=== PATIENT | male | born 1965 ===

== ENCOUNTER 2018-05-08 13:08 | Inpatient (IN) | payer MEDICARE, OTHER ==
--- NOTE | 2018-05-08 13:42 | C.PDOC ---
History Of Present Illness 53 y/o male with a PMHx of DM, HTN, HLD, and asthma, presents to the ED with complaints of epigastric pain radiating to bilateral back, worse on the right side, since last night. Pain is described as squeezing and intermittent, and r esolves spontaneously. He notes it worsens after eating. These episodes of pain are associated with some SOB and coughing. Patient reports having similar symptoms 2 months ago, went to [facility]. Patient also has had intermittent nausea and 3 episodes of non-bloody vomiting in the last 2 days. Otherwise he denies any fevers, chills, night sweats, dizziness, hemoptysis, bloody or dark stools. He also complains of generalized weakness and diaphoresis, had 1 episode of diarrhea this morning. No rashes. No recent abx. SOB does not feels like asthma per pt. Time Seen by Provider: 05/08/18 13:42 Chief Complaint (Nursing): Shortness Of Breath History Per: Patient History/Exam Limitations: no limitations Onset/Duration Of Symptoms: Days (x2), Intermittent Episodes Current Symptoms Are (Timing): Still Present Quality: Squeezing Past Medical History Reviewed: Historical Data, Nursing Documentation, Vital Signs - Medical History PMH: Asthma, Diabetes, HTN, Hyperlipidemia - [facility] Procedures INTRODUCTION OF SERUM/TOX/VACCINE INTO MUSCLE, PERC APPROACH (03/12/18) Family History: States: Unknown Family Hx - Social History Hx Alcohol Use: Yes Hx Substance Use: No - Immunization History Hx Tetanus Toxoid Vaccination: Yes Hx Influenza Vaccination: Yes Hx Pneumococcal Vaccination: Yes Review Of Systems Constitutional: Positive for: Weakness (generalized). Negative for: Fever, Chills, Sweats Cardiovascular: Positive for: Chest Pain ("tightness") Respiratory: Positive for: Cough, Shortness of Breath Gastrointestinal: Positive for: Nausea, Vomiting, Abdominal Pain (epigastric), Diarrhea. Negative for: Hematochezia, Hematemesis Neurological: Negative for: Headache, Dizziness Physical Exam - Physical Exam Appears: Non-toxic, No Acute Distress Skin: Warm, Dry Head: Normacephalic Eye(s): bilateral: Normal Inspection, PERRL, EOMI Oral Mucosa: Moist Neck: Trachea Midline, Supple, Other (No meningeal signs- negative kernig's and brudzinskis) Chest: Symmetrical Cardiovascular: Rhythm Regular, Other (no rub) Respiratory: No Rales, No Rhonchi, No Wheezing Gastrointestinal/Abdominal: Soft, Tenderness (diffusely TTP), No Guarding, No Rebound Back: CVA Tenderness (Bilateral), No Vertebral Tenderness Extremity: Right: Other (Right BKA), Bilateral: Normal Color And Temperature Pulses: Left Dorsalis Pedis: Normal Neurological/Psych: Oriented x3 ED Course And Treatment - Laboratory Results Result Diagrams: 05/08/18 14:10 05/08/18 14:10 O2 Sat by Pulse Oximetry: 96 (on RA) Pulse Ox Interpretation: Normal Medical Decision Making Medical Decision Making: Impression: 53 y/o M p/w abdominal pain radiating to the back, associated with shortness of breath and chest tightness, + N/V/D. No recent antibiotics. Elevated glucose. No appreciable kussumal breathing or distress on exam. ?Hyperosmolar vs DKA. Will CT given abdominal pain Initial Plan: --EKG --Chest x-ray --CMP --Lipase --Beta hydoxybutyrate --Magnesium --Troponin I --Pro-BNP --CBC --UA --IV fluids x 1 bolus 1520 No GAP on labs elevated glucose K unremarkable fluids running. insulin given. lipase unremarkable trop unremarkable pending imaging EK, NSR, no STEMI CT resulted: Grossly abnormal appearing pancreas and extensive pancreatitis with possible necrosis (at this time non gas-forming) needs to be considered. Peripancreatic inflammatory changes present. Pancreatic head and uncinate process spared. Additional concomitant pancreatic pathology including neoplastic pancreatic isodense mass(es) and ductal dilatation in this grossly abnormal segment are possible. No pancreatic calcifications. Continued close follow-up and clinical correlation with labs recommended. Contiguous hypodensity in superior mesenteric vein-thrombus here needs to be considered. No peripancreatic suspicious lymphadenopathy. Innumerable left and right liver masses infectious inflammatory masses and/or metastatic masses needed be considered. Pancreatic abnormality as noted above. Right pleural effusion. 16:57 Paged surgical garment inspector 17:30 resident care technician called back, pt has davin care and requires consult from on-call surgeon, Dr. Musa. 17:[address] Musa for surgical consult. 18:00 Awaiting call back from Dr. Musa. Second page. 18:27 Still pending call back. Third page. 18:[address] Musa, who requests patient be admitted under medical service. as well as RUQ and amylase 18:36 Non hyperosmolar on labs, Non DKA given no gap, normal bicarb: fluids continued. NPO Spoke with Dr. Emerson Valladares- to be admitted to Dr. Monae William service. Pt agreeable Pt in NAD bedside, resting comfortably Disposition - Disposition Disposition Time: 18:40 Condition: GOOD Forms: [employer] [employer] (Egyptian) - Clinical Impression Clinical Impression: Pancreatitis - Scribe Statement The provider has reviewed the documentation as recorded by the Shannon Hampton Provider Attestation: All medical record entries made by the Kaitlinibe were at my direction and personally dictated by me. I have reviewed the chart and agree that the record accurately reflects my personal performance of the history, physical exam, m edical decision making, and the department course for this patient. I have also personally directed, reviewed, and agree with the discharge instructions and disposition.
[2018-05-08 14:19] LABS: BASO % 0.6 % (0.0-2.0); EOS # 0.1 K/uL (0.0-0.7); EOS % 1.5 % (0.0-4.0); HEMOGLOBIN 12.5 g/dL (12.0-18.0); LYMPH # 1.2 K/uL (1.0-4.3); LYMPH % 18.1 % (20.0-40.0); MEAN CELL VOLUME 88.1 fL (80.0-94.0); MEAN CORPUSCULAR HEMOGLOBIN 29.3 pg (27.0-31.0); MEAN CORPUSCULAR HGB CONC 33.3 g/dL (33.0-37.0); MEAN PLATELET VOLUME 7.8 fL (7.2-11.7); MONO # 0.6 K/uL (0.0-0.8); MONO % 8.5 % (0.0-10.0); NEUT # 4.7 K/uL (1.8-7.0); NEUT % 71.3 % (50.0-75.0); RBC 4.25 Mil/uL (4.40-5.90); RED CELL DISTRIBUTION WIDTH 13.7 % (11.5-14.5); WHITE BLOOD COUNT 6.5 K/uL (4.8-10.8)
[2018-05-08 14:20] LABS: SQUAMOUS EPITHIAL < 1 /hpf (0-5); URINE BILIRUBIN NEGATIVE (NEGATIVE); URINE BLOOD 1+ (NEGATIVE); URINE CLARITY Clear (Clear); URINE COLOR Yellow (YELLOW); URINE GLUCOSE (UA) 3+ mg/dL (Normal); URINE LEUKOCYTE ESTERASE NEG Leu/uL (Negative); URINE PROTEIN 2+ mg/dL (NEGATIVE); URINE UROBILINOGEN NORMAL mg/dL (0.2-1.0)
[2018-05-08] MEDS ORDERED: Sodium Chloride 0.9% 1,000 ML IV SCH (14:30)
[2018-05-08] MEDS ORDERED: Sodium Chloride 0.9% 1,000 ML ONE (14:31)
[2018-05-08 14:34] LABS: CALCIUM 8.6 mg/dl (8.6-10.4)
[2018-05-08 14:44] LABS: B-TYPE NATRIURETIC PEPTIDE 155 pg/mL (0-900)
[2018-05-08 14:49] LABS: ALBUMIN 3.7 g/dL (3.5-5.0); ALT/SGPT 77 U/L (21-72); AST/SGOT 67 U/L (17-59); BLOOD UREA NITROGEN 16 mg/dL (9-20); GFR NON-AFRICAN AMERICAN > 60; LIPASE 195 U/L (23-300)
[2018-05-08] MEDS ORDERED: (Novolin R) Insulin Human Regular 100 units/ml vial IVP ONE (14:59)
[2018-05-08] MEDS ORDERED: (Novolin R) Insulin Human Regular 100 units/ml vial ONE (15:18)
[2018-05-08] MEDS: Sodium Chloride 0.9% 1,000 ML IV SCH ×2 (15:20→21:09)
[2018-05-08] MEDS ORDERED: Iohexol 300 100 ML IJ ONE (15:30)
[2018-05-08] MEDS ORDERED: Iodixanol 320 MG/ML 100 ML BOTTLE IV ONE (16:11)
--- NOTE | 2018-05-08 16:20 | RAD ---
Date of service: 05/08/2018 HISTORY: sob COMPARISON: No prior. TECHNIQUE: Chest PA and lateral FINDINGS: LUNGS: No active pulmonary disease. Linear scarring right lower lobe. PLEURA: No significant pleural effusion identified. No pneumothorax apparent. CARDIOVASCULAR: No aortic atherosclerotic calcification present. Normal cardiac size. No pulmonary vascular congestion. OSSEOUS STRUCTURES: No significant abnormalities. VISUALIZED UPPER ABDOMEN: Normal. OTHER FINDINGS: None. IMPRESSION: No active disease. Concordant results with the preliminary interpretation rendered by the emergency department physician procedure.
[2018-05-08] MEDS ORDERED: Morphine 4 MG/ML VIAL ONE (16:33)
--- NOTE | 2018-05-08 16:53 | CT ---
Date of service: 05/08/2018 PROCEDURE: CT Abdomen and Pelvis with contrast HISTORY: abd pain COMPARISON: None. TECHNIQUE: Contrast dose: 100 mL Visipaque 320 Radiation dose: Total exam DLP = 838.71 mGy-cm. This CT exam was performed using one or more of the following dose reduction techniques: Automated exposure control, adjustment of the mA and/or kV according to patient size, and/or use of iterative reconstruction technique. FINDINGS: LOWER THORAX: Right middle lobe subsegmental atelectasis. Bordering pleural thickening visceral and parietal. Right pleural effusion. Multifocal bibasilar low-density coalescing opacities-atelectatic changes and/or infiltrates with uneven areas of ventilation are considerations. Follow-up recommended. Lingular thread-like atelectasis and/or scarring. LIVER: Innumerable left and right liver hypodensities varying in size from a few mm to the largest measuring 2.6 to 3.7 cm in the right hepatic lobe just lateral to the patent right main portal vein. This largest lesion has an ill-defined thick rim of mild increased hyperdensity/possibly surrounding enhancement. Metastatic lesions as well as all abscesses considerations. No dilated ducts appreciated. GALLBLADDER AND BILE DUCTS: Unremarkable. PANCREAS: Nearly affecting the entire pancreas is diffuse abnormal pancreatic swelling extensive abnormal hypodensity with peripancreatic fat inflammatory changes. The pancreatic margins here or the regular. Relative sparing of the pancreatic head uncinate process noted. An extensive pancreatitis with possible necrosis is 1 consideration. No gas-forming necrosis here appreciated. A concomitant mass within this extensive diffuse abnormal only swollen and abnormally hypodense appearing pancreas also is consideration. A component of concomitant extensive nearly isodense dilated duct in portions of the pancreatic body and tail cannot be excluded. No calcifications here seen. Findings are in close proximity with gastric upper body. No suspect peripancreatic lymph nodes noted. Splenic artery appears patent with calcification as does the portal vein. Relative hypodensity in the superior mesenteric vein may represent contiguous thrombus here. SPLEEN: Unremarkable. ADRENALS: Unremarkable. No mass. KIDNEYS AND URETERS: Posterior right renal cortical exophytic cyst 2.4 cm. No suspicious appearing renal masses. No hydronephrosis. VASCULATURE: Splenic artery appears patent with calcification as does the portal vein. Relative hypodensity in the superior mesenteric vein may represent contiguous thrombus here. No aortic aneurysm. No aortic atherosclerotic calcification or mural plaque present. More distal common iliac and groin atherosclerotic vascular calcifications are present. BOWEL: Moderate stool retention. No obstruction. No gross mural thickening. APPENDIX: No pericecal inflammatory changes. A definitive appendix is not clearly identified it may be possibly present on series 2, image 52. PERITONEUM: Trace fluid just inferior to the right inferior liver border and a contiguous bowel loops ovaries axis series 2, image 47 possible. No free air. LYMPH NODES: Unremarkable. No enlarged lymph nodes. BLADDER: Moderately distended otherwise unremarkable REPRODUCTIVE: Prostate and seminal vesicles unremarkable BONES: No acute fracture. OTHER FINDINGS: None. IMPRESSION: Grossly abnormal appearing pancreas and extensive pancreatitis with possible necrosis (at this time non gas-forming) needs to be considered. Peripancreatic inflammatory changes present. Pancreatic head and uncinate process spared. Additional concomitant pancreatic pathology including neoplastic pancreatic isodense mass(es) and ductal dilatation in this grossly abnormal segment are possible. No pancreatic calcifications. Continued close follow-up and clinical correlation with labs recommended Contiguous hypodensity in superior mesenteric vein-thrombus here needs to be considered. No peripancreatic suspicious lymphadenopathy. Innumerable left and right liver masses infectious inflammatory masses and/or metastatic masses needed be considered. Pancreatic abnormality as noted above. Right pleural effusion. Comments: Study marked for PA review .
[2018-05-08] MEDS ORDERED: (Lantus) Insulin Glargine, Recombinant SC SCH (23:45)
[2018-05-08] MEDS ORDERED: Multivitamin (MVI) 10 ML, Thiamine 100 MG, Folic Acid 1 MG in Sodium Chloride 0.9% 1,00... IV ONE (23:52)
[2018-05-08] MEDS ORDERED: Glucagon Recombinant 1 mg Inj IM PRN (23:53)
[2018-05-08] MEDS ORDERED: Dextrose 50% SYRINGE Inj (50 ml) IV PRN (23:53)
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
[2018-05-09 07:00] LABS: BASO % 0.4 % (0.0-2.0); EOS # 0.2 K/uL (0.0-0.7); EOS % 2.4 % (0.0-4.0); HEMOGLOBIN 11.5 g/dL (12.0-18.0); LYMPH # 1.2 K/uL (1.0-4.3); LYMPH % 18.6 % (20.0-40.0); MEAN CORPUSCULAR HEMOGLOBIN 29.4 pg (27.0-31.0); MEAN CORPUSCULAR HGB CONC 34.1 g/dL (33.0-37.0); MEAN PLATELET VOLUME 7.6 fL (7.2-11.7); MONO # 0.6 K/uL (0.0-0.8); MONO % 9.7 % (0.0-10.0); NEUT # 4.4 K/uL (1.8-7.0); NEUT % 68.9 % (50.0-75.0); RBC 3.91 Mil/uL (4.40-5.90); RED CELL DISTRIBUTION WIDTH 13.7 % (11.5-14.5); WHITE BLOOD COUNT 6.4 K/uL (4.8-10.8)
[2018-05-09] MEDS ORDERED: Sodium Chloride 0.9% 1,000 ML IV SCH (07:00)
[2018-05-09] MEDS ORDERED: (Novolog) Insulin Aspart, Recombinant 100 u/ml 10 ml vial SC SCH (07:30)
[2018-05-09 07:31] LABS: ALB/GLOB RATIO 0.9 (1.0-2.1); ALBUMIN 3.1 g/dL (3.5-5.0); ALT/SGPT 62 U/L (21-72); AST/SGOT 51 U/L (17-59); BLOOD UREA NITROGEN 11 mg/dL (9-20); CALCIUM 8.2 mg/dl (8.6-10.4); GFR NON-AFRICAN AMERICAN > 60
[2018-05-09 07:39] LABS: MEAN CELL VOLUME 86.1 fL (80.0-94.0)
[2018-05-09 07:46] LABS: HEPATITIS B SURFACE AG Negative (NEGATIVE)
[2018-05-09 07:52] LABS: HEPATITIS A IGM NEGATIVE (NEGATIVE); HEPATITIS B CORE AB NEGATIVE (NEGATIVE)
[2018-05-09 08:04] LABS: HEPATITIS C ANTIBODY NEGATIVE (NEGATIVE)
--- NOTE | 2018-05-09 08:47 | US ---
Date of service: 05/08/2018 HISTORY: abd pain COMPARISON: None. TECHNIQUE: Sonographic evaluation of the right upper quadrant of the abdomen. FINDINGS: LIVER: Measures 19.6 cm in length. Diffusely increased echogenicity of the liver parenchyma. Consistent with fatty infiltration. Multiple hepatic masses are identified, the largest of which is in the right lobe, measuring 2.2 x 2.6 x 2.6 cm. Multiple additional smaller masses are identified. Concerning for metastatic disease. Additional evaluation advised. Normal hepatopetal portal venous flow. Smooth contour. No biliary dilatation. GALLBLADDER: Unremarkable. No gallstones. COMMON BILE DUCT: Measures 6 mm. No stones. No dilatation. PANCREAS: Unremarkable as visualized. No mass. No ductal dilatation. RIGHT KIDNEY: Measures 12.1 cm in length. Normal echogenicity. No calculus or hydronephrosis. Upper pole simple cortical cyst, 1.7 x 2.1 x 2.1 cm. AORTA: No aneurysmal dilatation. IVC: Unremarkable. OTHER FINDINGS: None . IMPRESSION: Multiple hepatic masses concerning for metastasis. Additional evaluation advised. Fatty infiltration of the liver. Incidental right upper pole renal cortical cyst. The preliminary findings for this examination were reported by [facility] at 9:50 p.m. on 05/08/2018. There is concurrence of this report with the preliminary findings.
--- NOTE | 2018-05-09 09:40 | CP.PCM.PN ---
<Obie Muller - Last Filed: 05/09/18 16:55> Subjective - Date & Time of Evaluation Date of Evaluation: 05/09/18 Time of Evaluation: 07:39 - Subjective Subjective: PGY-1 Medicine progress note for Dr. Hayley Valladares Pt was seen and examined at bedside. Pt is resting comfortably. He reports that he is hungry, but still has epigastric abdominal pain. Pt denies fever, chills, chest pain, sob, n/v/d, hematochezia, melena, visual disturbances, lightheadedness, headache, dizziness, weakness. Objective - Vital Signs/Intake and Output Vital Signs (last 24 hours): Temp Pulse Resp BP Pulse Ox 98.6 F 88 18 154/85 H 97 05/09/18 07:00 05/09/18 07:00 05/09/18 07:00 05/09/18 07:00 05/09/18 07:00 Intake and Output: 05/09/18 05/09/18 06:59 18:59 Intake Total 1400 Output Total 700 Balance 700 - Medications Medications: Current Medications Dextrose (Dextrose 50% Inj) 0 ml IV STAT PRN; Protocol PRN Reason: Hypoglycemia Protocol Dextrose (Glutose 15) 0 gm PO ONCE PRN; Protocol PRN Reason: Hypoglycemia Protocol Glucagon (Glucagen Diagnostic Kit) 0 mg IM STAT PRN; Protocol PRN Reason: Hypoglycemia Protocol Dextrose (Dextrose 5% In Water 1000 Ml) 1,000 mls @ 0 mls/hr IV .Q0M PRN; Protocol PRN Reason: Hypoglycemia Protocol Sodium Chloride (Sodium Chloride 0.9%) 1,000 mls @ 150 mls/hr IV .Q6H40M CARL Last Admin: 05/09/18 07:23 Dose: 150 mls/hr Insulin Aspart (Novolog) 0 unit SC ACHS CARL; Protocol Last Admin: 05/09/18 08:09 Dose: 3 units Insulin Glargine (Lantus) 20 unit SC HS [facility] Last Admin: 05/09/18 00:18 Dose: 20 units Losartan Potassium (Cozaar) 50 mg PO DAILY CARL Morphine Sulfate (Morphine) 1 mg IVP Q4 PRN PRN Reason: Pain, moderate (4-7) Last Admin: 05/09/18 07:28 Dose: 1 mg - Labs Labs: 05/09/18 06:51 05/09/18 06:51 - Constitutional Appears: Non-toxic, No Acute Distress - Head Exam Head Exam: ATRAUMATIC, NORMAL INSPECTION - Eye Exam Eye Exam: EOMI - ENT Exam ENT Exam: Mucous Membranes Moist - Respiratory Exam Respiratory Exam: Clear to Ausculation Bilateral. absent: Rales, Rhonchi, Wheezes, Respiratory Distress, Stridor - Cardiovascular Exam Cardiovascular Exam: REGULAR RHYTHM, +S1, +S2. absent: Tachycardia, JVD, Murmur - GI/Abdominal Exam GI & Abdominal Exam: Distended, Guarding, Soft, Tenderness (moderate TTP in the upper quadrants of the abdomen, more so in the epigrastric region. (-) masterson's sign; some alleviation of pain after leaning forward), Normal Bowel Sounds. absent: Firm, Rigid - Extremities Exam Extremities Exam: Full ROM, Normal Inspection. absent: Calf Tenderness, Pedal Edema - Back Exam Back Exam: NORMAL INSPECTION - Neurological Exam Neurological Exam: Alert, Awake, Oriented x3 - Psychiatric Exam Psychiatric exam: Normal Affect, Normal Mood - Skin Skin Exam: Normal Color, Warm Assessment and Plan - Assessment and Plan (Free Text) Assessment: 53yoM PMH HTN, HLD, DM, pancreatitis who presented with [place] and epigastric abdomnial pain, radiating to the back. Abd/Pelv Ct showed necrotizing pancreatitis, nongas-forming, with suspician for SMV thrombus, as well as innumerable liver masses. Vascular surgery was consulted for necrotizing pancreatitis and possible SMV thrombus. GI was consulted for necrotizing pancreatitis. Heme/Onc was consulted due to liver masses, possible mets. Plan: Pancreatitis with Necrosis - CT A/P with IV contrast (05/08): grossly abnormal appearing pancreas with extensive pancreatitis and necrosis. At time of imaging, non-gas forming. Contiguous hypodensity in SMV; thrombus must be considered. Innumerable liver masses. Right pleural effusion - US Abd (05/08): Multiple hepatic masses. Fatty infiltrate. Incidental right upper pole renal cortical cyst. - AST/ALT 67/77 on admission, Alk Phos 438 - Trop neg, ProBNP 155 - amylase 67, lipase 195 - UA 2+ protein, 3+ glucose, 1+ blood - Hepatitis panel is negative, PK is 50 - Continue NS IVF at 200 mL/hr - Morphine 1mg IVP q4 prn - Vascular Surgery consulted: Dr. Musa - No need for surgical intervention at time of admission - Heme/Onc consult and IR consult for CT guided biopsy of liver and pancreas - Abd/Pelv CT results were reviewed with Dr. Musa, who reports no need for Abd/Pelv CTA or intervention for possible SMV thrombus at this time. - Hematology/Oncolgy, Dr. Rangel, consulted due to liver masses - will f/u with recs - Interventional radiology, Dr. Wetzle, consulted for CT-guided biopsy of liver m asses and possibly pancreatic biopsy - Gastroenterology, Dr. Montelongo, consulted - Possible sterile necrosis within pancreas. Cannot exclude pancreatic mass. - Liver lesions are hypodense and worrisome for metastatic disease - F/U CT angio for ?SMV thrombus - Continue Lovenox - IR has been consulted for possible liver biopsy - F/u tumor markers - Patient would benefit from dedicated pancreatic imaging following resolution of acute inflammatory process - No clear for antibiotic therapy for pancreatic necrosis. Necrosis is likely sterile. No obvious signs of infection at this time. - would benefit from dedicated pancreatic imaging following resolution of acute inflammatory process - Continue aggressive IVF - Elevated tumor markers: CA 19-9 is over 10,000, CEA is 251, CEA 125 is 203 - F/u Alpha fetoprotein - continue NPO - Primaxin discontinued Possible SMV thrombus, r/o ischemia - Abd/Pelv with IV contrast CT shows contiguous hypodensity of SMV, thrombus must be considered - f/u Abd/pelv CTA to r/o ischemia - Therapeutic Lovenox 80 mg SC Q12H Left and right liver masses, possible infection vs mets - Gastroenterology consulted, Dr. Montelongo - see above - Hematology/Oncolgy, Dr. Rangel, consulted - will f/u with recs Right pleural effusion noted on Abd/Pelv CT - CXR (05/08): no active disease - will continue to monitor - pt is hemodynamically stable HTN - Continue home Losartan 50 mg PO daily Insulin Dependant Diabetes Mellitus - BG 611 on admission. came down as hydrated - beta Hydroxy 0.41 - HgA1c is 13.5 - Levemir 20u sc HS - Accuchecks q6h - ISS medium - hypoglycemia protocol Pseudo Hyponatremia, resolved - will continue to monitor PPx - DVT: SCDs, ot is on therapeutic lovenox for possible SMV thrombus - GI: not indicated - Diet: NPO Case discussed with Dr. Hayley Muller PGY-1 <Emerson Valladares - Last Filed: 05/10/18 00:49> Objective - Vital Signs/Intake and Output Vital Signs (last 24 hours): Temp Pulse Resp BP Pulse Ox 98.4 F 88 20 144/87 97 05/09/18 15:31 05/09/18 15:31 05/09/18 15:31 05/09/18 15:31 05/09/18 15:31 Intake and Output: 05/09/18 05/10/18 18:59 06:59 Intake Total 1050 Output Total 300 Balance -300 1050 - Medications Medications: Current Medications Dextrose (Dextrose 50% Inj) 0 ml IV STAT PRN; Protocol PRN Reason: Hypoglycemia Protocol Dextrose (Glutose 15) 0 gm PO ONCE PRN; Protocol PRN Reason: Hypoglycemia Protocol Enoxaparin Sodium (Lovenox) 80 mg SC Q12H CARL Last Admin: 05/09/18 21:40 Dose: 80 mg Glucagon (Glucagen Diagnostic Kit) 0 mg IM STAT PRN; Protocol PRN Reason: Hypoglycemia Protocol Dextrose (Dextrose 5% In Water 1000 Ml) 1,000 mls @ 0 mls/hr IV .Q0M PRN; Protocol PRN Reason: Hypoglycemia Protocol Sodium Chloride (Sodium Chloride 0.9%) 1,000 mls @ 200 mls/hr IV .Q5H ACRL Last Admin: 05/09/18 16:09 Dose: 200 mls/hr Insulin Aspart (Novolog) 0 unit SC Q6H CARL; Protocol Last Admin: 05/10/18 00:01 Dose: Not Given Losartan Potassium (Cozaar) 50 mg PO DAILY CARL Last Admin: 05/09/18 10:27 Dose: 50 mg Morphine Sulfate (Morphine) 1 mg IVP Q4 PRN PRN Reason: Pain, moderate (4-7) Last Admin: 05/09/18 22:08 Dose: 1 mg Rosuvastatin Calcium (Crestor) 5 mg PO HS CARL Last Admin: 05/09/18 21:06 Dose: 5 mg - Labs Labs: 05/09/18 06:51 05/09/18 06:51 Attending/Attestation - Attestation I have personally seen and examined this patient.: Yes I have fully participated in the care of the patient.: Yes I have reviewed all pertinent clinical information, including history, physical exam and plan: Yes Notes (Text): 05/10/18 00:45 Patient was seen and examined at 10:45 AM 05/09/18. Care of this patient was gone over in detail with resident Dr. Muller. CTA Abdomen Pelvis did not show any evidence of occlusion or stenosis, NO AAA, NO aortic dissection. However did show large area of hypoattenuation involving the pancreatic body suspicious for mass lesion. At time of exam, patient was informed of the suspicious nature of the lesions in the liver and the need for biopsy. IR has been consulted for FNA biopsy of both the liver lesions and the pancreas. However, only the liver lesions will likely be biopsied. Emerson Valladares D.O.
[2018-05-09] MEDS: Sodium Chloride 0.9% 1,000 ML IV SCH ×2 (10:31→16:09)
[2018-05-09] MEDS ORDERED: Enoxaparin 60 mg Syringe SC SCH (10:45)
--- NOTE | 2018-05-09 11:57 | CP.PCM.CON ---
<MarilynmaximusharjitLouie - Last Filed: 05/09/18 13:35> History of Present Illness - History of Present Illness History of Present Illness: GI Fellow PGY4, consult note. Abner Alvarado is a pleasant 53M with history of uncontrolled T2DM, alcoholic pancreatitis presenting with abdominal pain. Pain started after smoking cigarettes and drinking TWO 6-packs of Heineken. The pain has progressively worsening until it was very severe yesterday which brought him to the hospital. He was found to have pancreatitis with necrosis on CT imaging. He was in [place] 1 month ago with alcoholic pancreatitis. CT also found possible SMV thrombus, multiple liver lesions consistent with possible metastatic disease. He admits some weight loss in the last few months along with bed-drenching night sweats, however he cannot quantify weight loss. Today, patient is sitting up, appears comfortable, requesting food. Afebrile, HDS. He has been started on empiric abx and therapeutic Lovenox. PMHx - As above PSHx - LE amputation due to diabetic feet. NO endoscopic procedures. FMHx - Denies history of pancreatic, colon, gastric, liver cancers. Denies history of pancreas or liver problems. SocHx - Continues to abuse alcohol and current smoker. Lives at home alone, not . 12pt ROS completed and negative except for above. Past Patient History - Infectious Disease Hx of Infectious Diseases: None - Past Medical History & Family History Past Medical History?: Yes - Past Social History Smoking Status: Current Some Days Smoker Alcohol: Social Drugs: Denies - CARDIAC Hx Cardiac Disorders: Yes Hx Hypertension: Yes - PULMONARY Hx Respiratory Disorders: Yes Hx Asthma: Yes - ENDOCRINE/METABOLIC Hx Endocrine Disorders: Yes Hx Diabetes Mellitus Type 1: Yes - MUSCULOSKELETAL/RHEUMATOLOGICAL Hx Musculoskeletal Disorders: No Hx Falls: No - PSYCHIATRIC Hx Psychophysiologic Disorder: No Hx Substance Use: No - SURGICAL HISTORY Hx Surgeries: Yes Hx Amputation: Yes (Right BKA, Left TMA) Other/Comment: RBKA, left toes amputation - ANESTHESIA Hx Anesthesia: Yes Hx Anesthesia Reactions: No Meds Allergies/Adverse Reactions: Allergies Allergy/AdvReac Type Severity Reaction Status Date / Time FISH Allergy RASH Verified 03/12/18 16:06 hazelnut Allergy RASH Verified 03/12/18 16:06 - Medications Medications: Current Medications Dextrose (Dextrose 50% Inj) 0 ml IV STAT PRN; Protocol PRN Reason: Hypoglycemia Protocol Dextrose (Glutose 15) 0 gm PO ONCE PRN; Protocol PRN Reason: Hypoglycemia Protocol Enoxaparin Sodium (Lovenox) 60 mg SC Q12 CARL Last Admin: 05/09/18 11:25 Dose: 60 mg Glucagon (Glucagen Diagnostic Kit) 0 mg IM STAT PRN; Protocol PRN Reason: Hypoglycemia Protocol Dextrose (Dextrose 5% In Water 1000 Ml) 1,000 mls @ 0 mls/hr IV .Q0M PRN; Protocol PRN Reason: Hypoglycemia Protocol Imipenem/Cilastatin Sodium 500 (mg/ Sodium Chloride) 100 mls @ 100 mls/hr IVPB Q6H CARL; Protocol Sodium Chloride (Sodium Chloride 0.9%) 1,000 mls @ 200 mls/hr IV .Q5H CARL Last Admin: 05/09/18 10:31 Dose: 200 mls/hr Insulin Aspart (Novolog) 0 unit SC Q6H CARL; Protocol Losartan Potassium (Cozaar) 50 mg PO DAILY [facility] Last Admin: 05/09/18 10:27 Dose: 50 mg Morphine Sulfate (Morphine) 1 mg IVP Q4 PRN PRN Reason: Pain, moderate (4-7) Last Admin: 05/09/18 07:28 Dose: 1 mg Rosuvastatin Calcium (Crestor) 5 mg PO HS [facility] Physical Exam - Constitutional Appears: Non-toxic, No Acute Distress - Head Exam Head Exam: NORMAL INSPECTION, NORMOCEPHALIC - Eye Exam Eye Exam: EOMI, Normal appearance - ENT Exam ENT Exam: Mucous Membranes Moist, Normal Exam - Respiratory Exam Respiratory Exam: Clear to Auscultation Bilateral, NORMAL BREATHING PATTERN Additional comments: Crackles right lung base. - Cardiovascular Exam Cardiovascular Exam: REGULAR RHYTHM, +S1, +S2 - GI/Abdominal Exam GI & Abdominal Exam: Normal Bowel Sounds, Soft, Tenderness. absent: Organomegaly - Neurological Exam Neurological exam: Alert, CN II-XII Intact, Oriented x3 - Skin Skin Exam: Dry, Normal Color Results - Vital Signs Recent Vital Signs: Last Vital Signs Temp 98.6 F 05/09/18 07:00 Pulse 88 05/09/18 07:00 Resp 18 05/09/18 07:00 BP 154/85 H 05/09/18 07:00 Pulse Ox 97 05/09/18 07:00 - Labs Result Diagrams: 05/09/18 06:51 05/09/18 06:51 Labs: Laboratory Results - last 24 hr 05/08/18 05/08/18 05/08/18 13:29 13:33 14:10 WBC 6.5 RBC 4.25 L Hgb 12.5 Hct 37.4 MCV 88.1 MCH 29.3 MCHC 33.3 RDW 13.7 Plt Count 225 MPV 7.8 Neut % (Auto) 71.3 Lymph % (Auto) 18.1 L Bibb % (Auto) 8.5 Eos % (Auto) 1.5 Baso % (Auto) 0.6 Neut # (Auto) 4.7 Lymph # (Auto) 1.2 Bibb # (Auto) 0.6 Eos # (Auto) 0.1 Baso # (Auto) 0.0 Sodium Potassium Chloride Carbon Dioxide Anion Gap BUN Creatinine Est GFR ( Amer) Est GFR (Non-Af Amer) POC Glucose (mg/dL) > 500 H* > 500 H* Random Glucose Hemoglobin A1c Serum Osmolality Calcium Phosphorus Magnesium Total Bilirubin AST ALT Alkaline Phosphatase Total Creatine Kinase Troponin I NT-Pro-B Natriuret Pep Total Protein Albumin Globulin Albumin/Globulin Ratio Amylase Lipase Urine Color Urine Clarity Urine pH Ur Specific [place] Urine Protein Urine Glucose (UA) Urine Ketones Urine Blood Urine Nitrate Urine Bilirubin Urine Urobilinogen Ur Leukocyte Esterase Urine WBC (Auto) Urine RBC (Auto) Ur Squamous Epith Cells B-Hydroxybutyrate Hepatitis A IgM Ab Hep Bs Antigen Hep Bs Antibody Hep B Core IgM Ab Hepatitis C Antibody 05/08/18 05/08/18 05/08/18 14:10 14:10 16:32 WBC RBC Hgb Hct MCV MCH MCHC RDW Plt Count MPV Neut % (Auto) Lymph % (Auto) Bibb % (Auto) Eos % (Auto) Baso % (Auto) Neut # (Auto) Lymph # (Auto) Bibb # (Auto) Eos # (Auto) Baso # (Auto) Sodium 128 L Potassium 4.7 Chloride 93 L Carbon Dioxide 25 Anion Gap 15 BUN 16 Creatinine 0.8 Est GFR ( Amer) > 60 Est GFR (Non-Af Amer) > 60 POC Glucose (mg/dL) 355 H Random Glucose 611 H* Hemoglobin A1c Serum Osmolality Calcium 8.6 Phosphorus Magnesium 1.9 Total Bilirubin 0.9 AST 67 H D ALT 77 H Alkaline Phosphatase 438 H D Total Creatine Kinase Troponin I < 0.0120 NT-Pro-B Natriuret Pep 155 Total Protein 7.3 Albumin 3.7 Globulin 3.6 Albumin/Globulin Ratio 1.0 Amylase Lipase 195 Urine Color Yellow Urine Clarity Clear Urine pH 7.0 Ur Specific [place] 1.030 Urine Protein 2+ H Urine Glucose (UA) 3+ H Urine Ketones Negative Urine Blood 1+ H Urine Nitrate Negative Urine Bilirubin Negative Urine Urobilinogen Normal Ur Leukocyte Esterase Neg Urine WBC (Auto) 1 Urine RBC (Auto) 4 H Ur Squamous Epith Cells < 1 B-Hydroxybutyrate 0.41 H Hepatitis A IgM Ab Hep Bs Antigen Hep Bs Antibody Hep B Core IgM Ab Hepatitis C Antibody 05/08/18 05/08/18 05/08/18 16:44 18:22 18:49 WBC RBC Hgb Hct MCV MCH MCHC RDW Plt Count MPV Neut % (Auto) Lymph % (Auto) Bibb % (Auto) Eos % (Auto) Baso % (Auto) Neut # (Auto) Lymph # (Auto) Bibb # (Auto) Eos # (Auto) Baso # (Auto) Sodium Potassium Chloride Carbon Dioxide Anion Gap BUN Creatinine Est GFR ( Amer) Est GFR (Non-Af Amer) POC Glucose (mg/dL) 310 H Random Glucose Hemoglobin A1c Serum Osmolality 314 H Calcium Phosphorus Magnesium Total Bilirubin AST ALT Alkaline Phosphatase Total Creatine Kinase Troponin I NT-Pro-B Natriuret Pep Total Protein Albumin Globulin Albumin/Globulin Ratio Amylase 67 Lipase Urine Color Urine Clarity Urine pH Ur Specific [place] Urine Protein Urine Glucose (UA) Urine Ketones Urine Blood Urine Nitrate Urine Bilirubin Urine Urobilinogen Ur Leukocyte Esterase Urine WBC (Auto) Urine RBC (Auto) Ur Squamous Epith Cells B-Hydroxybutyrate Hepatitis A IgM Ab Hep Bs Antigen Hep Bs Antibody Hep B Core IgM Ab Hepatitis C Antibody 05/09/18 05/09/18 05/09/18 03:35 06:23 06:51 WBC 6.4 RBC 3.91 L Hgb 11.5 L Hct 33.6 L MCV 86.1 D MCH 29.4 MCHC 34.1 RDW 13.7 Plt Count 200 MPV 7.6 Neut % (Auto) 68.9 Lymph % (Auto) 18.6 L Bibb % (Auto) 9.7 Eos % (Auto) 2.4 Baso % (Auto) 0.4 Neut # (Auto) 4.4 Lymph # (Auto) 1.2 Bibb # (Auto) 0.6 Eos # (Auto) 0.2 Baso # (Auto) 0.0 Sodium Potassium Chloride Carbon Dioxide Anion Gap BUN Creatinine Est GFR ( Amer) Est GFR (Non-Af Amer) POC Glucose (mg/dL) 243 H 209 H Random Glucose Hemoglobin A1c Serum Osmolality Calcium Phosphorus Magnesium Total Bilirubin AST ALT Alkaline Phosphatase Total Creatine Kinase Troponin I NT-Pro-B Natriuret Pep Total Protein Albumin Globulin Albumin/Globulin Ratio Amylase Lipase Urine Color Urine Clarity Urine pH Ur Specific [place] Urine Protein Urine Glucose (UA) Urine Ketones Urine Blood Urine Nitrate Urine Bilirubin Urine Urobilinogen Ur Leukocyte Esterase Urine WBC (Auto) Urine RBC (Auto) Ur Squamous Epith Cells B-Hydroxybutyrate Hepatitis A IgM Ab Hep Bs Antigen Hep Bs Antibody Hep B Core IgM Ab Hepatitis C Antibody 05/09/18 05/09/18 05/09/18 06:51 06:51 06:51 WBC RBC Hgb Hct MCV MCH MCHC RDW Plt Count MPV Neut % (Auto) Lymph % (Auto) Bibb % (Auto) Eos % (Auto) Baso % (Auto) Neut # (Auto) Lymph # (Auto) Bibb # (Auto) Eos # (Auto) Baso # (Auto) Sodium 133 Potassium 3.8 Chloride 99 Carbon Dioxide 25 Anion Gap 12 BUN 11 Creatinine 0.7 L Est GFR ( Amer) > 60 Est GFR (Non-Af Amer) > 60 POC Glucose (mg/dL) Random Glucose 236 H Hemoglobin A1c 13.5 H Serum Osmolality Calcium 8.2 L Phosphorus 3.1 Magnesium 1.7 Total Bilirubin 0.9 AST 51 ALT 62 Alkaline Phosphatase 298 H D Total Creatine Kinase 50 L Troponin I NT-Pro-B Natriuret Pep Total Protein 6.4 Albumin 3.1 L Globulin 3.3 Albumin/Globulin Ratio 0.9 L Amylase Lipase Urine Color Urine Clarity Urine pH Ur Specific [place] Urine Protein Urine Glucose (UA) Urine Ketones Urine Blood Urine Nitrate Urine Bilirubin Urine Urobilinogen Ur Leukocyte Esterase Urine WBC (Auto) Urine RBC (Auto) Ur Squamous Epith Cells B-Hydroxybutyrate Hepatitis A IgM Ab Negative Hep Bs Antigen Negative Hep Bs Antibody Hep B Core IgM Ab Negative Hepatitis C Antibody Negative 05/09/18 06:51 WBC RBC Hgb Hct MCV MCH MCHC RDW Plt Count MPV Neut % (Auto) Lymph % (Auto) Bibb % (Auto) Eos % (Auto) Baso % (Auto) Neut # (Auto) Lymph # (Auto) Bibb # (Auto) Eos # (Auto) Baso # (Auto) Sodium Potassium Chloride Carbon Dioxide Anion Gap BUN Creatinine Est GFR ( Amer) Est GFR (Non-Af Amer) POC Glucose (mg/dL) Random Glucose Hemoglobin A1c Serum Osmolality Calcium Phosphorus Magnesium Total Bilirubin AST ALT Alkaline Phosphatase Total Creatine Kinase Troponin I NT-Pro-B Natriuret Pep Total Protein Albumin Globulin Albumin/Globulin Ratio Amylase Lipase Urine Color Urine Clarity Urine pH Ur Specific [place] Urine Protein Urine Glucose (UA) Urine Ketones Urine Blood Urine Nitrate Urine Bilirubin Urine Urobilinogen Ur Leukocyte Esterase Urine WBC (Auto) Urine RBC (Auto) Ur Squamous Epith Cells B-Hydroxybutyrate Hepatitis A IgM Ab Hep Bs Antigen Hep Bs Antibody Negative Hep B Core IgM Ab Hepatitis C Antibody Assessment & Plan - Assessment and Plan (Free Text) Assessment: #Acute recurrent pancreatitis, complicated #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 Cannot exclude pancreatic mass. - Liver lesions are hypodense and worrisome for metastatic disease - F/U CT angio for ?SMV thrombus - Continue Lovenox - IR has been consulted for possible liver biopsy - F/u tumor markers - No indication for antibiotic therapy for pancreatic necrosis. Necrosis is likely sterile. No obvious signs of infection at this time. - Advised patient to avoid alcohol and cigarettes which are both risk factors for pancreatitis. - Continue NPO. Reassess tomorrow. - Continue aggressive IVF. BUN/Hct trending down. - Date & Time Date: 05/09/18 Time: 11:58 <Itz Montelongo Y - Last Filed: 05/09/18 13:48> Meds - Medications Medications: Current Medications Dextrose (Dextrose 50% Inj) 0 ml IV STAT PRN; Protocol PRN Reason: Hypoglycemia Protocol Dextrose (Glutose 15) 0 gm PO ONCE PRN; Protocol PRN Reason: Hypoglycemia Protocol Enoxaparin Sodium (Lovenox) 60 mg SC Q12 CARL Last Admin: 05/09/18 11:25 Dose: 60 mg Glucagon (Glucagen Diagnostic Kit) 0 mg IM STAT PRN; Protocol PRN Reason: Hypoglycemia Protocol Dextrose (Dextrose 5% In Water 1000 Ml) 1,000 mls @ 0 mls/hr IV .Q0M PRN; Protocol PRN Reason: Hypoglycemia Protocol Imipenem/Cilastatin Sodium 500 (mg/ Sodium Chloride) 100 mls @ 100 mls/hr IVPB Q6H CARL; Protocol Last Admin: 05/09/18 12:00 Dose: 100 mls/hr Sodium Chloride (Sodium Chloride 0.9%) 1,000 mls @ 200 mls/hr IV .Q5H CARL Last Admin: 05/09/18 10:31 Dose: 200 mls/hr Insulin Aspart (Novolog) 0 unit SC Q6H CARL; Protocol Last Admin: 05/09/18 12:00 Dose: 2 units Losartan Potassium (Cozaar) 50 mg PO DAILY [facility] Last Admin: 05/09/18 10:27 Dose: 50 mg Morphine Sulfate (Morphine) 1 mg IVP Q4 PRN PRN Reason: Pain, moderate (4-7) Last Admin: 05/09/18 13:20 Dose: 1 mg Rosuvastatin Calcium (Crestor) 5 mg PO [facility] Results - Vital Signs Recent Vital Signs: Last Vital Signs Temp 98.6 F 05/09/18 07:00 Pulse 88 05/09/18 07:00 Resp 18 05/09/18 07:00 BP 154/85 H 05/09/18 07:00 Pulse Ox 97 05/09/18 07:00 - Labs Result Diagrams: 05/09/18 06:51 05/09/18 06:51 Labs: Laboratory Results - last 24 hr 05/08/18 05/08/18 05/08/18 14:10 14:10 14:10 WBC 6.5 RBC 4.25 L Hgb 12.5 Hct 37.4 MCV 88.1 MCH 29.3 MCHC 33.3 RDW 13.7 Plt Count 225 MPV 7.8 Neut % (Auto) 71.3 Lymph % (Auto) 18.1 L Bibb % (Auto) 8.5 Eos % (Auto) 1.5 Baso % (Auto) 0.6 Neut # (Auto) 4.7 Lymph # (Auto) 1.2 Bibb # (Auto) 0.6 Eos # (Auto) 0.1 Baso # (Auto) 0.0 Sodium 128 L Potassium 4.7 Chloride 93 L Carbon Dioxide 25 Anion Gap 15 BUN 16 Creatinine 0.8 Est GFR ( Amer) > 60 Est GFR (Non-Af Amer) > 60 POC Glucose (mg/dL) Random Glucose 611 H* Hemoglobin A1c Serum Osmolality Calcium 8.6 Phosphorus Magnesium 1.9 Total Bilirubin 0.9 AST 67 H D ALT 77 H Alkaline Phosphatase 438 H D Total Creatine Kinase Troponin I < 0.0120 NT-Pro-B Natriuret Pep 155 Total Protein 7.3 Albumin 3.7 Globulin 3.6 Albumin/Globulin Ratio 1.0 Amylase Lipase 195 Urine Color Yellow Urine Clarity Clear Urine pH 7.0 Ur Specific [place] 1.030 Urine Protein 2+ H Urine Glucose (UA) 3+ H Urine Ketones Negative Urine Blood 1+ H Urine Nitrate Negative Urine Bilirubin Negative Urine Urobilinogen Normal Ur Leukocyte Esterase Neg Urine WBC (Auto) 1 Urine RBC (Auto) 4 H Ur Squamous Epith Cells < 1 B-Hydroxybutyrate 0.41 H Hepatitis A IgM Ab Hep Bs Antigen Hep Bs Antibody Hep B Core IgM Ab Hepatitis C Antibody 05/08/18 05/08/18 05/08/18 16:32 16:44 18:22 WBC RBC Hgb Hct MCV MCH MCHC RDW Plt Count MPV Neut % (Auto) Lymph % (Auto) Bibb % (Auto) Eos % (Auto) Baso % (Auto) Neut # (Auto) Lymph # (Auto) Bibb # (Auto) Eos # (Auto) Baso # (Auto) Sodium Potassium Chloride Carbon Dioxide Anion Gap BUN Creatinine Est GFR ( Amer) Est GFR (Non-Af Amer) POC Glucose (mg/dL) 355 H 310 H Random Glucose Hemoglobin A1c Serum Osmolality 314 H Calcium Phosphorus Magnesium Total Bilirubin AST ALT Alkaline Phosphatase Total Creatine Kinase Troponin I NT-Pro-B Natriuret Pep Total Protein Albumin Globulin Albumin/Globulin Ratio Amylase Lipase Urine Color Urine Clarity Urine pH Ur Specific [place] Urine Protein Urine Glucose (UA) Urine Ketones Urine Blood Urine Nitrate Urine Bilirubin Urine Urobilinogen Ur Leukocyte Esterase Urine WBC (Auto) Urine RBC (Auto) Ur Squamous Epith Cells B-Hydroxybutyrate Hepatitis A IgM Ab Hep Bs Antigen Hep Bs Antibody Hep B Core IgM Ab Hepatitis C Antibody 05/08/18 05/09/18 05/09/18 18:49 03:35 06:23 WBC RBC Hgb Hct MCV MCH MCHC RDW Plt Count MPV Neut % (Auto) Lymph % (Auto) Bibb % (Auto) Eos % (Auto) Baso % (Auto) Neut # (Auto) Lymph # (Auto) Bibb # (Auto) Eos # (Auto) Baso # (Auto) Sodium Potassium Chloride Carbon Dioxide Anion Gap BUN Creatinine Est GFR ( Amer) Est GFR (Non-Af Amer) POC Glucose (mg/dL) 243 H 209 H Random Glucose Hemoglobin A1c Serum Osmolality Calcium Phosphorus Magnesium Total Bilirubin AST ALT Alkaline Phosphatase Total Creatine Kinase Troponin I NT-Pro-B Natriuret Pep Total Protein Albumin Globulin Albumin/Globulin Ratio Amylase 67 Lipase Urine Color Urine Clarity Urine pH Ur Specific [place] Urine Protein Urine Glucose (UA) Urine Ketones Urine Blood Urine Nitrate Urine Bilirubin Urine Urobilinogen Ur Leukocyte Esterase Urine WBC (Auto) Urine RBC (Auto) Ur Squamous Epith Cells B-Hydroxybutyrate Hepatitis A IgM Ab Hep Bs Antigen Hep Bs Antibody Hep B Core IgM Ab Hepatitis C Antibody 05/09/18 05/09/18 05/09/18 06:51 06:51 06:51 WBC 6.4 RBC 3.91 L Hgb 11.5 L Hct 33.6 L MCV 86.1 D MCH 29.4 MCHC 34.1 RDW 13.7 Plt Count 200 MPV 7.6 Neut % (Auto) 68.9 Lymph % (Auto) 18.6 L Bibb % (Auto) 9.7 Eos % (Auto) 2.4 Baso % (Auto) 0.4 Neut # (Auto) 4.4 Lymph # (Auto) 1.2 Bibb # (Auto) 0.6 Eos # (Auto) 0.2 Baso # (Auto) 0.0 Sodium 133 Potassium 3.8 Chloride 99 Carbon Dioxide 25 Anion Gap 12 BUN 11 Creatinine 0.7 L Est GFR ( Amer) > 60 Est GFR (Non-Af Amer) > 60 POC Glucose (mg/dL) Random Glucose 236 H Hemoglobin A1c 13.5 H Serum Osmolality Calcium 8.2 L Phosphorus 3.1 Magnesium 1.7 Total Bilirubin 0.9 AST 51 ALT 62 Alkaline Phosphatase 298 H D Total Creatine Kinase 50 L Troponin I NT-Pro-B Natriuret Pep Total Protein 6.4 Albumin 3.1 L Globulin 3.3 Albumin/Globulin Ratio 0.9 L Amylase Lipase Urine Color Urine Clarity Urine pH Ur Specific [place] Urine Protein Urine Glucose (UA) Urine Ketones Urine Blood Urine Nitrate Urine Bilirubin Urine Urobilinogen Ur Leukocyte Esterase Urine WBC (Auto) Urine RBC (Auto) Ur Squamous Epith Cells B-Hydroxybutyrate Hepatitis A IgM Ab Hep Bs Antigen Hep Bs Antibody Hep B Core IgM Ab Hepatitis C Antibody 05/09/18 05/09/18 06:51 06:51 WBC RBC Hgb Hct MCV MCH MCHC RDW Plt Count MPV Neut % (Auto) Lymph % (Auto) Bibb % (Auto) Eos % (Auto) Baso % (Auto) Neut # (Auto) Lymph # (Auto) Bibb # (Auto) Eos # (Auto) Baso # (Auto) Sodium Potassium Chloride Carbon Dioxide Anion Gap BUN Creatinine Est GFR ( Amer) Est GFR (Non-Af Amer) POC Glucose (mg/dL) Random Glucose Hemoglobin A1c Serum Osmolality Calcium Phosphorus Magnesium Total Bilirubin AST ALT Alkaline Phosphatase Total Creatine Kinase Troponin I NT-Pro-B Natriuret Pep Total Protein Albumin Globulin Albumin/Globulin Ratio Amylase Lipase Urine Color Urine Clarity Urine pH Ur Specific [place] Urine Protein Urine Glucose (UA) Urine Ketones Urine Blood Urine Nitrate Urine Bilirubin Urine Urobilinogen Ur Leukocyte Esterase Urine WBC (Auto) Urine RBC (Auto) Ur Squamous Epith Cells B-Hydroxybutyrate Hepatitis A IgM Ab Negative Hep Bs Antigen Negative Hep Bs Antibody Negative Hep B Core IgM Ab Negative Hepatitis C Antibody Negative Attending/Attestation - Attestation I have personally seen and examined this patient.: Yes I have fully participated in the care of the patient.: Yes I have reviewed all pertinent clinical information: Yes Notes (Text): 05/09/18 13:42 I have seen and examined patient with GI fellow. Agree with above documentation with the following additions. In brief, this is a 53 year old male with history of DM (poorly controlled), ETOH abuse, pancreatitis, who presents to hospital with complaint of abdominal pain which started 4 days ago following consumption of 6 pack of beer. He had a similar prior admission to [facility] where he was managed conservatively for ETOH pancreatitis. He describes a sharp 10/10 intensity pain that radiates to back and worse on movement. He denies nausea, vomiting, fever/chills, or change in bowel habits. He also does report weight loss over the past month but cannot quantify amount. No prior endoscopic evalua tion. Additional physical examination: Psych: oriented, mood/affect appropriate DM - uncontrolled ETOH abuse Abdominal pain, acute pancreatitis CT imaging reviewed by me showing diffuse pancreatic enlargement with foci of necrosis, ?underlying mass lesion, multiple hepatic hypodensities - NPO - Continue with aggressive IVF hydration therapy - Anti-emetic therapy PRN - Obtain tumor markers, CA 19-9, CEA - IR has been consulted for potential liver biopsy to guide further management, follow up recommendations - Patient would benefit from dedicated pancreatic imaging following resolution of acute inflammatory process - No clear indication for antibiotic therapy in 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
[2018-05-09] MEDS: (Novolog) Insulin Aspart, Recombinant 100 u/ml 10 ml vial SC SCH ×2 (12:00→16:14)
--- NOTE | 2018-05-09 12:45 | CP.PCM.CON ---
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 The patient admits to drinking beer which brought on his abdominal pain. He has similar pain in the past which was attributed to pancreatitis. He notes to diminished appetite and weightloss. Past medical history: tobacco abuse, alcohol abuse, DM Past surgical history: LE amputation related to diabetes Family history: Denies hematolic and oncologic problems Social history: Smokes 3-4 cigarrettes daily, 1-2 6 packs on the weekend, denies illicit drug use. Allergies: NKDA Review of systems: All remaining review of systems including HEENT, cardiovascular, respiratory, gastrointestinal, genitourinary, musculoskeletal, dermatologic, neurologic, and psychiatric are negative unless mentioned in the HPI. Past Patient History - Infectious Disease Hx of Infectious Diseases: None - Past Medical History & Family History Past Medical History?: Yes - Past Social History Smoking Status: Current Some Days Smoker Alcohol: Social Drugs: Denies - CARDIAC Hx Cardiac Disorders: Yes Hx Hypertension: Yes - PULMONARY Hx Respiratory Disorders: Yes Hx Asthma: Yes - ENDOCRINE/METABOLIC Hx Endocrine Disorders: Yes Hx Diabetes Mellitus Type 1: Yes - MUSCULOSKELETAL/RHEUMATOLOGICAL Hx Musculoskeletal Disorders: No Hx Falls: No - PSYCHIATRIC Hx Psychophysiologic Disorder: No Hx Substance Use: No - SURGICAL HISTORY Hx Surgeries: Yes Hx Amputation: Yes (Right BKA, Left TMA) Other/Comment: RBKA, left toes amputation - ANESTHESIA Hx Anesthesia: Yes Hx Anesthesia Reactions: No Meds Allergies/Adverse Reactions: Allergies Allergy/AdvReac Type Severity Reaction Status Date / Time FISH Allergy RASH Verified 03/12/18 16:06 hazelnut Allergy RASH Verified 03/12/18 16:06 - Medications Medications: Current Medications Dextrose (Dextrose 50% Inj) 0 ml IV STAT PRN; Protocol PRN Reason: Hypoglycemia Protocol Dextrose (Glutose 15) 0 gm PO ONCE PRN; Protocol PRN Reason: Hypoglycemia Protocol Enoxaparin Sodium (Lovenox) 60 mg SC Q12 [facility] Last Admin: 05/09/18 11:25 Dose: 60 mg Glucagon (Glucagen Diagnostic Kit) 0 mg IM STAT PRN; Protocol PRN Reason: Hypoglycemia Protocol Dextrose (Dextrose 5% In Water 1000 Ml) 1,000 mls @ 0 mls/hr IV .Q0M PRN; Protocol PRN Reason: Hypoglycemia Protocol Imipenem/Cilastatin Sodium 500 (mg/ Sodium Chloride) 100 mls @ 100 mls/hr IVPB Q6H [facility]; Protocol Last Admin: 05/09/18 12:00 Dose: 100 mls/hr Sodium Chloride (Sodium Chloride 0.9%) 1,000 mls @ 200 mls/hr IV .Q5H [facility] Last Admin: 05/09/18 10:31 Dose: 200 mls/hr Insulin Aspart (Novolog) 0 unit SC Q6H [facility]; Protocol Last Admin: 05/09/18 12:00 Dose: 2 units Losartan Potassium (Cozaar) 50 mg PO DAILY [facility] Last Admin: 05/09/18 10:27 Dose: 50 mg Morphine Sulfate (Morphine) 1 mg IVP Q4 PRN PRN Reason: Pain, moderate (4-7) Last Admin: 05/09/18 07:28 Dose: 1 mg Rosuvastatin Calcium (Crestor) 5 mg PO HS [facility] Physical Exam - Head Exam Head Exam: ATRAUMATIC - Eye Exam Eye Exam: Normal appearance - ENT Exam ENT Exam: Mucous Membranes Dry - Respiratory Exam Respiratory Exam: NORMAL BREATHING PATTERN - Cardiovascular Exam Cardiovascular Exam: +S1, +S2 - GI/Abdominal Exam GI & Abdominal Exam: Normal Bowel Sounds - Neurological Exam Neurological exam: Oriented x3 - Psychiatric Exam Psychiatric exam: Normal Affect, Normal Mood - Skin Skin Exam: Warm Results - Vital Signs Recent Vital Signs: Last Vital Signs Temp 98.6 F 05/09/18 07:00 Pulse 88 05/09/18 07:00 Resp 18 05/09/18 07:00 BP 154/85 H 05/09/18 07:00 Pulse Ox 97 05/09/18 07:00 - Labs Result Diagrams: 05/10/18 07:51 05/10/18 07:51 Labs: Laboratory Results - last 24 hr 05/08/18 05/08/18 05/08/18 13:29 13:33 14:10 WBC 6.5 RBC 4.25 L Hgb 12.5 Hct 37.4 MCV 88.1 MCH 29.3 MCHC 33.3 RDW 13.7 Plt Count 225 MPV 7.8 Neut % (Auto) 71.3 Lymph % (Auto) 18.1 L [place] % (Auto) 8.5 Eos % (Auto) 1.5 Baso % (Auto) 0.6 Neut # (Auto) 4.7 Lymph # (Auto) 1.2 [place] # (Auto) 0.6 Eos # (Auto) 0.1 Baso # (Auto) 0.0 Sodium Potassium Chloride Carbon Dioxide Anion Gap BUN Creatinine Est GFR ( Amer) Est GFR (Non-Af Amer) POC Glucose (mg/dL) > 500 H* > 500 H* Random Glucose Hemoglobin A1c Serum Osmolality Calcium Phosphorus Magnesium Total Bilirubin AST ALT Alkaline Phosphatase Total Creatine Kinase Troponin I NT-Pro-B Natriuret Pep Total Protein Albumin Globulin Albumin/Globulin Ratio Amylase Lipase Urine Color Urine Clarity Urine pH Ur Specific [place] Urine Protein Urine Glucose (UA) Urine Ketones Urine Blood Urine Nitrate Urine Bilirubin Urine Urobilinogen Ur Leukocyte Esterase Urine WBC (Auto) Urine RBC (Auto) Ur Squamous Epith Cells B-Hydroxybutyrate Hepatitis A IgM Ab Hep Bs Antigen Hep Bs Antibody Hep B Core IgM Ab Hepatitis C Antibody 05/08/18 05/08/18 05/08/18 14:10 14:10 16:32 WBC RBC Hgb Hct MCV MCH MCHC RDW Plt Count MPV Neut % (Auto) Lymph % (Auto) [place] % (Auto) Eos % (Auto) Baso % (Auto) Neut # (Auto) Lymph # (Auto) [place] # (Auto) Eos # (Auto) Baso # (Auto) Sodium 128 L Potassium 4.7 Chloride 93 L Carbon Dioxide 25 Anion Gap 15 BUN 16 Creatinine 0.8 Est GFR ( Amer) > 60 Est GFR (Non-Af Amer) > 60 POC Glucose (mg/dL) 355 H Random Glucose 611 H* Hemoglobin A1c Serum Osmolality Calcium 8.6 Phosphorus Magnesium 1.9 Total Bilirubin 0.9 AST 67 H D ALT 77 H Alkaline Phosphatase 438 H D Total Creatine Kinase Troponin I < 0.0120 NT-Pro-B Natriuret Pep 155 Total Protein 7.3 Albumin 3.7 Globulin 3.6 Albumin/Globulin Ratio 1.0 Amylase Lipase 195 Urine Color Yellow Urine Clarity Clear Urine pH 7.0 Ur Specific [place] 1.030 Urine Protein 2+ H Urine Glucose (UA) 3+ H Urine Ketones Negative Urine Blood 1+ H Urine Nitrate Negative Urine Bilirubin Negative Urine Urobilinogen Normal Ur Leukocyte Esterase Neg Urine WBC (Auto) 1 Urine RBC (Auto) 4 H Ur Squamous Epith Cells < 1 B-Hydroxybutyrate 0.41 H Hepatitis A IgM Ab Hep Bs Antigen Hep Bs Antibody Hep B Core IgM Ab Hepatitis C Antibody 05/08/18 05/08/18 05/08/18 16:44 18:22 18:49 WBC RBC Hgb Hct MCV MCH MCHC RDW Plt Count MPV Neut % (Auto) Lymph % (Auto) [place] % (Auto) Eos % (Auto) Baso % (Auto) Neut # (Auto) Lymph # (Auto) [place] # (Auto) Eos # (Auto) Baso # (Auto) Sodium Potassium Chloride Carbon Dioxide Anion Gap BUN Creatinine Est GFR ( Amer) Est GFR (Non-Af Amer) POC Glucose (mg/dL) 310 H Random Glucose Hemoglobin A1c Serum Osmolality 314 H Calcium Phosphorus Magnesium Total Bilirubin AST ALT Alkaline Phosphatase Total Creatine Kinase Troponin I NT-Pro-B Natriuret Pep Total Protein Albumin Globulin Albumin/Globulin Ratio Amylase 67 Lipase Urine Color Urine Clarity Urine pH Ur Specific [place] Urine Protein Urine Glucose (UA) Urine Ketones Urine Blood Urine Nitrate Urine Bilirubin Urine Urobilinogen Ur Leukocyte Esterase Urine WBC (Auto) Urine RBC (Auto) Ur Squamous Epith Cells B-Hydroxybutyrate Hepatitis A IgM Ab Hep Bs Antigen Hep Bs Antibody Hep B Core IgM Ab Hepatitis C Antibody 05/09/18 05/09/18 05/09/18 03:35 06:23 06:51 WBC 6.4 RBC 3.91 L Hgb 11.5 L Hct 33.6 L MCV 86.1 D MCH 29.4 MCHC 34.1 RDW 13.7 Plt Count 200 MPV 7.6 Neut % (Auto) 68.9 Lymph % (Auto) 18.6 L [place] % (Auto) 9.7 Eos % (Auto) 2.4 Baso % (Auto) 0.4 Neut # (Auto) 4.4 Lymph # (Auto) 1.2 [place] # (Auto) 0.6 Eos # (Auto) 0.2 Baso # (Auto) 0.0 Sodium Potassium Chloride Carbon Dioxide Anion Gap BUN Creatinine Est GFR ( Amer) Est GFR (Non-Af Amer) POC Glucose (mg/dL) 243 H 209 H Random Glucose Hemoglobin A1c Serum Osmolality Calcium Phosphorus Magnesium Total Bilirubin AST ALT Alkaline Phosphatase Total Creatine Kinase Troponin I NT-Pro-B Natriuret Pep Total Protein Albumin Globulin Albumin/Globulin Ratio Amylase Lipase Urine Color Urine Clarity Urine pH Ur Specific [place] Urine Protein Urine Glucose (UA) Urine Ketones Urine Blood Urine Nitrate Urine Bilirubin Urine Urobilinogen Ur Leukocyte Esterase Urine WBC (Auto) Urine RBC (Auto) Ur Squamous Epith Cells B-Hydroxybutyrate Hepatitis A IgM Ab Hep Bs Antigen Hep Bs Antibody Hep B Core IgM Ab Hepatitis C Antibody 05/09/18 05/09/18 05/09/18 06:51 06:51 06:51 WBC RBC Hgb Hct MCV MCH MCHC RDW Plt Count MPV Neut % (Auto) Lymph % (Auto) [place] % (Auto) Eos % (Auto) Baso % (Auto) Neut # (Auto) Lymph # (Auto) [place] # (Auto) Eos # (Auto) Baso # (Auto) Sodium 133 Potassium 3.8 Chloride 99 Carbon Dioxide 25 Anion Gap 12 BUN 11 Creatinine 0.7 L Est GFR ( Amer) > 60 Est GFR (Non-Af Amer) > 60 POC Glucose (mg/dL) Random Glucose 236 H Hemoglobin A1c 13.5 H Serum Osmolality Calcium 8.2 L Phosphorus 3.1 Magnesium 1.7 Total Bilirubin 0.9 AST 51 ALT 62 Alkaline Phosphatase 298 H D Total Creatine Kinase 50 L Troponin I NT-Pro-B Natriuret Pep Total Protein 6.4 Albumin 3.1 L Globulin 3.3 Albumin/Globulin Ratio 0.9 L Amylase Lipase Urine Color Urine Clarity Urine pH Ur Specific [place] Urine Protein Urine Glucose (UA) Urine Ketones Urine Blood Urine Nitrate Urine Bilirubin Urine Urobilinogen Ur Leukocyte Esterase Urine WBC (Auto) Urine RBC (Auto) Ur Squamous Epith Cells B-Hydroxybutyrate Hepatitis A IgM Ab Negative Hep Bs Antigen Negative Hep Bs Antibody Hep B Core IgM Ab Negative Hepatitis C Antibody Negative 05/09/18 06:51 WBC RBC Hgb Hct MCV MCH MCHC RDW Plt Count MPV Neut % (Auto) Lymph % (Auto) [place] % (Auto) Eos % (Auto) Baso % (Auto) Neut # (Auto) Lymph # (Auto) [place] # (Auto) Eos # (Auto) Baso # (Auto) Sodium Potassium Chloride Carbon Dioxide Anion Gap BUN Creatinine Est GFR ( Amer) Est GFR (Non-Af Amer) POC Glucose (mg/dL) Random Glucose Hemoglobin A1c Serum Osmolality Calcium Phosphorus Magnesium Total Bilirubin AST ALT Alkaline Phosphatase Total Creatine Kinase Troponin I NT-Pro-B Natriuret Pep Total Protein Albumin Globulin Albumin/Globulin Ratio Amylase Lipase Urine Color Urine Clarity Urine pH Ur Specific [place] Urine Protein Urine Glucose (UA) Urine Ketones Urine Blood Urine Nitrate Urine Bilirubin Urine Urobilinogen Ur Leukocyte Esterase Urine WBC (Auto) Urine RBC (Auto) Ur Squamous Epith Cells B-Hydroxybutyrate Hepatitis A IgM Ab Hep Bs Antigen Hep Bs Antibody Negative Hep B Core IgM Ab Hepatitis C Antibody Assessment & Plan (1) Lesion of liver Assessment and Plan: concerning for metastatic disease recommend percutaneous biopsy further treatment recommendations based on above Status: Acute (2) Pulmonary embolism Assessment and Plan: ? provoked from malignancy LE venoud duplex on heparin drip Status: Acute (3) Anemia Assessment and Plan: retic count, b12, folate, ferritin to further characterize likely anemia of chronic disease Thank you for this interesting consult. Status: Acute
[2018-05-09] MEDS ORDERED: Enoxaparin 30 mg Syringe SC ONE (15:45)
[2018-05-09] MEDS ORDERED: Barium Sulfate Susp 0.1% w/v, 0.1% w/w 450 mL Bottle PO ONE (16:20)
[2018-05-09] MEDS ORDERED: Iodixanol 320 MG/ML 100 ML BOTTLE IV ONE (17:23)
[2018-05-09] MEDS ORDERED: Enoxaparin 80 mg Syringe SC SCH (18:00)
[2018-05-09] MEDS: Enoxaparin 80 mg Syringe SC SCH (21:40)
--- NOTE | 2018-05-09 23:49 | CARD ---
APPROVED REPORT Date of service: 05/08/2018 EKG Measurement Heart [id number] <Conclusion> Normal sinus rhythm Right bundle branch block Left anterior fascicular block Bifascicular block Voltage criteria for left ventricular hypertrophy Cannot rule out Septal infarct, age undetermined Abnormal ECG
[2018-05-10] MEDS: (Novolog) Insulin Aspart, Recombinant 100 u/ml 10 ml vial SC SCH ×5 (00:01→22:20)
--- NOTE | 2018-05-10 00:50 | CP.PCM.PCO ---
Physician Communication Note - Physician Communication Note Physician Communication Note: Please see above
[2018-05-10] MEDS: Sodium Chloride 0.9% 1,000 ML IV SCH ×7 (00:56→20:14)
--- NOTE | 2018-05-10 07:10 | CP.PCM.PN ---
Subjective - Date & Time of Evaluation Date of Evaluation: 05/10/18 Time of Evaluation: 07:09 - Subjective Subjective: PGY-1 Medicine progress note for Dr. Buckner Pt was seen and examined at bedside. Pt is resting comfortably. He complains of epigastric abdominal pain but states that it is a little better. He is requesting to eat. Pt denies fever, chills, chest pain, sob, n/v/d, hematochezia, melena, visual disturbances, lightheadedness, headache, dizziness, weakness. Objective - Vital Signs/Intake and Output Vital Signs (last 24 hours): Temp Pulse Resp BP Pulse Ox 98.5 F 98 H 20 159/88 H 99 05/09/18 23:40 05/10/18 06:39 05/10/18 06:39 05/10/18 06:39 05/09/18 23:40 Intake and Output: 05/10/18 05/10/18 06:59 18:59 Intake Total 1050 Output Total 1300 Balance -250 - Medications Medications: Current Medications Dextrose (Dextrose 50% Inj) 0 ml IV STAT PRN; Protocol PRN Reason: Hypoglycemia Protocol Dextrose (Glutose 15) 0 gm PO ONCE PRN; Protocol PRN Reason: Hypoglycemia Protocol Enoxaparin Sodium (Lovenox) 80 mg SC Q12H [facility] Last Admin: 05/09/18 21:40 Dose: 80 mg Glucagon (Glucagen Diagnostic Kit) 0 mg IM STAT PRN; Protocol PRN Reason: Hypoglycemia Protocol Dextrose (Dextrose 5% In Water 1000 Ml) 1,000 mls @ 0 mls/hr IV .Q0M PRN; Protocol PRN Reason: Hypoglycemia Protocol Sodium Chloride (Sodium Chloride 0.9%) 1,000 mls @ 200 mls/hr IV .Q5H [facility] Last Admin: 05/10/18 06:48 Dose: Not Given Insulin Aspart (Novolog) 0 unit SC Q6H [facility]; Protocol Last Admin: 05/10/18 05:21 Dose: Not Given Losartan Potassium (Cozaar) 50 mg PO DAILY [facility] Last Admin: 05/09/18 10:27 Dose: 50 mg Morphine Sulfate (Morphine) 1 mg IVP Q4 PRN PRN Reason: Pain, moderate (4-7) Last Admin: 05/10/18 06:39 Dose: 1 mg Rosuvastatin Calcium (Crestor) 5 mg PO HS [facility] Last Admin: 05/09/18 21:06 Dose: 5 mg - Labs Labs: 05/09/18 06:51 05/09/18 06:51 - Additional Findings Additional findings: - Constitutional Appears: Non-toxic, No Acute Distress - Head Exam Head Exam: ATRAUMATIC, NORMAL INSPECTION - Eye Exam Eye Exam: EOMI - ENT Exam ENT Exam: Mucous Membranes Moist - Respiratory Exam Respiratory Exam: Clear to Ausculation Bilateral. absent: Rales, Rhonchi, Wheezes, Respiratory Distress, Stridor - Cardiovascular Exam Cardiovascular Exam: REGULAR RHYTHM, +S1, +S2, Tachycardia, (+) 3/6 systolic ejection murmur. absent: JVD, Rub - GI/Abdominal Exam GI & Abdominal Exam: Minimal distension, Guarding, Soft, Tenderness (moderate TTP in the upper quadrants of the abdomen, more so in the RUQ. (-) masterson's sign; some alleviation of pain after leaning forward), Normal Bowel Sounds. absent: Firm, Rigid - Extremities Exam Extremities Exam: Full ROM, Normal Inspection. absent: Calf Tenderness, Pedal Edema - Back Exam Back Exam: NORMAL INSPECTION - Neurological Exam Neurological Exam: Alert, Awake, Oriented x3 - Psychiatric Exam Psychiatric exam: Normal Affect, Normal Mood - Skin Skin Exam: Normal Color, Warm Assessment and Plan - Assessment and Plan (Free Text) Assessment: 53yoM PMH HTN, HLD, DM, pancreatitis who presented with [place] and epigastric abdomnial pain, radiating to the back. Abd/Pelv Ct showed necrotizing pancreatitis, [place]-forming, with suspician for SMV thrombus, as well as innumerable liver masses. Vascular surgery was consulted for necrotizing pa ncreatitis and possible SMV thrombus. GI was consulted for necrotizing pancreatitis. Heme/Onc was consulted due to liver masses, possible mets. 05/10: Abd/pelv CTA showed large right lower lobe pulmonary branch pulmonary embolus. Prelim lower extremity venous doppler shows left long saphenous vein DVT. Lovenox switched to Heparin gtt, and pt not a candidate for IVC filter, as per [place]. Plan: Pancreatitis with Necrosis ( non-gas forming) - CT A/P with IV contrast (05/08): grossly abnormal appearing pancreas with extensive pancreatitis and necrosis. At time of imaging, non-gas forming. Contiguous hypodensity in SMV; thrombus must be considered. Innumerable liver m asses. Right pleural effusion - US Abd (05/08): Multiple hepatic masses. Fatty infiltrate. Incidental right upper pole renal cortical cyst. - AST/ALT 67/77 on admission, Alk Phos 438 - Hepatitis panel is negative, CPK is 50 - Fluid decreased to NS IVF at 100 mL/hr - Morphine 1mg IVP q4 prn - Vascular Surgery consulted: Dr. Musa - No need for surgical intervention at time of admission - Heme/Onc consult and IR consult for CT guided biopsy of liver and pancreas - Abd/Pelv CT results were reviewed with Dr. Musa, who reports no need for Abd/Pelv CTA or intervention for possible SMV thrombus at this time. - Hematology/Oncolgy, Dr. Rangel, consulted due to liver masses - recs liver and pancreas IR biopsy - Interventional radiology, Dr. Wetzel, consulted for CT-guided biopsy of liver m asses and possibly pancreatic biopsy - Gastroenterology, Dr. Montelongo, consulted - Possible sterile necrosis within pancreas. Cannot exclude pancreatic mass. - IR has been consulted for possible liver biopsy - Patient would benefit from dedicated pancreatic imaging following resolution of acute inflammatory process - No clear for antibiotic therapy for pancreatic necrosis. Necrosis is likely sterile. No obvious signs of infection at this time. - would benefit from dedicated pancreatic imaging following resolution of acute inflammatory process - Overall clinical picture suggestive of metastatic malignancy from possible pancreatic or GI source, poor patient prognosis. - Elevated tumor markers: CA 19-9 is over 10,000, CEA is 251, CEA 125 is 203 - AFP is 1.1 - CLD Pulmonary embolus, likely secondary to hypercoagulability due to probably malignancy - Abd/pelv CTA showed large right lower lobe pulmonary branch pulmonary embolus. - Echocardiogram ordered to r/o right heart strain 05/10: LVEF is 60%. Mild concentric LVH. Grade 1 diastolic dysfunction. AV appears to be bicuspid. Borderline to mild . MR is trace to mild. RVSP is less than 30 mmHg. - pt is hemodynamically stable - Lovenox discontinued, started on Heparin gtt as per Dr. Rangel - Pt is not a candidate for IVC filter as per Dr. Rangel DVT - 05/10: Prelim lower extremity venous doppler shows left long saphenous vein DVT - pt is on heparin gtt Left and right liver masses, likely mets vs possible infection - Gastroenterology consulted, Dr. Montelongo - see above - Hematology/Oncolgy, Dr. Rangel, consulted Right pleural effusion noted on Abd/Pelv CT - CXR (05/08): no active disease - will continue to monitor - pt is hemodynamically stable HTN - Continue home Losartan 50 mg PO daily Insulin Dependant Diabetes Mellitus - HgA1c is 13.5 - Levemir 20u sc HS - Accuchecks q6h - ISS medium - hypoglycemia protocol PPx - DVT: SCDs CI due to prelim doppler studies showing left dvt, Pt is on therapeutic heparin gtt - GI: not indicated - Diet: CLD Case discussed with Dr. Dudley Muller PGY-1
[2018-05-10 08:00] LABS: BASO % 0.5 % (0.0-2.0); EOS # 0.1 K/uL (0.0-0.7); EOS % 1.5 % (0.0-4.0); HEMOGLOBIN 12.1 g/dL (12.0-18.0); LYMPH % 17.8 % (20.0-40.0); MEAN CORPUSCULAR HEMOGLOBIN 29.7 pg (27.0-31.0); MEAN CORPUSCULAR HGB CONC 34.2 g/dL (33.0-37.0); MEAN PLATELET VOLUME 7.4 fL (7.2-11.7); MONO # 0.5 K/uL (0.0-0.8); NEUT # 4.1 K/uL (1.8-7.0); NEUT % 71.2 % (50.0-75.0); RBC 4.06 Mil/uL (4.40-5.90); RED CELL DISTRIBUTION WIDTH 13.9 % (11.5-14.5); WHITE BLOOD COUNT 5.7 K/uL (4.8-10.8)
[2018-05-10 08:12] LABS: INR 1.1; PROTHROMBIN TIME 12.5 SECONDS (9.7-12.2)
[2018-05-10 08:33] LABS: LDL CHOLESTEROL 135 mg/dL (0-129)
[2018-05-10 08:37] LABS: ALBUMIN 3.3 g/dL (3.5-5.0); ALT/SGPT 50 U/L (21-72); AST/SGOT 48 U/L (17-59); BLOOD UREA NITROGEN 9 mg/dL (9-20); CALCIUM 8.1 mg/dl (8.6-10.4); GFR NON-AFRICAN AMERICAN > 60; HDL CHOLESTEROL 32 mg/dL (30-70)
--- NOTE | 2018-05-10 08:52 | CP.PCM.PN ---
<Louie Poole - Last Filed: 05/10/18 15:00> Subjective - Date & Time of Evaluation Date of Evaluation: 05/10/18 Time of Evaluation: 08:47 - Subjective Subjective: Patient states his abdominal pain is improving but still present. He is hungry, requesting food. Denies vomiting, nausea. He had BM lastnight. Afebrile, HDS. Objective - Vital Signs/Intake and Output Vital Signs (last 24 hours): Temp Pulse Resp BP Pulse Ox 99.0 F 101 H 18 169/88 H 97 05/10/18 07:00 05/10/18 07:22 05/10/18 07:00 05/10/18 07:00 05/10/18 07:00 Intake and Output: 05/10/18 05/10/18 06:59 18:59 Intake Total 1050 Output Total 1300 Balance -250 - Medications Medications: Current Medications Dextrose (Dextrose 50% Inj) 0 ml IV STAT PRN; Protocol PRN Reason: Hypoglycemia Protocol Dextrose (Glutose 15) 0 gm PO ONCE PRN; Protocol PRN Reason: Hypoglycemia Protocol Enoxaparin Sodium (Lovenox) 80 mg SC Q12H CARL Last Admin: 05/09/18 21:40 Dose: 80 mg Glucagon (Glucagen Diagnostic Kit) 0 mg IM STAT PRN; Protocol PRN Reason: Hypoglycemia Protocol Dextrose (Dextrose 5% In Water 1000 Ml) 1,000 mls @ 0 mls/hr IV .Q0M PRN; Protocol PRN Reason: Hypoglycemia Protocol Sodium Chloride (Sodium Chloride 0.9%) 1,000 mls @ 200 mls/hr IV .Q5H CARL Last Admin: 05/10/18 06:48 Dose: Not Given Insulin Aspart (Novolog) 0 unit SC Q6H CARL; Protocol Last Admin: 05/10/18 05:21 Dose: Not Given Losartan Potassium (Cozaar) 50 mg PO DAILY CARL Last Admin: 05/09/18 10:27 Dose: 50 mg Morphine Sulfate (Morphine) 1 mg IVP Q4 PRN PRN Reason: Pain, moderate (4-7) Last Admin: 05/10/18 06:39 Dose: 1 mg Rosuvastatin Calcium (Crestor) 5 mg PO HS CARL Last Admin: 05/09/18 21:06 Dose: 5 mg - Labs Labs: 05/10/18 07:51 05/10/18 07:51 PT 12.5 SECONDS (9.7-12.2) H 05/10/18 07:51 INR 1.1 05/10/18 07:51 APTT 34 SECONDS (21-34) 05/10/18 07:51 - Constitutional Appears: Non-toxic, No Acute Distress, Chronically Ill - Head Exam Head Exam: ATRAUMATIC, NORMAL INSPECTION - Eye Exam Eye Exam: EOMI, Normal appearance - ENT Exam ENT Exam: Mucous Membranes Moist, Normal Exam - Respiratory Exam Respiratory Exam: Clear to Ausculation Bilateral, NORMAL BREATHING PATTERN - Cardiovascular Exam Cardiovascular Exam: REGULAR RHYTHM, +S1, +S2 - GI/Abdominal Exam GI & Abdominal Exam: Soft, Tenderness, Hypoactive Bowel Sounds - Extremities Exam Extremities Exam: Full ROM, Normal Inspection - Neurological Exam Neurological Exam: Alert, Awake, Oriented x3 - Psychiatric Exam Psychiatric exam: Normal Affect, Normal Mood - Skin Skin Exam: Dry, Normal Color Assessment and Plan - Assessment and Plan (Free Text) Assessment: #Acute recurrent pancreatitis, complicated #Pulmonary embolism #Multiple liver lesions #T2DM, uncontrolled #HTN #Alcohol abuse #Tobacco dependence Plan: - Possible sterile necrosis within pancreas. Cannot exclude pancreatic mass. - Liver lesions are hypodense and worrisome for metastatic disease. Tumor markers are extremely elevated CA19-9 > 10,000. CEA 251. - CTA reviewed. Reportedly no thrombus in SMV. +PE. - Continue heparin drip and coordinate with liver biopsy - IR has been consulted for liver biopsy - Advised patient to avoid alcohol and cigarettes which are both risk factors for pancreatitis. - Clear liquid diet, reassess tomorrow. - Continue IVF, maintenance rate. BUN/Hct trending down. Avoid fluid overload. <Itz Montelongo - Last Filed: 05/10/18 18:30> Objective - Vital Signs/Intake and Output Vital Signs (last 24 hours): Temp Pulse Resp BP Pulse Ox 98.3 F 91 H 20 172/89 H 98 05/10/18 15:52 05/10/18 15:52 05/10/18 15:52 05/10/18 15:52 05/10/18 15:52 Intake and Output: 05/10/18 05/10/18 06:59 18:59 Intake Total 1050 1300 Output Total 1300 750 Balance -250 550 - Medications Medications: Current Medications Dextrose (Dextrose 50% Inj) 0 ml IV STAT PRN; Protocol PRN Reason: Hypoglycemia Protocol Dextrose (Glutose 15) 0 gm PO ONCE PRN; Protocol PRN Reason: Hypoglycemia Protocol Glucagon (Glucagen Diagnostic Kit) 0 mg IM STAT PRN; Protocol PRN Reason: Hypoglycemia Protocol Dextrose (Dextrose 5% In Water 1000 Ml) 1,000 mls @ 0 mls/hr IV .Q0M PRN; Protocol PRN Reason: Hypoglycemia Protocol Sodium Chloride (Sodium Chloride 0.9%) 1,000 mls @ 125 mls/hr IV .Q8H CARL Last Admin: 05/10/18 16:13 Dose: 125 mls/hr Heparin Sodium/Sodium Chloride (Heparin 43709 Units/250ml 1/2 Normal Saline) 25,000 units in 250 mls @ 14.451 mls/hr IV .[id number] CARL; Protocol Last Admin: 05/10/18 16:07 Dose: 18 units/kg/hr, 14.451 mls/hr Insulin Aspart (Novolog) 0 unit SC Q6H CARL; Protocol Last Admin: 05/10/18 17:51 Dose: 4 units Losartan Potassium (Cozaar) 50 mg PO DAILY CARL Last Admin: 05/10/18 10:19 Dose: 50 mg Morphine Sulfate (Morphine) 1 mg IVP Q4 PRN PRN Reason: Pain, moderate (4-7) Last Admin: 05/10/18 12:30 Dose: 1 mg Rosuvastatin Calcium (Crestor) 5 mg PO HS CARL Last Admin: 05/09/18 21:06 Dose: 5 mg - Labs Labs: 05/10/18 07:51 05/10/18 07:51 PT 12.5 SECONDS (9.7-12.2) H 05/10/18 07:51 INR 1.1 05/10/18 07:51 APTT 40 SECONDS (21-34) H D 05/10/18 17:18 Attending/Attestation - Attestation I have personally seen and examined this patient.: Yes I have fully participated in the care of the patient.: Yes I have reviewed all pertinent clinical information, including history, physical exam and plan: Yes Notes (Text): 05/10/18 18:26 I have seen and examined patient with GI fellow. No acute events overnight, he is seen resting in bed comfortably. He admits to ongoing abdominal pain but improved compared to previous day. He denies nausea, vomiting, fever/chills. Tolerating PO liquids without difficulty. Abdominal pain ETOH pancreatitis with necrotizing features, questionable underlying lesion Hepatic hypodensities suggestive of metastatic disease DM / HTN PE - Liquid diet as tolerated - Continue with IVF hydration, supportive care - Management of PE as per medical team - Patient will eventually require tissue diagnosis, IR consulted for potential liver biopsy - Overall clinical picture suggestive of metastatic malignancy from possible pancreatic or GI source, poor patient prognosis. Will continue to monitor patient clinical course
[2018-05-10] MEDS: Enoxaparin 80 mg Syringe SC SCH (12:29)
--- NOTE | 2018-05-10 12:41 | CT ---
Date of service: 05/09/2018 by CTA abdomen and pelvis Indication: possible SMV thrombus r/o ischemia Comparison: CT abdomen pelvis with contrast performed 05/08/18 Technique: Contrast dose: 100 cc Visipaque 320 IV. The lumen oral contrast administered. Total exam DLP: 894.5 mGy cm Axial computed tomographic angiogram images of the abdomen and pelvis were performed after bolus administration of nonionic intravenous contrast. This CT exam was performed using 1 or more of the falling dose reduction techniques: Automated exposure control, adjustment of the MAA and/or kV according to patient size, and/or use of iterative reconstruction technique. Findings: Moderate right and small left pleural effusions and associated consolidations. Right middle lobe pneumonia or atelectasis, partially imaged. Filling defect consistent with pulmonary embolus evident within the right lower lobe pulmonary artery branch. Partially imaged cardiomegaly. There is normal course and contour of the abdominal aorta and common iliac arteries. The celiac artery origin is widely patent. The superior mesenteric artery origin is widely patent. The inferior mesenteric artery origin is patent. Bilateral renal arteries both appear widely patent. Atherosclerotic calcifications are noted. Markedly heterogeneous appearance of the liver with numerous hypodense masses; appearance most likely related to metastases. Vicarious excretion of contrast within the gallbladder. Markedly abnormal appearance of the pancreas with large hypoattenuated region involving the pancreatic body and tail; correlate clinically. Mild peripancreatic inflammatory stranding. Left adrenal gland appears hypertrophic with several nodules. The right adrenal gland appears grossly unremarkable. The spleen appears unremarkable. The kidneys enhance symmetrically without evidence of hydronephrosis or obstructing renal calculi. Posterior right renal cortical exophytic cyst 2.4 cm. Mesenteric adenopathy measuring up to 2 cm in short axis (series 3, image 50). Visualized bowel loops appear within normal limits of caliber without evidence of obstruction. The appendix appears normal. No inflammatory changes are seen in the right lower quadrant to suggest acute appendicitis. No definite free air. The urinary bladder appears unremarkable. Trace perihepatic ascites. No significant pelvic free fluid is identified. No acute osseous abnormality is identified. Impression: Filling defect consistent with pulmonary embolus evident within the right lower lobe pulmonary artery branch. Markedly heterogeneous appearance of the liver with numerous hypodense masses; appearance most likely related to metastases. Markedly abnormal appearance of the pancreas with large hypoattenuated region involving the pancreatic body and tail; correlate clinically. Correlate for possibility of malignant neoplasm or necrosis. Mild peripancreatic inflammatory stranding. Recommend correlation with amylase and lipase. Moderate right and small left pleural effusions and associated consolidations. Right middle lobe pneumonia or atelectasis, partially imaged. Preliminary impression was provided by PAULIE Garcia. Findings discussed with the patient's HANG Maza on 05/10/18 at 12:02 p.m.
[2018-05-10] MEDS ORDERED: Heparin25000 units/250ml 1/2NS 25,000 UNITS/250 ML BAG IV SCH (13:15)
[2018-05-10] MEDS: Heparin25000 units/250ml 1/2NS 25,000 UNITS/250 ML BAG IV SCH (16:07)
--- NOTE | 2018-05-10 17:24 | CARD ---
APPROVED REPORT Date of service: 05/10/2018 EXAM: Two-dimensional and M-mode echocardiogram with Doppler and color Doppler. Other Information Quality : GoodRhythm : RISK FACTORS Hypertension Hyperlipidemia Diabetes 2D DIMENSIONS IVSd1.6 (0.7-1.1cm)LVDd3.6 (3.9-5.9cm) LVOT Diameter2.6 (1.8-2.4cm)PWd1.2 (0.7-1.1cm) LA Yxflty71 (18-58mL)LVDs2.8 (2.5-4.0cm) FS (%) 21.7 %LVEF (%)60.0 (>50%) LVEF (Gonzales's)64.72 %IVC0.00 cm M-Mode DIMENSIONS RVDd1.94 (2.1-3.2cm)Left Atrium (MM)3.19 (2.5-4.0cm) IVSd1.42 (0.7-1.1cm)Aortic Root3.07 (2.2-3.7cm) LVDd4.58 (4.0-5.6cm)Aortic Cusp Exc.2.05 (1.5-2.0cm) PWd1.49 (0.7-1.1cm)FS (%) 41 % LVDs2.71 (2.0-3.8cm)LVEF (%)72 (>50%) Aortic Valve AoV Peak Ypavhwtd654.6cm/sAoV VTI55.2cmAO Peak GR.27mmHg LVOT Peak Ezimyaza95.8cm/sLVOT VTI20.88cmAO Mean GR.14mmHg ABEL (VMAX)1.78fz6ZWJ (VTI)2.06cm2 Mitral Valve MV E Rjmcfunt36.9cm/sMV A Bjclcpua11.6cm/sE/A ratio0.8 TDI Lateral E' Peak V7.19cm/sMedial E' Peak V6.35cm/sE/Lateral E'8.5 E/Medial E'9.6 Tricuspid Valve TR Peak Ynhqjafg361rt/sTR Peak Gr.40azFaISZY70ckKr LEFT VENTRICLE The left ventricle is normal size. There is mild concentric left ventricular hypertrophy. The left ventricular systolic function is normal. The left ventricular ejection fraction is within the normal range. There is normal LV segmental wall motion. Transmitral Doppler flow pattern is Grade I-abnormal relaxation pattern. Normal left atrial pressure. RIGHT VENTRICLE The right ventricle is normal size. The right ventricular systolic function is normal. ATRIA The left atrium size is normal. The right atrium size is normal. AORTIC VALVE The aortic valve appears to be bicuspid. The aortic valve is mildly calcified with mildly decreased systolic excursion. Borderline to mild aortic stenosis. No aortic regurgitation is present. MITRAL VALVE The mitral valve is normal in structure. Mitral regurgitation is trace to mild. TRICUSPID VALVE The tricuspid valve is normal in structure. There is mild tricuspid regurgitation. Right ventricular systolic pressure is estimated at less than 30 mmHg. PULMONIC VALVE The pulmonary valve is normal in structure. GREAT VESSELS The aortic root is normal in size. The IVC is normal in size and collapses >50% with inspiration. PERICARDIAL EFFUSION There is no pericardial effusion. <Conclusion> There is mild concentric left ventricular hypertrophy. The left ventricular function is normal. There is normal LV segmental wall motion. Grade I diastolic dysfunction. Normal left atrial pressure. The aortic valve appears to be bicuspid. Borderline to mild aortic stenosis. Mitral regurgitation is trace to mild. There is no pericardial effusion.
[2018-05-11 04:27] LABS: BASO % 0.6 % (0.0-2.0); EOS # 0.1 K/uL (0.0-0.7); EOS % 2.4 % (0.0-4.0); LYMPH # 1.4 K/uL (1.0-4.3); LYMPH % 24.6 % (20.0-40.0); MEAN CELL VOLUME 86.3 fL (80.0-94.0); MEAN CORPUSCULAR HEMOGLOBIN 28.7 pg (27.0-31.0); MEAN CORPUSCULAR HGB CONC 33.3 g/dL (33.0-37.0); MEAN PLATELET VOLUME 7.7 fL (7.2-11.7); MONO # 0.7 K/uL (0.0-0.8); MONO % 12.4 % (0.0-10.0); NEUT # 3.5 K/uL (1.8-7.0); NRBC % 0.1 % (0.0-2.0); RBC 4.17 Mil/uL (4.40-5.90); RED CELL DISTRIBUTION WIDTH 13.3 % (11.5-14.5); WHITE BLOOD COUNT 5.8 K/uL (4.8-10.8)
[2018-05-11] MEDS: Sodium Chloride 0.9% 1,000 ML IV SCH (04:36)
[2018-05-11 04:52] LABS: ALBUMIN 3.2 g/dL (3.5-5.0); ALT/SGPT 44 U/L (21-72); AST/SGOT 38 U/L (17-59); BLOOD UREA NITROGEN 8 mg/dL (9-20); CALCIUM 8.2 mg/dl (8.6-10.4); GFR NON-AFRICAN AMERICAN > 60
[2018-05-11] MEDS: (Novolog) Insulin Aspart, Recombinant 100 u/ml 10 ml vial SC SCH ×4 (10:08→22:01)
--- NOTE | 2018-05-11 10:26 | CP.PCM.PN ---
<Louie Poole - Last Filed: 05/11/18 12:15> Subjective - Date & Time of Evaluation Date of Evaluation: 05/11/18 Time of Evaluation: 10:26 - Subjective Subjective: Patient still having some pain this AM. He was able to tolerate CLD. Objective - Vital Signs/Intake and Output Vital Signs (last 24 hours): Temp Pulse Resp BP Pulse Ox 98.4 F 87 20 164/90 H 98 05/11/18 07:00 05/11/18 09:19 05/11/18 07:00 05/11/18 09:19 05/11/18 07:00 Intake and Output: 05/11/18 05/11/18 06:59 18:59 Intake Total 888.8 Output Total 1650 Balance -761.2 - Medications Medications: Current Medications Dextrose (Dextrose 50% Inj) 0 ml IV STAT PRN; Protocol PRN Reason: Hypoglycemia Protocol Dextrose (Glutose 15) 0 gm PO ONCE PRN; Protocol PRN Reason: Hypoglycemia Protocol Glucagon (Glucagen Diagnostic Kit) 0 mg IM STAT PRN; Protocol PRN Reason: Hypoglycemia Protocol Dextrose (Dextrose 5% In Water 1000 Ml) 1,000 mls @ 0 mls/hr IV .Q0M PRN; Protocol PRN Reason: Hypoglycemia Protocol Heparin Sodium/Sodium Chloride (Heparin 21581 Units/250ml 1/2 Normal Saline) 25,000 units in 250 mls @ 14.451 mls/hr IV .[id number] CARL; Protocol Last Admin: 05/10/18 16:07 Dose: 18 units/kg/hr, 14.451 mls/hr Sodium Chloride (Sodium Chloride 0.9%) 1,000 mls @ 100 mls/hr IV .Q10H CARL Last Admin: 05/11/18 04:36 Dose: 100 mls/hr Insulin Aspart (Novolog) 0 unit SC Q6H CARL; Protocol Last Admin: 05/11/18 10:08 Dose: Not Given Losartan Potassium (Cozaar) 50 mg PO DAILY [facility] Last Admin: 05/11/18 09:20 Dose: 50 mg Morphine Sulfate (Morphine) 1 mg IVP Q4 PRN PRN Reason: Pain, moderate (4-7) Last Admin: 05/11/18 04:30 Dose: 1 mg Rosuvastatin Calcium (Crestor) 5 mg PO HS [facility] Last Admin: 05/10/18 22:23 Dose: 5 mg - Labs Labs: 05/11/18 04:22 05/11/18 04:22 PT 12.5 SECONDS (9.7-12.2) H 05/10/18 07:51 INR 1.1 05/10/18 07:51 APTT 70 SECONDS (21-34) H D 05/11/18 04:22 - Constitutional Appears: Non-toxic, No Acute Distress - Head Exam Head Exam: NORMAL INSPECTION, NORMOCEPHALIC - Eye Exam Eye Exam: EOMI, Normal appearance - ENT Exam ENT Exam: Mucous Membranes Moist, Normal Exam - Respiratory Exam Respiratory Exam: Clear to Ausculation Bilateral, NORMAL BREATHING PATTERN - Cardiovascular Exam Cardiovascular Exam: REGULAR RHYTHM, +S1, +S2 - GI/Abdominal Exam GI & Abdominal Exam: Soft, Tenderness, Normal Bowel Sounds - Extremities Exam Extremities Exam: absent: Normal Inspection - Neurological Exam Neurological Exam: Alert, Awake, Oriented x3 - Psychiatric Exam Psychiatric exam: Normal Affect, Normal Mood Assessment and Plan - Assessment and Plan (Free Text) Assessment: #Acute recurrent pancreatitis, complicated #Pulmonary embolism #Multiple liver lesions #T2DM, uncontrolled #HTN #Alcohol abuse #Tobacco dependence Plan: - Possible sterile necrosis within pancreas. Cannot exclude pancreatic mass. - Liver lesions are hypodense and worrisome for metastatic disease. Tumor markers are extremely elevated CA19-9 > 10,000. CEA 251. - CTA reviewed. Reportedly no thrombus in SMV. However, +PE. - s/p Liver Bx. F/U Results. - Advised patient to avoid alcohol and cigarettes which are both risk factors for pancreatitis. - Start Low fat diet, monitor for worsening, abdominal pain, vomiting. Return to NPO if cannot tolerate. - D/C IVF per primary if tolerating diet. - Recommend outpatient EGD/Colonoscopy and dedicated pancreatic imaging pending liver biopsy results. - Follow oncologist recommendations <Itz Montelongo Y - Last Filed: 05/11/18 12:24> Objective - Vital Signs/Intake and Output Vital Signs (last 24 hours): Temp Pulse Resp BP Pulse Ox 98.4 F 64 20 161/95 H 98 05/11/18 07:00 05/11/18 11:10 05/11/18 07:00 05/11/18 11:10 05/11/18 07:00 Intake and Output: 05/11/18 05/11/18 06:59 18:59 Intake Total 888.8 Output Total 1650 Balance -761.2 - Medications Medications: Current Medications Acetaminophen (Tylenol 325mg Tab) 650 mg PO Q4H PRN PRN Reason: Pain, Mild (1-3) Dextrose (Dextrose 50% Inj) 0 ml IV STAT PRN; Protocol PRN Reason: Hypoglycemia Protocol Dextrose (Glutose 15) 0 gm PO ONCE PRN; Protocol PRN Reason: Hypoglycemia Protocol Glucagon (Glucagen Diagnostic Kit) 0 mg IM STAT PRN; Protocol PRN Reason: Hypoglycemia Protocol Dextrose (Dextrose 5% In Water 1000 Ml) 1,000 mls @ 0 mls/hr IV .Q0M PRN; Protocol PRN Reason: Hypoglycemia Protocol Heparin Sodium/Sodium Chloride (Heparin 23065 Units/250ml 1/2 Normal Saline) 25,000 units in 250 mls @ 14.451 mls/hr IV .[id number] CARL; Protocol Last Admin: 05/10/18 16:07 Dose: 18 units/kg/hr, 14.451 mls/hr Sodium Chloride (Sodium Chloride 0.9%) 1,000 mls @ 100 mls/hr IV .Q10H CARL Last Admin: 05/11/18 04:36 Dose: 100 mls/hr Insulin Aspart (Novolog) 0 unit SC Q6H CARL; Protocol Last Admin: 05/11/18 10:08 Dose: Not Given Losartan Potassium (Cozaar) 50 mg PO DAILY CARL Last Admin: 05/11/18 09:20 Dose: 50 mg Morphine Sulfate (Morphine) 1 mg IVP Q4 PRN PRN Reason: Pain, moderate (4-7) Last Admin: 05/11/18 04:30 Dose: 1 mg Rosuvastatin Calcium (Crestor) 5 mg PO HS CARL Last Admin: 05/10/18 22:23 Dose: 5 mg - Labs Labs: 05/11/18 04:22 05/11/18 04:22 PT 12.5 SECONDS (9.7-12.2) H 05/10/18 07:51 INR 1.1 05/10/18 07:51 APTT 70 SECONDS (21-34) H D 05/11/18 04:22 Attending/Attestation - Attestation I have personally seen and examined this patient.: Yes I have fully participated in the care of the patient.: Yes I have reviewed all pertinent clinical information, including history, physical exam and plan: Yes Notes (Text): 05/11/18 12:21 I have seen and examined patient with GI fellow. No acute events overnight, he is seen resting in bed comfortably. He denies abdominal pain, nausea, vomiting, fever/chills. s/p IR guided liver biopsy today. Abdominal pain secondary to ETOH pancreatitis with necrotic features Possible underlying pancreatic mass Liver lesions s/p IR biopsy PE DM / HTN - Will advance to low fat diet and observe - Await results of IR biopsy - Follow up oncology recommendations - Management of PE with anticoagulation as per medical team - Ideally patient would also benefit from EGD/colonoscopy for completion of malignant workup, however will defer procedures given acute PE. Overall patient prognosis is poor given suspected metastatic disease. No further planned GI intervention at this time, will sign off case. Please reconsult as necessary, thank you.
[2018-05-11] MEDS ORDERED: Midazolam 2 MG/2 ML VIAL ONE (10:32)
--- NOTE | 2018-05-11 10:47 | PCM.SURG1 ---
Surgeon's Initial Post Op Note - Surgeon's Notes Surgeon: Alvaro Wetzel MD Icicle Machine Operator: NONE Type of Anesthesia: IV Sedation Pre-Operative Diagnosis: Metastatic pancreatic cancer Operative Findings: US of liver showed hepatic masses Post-Operative Diagnosis: Metastatic pancreatic cancer Operation Performed: US guided liver mass biopsy. Three 18-g core specimen obtained. Biopsy tract embolized with gelfoam. Specimen/Specimens Removed: 18 g core x 3 Estimated Blood Loss: EBL {In ML}: 2 Blood Products Given: N/A Drains Used: No Drains Post-Op Condition: Fair Date of Surgery/Procedure: 05/11/18 Time of Surgery/Procedure: 10:45
--- NOTE | 2018-05-11 12:44 | VASCLAB ---
Date of service: 05/10/2018 PROCEDURE: Lower Extremity Venous Duplex Exam. HISTORY: r/o DVT, confirmed right lower lobe branch PE PRIORS: None. TECHNIQUE: Bilateral common femoral, femoral, popliteal and posterior tibial, peroneal and great saphenous veins were evaluated. Flow was assessed with color Doppler, compressibility, assessment of phasic flow and augmentation response. Report prepared by Glenn Bennett, BS, RVT FINDINGS: RIGHT: 1. Common Femoral Vein: 1.1. Compressibility - Fully compressible: Thrombus - None : Flow - Phasic: Augmentation -Normal: Reflux - None. 2. Femoral Vein: 2.1. Compressibility - Fully compressible: Thrombus - None : Flow - Phasic: Augmentation -Normal: Reflux - None. 3. Popliteal Vein: 3.1. Compressibility - Fully compressible: Thrombus - None : Flow - Phasic: Augmentation -Normal: Reflux - None. 4. Posterior Tibial Vein: 4.1. Compressibility - Fully compressible: Thrombus - None: Flow - Phasic: Augmentation -Normal: Reflux - None. 5. Peroneal Vein: 5.1. Compressibility - Fully compressible: Thrombus - None: Flow - Phasic: Augmentation -Normal: Reflux - None. 6. Great Saphenous Vein: 6.1. Compressibility - Fully compressible: Thrombus - None: Flow - Phasic: Augmentation - Normal: Reflux - None. LEFT: 1. Common Femoral Vein: 1.1. Compressibility - Fully compressible: Thrombus - None: Flow - Phasic: Augmentation -Normal: Reflux - None. 2. Femoral Vein: 2.1. Compressibility - Fully compressible: Thrombus - None: Flow - Phasic: Augmentation -Normal: Reflux - None. 3. Popliteal Vein: 3.1. Compressibility - Fully compressible: Thrombus - None : Flow - Phasic: Augmentation -Normal: Reflux - None. 4. Posterior Tibial Vein: 4.1. Compressibility - Fully compressible: Thrombus - None: Flow - Phasic: Augmentation -Normal: Reflux - None. 5. Peroneal Vein: 5.1. Compressibility - Fully compressible: Thrombus - None: Flow - Phasic: Augmentation -Normal: Reflux - None. 6. Great Saphenous Vein: 6.1. Compressibility - Partial: Thrombus - Acute: Flow - Absent : Augmentation - None: Reflux - None. OTHER FINDINGS: Right: None significant. Left: None significant. IMPRESSION: Right: No evidence of deep or superficial vein thrombosis of the right lower extremity. Normal valve function noted of the right side. Left: Acute thrombosis of the left proximal calf to ankle greater saphenous vein with severe reduction of the venous return. No evidence of deep vein thrombosis of the left lower extremity. Normal valve function noted of the left side.
--- NOTE | 2018-05-11 13:30 | US ---
PROCEDURE: Date of procedure: 05/11/2018 Procedure: Ultrasound-guided percutaneous core biopsy of liver mass, CPT 47659 Ultrasound guidance for biopsy, CPT 45637 Medications: The patient was sedated by the anesthesiologist with IV sedation and monitoring. HISTORY: Liver Mass, pancreatic mass TECHNIQUE: Following informed consent and procedure time-out, the patient was placed supine on bed and limited ultrasound showed liver mass within the right hepatic lobe. After the patient abdomen was prepped and draped in the usual sterile fashion and the skin anesthetized with lidocaine, an 18 gauge core needle was advanced percutaneously under direct ultrasound guidance into the mass. Upon confirmation of needle position, three core specimens were obtained and sent for routine pathology. The biopsy track was then embolized with Gelfoam. A post biopsy ultrasound performed showed no hematoma. A dressing was applied. IMPRESSION: Ultrasound-guided core biopsy of liver mass.
--- NOTE | 2018-05-11 18:55 | CP.PCM.PN ---
Subjective - Date & Time of Evaluation Date of Evaluation: 05/11/18 Time of Evaluation: 12:00 - Subjective Subjective: PGY-1 Medicine progress note for Dr. Allen Pt was seen and examined at bedside. Pt is s/p US guided liver biopsy by Dr. Wetzel. Procedure was well tolerated. Pt is resting comfortably. He is resting comfortably. He continues to have RUQ and epigastric abdominal pain, but states that it is manageable with morphine. He reports some lightheadedness when he go up out of bed to fast this morning. Pt denies fever, chills, chest pain, sob, n/v/d, hematochezia, melena, visual disturbances, lightheadedness, headache, dizziness, weakness. Pt endorses a history of heart murmur. Objective - Vital Signs/Intake and Output Vital Signs (last 24 hours): Temp Pulse Resp BP Pulse Ox 98 F 95 H 20 170/90 H 98 05/11/18 15:30 05/11/18 16:00 05/11/18 15:30 05/11/18 15:30 05/11/18 15:30 Intake and Output: 05/11/18 05/11/18 06:59 18:59 Intake Total 888.8 300 Output Total 1650 Balance -761.2 300 - Medications Medications: Current Medications Acetaminophen (Tylenol 325mg Tab) 650 mg PO Q4H PRN PRN Reason: Pain, Mild (1-3) Dextrose (Dextrose 50% Inj) 0 ml IV STAT PRN; Protocol PRN Reason: Hypoglycemia Protocol Dextrose (Glutose 15) 0 gm PO ONCE PRN; Protocol PRN Reason: Hypoglycemia Protocol Glucagon (Glucagen Diagnostic Kit) 0 mg IM STAT PRN; Protocol PRN Reason: Hypoglycemia Protocol Dextrose (Dextrose 5% In Water 1000 Ml) 1,000 mls @ 0 mls/hr IV .Q0M PRN; Protocol PRN Reason: Hypoglycemia Protocol Heparin Sodium/Sodium Chloride (Heparin 84840 Units/250ml 1/2 Normal Saline) 25,000 units in 250 mls @ 14.451 mls/hr IV .[id number] [facility]; Protocol Last Admin: 05/10/18 16:07 Dose: 18 units/kg/hr, 14.451 mls/hr Sodium Chloride (Sodium Chloride 0.9%) 1,000 mls @ 100 mls/hr IV .Q10H [facility] Last Admin: 05/11/18 04:36 Dose: 100 mls/hr Insulin Aspart (Novolog) 0 unit SC Q6H [facility]; Protocol Last Admin: 05/11/18 17:48 Dose: 4 units Losartan Potassium (Cozaar) 50 mg PO DAILY [facility] Last Admin: 05/11/18 09:20 Dose: 50 mg Morphine Sulfate (Morphine) 1 mg IVP Q4 PRN PRN Reason: Pain, moderate (4-7) Last Admin: 05/11/18 16:41 Dose: 1 mg Rosuvastatin Calcium (Crestor) 5 mg PO HS [facility] Last Admin: 05/10/18 22:23 Dose: 5 mg - Labs Labs: 05/11/18 04:22 05/11/18 04:22 PT 12.5 SECONDS (9.7-12.2) H 05/10/18 07:51 INR 1.1 05/10/18 07:51 APTT 70 SECONDS (21-34) H D 05/11/18 04:22 - Additional Findings Additional findings: - Constitutional Appears: Non-toxic, No Acute Distress - Head Exam Head Exam: ATRAUMATIC, NORMAL INSPECTION - Eye Exam Eye Exam: EOMI - ENT Exam ENT Exam: Mucous Membranes Moist - Respiratory Exam Respiratory Exam: Clear to Ausculation Bilateral. absent: Rales, Rhonchi, Wheezes, Respiratory Distress, Stridor - Cardiovascular Exam Cardiovascular Exam: REGULAR RHYTHM, +S1, +S2, Tachycardia, (+) 3/6 systolic ejection murmur. absent: JVD, Rub - GI/Abdominal Exam GI & Abdominal Exam: Minimal distension, Guarding, Soft, Tenderness (moderate TTP in the upper quadrants of the abdomen, more so in the RUQ. (-) masterson's sign), Normal Bowel Sounds. absent: Firm, Rigid - Extremities Exam Extremities Exam: Full ROM, Normal Inspection. absent: Calf Tenderness, Pedal Edema - Back Exam Back Exam: NORMAL INSPECTION - Neurological Exam Neurological Exam: Alert, Awake, Oriented x3 - Psychiatric Exam Psychiatric exam: Normal Affect, Normal Mood - Skin Skin Exam: Normal Color, Warm (+) dressing over RUQ; no bleeding, ecchymosis, hematoma or signs of infections Assessment and Plan - Assessment and Plan (Free Text) Assessment: 53yoM PMH HTN, HLD, DM, pancreatitis who presented with [place] and epigastric abdomnial pain, radiating to the back. Abd/Pelv Ct showed necrotizing pancreatitis, nongas-forming, with suspician for SMV thrombus, as well as innumerable liver masses. Vascular surgery was consulted for necrotizing pancreatitis and possible SMV thrombus. GI was consulted for necrotizing pancreatitis. Heme/Onc was consulted due to liver masses, possible mets. 05/10: Abd/pelv CTA showed large right lower lobe pulmonary branch pulmonary embolus. Prelim lower extremity venous doppler shows left long saphenous vein DVT. Lovenox switched to Heparin gtt, and pt not a candidate for IVC filter, as per Claire. 05/11, pt underwent us guided liver biopsy of masses, well tolerated. Plan: Pancreatitis with Necrosis ( non-gas forming), with hypodense masses; likely pancreatic cancer - CT A/P with IV contrast (05/08): grossly abnormal appearing pancreas with extensive pancreatitis and necrosis. At time of imaging, non-gas forming. Contiguous hypodensity in SMV; thrombus must be considered. Innumerable liver masses. Right pleural effusion - US Abd (05/08): Multiple hepatic masses. Fatty infiltrate. Incidental right upper pole renal cortical cyst. - AST/ALT 67/77 on admission, Alk Phos 438 - Hepatitis panel is negative, CPK is 50 - Morphine 1mg IVP q4 prn - Vascular Surgery consulted: Dr. Musa - No need for surgical intervention at time of admission - Heme/Onc consult and IR consult for CT guided biopsy of liver and pancreas - Abd/Pelv CT results were reviewed with Dr. Musa, who reports no need for Abd/Pelv CTA or intervention for possible SMV thrombus at this time. - Hematology/Oncolgy, Dr. Rangel, consulted due to liver masses - recs liver and pancreas IR biopsy - Interventional radiology, Dr. Wetzel, consulted for CT-guided biopsy of liver masses and possibly pancreatic biopsy - Gastroenterology, Dr. Montelongo, consulted - Possible sterile necrosis within pancreas. Cannot exclude pancreatic mass. - IR has been consulted for possible liver biopsy - Patient would benefit from dedicated pancreatic imaging following resolution of acute inflammatory process - No clear for antibiotic therapy for pancreatic necrosis. Necrosis is likely sterile. No obvious signs of infection at this time. - would benefit from dedicated pancreatic imaging following resolution of acute inflammatory process - Overall clinical picture suggestive of metastatic malignancy from possible pancreatic or GI source, poor patient prognosis. - Elevated tumor markers: CA 19-9 is over 10,000, CEA is 251, CEA 125 is 203 - AFP is 1.1 - low fat mod carb consistent diet - fluids discontinued due to HTN Pulmonary embolus, likely secondary to hypercoagulability due to probably malignancy - Abd/pelv CTA showed large right lower lobe pulmonary branch pulmonary embolus. - Echocardiogram ordered to r/o right heart strain 05/10: LVEF is 60%. Mild concentric LVH. Grade 1 diastolic dysfunction. AV appears to be bicuspid. Borderline to mild . MR is trace to mild. RVSP is less than 30 mmHg. - pt is hemodynamically stable - Lovenox discontinued, started on Heparin gtt as per Dr. Rangel Heparin gtt will be restarted at noon 05/12 due to pt being s/p liver biopsy - Pt is not a candidate for IVC filter as per Dr. Rangel DVT - 05/10: Prelim lower extremity venous doppler shows left long saphenous vein DVT - heparin gtt as above Left and right liver masses, likely mets vs possible infection - Gastroenterology consulted, Dr. Montelongo - see above - Hematology/Oncolgy, Dr. Rangel, consulted - s/p US guided biopsy by Dr. Wetzel 05/11 Continue to monitor of signs of bleeding Right pleural effusion noted on Abd/Pelv CT - CXR (05/08): no active disease - will continue to monitor - pt is hemodynamically stable HTN - Continue home Losartan 50 mg PO daily - fluids discontinued, will recheck BP if still elevated will increase Losartan to 100 mg PO daily Insulin Dependant Diabetes Mellitus - HgA1c is 13.5 - Levemir 20u sc HS - Accuchecks q6h - ISS medium - hypoglycemia protocol PPx - DVT: SCDs CI due to prelim doppler studies showing left dvt, heparin gtt will be restarted at noon 05/12 - GI: not indicated - Diet: low fat mod carb consistent diet Case discussed with Dr. Cheng Muller PGY-1
[2018-05-11] MEDS ORDERED: Tramadol 25 mg PO PRN (21:30)
[2018-05-12 06:45] LABS: BASO % 0.3 % (0.0-2.0); EOS # 0.1 K/uL (0.0-0.7); EOS % 1.4 % (0.0-4.0); HEMOGLOBIN 11.7 g/dL (12.0-18.0); LYMPH # 1.1 K/uL (1.0-4.3); LYMPH % 18.2 % (20.0-40.0); MEAN CELL VOLUME 86.1 fL (80.0-94.0); MEAN CORPUSCULAR HEMOGLOBIN 29.2 pg (27.0-31.0); MEAN CORPUSCULAR HGB CONC 33.9 g/dL (33.0-37.0); MEAN PLATELET VOLUME 7.5 fL (7.2-11.7); MONO # 0.7 K/uL (0.0-0.8); MONO % 12.3 % (0.0-10.0); NEUT % 67.8 % (50.0-75.0); NRBC % 0.1 % (0.0-2.0); RED CELL DISTRIBUTION WIDTH 13.2 % (11.5-14.5); WHITE BLOOD COUNT 5.9 K/uL (4.8-10.8)
[2018-05-12 07:33] LABS: ALB/GLOB RATIO 0.9 (1.0-2.1); ALT/SGPT 53 U/L (21-72); AST/SGOT 59 U/L (17-59); BLOOD UREA NITROGEN 12 mg/dL (9-20); CALCIUM 8.2 mg/dl (8.6-10.4); GFR NON-AFRICAN AMERICAN > 60
--- NOTE | 2018-05-12 07:43 | CP.PCM.PN ---
<Giana Kerr - Last Filed: 05/12/18 14:35> Subjective - Date & Time of Evaluation Date of Evaluation: 05/12/18 Time of Evaluation: 07:42 - Subjective Subjective: PGY-1 Giana Kerr D.O. Medicine progress note for Dr. Rhoades's service: Patient was seen and examined this morning. He is s/p liver biopsy yesterday. He states he is worried about the results but is trying to be optimistic. Only complaint is chronic pain. Objective - Vital Signs/Intake and Output Vital Signs (last 24 hours): Temp Pulse Resp BP Pulse Ox 99.6 F 85 18 135/72 95 05/12/18 04:00 05/12/18 04:00 05/12/18 04:00 05/12/18 04:00 05/12/18 04:00 Intake and Output: 05/12/18 05/12/18 06:59 18:59 Intake Total 640 120 Output Total 400 250 Balance 240 -130 - Medications Medications: Current Medications Acetaminophen (Tylenol 325mg Tab) 650 mg PO Q4H PRN PRN Reason: Pain, Mild (1-3) Dextrose (Dextrose 50% Inj) 0 ml IV STAT PRN; Protocol PRN Reason: Hypoglycemia Protocol Dextrose (Glutose 15) 0 gm PO ONCE PRN; Protocol PRN Reason: Hypoglycemia Protocol Glucagon (Glucagen Diagnostic Kit) 0 mg IM STAT PRN; Protocol PRN Reason: Hypoglycemia Protocol Dextrose (Dextrose 5% In Water 1000 Ml) 1,000 mls @ 0 mls/hr IV .Q0M PRN; Protocol PRN Reason: Hypoglycemia Protocol Heparin Sodium/Sodium Chloride (Heparin 01065 Units/250ml 1/2 Normal Saline) 25,000 units in 250 mls @ 14.451 mls/hr IV .[id number] [facility]; Protocol Last Admin: 05/10/18 16:07 Dose: 18 units/kg/hr, 14.451 mls/hr Insulin Aspart (Novolog) 0 unit SC Q6H [facility]; Protocol Last Admin: 05/11/18 22:01 Dose: 2 units Losartan Potassium (Cozaar) 50 mg PO DAILY [facility] Last Admin: 05/11/18 09:20 Dose: 50 mg Metoprolol Tartrate (Lopressor) 25 mg PO ONCE PRN PRN Reason: Systolic Blood Pressure Last Admin: 05/11/18 21:48 Dose: 25 mg Morphine Sulfate (Morphine) 1 mg IVP Q4 PRN PRN Reason: Pain, moderate (4-7) Last Admin: 05/11/18 21:46 Dose: 1 mg Rosuvastatin Calcium (Crestor) 5 mg PO HS [facility] Last Admin: 05/11/18 21:39 Dose: 5 mg Tramadol HCl (Ultram) 25 mg PO Q12H PRN PRN Reason: Pain, moderate (4-7) - Labs Labs: 05/12/18 06:35 05/12/18 06:35 PT 12.5 SECONDS (9.7-12.2) H 05/10/18 07:51 INR 1.1 05/10/18 07:51 APTT 28 SECONDS (21-34) D 05/12/18 06:35 - Constitutional Appears: No Acute Distress - Head Exam Head Exam: ATRAUMATIC, NORMAL INSPECTION - Eye Exam Eye Exam: EOMI, Normal appearance, PERRL - ENT Exam ENT Exam: Mucous Membranes Moist - Neck Exam Neck Exam: Normal Inspection - Respiratory Exam Respiratory Exam: Clear to Ausculation Bilateral, NORMAL BREATHING PATTERN. absent: Respiratory Distress - Cardiovascular Exam Cardiovascular Exam: REGULAR RHYTHM, +S1, +S2 - GI/Abdominal Exam GI & Abdominal Exam: Distended, Soft, Tenderness (mild). absent: Mass Additional comments: biopsy site with clean, dry bandage- no signs of surround infection or bleeding - Rectal Exam Rectal Exam: Deferred - Extremities Exam Additional comments: R BKA - Neurological Exam Neurological Exam: Alert, Awake, CN II-XII Intact, Oriented x3 - Psychiatric Exam Psychiatric exam: Normal Affect, Normal Mood - Skin Skin Exam: Dry, Normal Color, Warm Assessment and Plan - Assessment and Plan (Free Text) Assessment: 53 yo male with PMH of HTN, HLD, DM s/p R BKA and L toe amputation, pancreatitis who presented with [place] and epigastric abdomnial pain, radiating to the back. Abd/Pelv Ct showed necrotizing pancreatitis, nongas-forming, with suspician for SMV thrombus, as well as innumerable liver masses. Vascular surgery was consulted for necrotizing pancreatitis and possible SMV thrombus. GI was consulted for necrotizing pancreatitis. Heme/Onc was consulted due to liver masses, possible mets. 05/10: Abd/pelv CTA showed large right lower lobe pulmonary branch pulmonary embolus. Prelim lower extremity venous doppler shows left long saphenous vein DVT. Lovenox switched to Heparin gtt, and pt not a candidate for IVC filter, as per Claire. 05/11, pt underwent us guided liver biopsy of masses, well tolerated. Plan: Pancreatitis with Necrosis (non-gas forming), with hypodense masses; likely pa ncreatic cancer - CT A/P with IV contrast (05/08): grossly abnormal appearing pancreas with extensive pancreatitis and necrosis. At time of imaging, non-gas forming. Contiguous hypodensity in SMV; thrombus must be considered. Innumerable liver masses. Right pleural effusion - US Abd (05/08): Multiple hepatic masses. Fatty infiltrate. Incidental right upper pole renal cortical cyst. - AST/ALT 67/77 on admission, Alk Phos 438- improving, LFT wnl, ALP 292 - Hepatitis panel is negative, CPK is 50 - Morphine 1mg IVP q4 prn - Vascular Surgery consulted: Dr. Musa - No need for surgical intervention at this time - Heme/Onc consult and IR consult for CT guided biopsy of liver and pancreas- 05/12 - Abd/Pelv CT results were reviewed with Dr. Musa, who reports no need for Abd/Pelv CTA or intervention for possible SMV thrombus at this time. - Hematology/Oncology, Dr. Rangel, consulted due to liver masses - recs liver and pancreas IR biopsy - Interventional radiology, Dr. Wetzel, consulted for CT-guided biopsy of liver masses and possibly pancreatic biopsy - Gastroenterology, Dr. Montelongo, consulted - Possible sterile necrosis within pancreas. Cannot exclude pancreatic mass. - IR has been consulted for possible liver biopsy - Patient would benefit from dedicated pancreatic imaging following resolution of acute inflammatory process - No clear for antibiotic therapy for pancreatic necrosis. Necrosis is likely sterile. No obvious signs of infection at this time. - Would benefit from dedicated pancreatic imaging following resolution of acute inflammatory process - Overall clinical picture suggestive of metastatic malignancy from possible pancreatic or GI source, poor patient prognosis. - Elevated tumor markers: CA 19-9 > 10,000, CEA is 251, CEA 125 is 203 - AFP is 1.1 - Low fat mod carb consistent diet - Fluids discontinued due to HTN Pulmonary embolus, likely secondary to hypercoagulability due to probably malignancy - Abd/pelv CTA showed large right lower lobe pulmonary branch pulmonary embolus. - CTA chest: Filling defect consistent with pulmonary embolus evident within the right lower lobe pulmonary artery branch. - Echocardiogram ordered to r/o right heart strain 05/10: LVEF is 60%. Mild concentric LVH. Grade 1 diastolic dysfunction. AV appears to be bicuspid. Borderline to mild . MR is trace to mild. RVSP is less than 30 mmHg. - Hemodynamically stable - Lovenox discontinued, started on Heparin gtt as per Dr. Rangel - Not a candidate for IVC filter as per Dr. Rangel - Wait starting oral anticoagulation pending any procedures once liver Bx results available L Deep vein thrombosis, likely secondary to hypercoagulability due to probably malignancy - 05/10: Prelim lower extremity venous doppler shows left long saphenous vein DVT - Heparin gtt Liver masses, likely mets vs possible infection - Gastroenterology consulted, Dr. Montelongo - Hematology/Oncolgy, Dr. Rangel, consulted - s/p US guided biopsy by Dr. Wetzel 05/11 Continue to monitor of signs of bleeding - Hepatitis panel is negative Right pleural effusion - CXR (05/08): no active disease - CTA chest: Moderate right and small left pleural effusions and associated consolidations. Right middle lobe pneumonia or atelectasis, partially imaged. - Continue to monitor - Hemodynamically stable Hypertension - Increase Losartan to 100 mg PO daily - Fluids discontinued Hyperlipidemia - TG 162, choles 182, LDL 135, HDL 32 - Crestor 5 mg PO QHS Insulin Dependant Diabetes Mellitus - HgA1c 13.5 - Accuchecks ACHS - ISS medium - Hypoglycemia protocol - Start Lantus 10u sc HS Ppx - DVT: SCDs CI due to DVT, heparin gtt - GI: not indicated - Diet: low fat mod carb consistent diet Code status: full code Case discussed with attending, Dr. Rhoades. <Katya Rhoades - Last Filed: 05/13/18 20:37> Objective - Vital Signs/Intake and Output Vital Signs (last 24 hours): Temp Pulse Resp BP Pulse Ox 98.2 F 92 H 20 153/90 H 92 L 05/12/18 15:20 05/12/18 16:00 05/12/18 15:20 05/12/18 15:20 05/12/18 15:20 Intake and Output: 05/12/18 05/12/18 06:59 18:59 Intake Total 640 520 Output Total 400 250 Balance 240 270 - Medications Medications: Current Medications Acetaminophen (Tylenol 325mg Tab) 650 mg PO Q4H PRN PRN Reason: Pain, Mild (1-3) Dextrose (Dextrose 50% Inj) 0 ml IV STAT PRN; Protocol PRN Reason: Hypoglycemia Protocol Dextrose (Glutose 15) 0 gm PO ONCE PRN; Protocol PRN Reason: Hypoglycemia Protocol Glucagon (Glucagen Diagnostic Kit) 0 mg IM STAT PRN; Protocol PRN Reason: Hypoglycemia Protocol Dextrose (Dextrose 5% In Water 1000 Ml) 1,000 mls @ 0 mls/hr IV .Q0M [facility]N; Protocol PRN Reason: Hypoglycemia Protocol Heparin Sodium/Sodium Chloride (Heparin 45814 Units/250ml 1/2 Normal Saline) 25,000 units in 250 mls @ 14.451 mls/hr IV .[id number] [facility]; Protocol Last Admin: 05/10/18 16:07 Dose: 18 units/kg/hr, 14.451 mls/hr Insulin Aspart (Novolog) 0 unit SC Q6H [facility]; Protocol Last Admin: 05/12/18 17:38 Dose: 6 units Insulin Glargine (Lantus) 10 unit SC HS [facility] Losartan Potassium (Cozaar) 100 mg PO DAILY [facility] Last Admin: 05/12/18 08:38 Dose: 100 mg Metoprolol Tartrate (Lopressor) 25 mg PO ONCE PRN PRN Reason: Systolic Blood Pressure Last Admin: 05/11/18 21:48 Dose: 25 mg Morphine Sulfate (Morphine) 1 mg IVP Q4 PRN PRN Reason: Pain, moderate (4-7) Last Admin: 05/12/18 17:12 Dose: 1 mg Rosuvastatin Calcium (Crestor) 5 mg PO HS [facility] Last Admin: 05/11/18 21:39 Dose: 5 mg Tramadol HCl (Ultram) 25 mg PO Q12H PRN PRN Reason: Pain, moderate (4-7) - Labs Labs: 05/12/18 06:35 05/12/18 06:35 PT 12.5 SECONDS (9.7-12.2) H 05/10/18 07:51 INR 1.1 05/10/18 07:51 APTT 28 SECONDS (21-34) D 05/12/18 06:35 Attending/Attestation - Attestation I have personally seen and examined this patient.: Yes I have fully participated in the care of the patient.: Yes I have reviewed all pertinent clinical information, including history, physical exam and plan: Yes Notes (Text): No complain,Blood sugar is high Lantus and insulin aspart added monitor sugar Patient was seen and examined me No complain,no pain Assessment and the plan discussed with the resident
[2018-05-12] MEDS: (Novolog) Insulin Aspart, Recombinant 100 u/ml 10 ml vial SC SCH ×4 (07:50→22:11)
[2018-05-12] MEDS: Heparin25000 units/250ml 1/2NS 25,000 UNITS/250 ML BAG IV SCH (19:58)
--- NOTE | 2018-05-12 20:43 | CP.PCM.PN ---
Subjective - Date & Time of Evaluation Date of Evaluation: 05/11/18 Time of Evaluation: 17:00 - Subjective Subjective: No complaints s/p percutaneous liver lesion biopsy Objective - Vital Signs/Intake and Output Vital Signs (last 24 hours): Temp Pulse Resp BP Pulse Ox 98.2 F 92 H 20 153/90 H 92 L 05/12/18 15:20 05/12/18 16:00 05/12/18 15:20 05/12/18 15:20 05/12/18 15:20 Intake and Output: 05/12/18 05/13/18 18:59 06:59 Intake Total 520 Output Total 250 Balance 270 - Medications Medications: Current Medications Acetaminophen (Tylenol 325mg Tab) 650 mg PO Q4H PRN PRN Reason: Pain, Mild (1-3) Dextrose (Dextrose 50% Inj) 0 ml IV STAT PRN; Protocol PRN Reason: Hypoglycemia Protocol Dextrose (Glutose 15) 0 gm PO ONCE PRN; Protocol PRN Reason: Hypoglycemia Protocol Glucagon (Glucagen Diagnostic Kit) 0 mg IM STAT PRN; Protocol PRN Reason: Hypoglycemia Protocol Dextrose (Dextrose 5% In Water 1000 Ml) 1,000 mls @ 0 mls/hr IV .Q0M PRN; Protocol PRN Reason: Hypoglycemia Protocol Heparin Sodium/Sodium Chloride (Heparin 35900 Units/250ml 1/2 Normal Saline) 25,000 units in 250 mls @ 14.451 mls/hr IV .[id number] [facility]; Protocol Last Admin: 05/12/18 19:58 Dose: 18 units/kg/hr, 14.451 mls/hr Insulin Aspart (Novolog) 0 unit SC Q6H [facility]; Protocol Last Admin: 05/12/18 17:38 Dose: 6 units Insulin Aspart (Novolog) 10 unit SC AC [facility] Insulin Glargine (Lantus) 10 unit SC HS [facility] Losartan Potassium (Cozaar) 100 mg PO DAILY [facility] Last Admin: 05/12/18 08:38 Dose: 100 mg Metoprolol Tartrate (Lopressor) 25 mg PO ONCE PRN PRN Reason: Systolic Blood Pressure Last Admin: 05/11/18 21:48 Dose: 25 mg Morphine Sulfate (Morphine) 1 mg IVP Q4 PRN PRN Reason: Pain, moderate (4-7) Last Admin: 05/12/18 17:12 Dose: 1 mg Rosuvastatin Calcium (Crestor) 5 mg PO HS [facility] Last Admin: 05/11/18 21:39 Dose: 5 mg Tramadol HCl (Ultram) 25 mg PO Q12H PRN PRN Reason: Pain, moderate (4-7) - Labs Labs: 05/12/18 06:35 05/12/18 06:35 PT 12.5 SECONDS (9.7-12.2) H 05/10/18 07:51 INR 1.1 05/10/18 07:51 APTT 31 SECONDS (21-34) 05/12/18 18:02 - Head Exam Head Exam: ATRAUMATIC - Eye Exam Eye Exam: Normal appearance - ENT Exam ENT Exam: Mucous Membranes Dry - Respiratory Exam Respiratory Exam: NORMAL BREATHING PATTERN - Cardiovascular Exam Cardiovascular Exam: +S1, +S2 - GI/Abdominal Exam GI & Abdominal Exam: Normal Bowel Sounds Assessment and Plan (1) Lesion of liver Assessment & Plan: s/p percutaenous biopsy ? metastatic pancreatic cancer further treatment recommendations based on pathology Status: Acute (2) Pulmonary embolism Assessment & Plan: on anticoagulation Status: Acute (3) Anemia Assessment & Plan: chronic disease Status: Acute
[2018-05-12] MEDS ORDERED: (Lantus) Insulin Glargine, Recombinant SC SCH (22:00)
[2018-05-13 02:23] LABS: INR 1.1; PROTHROMBIN TIME 12.2 SECONDS (9.7-12.2)
[2018-05-13] MEDS: (Novolog) Insulin Aspart, Recombinant 100 u/ml 10 ml vial SC SCH ×6 (06:54→17:39)
--- NOTE | 2018-05-13 07:47 | CP.PCM.PN ---
<Giana Kerr - Last Filed: 05/13/18 11:22> Subjective - Date & Time of Evaluation Date of Evaluation: 05/13/18 Time of Evaluation: 07:46 - Subjective Subjective: PGY-1 Giana Kerr D.O. Medicine progress note for Dr. Buckner's service: Patient was seen and examined this morning. He is s/p liver Bx 2 days ago. He is complaining of chronic back and abdominal pain. He states morphine helps temporarily. He is anxious about the biopsy results but understands there is a high likelihood of cancer. Objective - Vital Signs/Intake and Output Vital Signs (last 24 hours): Temp Pulse Resp BP Pulse Ox 99 F 97 H 20 172/90 H 96 05/13/18 01:00 05/13/18 01:33 05/12/18 23:45 05/12/18 23:45 05/12/18 23:45 Intake and Output: 05/13/18 05/13/18 06:59 18:59 Intake Total 116 Balance 116 - Medications Medications: Current Medications Acetaminophen (Tylenol 325mg Tab) 650 mg PO Q4H PRN PRN Reason: Pain, Mild (1-3) Last Admin: 05/13/18 00:00 Dose: 650 mg Dextrose (Dextrose 50% Inj) 0 ml IV STAT PRN; Protocol PRN Reason: Hypoglycemia Protocol Dextrose (Glutose 15) 0 gm PO ONCE PRN; Protocol PRN Reason: Hypoglycemia Protocol Glucagon (Glucagen Diagnostic Kit) 0 mg IM STAT PRN; Protocol PRN Reason: Hypoglycemia Protocol Dextrose (Dextrose 5% In Water 1000 Ml) 1,000 mls @ 0 mls/hr IV .Q0M PRN; Protocol PRN Reason: Hypoglycemia Protocol Heparin Sodium/Sodium Chloride (Heparin 22900 Units/250ml 1/2 Normal Saline) 25,000 units in 250 mls @ 14.451 mls/hr IV .[id number] CARL; Protocol Last Admin: 05/12/18 19:58 Dose: 18 units/kg/hr, 14.451 mls/hr Insulin Aspart (Novolog) 0 unit SC Q6H CARL; Protocol Last Admin: 05/13/18 06:54 Dose: 4 units Insulin Aspart (Novolog) 10 unit SC AC CARL Insulin Glargine (Lantus) 10 unit SC HS CARL Last Admin: 05/12/18 22:11 Dose: 10 units Losartan Potassium (Cozaar) 100 mg PO DAILY [facility] Last Admin: 05/12/18 08:38 Dose: 100 mg Metoprolol Tartrate (Lopressor) 25 mg PO ONCE PRN PRN Reason: Systolic Blood Pressure Last Admin: 05/11/18 21:48 Dose: 25 mg Morphine Sulfate (Morphine) 1 mg IVP Q4 PRN PRN Reason: Pain, moderate (4-7) Last Admin: 05/13/18 06:58 Dose: 1 mg Rosuvastatin Calcium (Crestor) 5 mg PO HS [facility] Last Admin: 05/12/18 21:29 Dose: 5 mg Tramadol HCl (Ultram) 25 mg PO Q12H PRN PRN Reason: Pain, moderate (4-7) - Labs Labs: 05/12/18 06:35 05/12/18 06:35 PT 12.2 SECONDS (9.7-12.2) 05/13/18 02:04 INR 1.1 05/13/18 02:04 APTT 62 SECONDS (21-34) H D 05/13/18 02:04 - Constitutional Appears: No Acute Distress - Head Exam Head Exam: ATRAUMATIC, NORMAL INSPECTION, NORMOCEPHALIC - Eye Exam Eye Exam: EOMI, Normal appearance, PERRL - ENT Exam ENT Exam: Mucous Membranes Moist - Neck Exam Neck Exam: Normal Inspection - Respiratory Exam Respiratory Exam: Clear to Ausculation Bilateral, NORMAL BREATHING PATTERN. absent: Accessory Muscle Use, Respiratory Distress - Cardiovascular Exam Cardiovascular Exam: REGULAR RHYTHM, +S1, +S2 - GI/Abdominal Exam GI & Abdominal Exam: Distended, Tenderness. 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 CT showed necrotizing pancreatitis, nongas-forming, with suspicion for SMV thrombus, as well as innumerable liver masses. Vascular surgery was consulted for necrotizing pancreatitis and possible SMV thrombus. GI was consulted for necrotizing pancreatitis. Heme/Onc was consulted due to liver masses, possible mets. 05/10: CTA showed large right lower lobe pulmonary branch pulmonary embolus. Lower extremity venous doppler shows left long saphenous vein DVT. Lovenox switched to Heparin gtt. Pt not a candidate for IVC filter, as per Claire. 05/11, pt underwent us guided liver biopsy of masses, well tolerated. Plan: Pancreatitis with Necrosis (non-gas forming), with hypodense masses; likely pancreatic cancer - CT A/P with IV contrast (05/08): grossly abnormal appearing pancreas with extensive pancreatitis and necrosis. At time of imaging, non-gas forming. Contiguous hypodensity in SMV; thrombus must be considered. Innumerable liver masses. Right pleural effusion - US Abd (05/08): Multiple hepatic masses. Fatty infiltrate. Incidental right upper pole renal cortical cyst. - AST/ALT 67/77 on admission, ALP 438- worsening, AST/ALT 109/74, ALP 323 - Hepatitis panel negative, CPK 50 - Lidoderm patch to lower back - Morphine 1mg IVP Q4H PRN - Tramadol 25 mg PO Q12H CARL - Avoid Tylenol, muscle relaxants due to transaminitis - Avoid NSAIDs due to increased bleeding risk with heparin drip - Vascular Surgery consulted: Dr. Musa- No need for surgical intervention at this time - Hematology/Oncology consulted: Dr. Rangel- recs liver and pancreas IR biopsy - Interventional radiology consulted: Dr. Wetzel- CT-guided biopsy of liver 05/11 - Gastroenterology consulted: Dr. Montelongo - Possible sterile necrosis within pancreas. Cannot exclude pancreatic mass. - Patient would benefit from dedicated pancreatic imaging following resolution of acute inflammatory process - No clear indication for antibiotic therapy for pancreatic necrosis. Necrosis is likely sterile. No obvious signs of infection at this time. - Overall clinical picture suggestive of metastatic malignancy from possible pancreatic or GI source, poor patient prognosis. - Elevated tumor markers: CA 19-9 Ag >10,000, CEA Ag 251, CA 125 Ag 203 - AFP 1.1 - Low fat mod carb consistent diet - Fluids discontinued due to HTN Pulmonary embolism and Deep vein thrombosis, likely secondary to hypercoagulability due to probably malignancy - Abd/pelv CTA: large right lower lobe pulmonary branch pulmonary embolus. - CTA chest: Filling defect consistent with pulmonary embolus evident within the right lower lobe pulmonary artery branch. - Lower extremity venous doppler: left long saphenous vein DVT - Echocardiogram to r/o right heart strain: LVEF is 60%. Mild concentric LVH. Grade 1 diastolic dysfunction. AV appears to be bicuspid. Borderline to mild . MR is trace to mild. RVSP is less than 30 mmHg. - Heparin gtt- monitor PTT - Not a candidate for IVC filter as per Dr. Rangel - Wait on starting oral anticoagulation pending any procedures once liver Bx results available Liver masses, likely mets > possible infection - Gastroenterology consulted, Dr. Montelongo - Hematology/Oncolgy consulted, Dr. Rangel - s/p US guided biopsy by Dr. Wetzel 05/11- continue to monitor for signs of bleeding - Hepatitis panel negative - Transaminitis worsening- AST/ALT 109/74, ALP 323 - Avoid hepatotoxic agents- discontinue Tylenol, hold statin Insulin Dependant Diabetes Mellitus - HgA1c 13.5 - Accuchecks ACHS - ISS medium - Hypoglycemia protocol - Aspart 10 u SC TIDAC - Levemir 10u SC QHS Hypertension - Increase Losartan to 100 mg PO daily - Fluids discontinued Hyperlipidemia - TG 162, choles 182, LDL 135, HDL 32 - Crestor 5 mg PO QHS- hold due to transaminitis Pleural effusions R>L - CXR (05/08): no active disease - CTA chest: Moderate right and small left pleural effusions and associated consolidations. Right middle lobe pneumonia or atelectasis, partially imaged. - Continue to monitor Ppx - DVT: SCDs CI due to DVT and BKA, heparin gtt - GI: not indicated - Diet: low fat mod carb consistent diet Code status: full code Case discussed with attending, Dr. Buckner. <Stephanie Buckner V - Last Filed: 05/13/18 20:53> Objective - Vital Signs/Intake and Output Vital Signs (last 24 hours): Temp Pulse Resp BP Pulse Ox 99.4 F 90 20 145/84 96 05/13/18 17:33 05/13/18 17:33 05/13/18 17:33 05/13/18 17:33 05/13/18 17:33 Intake and Output: 05/13/18 05/14/18 18:59 06:59 Intake Total 766 Balance 766 - Medications Medications: Current Medications Benzocaine/Menthol (Cepacol Sore Throat) 1 isatu MT QID PRN PRN Reason: Sore Throat Last Admin: 05/13/18 12:10 Dose: 1 isatu Dextrose (Dextrose 50% Inj) 0 ml IV STAT PRN; Protocol PRN Reason: Hypoglycemia Protocol Dextrose (Glutose 15) 0 gm PO ONCE PRN; Protocol PRN Reason: Hypoglycemia Protocol Glucagon (Glucagen Diagnostic Kit) 0 mg IM STAT PRN; Protocol PRN Reason: Hypoglycemia Protocol Dextrose (Dextrose 5% In Water 1000 Ml) 1,000 mls @ 0 mls/hr IV .Q0M PRN; Protocol PRN Reason: Hypoglycemia Protocol Heparin Sodium/Sodium Chloride (Heparin 73500 Units/250ml 1/2 Normal Saline) 25,000 units in 250 mls @ 14.451 mls/hr IV .[id number] CARL; Protocol Last Admin: 05/13/18 13:49 Dose: 18 units/kg/hr, 14.451 mls/hr Insulin Aspart (Novolog) 0 unit SC Q6H CARL; Protocol Last Admin: 05/13/18 17:39 Dose: 3 units Insulin Aspart (Novolog) 10 unit SC AC CARL Last Admin: 05/13/18 17:39 Dose: 10 units Insulin Detemir (Levemir) 10 unit SC HS CARL Lidocaine (Lidoderm) 1 ea TD DAILY [facility] Last Admin: 05/13/18 11:29 Dose: Not Given Losartan Potassium (Cozaar) 100 mg PO DAILY [facility] Last Admin: 05/13/18 09:34 Dose: 100 mg Morphine Sulfate (Morphine) 1 mg IVP Q4 PRN PRN Reason: Pain, moderate (4-7) Last Admin: 05/13/18 11:27 Dose: 1 mg Rosuvastatin Calcium (Crestor) 5 mg PO HS [facility] Last Admin: 05/12/18 21:29 Dose: 5 mg Tramadol HCl (Ultram) 25 mg PO Q12H PRN PRN Reason: Pain, moderate (4-7) - Labs Labs: 05/13/18 08:10 05/13/18 08:10 PT 12.2 SECONDS (9.7-12.2) 05/13/18 02:04 INR 1.1 05/13/18 02:04 APTT 74 SECONDS (21-34) H D 05/13/18 08:17 Attending/Attestation - Attestation I have personally seen and examined this patient.: Yes I have fully participated in the care of the patient.: Yes I have reviewed all pertinent clinical information, including history, physical exam and plan: Yes Notes (Text): Patient seen, examined, and case discussed with registered medical assistant. Patient this morning. Patient noting abdominal pain that stretches across the abdomen. Patient has recently completed IR biopsy of liver mass. We are awaiting biopsy result to indicate if this cancer etc. Patient remains on heparin drip to cover for PE/DVT. Assessment/Plan 1) Pancreatitis with Necrosis (non-gas forming), with hypodense masses; likely malignancy Assessment/Plan * high suspicion for malignancy * Vascular Surgery consulted: Dr. Musa- No need for surgical intervention at this time * Hematology/Oncology consulted: Dr. Harley kearns liver and pancreas IR biopsy * Interventional radiology consulted: Dr. Wetzel- CT-guided biopsy of liver 05/11 * Gastroenterology consulted: Dr. Montelongo * Possible sterile necrosis within pancreas. Cannot exclude pancreatic mass. * Patient would benefit from dedicated pancreatic imaging following resolution of acute inflammatory process * No clear indication for antibiotic therapy for pancreatic necrosis. Necrosis is likely sterile. No obvious signs of infection at this time. * Overall clinical picture suggestive of metastatic malignancy from possible pancreatic or GI source, poor patient prognosis. * CT A/P with IV contrast (05/08): grossly abnormal appearing pancreas with extensive pancreatitis and necrosis. At time of imaging, non-gas forming (further detals per note. Contiguous hypodensity in SMV; thrombus must be considered. Innumerable liver masses. Right pleural effusion * US Abd (05/08): Multiple hepatic masses. Fatty infiltrate. Incidental right upper pole renal cortical cyst. * Hepatitis panel negative, CPK 50 * Pain management: * Lidoderm patch to lower back * Morphine 1mg IVP Q4H PRN * Tramadol 25 mg PO Q12H CARL * Avoid Tylenol, muscle relaxants due to transaminitis * Avoid NSAIDs due to increased bleeding risk with heparin drip * Elevated tumor markers: CA 19-9 Ag >10,000, CEA Ag 251, CA 125 Ag 203 * AFP 1.1 * Low fat mod carb consistent diet * Fluids discontinued due to HTN 2) Pulmonary embolism and Deep vein thrombosis, likely secondary to hypercoagulability due to probably malignancy Assessment/Plan * likely secondary to malignancy and long standing smoking history * CT A/P with IV contrast (05/08): grossly abnormal appearing pancreas with extensive pancreatitis and necrosis. At time of imaging, non-gas forming (further details per note. Contiguous hypodensity in SMV; thrombus must be considered. Innumerable liver masses. Right pleural effusion. Filling defiect consistent with pulmonary embolus evident within the right lower lobe pulmonary artery branch. Moderate right and small large pleural effusions and associated consolidations. Right middle lobe pneumonia, atelectasis, partially imaged. * Venous doppler (05/11/18): right: no evidence of deep or superifical vein thrombosis of the right lower extremity. normal valve function noted of the right side. Left: acute thrombosis of the left proximal calf to ankle greater saphneous vein and severe reduction of the venous return. No evidence of deep vein thrombosis of the left lower extrmity. normal valve function noted on the left side. * Patient is on heparin drip * Echocardiogram (05/10/18): mild concentric left ventricular hypertrophy. left ventricular function is normal. normal LV segmental wall motion. (further findings per report) 3) Liver masses, likely mets > possible infection Assessment/Plan * Gastroenterology consulted, Dr. Montelongo * Hematology/Oncolgy consulted, Dr. Rangel * s/p US guided biopsy by Dr. Wetzel 05/11- continue to monitor for signs of bleeding * findings of abnormalities involving the liver in both CT and Abdominal US * Hepatitis panel negative * Transaminitis worsening- AST/ALT 109/74, ALP 323 * Avoid hepatotoxic agents- discontinue Tylenol, hold statin 4) Insulin Dependant Diabetes Mellitus Assessment/Plan * HgA1c 13.5 * Accuchecks ACHS * Novolog subACHS insulin sliding scal * ISS medium * Hypoglycemia protocol * Novolog 10 u SC TIDAC * Start Levemir 10u SC QHS 5) Hypertension Assessment/Plan * Losartan 100 mg PO daily 6) Hyperlipidemia Assessment/Plan * TG 162, choles 182, LDL 135, HDL 32 * Crestor 5 mg PO QHS- hold due to transaminitis 7) Pleural effusions R>L Assessment/Plan * CXR (05/08): no active disease * CTA chest: Moderate right and small left pleural effusions and associated consolidations. Right middle lobe pneumonia or atelectasis, partially imaged. * Continue to monitor * Start Zosyn 3.375 IV Q6H (active since 05/13/18) 8) Ppx * DVT: SCDs CI due to DVT and BKA, heparin gtt * GI: not indicated * Diet: low fat mod carb consistent diet * Will consult palliative care for goals of care Disposition: * Patient is pending liver biopsy which was completed on monday; pathology to help to determine prognosis for suspecting malignancy * Palliative care consult * Possible transition from heparin drip to Coumadin
[2018-05-13 08:24] LABS: BASO % 0.3 % (0.0-2.0); EOS # 0.1 K/uL (0.0-0.7); EOS % 1.4 % (0.0-4.0); HEMOGLOBIN 11.8 g/dL (12.0-18.0); LYMPH # 1.1 K/uL (1.0-4.3); LYMPH % 16.2 % (20.0-40.0); MEAN CELL VOLUME 85.3 fL (80.0-94.0); MEAN CORPUSCULAR HEMOGLOBIN 29.3 pg (27.0-31.0); MEAN CORPUSCULAR HGB CONC 34.3 g/dL (33.0-37.0); MEAN PLATELET VOLUME 7.5 fL (7.2-11.7); MONO # 0.9 K/uL (0.0-0.8); MONO % 13.2 % (0.0-10.0); NEUT # 4.5 K/uL (1.8-7.0); NEUT % 68.9 % (50.0-75.0); RBC 4.03 Mil/uL (4.40-5.90); RED CELL DISTRIBUTION WIDTH 13.4 % (11.5-14.5); WHITE BLOOD COUNT 6.6 K/uL (4.8-10.8)
[2018-05-13 09:02] LABS: ALB/GLOB RATIO 0.9 (1.0-2.1); ALBUMIN 3.1 g/dL (3.5-5.0); ALT/SGPT 74 U/L (21-72); AST/SGOT 109 U/L (17-59); BLOOD UREA NITROGEN 14 mg/dL (9-20); CALCIUM 8.5 mg/dl (8.6-10.4); GFR NON-AFRICAN AMERICAN > 60
[2018-05-13] MEDS: Lidocaine 5% Patch TD SCH (11:29)
[2018-05-13] MEDS: Benzocaine/Menthol (Cepacol) Lozenge MT PRN ×2 (12:10→21:51)
[2018-05-13] MEDS: Heparin25000 units/250ml 1/2NS 25,000 UNITS/250 ML BAG IV SCH (13:49)
[2018-05-13] MEDS: Insulin Detemir 100 units/ml Vial (Levemir) SC SCH (21:51)
[2018-05-13] MEDS: Piperacill/Tazo 3.375gm in Dex 3.375 GM/50 ML BAG IVPB SCH (22:17)
[2018-05-14] MEDS: Piperacill/Tazo 3.375gm in Dex 3.375 GM/50 ML BAG IVPB SCH ×4 (02:00→21:49)
[2018-05-14] MEDS: Benzocaine/Menthol (Cepacol) Lozenge MT PRN (02:05)
[2018-05-14] MEDS: Heparin25000 units/250ml 1/2NS 25,000 UNITS/250 ML BAG IV SCH ×2 (05:53→23:15)
[2018-05-14 06:36] LABS: BASO % 0.5 % (0.0-2.0); EOS # 0.1 K/uL (0.0-0.7); EOS % 0.8 % (0.0-4.0); HEMOGLOBIN 11.2 g/dL (12.0-18.0); LYMPH # 0.3 K/uL (1.0-4.3); LYMPH % 3.9 % (20.0-40.0); MEAN CORPUSCULAR HEMOGLOBIN 28.7 pg (27.0-31.0); MEAN CORPUSCULAR HGB CONC 33.4 g/dL (33.0-37.0); MEAN PLATELET VOLUME 7.6 fL (7.2-11.7); MONO # 0.6 K/uL (0.0-0.8); MONO % 9.3 % (0.0-10.0); NEUT # 5.9 K/uL (1.8-7.0); NEUT % 85.5 % (50.0-75.0); PLATELET COUNT 273 K/uL (130-400); RBC 3.92 Mil/uL (4.40-5.90); RED CELL DISTRIBUTION WIDTH 13.3 % (11.5-14.5); WHITE BLOOD COUNT 6.9 K/uL (4.8-10.8)
[2018-05-14 06:54] LABS: ALB/GLOB RATIO 0.9 (1.0-2.1); ALBUMIN 3.1 g/dL (3.5-5.0); ALT/SGPT 76 U/L (21-72); AST/SGOT 78 U/L (17-59); BLOOD UREA NITROGEN 17 mg/dL (9-20); GFR NON-AFRICAN AMERICAN > 60
--- NOTE | 2018-05-14 08:14 | CP.PCM.PN ---
<Obie Muller - Last Filed: 05/14/18 14:41> Subjective - Date & Time of Evaluation Date of Evaluation: 05/14/18 Time of Evaluation: 08:14 - Subjective Subjective: PGY-1 Medicine progress note for Dr. Buckner Patient was seen and examined this morning. He is s/p liver Bx 3 days ago. Fever, tmax 102.4 orally, overnight and treated with ice packs which decreased the fever. He describes pleuritic right right sided upper back pain when he takes a deep breath, but denies shortness of breath. He h intermittent sharp right sided chest pain that goes away after two seconds. He also endorses dizziness at times, when he stands up too fast. He states that he hasn't had a bowel movement in 4 days and reports lower abdominal pain which extends around the bilateral lower back as well, but is passing gas. Denies n/v, hemoptysis, h ematochezia, melena. Objective - Vital Signs/Intake and Output Vital Signs (last 24 hours): Temp Pulse Resp BP Pulse Ox 99.7 F H 99 H 20 106/65 94 L 05/14/18 07:20 05/14/18 07:20 05/14/18 07:20 05/14/18 07:20 05/14/18 07:20 Intake and Output: 05/14/18 05/14/18 06:59 18:59 Intake Total 426 Output Total 450 Balance -24 - Medications Medications: Current Medications Benzocaine/Menthol (Cepacol Sore Throat) 1 isatu MT QID PRN PRN Reason: Sore Throat Last Admin: 05/14/18 02:05 Dose: 1 isatu Dextrose (Dextrose 50% Inj) 0 ml IV STAT PRN; Protocol PRN Reason: Hypoglycemia Protocol Dextrose (Glutose 15) 0 gm PO ONCE PRN; Protocol PRN Reason: Hypoglycemia Protocol Glucagon (Glucagen Diagnostic Kit) 0 mg IM STAT PRN; Protocol PRN Reason: Hypoglycemia Protocol Dextrose (Dextrose 5% In Water 1000 Ml) 1,000 mls @ 0 mls/hr IV .Q0M PRN; Protocol PRN Reason: Hypoglycemia Protocol Heparin Sodium/Sodium Chloride (Heparin 64259 Units/250ml 1/2 Normal Saline) 25,000 units in 250 mls @ 14.451 mls/hr IV .[id number] [facility]; Protocol Last Admin: 05/14/18 05:53 Dose: 18 units/kg/hr, 14.451 mls/hr Piperacillin Sod/Tazobactam Sod (Zosyn 3.375 Gm Iv Premix) 3.375 gm in 50 mls @ 100 mls/hr IVPB Q6H [facility]; Protocol Last Admin: 05/14/18 02:00 Dose: 100 mls/hr Insulin Aspart (Novolog) 10 unit SC AC [facility] Last Admin: 05/13/18 17:39 Dose: 10 units Insulin Aspart (Novolog) 0 unit SC ACHS [facility]; Protocol Insulin Detemir (Levemir) 10 unit SC HS [facility] Last Admin: 05/13/18 21:51 Dose: 10 unit Lidocaine (Lidoderm) 1 ea TD DAILY [facility] Last Admin: 05/13/18 11:29 Dose: Not Given Losartan Potassium (Cozaar) 100 mg PO DAILY [facility] Last Admin: 05/13/18 09:34 Dose: 100 mg Morphine Sulfate (Morphine) 1 mg IVP Q4 PRN PRN Reason: Pain, moderate (4-7) Last Admin: 05/14/18 04:41 Dose: 1 mg Rosuvastatin Calcium (Crestor) 5 mg PO HS [facility] Last Admin: 05/12/18 21:29 Dose: 5 mg Tramadol HCl (Ultram) 25 mg PO Q12H PRN PRN Reason: Pain, moderate (4-7) - Labs Labs: 05/14/18 06:27 05/14/18 06:27 PT 12.2 SECONDS (9.7-12.2) 05/13/18 02:04 INR 1.1 05/13/18 02:04 APTT 74 SECONDS (21-34) H D 05/13/18 08:17 - Additional Findings Additional findings: - Constitutional Appears: No Acute Distress - Head Exam Head Exam: ATRAUMATIC, NORMAL INSPECTION, NORMOCEPHALIC - Eye Exam Eye Exam: EOMI, Normal appearance, PERRL - ENT Exam ENT Exam: Mucous Membranes Moist - Neck Exam Neck Exam: Normal Inspection - Respiratory Exam Respiratory Exam: Clear to Ausculation Bilateral, NORMAL BREATHING PATTERN. absent: Accessory Muscle Use, Respiratory Distress - Cardiovascular Exam Cardiovascular Exam: REGULAR RHYTHM, +S1, +S2 - GI/Abdominal Exam GI & Abdominal Exam: Distended, Tenderness in the RUQ and epigastruim, (-) lower abdominal tenderness. absent: Rigid, Mass, Rebound Additional comments: liver bx site with dressing over it; clean, dry, no signs of bleeding or infection - Extremities Exam Extremities Exam: absent: Pedal Edema Additional comments: .R BKA - Back Exam Back Exam: muscle spasm, paraspinal tenderness. 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 CT showed necrotizing pancreatitis, nongas-forming, with suspicion for SMV thrombus, as well as innumerable liver masses. Vascular surgery was consulted for necrotizing pancreatitis and possible SMV thrombus. GI was consulted for necrotizing pancreatitis. Heme/Onc was consulted due to liver masses, possible mets. 05/10: CTA showed large right lower lobe pulmonary branch pulmonary embolus. Lower extremity venous doppler shows left long saphenous vein DVT. L ovenox switched to Heparin gtt. Pt not a candidate for IVC filter, as per [facility]. 05/11, pt underwent us guided liver biopsy of masses, well tolerated. Plan: Pancreatitis with Necrosis (non-gas forming), with hypodense masses; likely pancreatic cancer - CT A/P with IV contrast (05/08): grossly abnormal appearing pancreas with extensive pancreatitis and necrosis. At time of imaging, non-gas forming. Contiguous hypodensity in SMV; thrombus must be considered. Innumerable liver masses. Right pleural effusion - US Abd (05/08): Multiple hepatic masses. Fatty infiltrate. Incidental right upper pole renal cortical cyst. - AST/ALT 67/77 on admission, ALP 438- worsening, AST/ALT 109/74, ALP 323 - Hepatitis panel negative, CPK 50 - Lidoderm patch to lower back - Morphine 1mg IVP Q4H PRN - Tramadol 25 mg PO Q12H [facility] - Avoid Tylenol, muscle relaxants due to transaminitis - Avoid NSAIDs due to increased bleeding risk with heparin drip - Vascular Surgery consulted: Dr. Musa- No need for surgical intervention at this time - Hematology/Oncology consulted: Dr. Rangel- recs liver and pancreas IR biopsy - Interventional radiology consulted: Dr. Wetzel- CT-guided biopsy of liver 05/11 - Gastroenterology consulted: Dr. Montelongo - Possible sterile necrosis within pancreas. Cannot exclude pancreatic mass. - Patient would benefit from dedicated pancreatic imaging following resolution of acute inflammatory process - No clear indication for antibiotic therapy for pancreatic necrosis. Necrosis is likely sterile. No obvious signs of infection at this time. - Overall clinical picture suggestive of metastatic malignancy from possible pancreatic or GI source, poor patient prognosis. - Elevated tumor markers: CA 19-9 Ag >10,000, CEA Ag 251, CA 125 Ag 203 - AFP 1.1 - Low fat mod carb consistent diet - Fluids discontinued due to HTN - f/u liver biopsy Pulmonary embolism and Deep vein thrombosis, likely secondary to hypercoagulab ility due to probably malignancy - Abd/pelv CTA: large right lower lobe pulmonary branch pulmonary embolus. - CTA chest: Filling defect consistent with pulmonary embolus evident within the right lower lobe pulmonary artery branch. - Lower extremity venous doppler: left long saphenous vein DVT - Echocardiogram to r/o right heart strain: LVEF is 60%. Mild concentric LVH. Grade 1 diastolic dysfunction. AV appears to be bicuspid. Borderline to mild . MR is trace to mild. RVSP is less than 30 mmHg. - Heparin gtt- monitor PTT - Not a candidate for IVC filter as per Dr. Rangel - Wait on starting oral anticoagulation pending any procedures once liver Bx results available Liver masses, likely mets > possible infection - Gastroenterology consulted, Dr. Montelongo - Hematology/Oncology consulted, Dr. Rangel - s/p US guided biopsy by Dr. Wetzel 05/11- continue to monitor for signs of bleeding - Hepatitis panel negative - Transaminitis improving - Will monitor LFTs on Tylenol - Hold statin, and avoid unnecessary hepatotoxic medications - Head CT ordered to r/o mets due to complaint of dizziness; shows no acute intracranial abnormality Fever, tmax 102.4, possibly due to thrombus in pulm artery or effusions which could be secondary to occult pneumonia - Fever was controlled with ice packs to the axillas - pt has no leukocytosis but does have a left shift on today's labs as well as tachycardia - Tylenol 650 mg PO Q8 PRN - f/u urine culture, blood culture x2 - pt started on zyson 3.375 IVPB Q6H (05/13) Insulin Dependant Diabetes Mellitus - HgA1c 13.5 - Accuchecks ACHS - ISS medium - Hypoglycemia protocol - Aspart 10 u SC TIDAC - Levemir 10u SC QHS Hypertension - continue Losartan to 100 mg PO daily Hyperlipidemia - TG 162, choles 182, LDL 135, HDL 32 - Crestor 5 mg PO QHS- hold due to transaminitis Pleural effusions R>L - CXR (05/08): no active disease - CTA chest: Moderate right and small left pleural effusions and associated consolidations. Right middle lobe pneumonia or atelectasis, partially imaged. - Continue to monitor Ppx - DVT: SCDs CI due to DVT and BKA, heparin gtt - GI: not indicated - Diet: low fat mod carb consistent diet Code status: full code Dispo: Pt is being treated for PE/DVT with heparin gtt. Currently, transition to oral AC is on hold due to potential of future procedures as liver biopsy is pending. Palliative care, Martine, is on board. Pt has expressed that if this is indeed cancer that he would want to avoid the hospital and to live closer to his daughter. Case discussed with attending, Dr. Buckner. Obie Muller PGY1 <Stephanie Buckner V - Last Filed: 05/16/18 09:08> Objective - Vital Signs/Intake and Output Vital Signs (last 24 hours): Temp Pulse Resp BP Pulse Ox 98.1 F 86 20 146/89 96 05/16/18 07:15 05/16/18 07:55 05/16/18 07:15 05/16/18 07:15 05/16/18 07:15 Intake and Output: 05/16/18 05/16/18 06:59 18:59 Intake Total 50 Output Total 940 Balance -890 - Medications Medications: Current Medications Acetaminophen (Tylenol 325mg Tab) 650 mg PO Q8 PRN PRN Reason: Fever >100.4 F Benzocaine/Menthol (Cepacol Sore Throat) 1 isatu MT QID PRN PRN Reason: Sore Throat Last Admin: 05/14/18 02:05 Dose: 1 isatu Dextrose (Dextrose 50% Inj) 0 ml IV STAT PRN; Protocol PRN Reason: Hypoglycemia Protocol Dextrose (Glutose 15) 0 gm PO ONCE PRN; Protocol PRN Reason: Hypoglycemia Protocol Docusate Sodium (Colace) 100 mg PO DAILY [facility] Last Admin: 05/15/18 09:46 Dose: 100 mg Glucagon (Glucagen Diagnostic Kit) 0 mg IM STAT PRN; Protocol PRN Reason: Hypoglycemia Protocol Dextrose (Dextrose 5% In Water 1000 Ml) 1,000 mls @ 0 mls/hr IV .Q0M PRN; Protocol PRN Reason: Hypoglycemia Protocol Piperacillin Sod/Tazobactam Sod (Zosyn 3.375 Gm Iv Premix) 3.375 gm in 50 mls @ 100 mls/hr IVPB Q6H [facility]; Protocol Last Admin: 05/16/18 08:04 Dose: 100 mls/hr Heparin Sodium/Sodium Chloride (Heparin 14662 Units/250ml 1/2 Normal Saline) 25,000 units in 250 mls @ 14.403 mls/hr IV .[id number] PRN; Protocol PRN Reason: PROTOCOL Last Admin: 05/15/18 23:03 Dose: 18 units/kg/hr, 14.403 mls/hr Insulin Aspart (Novolog) 10 unit SC AC [facility] Last Admin: 05/16/18 08:03 Dose: 10 units Insulin Aspart (Novolog) 0 unit SC ACHS [facility]; Protocol Last Admin: 05/16/18 08:04 Dose: 4 unit Insulin Detemir (Levemir) 10 unit SC HS [facility] Last Admin: 05/15/18 22:09 Dose: 10 unit Lidocaine (Lidoderm) 1 ea TD DAILY [facility] Last Admin: 05/15/18 09:48 Dose: Not Given Losartan Potassium (Cozaar) 100 mg PO DAILY [facility] Last Admin: 05/15/18 09:46 Dose: 100 mg Morphine Sulfate (Morphine) 1 mg IVP Q4 PRN PRN Reason: Pain, moderate (4-7) Last Admin: 05/16/18 06:18 Dose: 1 mg Rosuvastatin Calcium (Crestor) 5 mg PO HS [facility] Last Admin: 05/12/18 21:29 Dose: 5 mg Tramadol HCl (Ultram) 25 mg PO Q12H PRN PRN Reason: Pain, moderate (4-7) - Labs Labs: 05/16/18 06:25 05/16/18 06:25 PT 12.2 SECONDS (9.7-12.2) 05/13/18 02:04 INR 1.1 05/13/18 02:04 APTT 58 SECONDS (21-34) H D 05/16/18 06:25 Attending/Attestation - Attestation I have personally seen and examined this patient.: Yes I have fully participated in the care of the patient.: Yes I have reviewed all pertinent clinical information, including history, physical exam and plan: Yes Notes (Text): This is late computer entry for 05/14/18. Patient seen, examined, and case discussed with medical billing service. Patient this morning. Patient noting abdominal pain that stretches across the abdomen. Patient has recently completed IR biopsy of liver mass. We are awaiting biopsy result to indicate if this cancer etc. Patient remains on heparin drip to cover for PE/DVT. Patient completed CT head for headache; no apparent masses noted. Pending pathology to determine course of action for the patient; discussed with heme-oncology. Assessment/Plan 1) Pancreatitis with Necrosis (non-gas forming), with hypodense masses; likely malignancy Assessment/Plan * high suspicion for malignancy * Vascular Surgery consulted: Dr. Musa- No need for surgical intervention at this time * Hematology/Oncology consulted: Dr. Harley kearns liver and pancreas IR biopsy * Interventional radiology consulted: Dr. Wetzel- CT-guided biopsy of liver 05/11 * Gastroenterology consulted: Dr. Montelongo * Possible sterile necrosis within pancreas. Cannot exclude pancreatic mass. * Patient would benefit from dedicated pancreatic imaging following resolution of acute inflammatory process * No clear indication for antibiotic therapy for pancreatic necrosis. Necrosis is likely sterile. No obvious signs of infection at this time. * Overall clinical picture suggestive of metastatic malignancy from possible pancreatic or GI source, poor patient prognosis. * CT A/P with IV contrast (05/08): grossly abnormal appearing pancreas with extensive pancreatitis and necrosis. At time of imaging, non-gas forming (further detals per note. Contiguous hypodensity in SMV; thrombus must be considered. Innumerable liver masses. Right pleural effusion * US Abd (05/08): Multiple hepatic masses. Fatty infiltrate. Incidental right upper pole renal cortical cyst. * Hepatitis panel negative, CPK 50 * Pain management: * Lidoderm patch to lower back * Morphine 1mg IVP Q4H PRN * Tramadol 25 mg PO Q12H [facility] * Avoid Tylenol, muscle relaxants due to transaminitis * Avoid NSAIDs due to increased bleeding risk with heparin drip * Elevated tumor markers: CA 19-9 Ag >10,000, CEA Ag 251, CA 125 Ag 203 * AFP 1.1 * Low fat mod carb consistent diet * Fluids discontinued due to HTN 2) Pulmonary embolism and Deep vein thrombosis, likely secondary to hypercoa gulability due to probably malignancy Assessment/Plan * likely secondary to malignancy and long standing smoking history * CT A/P with IV contrast (05/08): grossly abnormal appearing pancreas with extensive pancreatitis and necrosis. At time of imaging, non-gas forming (further details per note. Contiguous hypodensity in SMV; thrombus must be considered. Innumerable liver masses. Right pleural effusion. Filling defiect consistent with pulmonary embolus evident within the right lower lobe pulmonary artery branch. Moderate right and small large pleural effusions and associated consolidations. Right middle lobe pneumonia, atelectasis, partially imaged. * Venous doppler (05/11/18): right: no evidence of deep or superifical vein thrombosis of the right lower extremity. normal valve function noted of the right side. Left: acute thrombosis of the left proximal calf to ankle greater saphneous vein and severe reduction of the venous return. No evidence of deep vein thrombosis of the left lower extrmity. normal valve function noted on the left side. * Patient is on heparin drip * Echocardiogram (05/10/18): mild concentric left ventricular hypertrophy. left ventricular function is normal. normal LV segmental wall motion. (further findings per report) 3) Liver masses, likely mets > possible infection Assessment/Plan * Gastroenterology consulted, Dr. Montelongo * Hematology/Oncolgy consulted, Dr. Rangel * s/p US guided biopsy by Dr. Wetzel 05/11- continue to monitor for signs of bleeding * findings of abnormalities involving the liver in both CT and Abdominal US * Hepatitis panel negative * Transaminitis worsening- AST/ALT 109/74, ALP 323 * Avoid hepatotoxic agents- discontinue Tylenol, hold statin 4) Insulin Dependant Diabetes Mellitus Assessment/Plan * HgA1c 13.5 * Accuchecks ACHS * Novolog subACHS insulin sliding scal * ISS medium * Hypoglycemia protocol * Novolog 10 u SC TIDAC * Start Levemir 10u SC QHS 5) Hypertension Assessment/Plan * Losartan 100 mg PO daily 6) Hyperlipidemia Assessment/Plan * TG 162, choles 182, LDL 135, HDL 32 * Crestor 5 mg PO QHS- hold due to transaminitis 7) Pleural effusions R>L Assessment/Plan * CXR (05/08): no active disease * CTA chest: Moderate right and small left pleural effusions and associated consolidations. Right middle lobe pneumonia or atelectasis, partially imaged. * Continue to monitor * c/w Zosyn 3.375 IV Q6H (active since 05/13/18) 8) Ppx * DVT: SCDs CI due to DVT and BKA, heparin gtt * GI: not indicated * Diet: low fat mod carb consistent diet * Will consult palliative care for goals of care Disposition: * Patient is pending liver biopsy which was completed on monday; pathology to help to determine prognosis for suspecting malignancy * Palliative care consult * Possible transition from heparin drip to Coumadin
[2018-05-14 08:56] LABS: BANDS 1 % (0-2); EOSINOPHIL 1 % (0-4); LYMPHOCYTE 3 % (20-40); MONOCYTE 3 % (0-10); NEUTROPHIL 92 % (50-75); PLATELET ESTIMATE NORMAL (NORMAL); TOTAL CELLS COUNTED 100
[2018-05-14] MEDS: Lidocaine 5% Patch TD SCH (09:26)
[2018-05-14] MEDS: (Novolog) Insulin Aspart, Recombinant 100 u/ml 10 ml vial SC SCH ×7 (09:27→21:49)
--- NOTE | 2018-05-14 11:13 | CT ---
Date of service: 05/14/2018 PROCEDURE: CT HEAD WITHOUT CONTRAST. HISTORY: c/o of dizziness, r/o mets COMPARISON: None available. TECHNIQUE: Axial computed tomography images were obtained through the head/brain without intravenous contrast. Radiation dose: Total exam DLP = 1133.99 mGy-cm. This CT exam was performed using one or more of the following dose reduction techniques: Automated exposure control, adjustment of the mA and/or kV according to patient size, and/or use of iterative reconstruction technique. FINDINGS: HEMORRHAGE: No intracranial hemorrhage. BRAIN: Henderson-white matter differentiation is preserved. There is no mass, mass effect or abnormal extra-axial fluid collection. There is no territorial infarction. The midline sagittal structures are normal.There are coarse atherosclerotic calcifications in the cavernous carotid arteries. VENTRICLES: There is mild age-related global parenchymal volume loss and proportionate enlargement of the ventricles and cortical sulci. CALVARIUM: There is no calvarial fracture or extracranial soft tissue swelling. PARANASAL SINUSES: Predominantly clear. MASTOID AIR CELLS: Predominantly clear. OTHER FINDINGS: None. IMPRESSION: No acute intracranial abnormality. Please note an MRI of the brain without and with intravenous contrast is the imaging modality of choice for evaluation of small in cortical metastasis and may be performed if clinically indicated.
--- NOTE | 2018-05-14 13:49 | CP.PCM.CON ---
History of Present Illness - History of Present Illness History of Present Illness: Palliative consult requested by Doctor Rubio for goals of care discussion Patient is a 53 yo male admitted from home with epigastric pain radiating to the back and more intense to right lower back. Pain was worse after eating and is fallowed by cough and SOB. Patient had similar symptoms about 2 months ago and was treated at [facility]. CT abdomen and pelvis on his admission was significant for extensivelly abnormal pancreass with necrosis and liver masses. patient is S/P liver bx, results pending. Patient continue to have abdominal pain and is given Morphine IV. AST and ALTs are elevated. Patient is started on Zosyn IV. PMH: DM, HTN, HLD, asthma Soc. Hx: , has grown daughter, the girlfriend of 7 years this year Fam. Hx: Mother is Jehov[employer] Witness Review of Systems - Constitutional Constitutional: Weakness - EENT Eyes: absent: As Per HPI, Blind Spots, Blurred Vision, Change in Vision, Decreased Night Vision, Diplopia, Discharge, Dry Eye, Exophthalmos, Floaters, Irritation, Itchy Eyes, Loss of Peripheral Vision, Pain, Photophobia, Requires Corrective Lenses, Sees Flashes, Spots in Vision, Tunnel Vision, Other Visual Disturbances, Loss of Vision, Other Ears: absent: As Per HPI, Decreased Hearing, Ear Discharge, Ear Pain, Tinnitus, Abnormal Hearing, Disequilibrium, Dizziness, Other Nose/Mouth/Throat: absent: As Per HPI, Epistaxis, Nasal Congestion, Nasal Discharge, Nasal Obstruction, Nasal Trauma, Nose Pain, Post Nasal Drip, Sinus Pain, Sinus Pressure, Bleeding Gums, Change in Voice, Dental Pain, Dry Mouth, Dysphagia, Halitosis, Hoarsness, Lip Swelling, Mouth Lesions, Mouth Pain, Odynophagia, Sore Throat, Throat Swelling, Tongue Swelling, Facial Pain, Neck Pain, Neck Mass, Other - Cardiovascular Cardiovascular: absent: As Per HPI, Acrocyanosis, Chest Pain, Chest Pain at Rest, Chest Pain with Activity, Claudication, Diaphoresis, Dyspnea, Dyspnea on Exertion, Edema, Irregular Heart Rhythm, Pain Radiating to Arm/Neck/Jaw, Leg Edema, Leg Ulcers, Lightheadedness, Orthopnea, Palpitations, Paroxysmal Nocturnal Dyspnea, Pedal Edema, Radiating Pain, Rapid Heart Rate, Slow Heart Ra te, Syncope, Other - Respiratory Respiratory: absent: As Per HPI, Cough, Dyspnea, Hemoptysis, Dyspnea on Exertion, Wheezing, Snoring, Stridor, Pain on Inspiration, Chest Congestion, Excessive Mucous Production, Change in Mucous Color, Pain with Coughing, Other - Gastrointestinal Gastrointestinal: Abdominal Pain, Belching - Genitourinary Genitourinary: absent: As Per HPI, Change in Urinary Stream, Difficulty Urinating, Dysuria, Flank Pain, Hematuria, Pyuria, Nocturia, Urinary Inc ontinence, Urinary Frequency, Urinary Hesitance, Urinary Urgency, Voiding Freq/Small Amts, Freq UTI, Hx Renal/Bladder Calculi, Hx /Renal Surgery, Bladder Distension, Other - Musculoskeletal Musculoskeletal: absent: As Per HPI, Abnormal Gait, Arthralgias, Atrophy, Back Pain, Deformity, Joint Swelling, Limited Range of Motion, Loss of Height, Muscle Cramps, Muscle Weakness, Myalgias, Neck Pain, Numbness, Radiating Pain into Limb, Stiffness, Tingling, Other - Integumentary Integumentary: absent: As Per HPI, Acne, Alopecia, Bleeding Lesions, Change in Hair, Change in Nails, Change in Pigmentation, Changing Lesions, Dry Skin, Erythema, Furuncle, Hirsutism, Lesions, New Lesions, Non-Healing Lesions, Photosensitivity, Pruritus, Rash, Skin Pain, Skin Ulcer, Sores, Striae, Swelling, Unusual Bruising, Wounds, Jaundice, Other - Neurological Neurological: absent: As Per HPI, Abnormal Gait, Abnormal Hearing, Abnormal Movements, Abnormal Speech, Behavioral Changes, Burning Sensations, Confusion, Convulsions, Disequilibrium, Dizziness, Numbness, Focal Weakness, Frequent Falls, Headaches, Lack of Coordination, Loss of Vision, Memory Loss, Paresthesias, Radicular Pain, Restless Legs, Sensory Deficit, Syncope, Tingling, Tremor, Vertigo, Weakness, Other Visual Disturbances, Other - Psychiatric Psychiatric: Anxiety - Endocrine Endocrine: absent: As Per HPI, Change in Body Appearance, Change in Libido, Cold Intolorance, Deepening of Voice, Excessive Sweating, Fatigue, Flushing, Heat Intolorance, Increase in Ring/Shoe/Hat Size, Palpitations, Polydipsia, Polyphagia, Polyuria, Other - Hematologic/Lymphatic Hematologic: absent: As Per HPI, Easy Bleeding, Easy Bruising, Lymphadenopathy, Other Past Patient History - Infectious Disease Hx of Infectious Diseases: None - Past Medical History & Family History Past Medical History?: Yes - Past Social History Smoking Status: Current Some Days Smoker Alcohol: Social Drugs: Denies - CARDIAC Hx Cardiac Disorders: Yes Hx Hypertension: Yes - PULMONARY Hx Respiratory Disorders: Yes Hx Asthma: Yes - ENDOCRINE/METABOLIC Hx Endocrine Disorders: Yes Hx Diabetes Mellitus Type 1: Yes - MUSCULOSKELETAL/RHEUMATOLOGICAL Hx Musculoskeletal Disorders: No Hx Falls: No - PSYCHIATRIC Hx Psychophysiologic Disorder: No Hx Substance Use: No - SURGICAL HISTORY Hx Surgeries: Yes Hx Amputation: Yes (Right BKA, Left TMA) Other/Comment: RBKA, left toes amputation - ANESTHESIA Hx Anesthesia: Yes Hx Anesthesia Reactions: No Meds Allergies/Adverse Reactions: Allergies Allergy/AdvReac Type Severity Reaction Status Date / Time FISH Allergy RASH Verified 03/12/18 16:06 hazelnut Allergy RASH Verified 03/12/18 16:06 - Medications Medications: Current Medications Acetaminophen (Tylenol 325mg Tab) 650 mg PO Q8 PRN PRN Reason: Fever >100.4 F Benzocaine/Menthol (Cepacol Sore Throat) 1 isatu MT QID PRN PRN Reason: Sore Throat Last Admin: 05/14/18 02:05 Dose: 1 isatu Dextrose (Dextrose 50% Inj) 0 ml IV STAT PRN; Protocol PRN Reason: Hypoglycemia Protocol Dextrose (Glutose 15) 0 gm PO ONCE PRN; Protocol PRN Reason: Hypoglycemia Protocol Docusate Sodium (Colace) 100 mg PO DAILY [facility] Last Admin: 05/14/18 09:26 Dose: 100 mg Glucagon (Glucagen Diagnostic Kit) 0 mg IM STAT PRN; Protocol PRN Reason: Hypoglycemia Protocol Dextrose (Dextrose 5% In Water 1000 Ml) 1,000 mls @ 0 mls/hr IV .Q0M PRN; Protocol PRN Reason: Hypoglycemia Protocol Heparin Sodium/Sodium Chloride (Heparin 68504 Units/250ml 1/2 Normal Saline) 25,000 units in 250 mls @ 14.451 mls/hr IV .[id number] [facility]; Protocol Last Admin: 05/14/18 05:53 Dose: 18 units/kg/hr, 14.451 mls/hr Piperacillin Sod/Tazobactam Sod (Zosyn 3.375 Gm Iv Premix) 3.375 gm in 50 mls @ 100 mls/hr IVPB Q6H [facility]; Protocol Last Admin: 05/14/18 09:26 Dose: 100 mls/hr Insulin Aspart (Novolog) 10 unit SC AC [facility] Last Admin: 05/14/18 12:47 Dose: 10 units Insulin Aspart (Novolog) 0 unit SC ACHS [facility]; Protocol Last Admin: 05/14/18 12:46 Dose: 6 unit Insulin Detemir (Levemir) 10 unit SC HS [facility] Last Admin: 05/13/18 21:51 Dose: 10 unit Lidocaine (Lidoderm) 1 ea TD DAILY [facility] Last Admin: 05/14/18 09:26 Dose: 1 ea Losartan Potassium (Cozaar) 100 mg PO DAILY [facility] Last Admin: 05/14/18 09:26 Dose: 100 mg Morphine Sulfate (Morphine) 1 mg IVP Q4 PRN PRN Reason: Pain, moderate (4-7) Last Admin: 05/14/18 08:19 Dose: 1 mg Rosuvastatin Calcium (Crestor) 5 mg PO HS [facility] Last Admin: 05/12/18 21:29 Dose: 5 mg Tramadol HCl (Ultram) 25 mg PO Q12H PRN PRN Reason: Pain, moderate (4-7) Physical Exam - Constitutional Appears: In Acute Distress, Chronically Ill - Head Exam Head Exam: ATRAUMATIC, NORMAL INSPECTION, NORMOCEPHALIC - Eye Exam Eye Exam: EOMI, Normal appearance, PERRL Pupil Exam: NORMAL ACCOMODATION, PERRL - ENT Exam ENT Exam: Mucous Membranes Moist, Normal Exam - Neck Exam Neck exam: Positive for: Normal Inspection - Respiratory Exam Respiratory Exam: Clear to Auscultation Bilateral, NORMAL BREATHING PATTERN - Cardiovascular Exam Cardiovascular Exam: Tachycardia, REGULAR RHYTHM - GI/Abdominal Exam GI & Abdominal Exam: Diminished Bowel Sounds, Guarding, Soft - Rectal Exam Rectal Exam: Deferred - Exam Exam: NORMAL INSPECTION - Extremities Exam Extremities exam: Positive for: normal inspection - Back Exam Back exam: NORMAL INSPECTION - Neurological Exam Neurological exam: Alert, Normal Gait, Oriented x3 - Psychiatric Exam Psychiatric exam: Anxious - Skin Skin Exam: Dry, Intact, Normal Color, Warm Results - Vital Signs Recent Vital Signs: Last Vital Signs Temp 99.7 F H 05/14/18 07:20 Pulse 101 H 05/14/18 08:00 Resp 20 05/14/18 07:20 BP 106/65 05/14/18 07:20 Pulse Ox 94 L 05/14/18 07:20 - Labs Result Diagrams: 05/14/18 06:27 05/14/18 06:27 Labs: Laboratory Results - last 24 hr 05/13/18 05/13/18 05/14/18 16:22 21:24 06:27 WBC 6.9 RBC 3.92 L Hgb 11.2 L Hct 33.7 L MCV 86.0 MCH 28.7 MCHC 33.4 RDW 13.3 Plt Count 273 MPV 7.6 Neut % (Auto) 85.5 H Lymph % (Auto) 3.9 L [place] % (Auto) 9.3 Eos % (Auto) 0.8 Baso % (Auto) 0.5 Neut # (Auto) 5.9 Lymph # (Auto) 0.3 L [place] # (Auto) 0.6 Eos # (Auto) 0.1 Baso # (Auto) 0.0 Neutrophils % (Manual) 92 H Band Neutrophils % 1 Lymphocytes % (Manual) 3 L Monocytes % (Manual) 3 Eosinophils % (Manual) 1 Platelet Estimate Normal RBC Morphology Normal APTT Sodium Potassium Chloride Carbon Dioxide Anion Gap BUN Creatinine Est GFR ( Amer) Est GFR (Non-Af Amer) POC Glucose (mg/dL) 205 H 266 H Random Glucose Calcium Phosphorus Magnesium Total Bilirubin AST ALT Alkaline Phosphatase Total Protein Albumin Globulin Albumin/Globulin Ratio 05/14/18 05/14/18 05/14/18 06:27 06:27 06:29 WBC RBC Hgb Hct MCV MCH MCHC RDW Plt Count MPV Neut % (Auto) Lymph % (Auto) [place] % (Auto) Eos % (Auto) Baso % (Auto) Neut # (Auto) Lymph # (Auto) [place] # (Auto) Eos # (Auto) Baso # (Auto) Neutrophils % (Manual) Band Neutrophils % Lymphocytes % (Manual) Monocytes % (Manual) Eosinophils % (Manual) Platelet Estimate RBC Morphology APTT 63 H D Sodium 133 Potassium 3.9 Chloride 99 Carbon Dioxide 24 Anion Gap 14 BUN 17 Creatinine 1.0 Est GFR ( Amer) > 60 Est GFR (Non-Af Amer) > 60 POC Glucose (mg/dL) 270 H Random Glucose 309 H Calcium 8.0 L Phosphorus 3.3 Magnesium 1.8 Total Bilirubin 0.9 AST 78 H D ALT 76 H Alkaline Phosphatase 389 H Total Protein 6.3 Albumin 3.1 L Globulin 3.2 Albumin/Globulin Ratio 0.9 L 05/14/18 10:50 WBC RBC Hgb Hct MCV MCH MCHC RDW Plt Count MPV Neut % (Auto) Lymph % (Auto) [place] % (Auto) Eos % (Auto) Baso % (Auto) Neut # (Auto) Lymph # (Auto) [place] # (Auto) Eos # (Auto) Baso # (Auto) Neutrophils % (Manual) Band Neutrophils % Lymphocytes % (Manual) Monocytes % (Manual) Eosinophils % (Manual) Platelet Estimate RBC Morphology APTT Sodium Potassium Chloride Carbon Dioxide Anion Gap BUN Creatinine Est GFR ( Amer) Est GFR (Non-Af Amer) POC Glucose (mg/dL) 314 H Random Glucose Calcium Phosphorus Magnesium Total Bilirubin AST ALT Alkaline Phosphatase Total Protein Albumin Globulin Albumin/Globulin Ratio Assessment & Plan - Assessment and Plan (Free Text) Assessment: Palliative consult Full Code, there is no Advance directive on chart, PPS 80 % I reviewed all medical records and diagnostic studies and examined and interviewed patient in the bed. Patient is alert, oriented X 3 with affect that is sad and anxious. Speech is clear. Patient is not in acute distress. Skin is diaphoretic. Patient admits to weakness and post prandial abdominal pain. Pain is medicated with Morphine 1 mg Iv Q 4 hr PRN. Patient feels it wears off in about 2 hr. Patient is aware that it could be due to liver cancer. He is anxious to learn about Bx results. WBC 6.9, Hb 11.2, BS 270 BP 106/65, HR 101, O2 Sat 94 % RA I discussed with patient his clinical condition. Patient hopes the Bx results " will not be so bad'. I offered more information about liver and pancreas cancer and role of Bx results. Patient stated willingness to undergo any suggested Tx in order to support his life. Patient believes that there is still hope or him. I supported his positive attitude but at the same time suggested some reservation. Code status was not discussed. Patient's mind is toward cure and I felt if I discussed the Code, that would worsen his already high anxiety level. Instead, I offered to see him again tomorrow, and share any new results I come across. It made him feel better he said. Impression * This is a very unfortunate young man with most likely liver cancer ( Bx res ults pending) * Post prandial abdominal pain, moderate to severe in nature * Chronic pain is not well controlled by current pain managemnt * Feelings of despair * Patient wishes to undergo all available interventions to support his own life Suggestions * Would increase Morphine to 2 ng IV Q 3 hr PRN and monitor his comfort level * Patient needs reassurance of support and care * Keep patient updated with diagnostic studies result to decrease his feelings of anxiety * FULL CODE * Would refer to Oncology Palliative care will continue to fallow with this patient and offer support Advance care planing 35 min
[2018-05-14] MEDS: Insulin Detemir 100 units/ml Vial (Levemir) SC SCH (21:48)
[2018-05-15] MEDS: Piperacill/Tazo 3.375gm in Dex 3.375 GM/50 ML BAG IVPB SCH ×4 (03:31→20:10)
[2018-05-15 07:26] LABS: BASO % 0.7 % (0.0-2.0); EOS # 0.3 K/uL (0.0-0.7); EOS % 5.6 % (0.0-4.0); LYMPH # 0.7 K/uL (1.0-4.3); LYMPH % 12.4 % (20.0-40.0); MEAN CELL VOLUME 86.5 fL (80.0-94.0); MEAN CORPUSCULAR HEMOGLOBIN 29.2 pg (27.0-31.0); MEAN CORPUSCULAR HGB CONC 33.7 g/dL (33.0-37.0); MEAN PLATELET VOLUME 7.8 fL (7.2-11.7); MONO # 0.8 K/uL (0.0-0.8); MONO % 13.2 % (0.0-10.0); NEUT # 3.9 K/uL (1.8-7.0); NEUT % 68.1 % (50.0-75.0); RBC 4.1 Mil/uL (4.40-5.90); RED CELL DISTRIBUTION WIDTH 13.7 % (11.5-14.5); WHITE BLOOD COUNT 5.7 K/uL (4.8-10.8)
[2018-05-15] MEDS: (Novolog) Insulin Aspart, Recombinant 100 u/ml 10 ml vial SC SCH ×7 (07:28→22:08)
[2018-05-15 08:26] LABS: ALB/GLOB RATIO 0.9 (1.0-2.1); ALBUMIN 3.3 g/dL (3.5-5.0); ALT/SGPT 82 U/L (21-72); AST/SGOT 85 U/L (17-59); BLOOD UREA NITROGEN 19 mg/dL (9-20); CALCIUM 8.2 mg/dl (8.6-10.4); GFR NON-AFRICAN AMERICAN > 60
[2018-05-15] MEDS: Lidocaine 5% Patch TD SCH (09:48)
--- NOTE | 2018-05-15 10:36 | CP.PCM.PN ---
<Obie Muller - Last Filed: 05/15/18 15:43> Subjective - Date & Time of Evaluation Date of Evaluation: 05/15/18 Time of Evaluation: 10:00 - Subjective Subjective: PGY-1 Medicine progress note for Dr. Buckner Patient was seen and examined this morning. He is s/p liver Bx 4 days ago. Fever, tmax 101.5 orally, yesterday and treated with ice packs which decreased the fever. He endorses diaphoresis overnight, which has resolved this morning, with ice packs. His upper abdominal pain has improved a little, and his lower abdominal pain has resolved after a BM today. He denies chest pain, sob, n/v/d, hemoptysis, hematochezia, melena, dysuria, dizziness, hedache, visual changes. Objective - Vital Signs/Intake and Output Vital Signs (last 24 hours): Temp Pulse Resp BP Pulse Ox 98.8 F 90 20 135/77 97 05/15/18 07:00 05/15/18 07:00 05/15/18 07:00 05/15/18 07:00 05/15/18 07:00 Intake and Output: 05/15/18 05/15/18 06:59 18:59 Intake Total 1191.2 Output Total 900 Balance 291.2 - Medications Medications: Current Medications Acetaminophen (Tylenol 325mg Tab) 650 mg PO Q8 PRN PRN Reason: Fever >100.4 F Benzocaine/Menthol (Cepacol Sore Throat) 1 isatu MT QID PRN PRN Reason: Sore Throat Last Admin: 05/14/18 02:05 Dose: 1 isatu Dextrose (Dextrose 50% Inj) 0 ml IV STAT PRN; Protocol PRN Reason: Hypoglycemia Protocol Dextrose (Glutose 15) 0 gm PO ONCE PRN; Protocol PRN Reason: Hypoglycemia Protocol Docusate Sodium (Colace) 100 mg PO DAILY [facility] Last Admin: 05/15/18 09:46 Dose: 100 mg Glucagon (Glucagen Diagnostic Kit) 0 mg IM STAT PRN; Protocol PRN Reason: Hypoglycemia Protocol Dextrose (Dextrose 5% In Water 1000 Ml) 1,000 mls @ 0 mls/hr IV .Q0M PRN; Protocol PRN Reason: Hypoglycemia Protocol Heparin Sodium/Sodium Chloride (Heparin 72439 Units/250ml 1/2 Normal Saline) 25,000 units in 250 mls @ 14.451 mls/hr IV .[id number] [facility]; Protocol Last Admin: 05/14/18 23:15 Dose: 18 units/kg/hr, 14.451 mls/hr Piperacillin Sod/Tazobactam Sod (Zosyn 3.375 Gm Iv Premix) 3.375 gm in 50 mls @ 100 mls/hr IVPB Q6H [facility]; Protocol Last Admin: 05/15/18 08:32 Dose: 100 mls/hr Insulin Aspart (Novolog) 10 unit SC AC [facility] Last Admin: 05/15/18 08:30 Dose: 10 units Insulin Aspart (Novolog) 0 unit SC ACHS [facility]; Protocol Last Admin: 05/15/18 07:28 Dose: Not Given Insulin Detemir (Levemir) 10 unit SC HS [facility] Last Admin: 05/14/18 21:48 Dose: 10 unit Lidocaine (Lidoderm) 1 ea TD DAILY [facility] Last Admin: 05/15/18 09:48 Dose: Not Given Losartan Potassium (Cozaar) 100 mg PO DAILY [facility] Last Admin: 05/15/18 09:46 Dose: 100 mg Morphine Sulfate (Morphine) 1 mg IVP Q4 PRN PRN Reason: Pain, moderate (4-7) Last Admin: 05/15/18 03:29 Dose: 1 mg Rosuvastatin Calcium (Crestor) 5 mg PO HS [facility] Last Admin: 05/12/18 21:29 Dose: 5 mg Tramadol HCl (Ultram) 25 mg PO Q12H PRN PRN Reason: Pain, moderate (4-7) - Labs Labs: 05/15/18 07:22 05/15/18 07:22 PT 12.2 SECONDS (9.7-12.2) 05/13/18 02:04 INR 1.1 05/13/18 02:04 APTT 74 SECONDS (21-34) H D 05/15/18 07:22 - Additional Findings Additional findings: - Constitutional Appears: No Acute Distress - Head Exam Head Exam: ATRAUMATIC, NORMAL INSPECTION, NORMOCEPHALIC - Eye Exam Eye Exam: EOMI, Normal appearance, PERRL - ENT Exam ENT Exam: Mucous Membranes Moist - Neck Exam Neck Exam: Normal Inspection - Respiratory Exam Respiratory Exam: Clear to Ausculation Bilateral, NORMAL BREATHING PATTERN. absent: Accessory Muscle Use, Respiratory Distress - Cardiovascular Exam Cardiovascular Exam: REGULAR RHYTHM, +S1, +S2 - GI/Abdominal Exam GI & Abdominal Exam: Distension of the epigastrium, Tenderness in the RUQ and epigastruim, (-) lower abdominal tenderness. absent: Rigid, Mass, Rebound Additional comments: liver bx site with dressing over it; clean, dry, no signs of bleeding or infection - Extremities Exam Extremities Exam: absent: Pedal Edema Additional comments: .R BKA - Back Exam Back Exam: muscle spasm, paraspinal tenderness. 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 CT showed necrotizing pancreatitis, nongas-forming, with suspicion for SMV thrombus, as well as innumerable liver masses. Vascular surgery was consulted for necrotizing pancreatitis and possible SMV thrombus. GI was consulted for necrotizing pancreatitis. Heme/Onc was consulted due to liver masses, possible mets. 05/10: CTA showed large right lower lobe pulmonary branch pulmonary embolus. Lower extremity venous doppler shows left long saphenous vein DVT. Lovenox switched to Heparin gtt. Pt not a candidate for IVC filter, as per [place]. 05/11, pt underwent us guided liver biopsy of masses, well tolerated. Plan: Pancreatitis with Necrosis (non-gas forming), with hypodense masses; likely pancreatic cancer - CT A/P with IV contrast (05/08): grossly abnormal appearing pancreas with extensive pancreatitis and necrosis. At time of imaging, non-gas forming. Contiguous hypodensity in SMV; thrombus must be considered. Innumerable liver masses. Right pleural effusion - US Abd (05/08): Multiple hepatic masses. Fatty infiltrate. Incidental right upper pole renal cortical cyst. - AST/ALT 67/77 on admission, ALP 438- worsening, AST/ALT 109/74, ALP 323 - Hepatitis panel negative, CPK 50 - Lidoderm patch to lower back - Morphine 1mg IVP Q4H PRN - Tramadol 25 mg PO Q12H CARL - Avoid Tylenol, muscle relaxants due to transaminitis - Avoid NSAIDs due to increased bleeding risk with heparin drip - Vascular Surgery consulted: Dr. Musa- No need for surgical intervention at this time - Hematology/Oncology consulted: Dr. Rangel- recs liver and pancreas IR biopsy - Interventional radiology consulted: Dr. Wetzel- CT-guided biopsy of liver 05/11 - Gastroenterology consulted: Dr. Montelongo - Possible sterile necrosis within pancreas. Cannot exclude pancreatic mass. - Patient would benefit from dedicated pancreatic imaging following resolution of acute inflammatory process - No clear indication for antibiotic therapy for pancreatic necrosis. Necrosi s is likely sterile. No obvious signs of infection at this time. - Overall clinical picture suggestive of metastatic malignancy from possible pancreatic or GI source, poor patient prognosis. - Elevated tumor markers: CA 19-9 Ag >10,000, CEA Ag 251, CA 125 Ag 203 - AFP 1.1 - Low fat mod carb consistent diet - Fluids discontinued due to HTN - f/u liver biopsy Pulmonary embolism and Deep vein thrombosis, likely secondary to hypercoagulability due to probably malignancy - Abd/pelv CTA: large right lower lobe pulmonary branch pulmonary embolus. - CTA chest: Filling defect consistent with pulmonary embolus evident within the right lower lobe pulmonary artery branch. - Lower extremity venous doppler: left long saphenous vein DVT - Echocardiogram to r/o right heart strain: LVEF is 60%. Mild concentric LVH. Grade 1 diastolic dysfunction. AV appears to be bicuspid. Borderline to mild . MR is trace to mild. RVSP is less than 30 mmHg. - Heparin gtt- monitor PTT - Not a candidate for IVC filter as per Dr. Rangel - Wait on starting oral anticoagulation pending any procedures once liver Bx results available Liver masses, likely mets > possible infection - Gastroenterology consulted, Dr. Montelongo - Hematology/Oncology consulted, Dr. Rangel - s/p US guided biopsy by Dr. Wetzel 05/11- continue to monitor for signs of bleeding - Hepatitis panel negative - Transaminitis improving - Will monitor LFTs on Tylenol; max of 2g daily - Hold statin, and avoid unnecessary hepatotoxic medications - Head CT ordered to r/o mets due to complaint of dizziness; shows no acute intracranial abnormality Fever, tmax 102.4, possibly due to thrombus in pulm artery or effusions which could be secondary to occult pneumonia - Fever was controlled with ice packs to the axillas - pt without leukocytosis - Tylenol 650 mg PO Q8 PRN, max of 2g daily - pt started on zyson 3.375 IVPB Q6H (05/13) - Blood culture x 2 is prelim negative x 24 hours - f/u urine culture Insulin Dependant Diabetes Mellitus - HgA1c 13.5 - Accuchecks ACHS - ISS medium - Hypoglycemia protocol - Aspart 10 u SC TIDAC - Levemir 10u SC QHS Hypertension - continue Losartan to 100 mg PO daily Hyperlipidemia - TG 162, choles 182, LDL 135, HDL 32 - Crestor 5 mg PO QHS- hold due to transaminitis Pleural effusions R>L - CXR (05/08): no active disease - CTA chest: Moderate right and small left pleural effusions and associated consolidations. Right middle lobe pneumonia or atelectasis, partially imaged. - Continue to monitor Ppx - DVT: SCDs CI due to DVT and BKA, heparin gtt - GI: not indicated - Diet: low fat mod carb consistent diet Code status: full code Dispo: Pt is being treated for PE/DVT with heparin gtt. Currently, transition to oral AC is on hold due to potential of future procedures as liver biopsy is pending. Palliative care, Martine, is consulted. Pt has expressed that if this cancer is treatable he would like to have chemotherapy done. Liver biopsy results are pending. Case discussed with attending, Dr. Buckner. Obie Muller PGY1 <Stephanie Buckner V - Last Filed: 05/16/18 09:12> Objective - Vital Signs/Intake and Output Vital Signs (last 24 hours): Temp Pulse Resp BP Pulse Ox 98.1 F 86 20 146/89 96 05/16/18 07:15 05/16/18 07:55 05/16/18 07:15 05/16/18 07:15 05/16/18 07:15 Intake and Output: 05/16/18 05/16/18 06:59 18:59 Intake Total 50 Output Total 940 Balance -890 - Medications Medications: Current Medications Acetaminophen (Tylenol 325mg Tab) 650 mg PO Q8 PRN PRN Reason: Fever >100.4 F Benzocaine/Menthol (Cepacol Sore Throat) 1 isatu MT QID PRN PRN Reason: Sore Throat Last Admin: 05/14/18 02:05 Dose: 1 isatu Dextrose (Dextrose 50% Inj) 0 ml IV STAT PRN; Protocol PRN Reason: Hypoglycemia Protocol Dextrose (Glutose 15) 0 gm PO ONCE PRN; Protocol PRN Reason: Hypoglycemia Protocol Docusate Sodium (Colace) 100 mg PO DAILY [facility] Last Admin: 05/15/18 09:46 Dose: 100 mg Glucagon (Glucagen Diagnostic Kit) 0 mg IM STAT PRN; Protocol PRN Reason: Hypoglycemia Protocol Dextrose (Dextrose 5% In Water 1000 Ml) 1,000 mls @ 0 mls/hr IV .Q0M PRN; Protocol PRN Reason: Hypoglycemia Protocol Piperacillin Sod/Tazobactam Sod (Zosyn 3.375 Gm Iv Premix) 3.375 gm in 50 mls @ 100 mls/hr IVPB Q6H [facility]; Protocol Last Admin: 05/16/18 08:04 Dose: 100 mls/hr Heparin Sodium/Sodium Chloride (Heparin 93881 Units/250ml 1/2 Normal Saline) 25,000 units in 250 mls @ 14.403 mls/hr IV .[id number] PRN; Protocol PRN Reason: PROTOCOL Last Admin: 05/15/18 23:03 Dose: 18 units/kg/hr, 14.403 mls/hr Insulin Aspart (Novolog) 10 unit SC AC [facility] Last Admin: 05/16/18 08:03 Dose: 10 units Insulin Aspart (Novolog) 0 unit SC ACHS [facility]; Protocol Last Admin: 05/16/18 08:04 Dose: 4 unit Insulin Detemir (Levemir) 10 unit SC HS [facility] Last Admin: 05/15/18 22:09 Dose: 10 unit Lidocaine (Lidoderm) 1 ea TD DAILY [facility] Last Admin: 05/15/18 09:48 Dose: Not Given Losartan Potassium (Cozaar) 100 mg PO DAILY [facility] Last Admin: 05/15/18 09:46 Dose: 100 mg Morphine Sulfate (Morphine) 1 mg IVP Q4 PRN PRN Reason: Pain, moderate (4-7) Last Admin: 05/16/18 06:18 Dose: 1 mg Rosuvastatin Calcium (Crestor) 5 mg PO HS [facility] Last Admin: 05/12/18 21:29 Dose: 5 mg Tramadol HCl (Ultram) 25 mg PO Q12H PRN PRN Reason: Pain, moderate (4-7) - Labs Labs: 05/16/18 06:25 05/16/18 06:25 PT 12.2 SECONDS (9.7-12.2) 05/13/18 02:04 INR 1.1 05/13/18 02:04 APTT 58 SECONDS (21-34) H D 05/16/18 06:25 Attending/Attestation - Attestation I have personally seen and examined this patient.: Yes I have fully participated in the care of the patient.: Yes I have reviewed all pertinent clinical information, including history, physical exam and plan: Yes Notes (Text): This is late computer entry for 05/15/18. Patient seen, examined, and case discussed with director medical economics. Patient this morning. Patient noting abdominal pain that stretches across the abdomen has improved since having a bowel movement. Patient has recently completed IR biopsy of liver mass. Prelim read noted for metastatic adenocarcinoma, unclear yet which primary origin it is. I have spoken with heme- onc, patient could be eligible for chemotherapy if patient wants. Patient is awaiting what the pathology is to make his next step. He reports he is open to chemotherapy. If this is the avenue, patient will need port for chemo. Patient continues to be on heparin gtt for PE/DVT. We are awaiting biopsy result to indicate if this cancer etc. Assessment/Plan 1) Pancreatitis with Necrosis (non-gas forming), with hypodense masses; likely malignancy Assessment/Plan * high suspicion for malignancy * Vascular Surgery consulted: Dr. Musa- No need for surgical intervention at this time * Hematology/Oncology consulted: Dr. Harley kearns liver and pancreas IR biopsy * Interventional radiology consulted: Dr. Wetzel- CT-guided biopsy of liver 05/11 * Gastroenterology consulted: Dr. Montelongo * Possible sterile necrosis within pancreas. Cannot exclude pancreatic mass. * Patient would benefit from dedicated pancreatic imaging following resolution of acute inflammatory process * No clear indication for antibiotic therapy for pancreatic necrosis. Necrosis is likely sterile. No obvious signs of infection at this time. * Overall clinical picture suggestive of metastatic malignancy from possible pancreatic or GI source, poor patient prognosis. * CT A/P with IV contrast (05/08): grossly abnormal appearing pancreas with extensive pancreatitis and necrosis. At time of imaging, non-gas forming (further detals per note. Contiguous hypodensity in SMV; thrombus must be considered. Innumerable liver masses. Right pleural effusion * US Abd (05/08): Multiple hepatic masses. Fatty infiltrate. Incidental right upper pole renal cortical cyst. * Hepatitis panel negative, CPK 50 * Pain management: * Lidoderm patch to lower back * Morphine 1mg IVP Q4H PRN * Tramadol 25 mg PO Q12H [facility] * Avoid Tylenol, muscle relaxants due to transaminitis * Avoid NSAIDs due to increased bleeding risk with heparin drip * Elevated tumor markers: CA 19-9 Ag >10,000, CEA Ag 251, CA 125 Ag 203 * AFP 1.1 * Low fat mod carb consistent diet * Fluids discontinued due to HTN 2) Pulmonary embolism and Deep vein thrombosis, likely secondary to hypercoagulability due to probably malignancy Assessment/Plan * likely secondary to malignancy and long standing smoking history * CT A/P with IV contrast (05/08): grossly abnormal appearing pancreas with extensive pancreatitis and necrosis. At time of imaging, non-gas forming (further details per note. Contiguous hypodensity in SMV; thrombus must be considered. Innumerable liver masses. Right pleural effusion. Filling defiect consistent with pulmonary embolus evident within the right lower lobe pulmonary artery branch. Moderate right and small large pleural effusions and associated consolidations. Right middle lobe pneumonia, atelectasis, partially imaged. * Venous doppler (05/11/18): right: no evidence of deep or superifical vein thrombosis of the right lower extremity. normal valve function noted of the right side. Left: acute thrombosis of the left proximal calf to ankle greater saphneous vein and severe reduction of the venous return. No evidence of deep vein thrombosis of the left lower extrmity. normal valve function noted on the left side. * Patient is on heparin drip * Echocardiogram (05/10/18): mild concentric left ventricular hypertrophy. left ventricular function is normal. normal LV segmental wall motion. (further findings per report) 3) Liver masses, likely mets > possible infection Assessment/Plan * Gastroenterology consulted, Dr. Montelongo * Hematology/Oncolgy consulted, Dr. Rangel * s/p US guided biopsy by Dr. Wetzel 05/11- continue to monitor for signs of bleeding * findings of abnormalities involving the liver in both CT and Abdominal US * Hepatitis panel negative * Transaminitis worsening- AST/ALT 109/74, ALP 323 * Avoid hepatotoxic agents- discontinue Tylenol, hold statin 4) Insulin Dependant Diabetes Mellitus Assessment/Plan * HgA1c 13.5 * Accuchecks ACHS * Novolog subACHS insulin sliding scal * ISS medium * Hypoglycemia protocol * Novolog 10 u SC TIDAC * c/w Levemir 10u SC QHS 5) Hypertension Assessment/Plan * Losartan 100 mg PO daily 6) Hyperlipidemia Assessment/Plan * TG 162, choles 182, LDL 135, HDL 32 * Crestor 5 mg PO QHS- hold due to transaminitis 7) Pleural effusions R>L Assessment/Plan * CXR (05/08): no active disease * CTA chest: Moderate right and small left pleural effusions and associated consolidations. Right middle lobe pneumonia or atelectasis, partially imaged. * Continue to monitor * c/w osyn 3.375 IV Q6H (active since 05/13/18) 8) Ppx * DVT: SCDs CI due to DVT and BKA, heparin gtt * GI: not indicated * Diet: low fat mod carb consistent diet * Palliative care on board Disposition: * Patient is pending liver biopsy which was completed last monday; pathology to help to determine prognosis for suspecting malignancy and course of treatment for the patient * Patient is on heparin drip for PE/DVT
[2018-05-15] MEDS: Insulin Detemir 100 units/ml Vial (Levemir) SC SCH (22:09)
[2018-05-15] MEDS: Heparin25000 units/250ml 1/2NS 25,000 UNITS/250 ML BAG IV PRN (23:03)
[2018-05-16] MEDS: Piperacill/Tazo 3.375gm in Dex 3.375 GM/50 ML BAG IVPB SCH ×4 (03:37→20:39)
[2018-05-16 06:34] LABS: BASO % 0.6 % (0.0-2.0); EOS # 0.3 K/uL (0.0-0.7); EOS % 5.2 % (0.0-4.0); HEMOGLOBIN 11.2 g/dL (12.0-18.0); LYMPH % 18.8 % (20.0-40.0); MEAN CELL VOLUME 86.3 fL (80.0-94.0); MEAN CORPUSCULAR HEMOGLOBIN 29.1 pg (27.0-31.0); MEAN CORPUSCULAR HGB CONC 33.8 g/dL (33.0-37.0); MEAN PLATELET VOLUME 7.2 fL (7.2-11.7); MONO # 0.6 K/uL (0.0-0.8); MONO % 12.5 % (0.0-10.0); NEUT # 3.2 K/uL (1.8-7.0); NEUT % 62.9 % (50.0-75.0); NRBC % 0.1 % (0.0-2.0); RBC 3.85 Mil/uL (4.40-5.90); RED CELL DISTRIBUTION WIDTH 13.6 % (11.5-14.5); WHITE BLOOD COUNT 5.1 K/uL (4.8-10.8)
[2018-05-16 06:49] LABS: ALB/GLOB RATIO 0.9 (1.0-2.1); ALBUMIN 3.2 g/dL (3.5-5.0); ALT/SGPT 73 U/L (21-72); AST/SGOT 60 U/L (17-59); BLOOD UREA NITROGEN 17 mg/dL (9-20); GFR NON-AFRICAN AMERICAN > 60
[2018-05-16] MEDS: (Novolog) Insulin Aspart, Recombinant 100 u/ml 10 ml vial SC SCH ×7 (08:03→22:00)
[2018-05-16] MEDS: Lidocaine 5% Patch TD SCH (09:42)
--- NOTE | 2018-05-16 11:01 | CP.PCM.PN ---
Subjective - Date & Time of Evaluation Date of Evaluation: 05/16/18 Time of Evaluation: 09:10 - Subjective Subjective: PGY-1 Medicine progress note for Dr. Buckner Patient was seen and examined this morning. He is s/p liver Bx 5 days ago. No longer having fevers, no acute events overnight. He continue sto have abdominal pain, and is requesting an increase in his morphine. He denies chest pain, sob, n/v/d, hemoptysis, hematochezia, melena, dysuria, dizziness, headache, visual changes, lightheadedness Objective - Vital Signs/Intake and Output Vital Signs (last 24 hours): Temp Pulse Resp BP Pulse Ox 98.1 F 86 20 146/89 96 05/16/18 07:15 05/16/18 07:55 05/16/18 07:15 05/16/18 07:15 05/16/18 07:15 Intake and Output: 05/16/18 05/16/18 06:59 18:59 Intake Total 50 Output Total 940 Balance -890 - Medications Medications: Current Medications Acetaminophen (Tylenol 325mg Tab) 650 mg PO Q8 PRN PRN Reason: Fever >100.4 F Benzocaine/Menthol (Cepacol Sore Throat) 1 isatu MT QID PRN PRN Reason: Sore Throat Last Admin: 05/14/18 02:05 Dose: 1 isatu Dextrose (Dextrose 50% Inj) 0 ml IV STAT PRN; Protocol PRN Reason: Hypoglycemia Protocol Dextrose (Glutose 15) 0 gm PO ONCE PRN; Protocol PRN Reason: Hypoglycemia Protocol Docusate Sodium (Colace) 100 mg PO DAILY CARL Last Admin: 05/16/18 09:41 Dose: 100 mg Glucagon (Glucagen Diagnostic Kit) 0 mg IM STAT PRN; Protocol PRN Reason: Hypoglycemia Protocol Dextrose (Dextrose 5% In Water 1000 Ml) 1,000 mls @ 0 mls/hr IV .Q0M PRN; Protocol PRN Reason: Hypoglycemia Protocol Piperacillin Sod/Tazobactam Sod (Zosyn 3.375 Gm Iv Premix) 3.375 gm in 50 mls @ 100 mls/hr IVPB Q6H CARL; Protocol Last Admin: 05/16/18 08:04 Dose: 100 mls/hr Heparin Sodium/Sodium Chloride (Heparin 78813 Units/250ml 1/2 Normal Saline) 25,000 units in 250 mls @ 14.403 mls/hr IV .[id number] PRN; Protocol PRN Reason: PROTOCOL Last Admin: 05/15/18 23:03 Dose: 18 units/kg/hr, 14.403 mls/hr Insulin Aspart (Novolog) 10 unit SC AC [facility] Last Admin: 05/16/18 08:03 Dose: 10 units Insulin Aspart (Novolog) 0 unit SC ACHS [facility]; Protocol Last Admin: 05/16/18 08:04 Dose: 4 unit Insulin Detemir (Levemir) 10 unit SC HS [facility] Last Admin: 05/15/18 22:09 Dose: 10 unit Lidocaine (Lidoderm) 1 ea TD DAILY [facility] Last Admin: 05/16/18 09:42 Dose: Not Given Losartan Potassium (Cozaar) 100 mg PO DAILY [facility] Last Admin: 05/16/18 09:41 Dose: 100 mg Morphine Sulfate (Morphine) 2 mg IVP Q4 PRN PRN Reason: Pain, moderate (4-7) Rosuvastatin Calcium (Crestor) 5 mg PO HS [facility] Last Admin: 05/12/18 21:29 Dose: 5 mg Tramadol HCl (Ultram) 25 mg PO Q12H PRN PRN Reason: Pain, moderate (4-7) - Labs Labs: 05/16/18 06:25 05/16/18 06:25 PT 12.2 SECONDS (9.7-12.2) 05/13/18 02:04 INR 1.1 05/13/18 02:04 APTT 58 SECONDS (21-34) H D 05/16/18 06:25 - Additional Findings Additional findings: - Constitutional Appears: No Acute Distress - Head Exam Head Exam: ATRAUMATIC, NORMAL INSPECTION, NORMOCEPHALIC - Eye Exam Eye Exam: EOMI, Normal appearance, PERRL - ENT Exam ENT Exam: Mucous Membranes Moist - Neck Exam Neck Exam: Normal Inspection - Respiratory Exam Respiratory Exam: Clear to Ausculation Bilateral, NORMAL BREATHING PATTERN. absent: Accessory Muscle Use, Respiratory Distress - Cardiovascular Exam Cardiovascular Exam: REGULAR RHYTHM, +S1, +S2 - GI/Abdominal Exam GI & Abdominal Exam: Distension of the epigastrium, Moderate tenderness in the RUQ and epigastruim, (-) lower abdominal tenderness. absent: Rigid, Mass, Rebound Additional comments: liver bx site with dressing over it; clean, dry, no signs of bleeding or infecti on - Extremities Exam Extremities Exam: absent: Pedal Edema Additional comments: Right BKA - Back Exam Back Exam: muscle spasm, paraspinal tenderness. 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 CT showed necrotizing pancreatitis, nongas-forming, with suspicion for SMV thrombus, as well as innumerable liver masses. Vascular surgery was consulted for necrotizing pancreatitis and possible SMV thrombus. GI was consulted for necrotizing pancreatitis. Heme/Onc was consulted due to liver masses, possible mets. 05/10: CTA showed large right lower lobe pulmonary branch pulmonary embolus. Lower extremity venous doppler shows left long saphenous vein DVT. Lovenox switched to Heparin gtt. Pt not a candidate for IVC filter, as per Claire. 05/11, pt underwent us guided liver biopsy of masses, well tolerated. Plan: Pancreatitis with Necrosis (non-gas forming), with hypodense masses; likely pancreatic cancer - CT A/P with IV contrast (05/08): grossly abnormal appearing pancreas with extensive pancreatitis and necrosis. At time of imaging, non-gas forming. Contiguous hypodensity in SMV; thrombus must be considered. Innumerable liver masses. Right pleural effusion - US Abd (05/08): Multiple hepatic masses. Fatty infiltrate. Incidental right upper pole renal cortical cyst. - AST/ALT 67/77 on admission, ALP 438- improving, AST/ALT 60/73, ALP 328 - Hepatitis panel negative, CPK 50 - Lidoderm patch to lower back - Morphine increased to 1 mg IVP Q4H PRN - Tramadol 25 mg PO Q12H CARL - Avoid Tylenol, muscle relaxants due to transaminitis - Avoid NSAIDs due to increased bleeding risk with heparin drip - Vascular Surgery consulted: Dr. Musa- No need for surgical intervention at this time - Hematology/Oncology consulted: Dr. Rangel- recs liver and pancreas IR biopsy - Interventional radiology consulted: Dr. Wetzel- CT-guided biopsy of liver 05/11 - Gastroenterology consulted: Dr. Montelongo - Possible sterile necrosis within pancreas. Cannot exclude pancreatic mass. - Patient would benefit from dedicated pancreatic imaging following resolution of acute inflammatory process - No clear indication for antibiotic therapy for pancreatic necrosis. Necrosis is likely sterile. No obvious signs of infection at this time. - Overall clinical picture suggestive of metastatic malignancy from possible pancreatic or GI source, poor patient prognosis. - Elevated tumor markers: CA 19-9 Ag >10,000, CEA Ag 251, CA 125 Ag 203 - AFP 1.1 - Low fat mod carb consistent diet - Fluids discontinued due to HTN - f/u liver biopsy Pulmonary embolism and Deep vein thrombosis, likely secondary to hypercoagulability due to probably malignancy - Abd/pelv CTA: large right lower lobe pulmonary branch pulmonary embolus. - CTA chest: Filling defect consistent with pulmonary embolus evident within the right lower lobe pulmonary artery branch. - Lower extremity venous doppler: left long saphenous vein DVT - Echocardiogram to r/o right heart strain: LVEF is 60%. Mild concentric LVH. Grade 1 diastolic dysfunction. AV appears to be bicuspid. Borderline to mild . MR is trace to mild. RVSP is less than 30 mmHg. - Heparin gtt- monitor PTT - Not a candidate for IVC filter as per Dr. Rangel - Wait on starting oral anticoagulation pending any procedures once liver Bx results available Liver masses, likely mets > possible infection - Gastroenterology consulted, Dr. Montelongo - Hematology/Oncology consulted, Dr. Rangel - s/p US guided biopsy by Dr. Wetzel 05/11- continue to monitor for signs of bleeding - Hepatitis panel negative - Transaminitis improving - Will monitor LFTs on Tylenol; max of 2g daily - Hold statin, and avoid unnecessary hepatotoxic medications - Head CT ordered to r/o mets due to complaint of dizziness; shows no acute intracranial abnormality Fever, tmax 102.4, possibly due to thrombus in pulm artery or effusions which could be secondary to occult pneumonia - Fever was controlled with ice packs to the axillas - pt without leukocytosis - Tylenol 650 mg PO Q8 PRN, max of 2g daily - pt started on Zosyn 3.375 IVPB Q6H (05/13) - Blood culture x 2 is prelim negative x 48 hours - f/u urine culture Insulin Dependant Diabetes Mellitus - HgA1c 13.5 - Accuchecks ACHS - ISS low - Hypoglycemia protocol - Novolog 2u SC TIDAC - Lantus 18u SC QHS Hypertension - continue Losartan to 100 mg PO daily Hyperlipidemia - TG 162, choles 182, LDL 135, HDL 32 - Crestor 5 mg PO QHS- hold due to transaminitis Pleural effusions R>L - CXR (05/08): no active disease - CTA chest: Moderate right and small left pleural effusions and associated consolidations. Right middle lobe pneumonia or atelectasis, partially imaged. - Continue to monitor Ppx - DVT: SCDs CI due to DVT and BKA, heparin gtt - GI: not indicated - Diet: low fat mod carb consistent diet Code status: full code Dispo: Pt is being treated for PE/DVT with heparin gtt. Currently, transition to oral AC is on hold due to potential of future procedures as liver biopsy is pending. Palliative care, Martine, is consulted. Pt has expressed that if this cancer is treatable he would like to have chemotherapy done. Liver biopsy results are pending. Case discussed with attending, Dr. Buckner. Obie Muller PGY1
[2018-05-16] MEDS: Heparin25000 units/250ml 1/2NS 25,000 UNITS/250 ML BAG IV PRN (14:14)
[2018-05-16] MEDS: (Lantus) Insulin Glargine, Recombinant SC SCH (21:42)
[2018-05-17] MEDS: Piperacill/Tazo 3.375gm in Dex 3.375 GM/50 ML BAG IVPB SCH ×2 (03:42→09:39)
[2018-05-17 07:18] LABS: BASO % 0.8 % (0.0-2.0); EOS # 0.2 K/uL (0.0-0.7); EOS % 4.4 % (0.0-4.0); HEMOGLOBIN 11.5 g/dL (12.0-18.0); LYMPH # 1.1 K/uL (1.0-4.3); LYMPH % 21.1 % (20.0-40.0); MEAN CELL VOLUME 87.1 fL (80.0-94.0); MEAN CORPUSCULAR HGB CONC 33.3 g/dL (33.0-37.0); MEAN PLATELET VOLUME 7.9 fL (7.2-11.7); MONO # 0.6 K/uL (0.0-0.8); MONO % 11.9 % (0.0-10.0); NEUT # 3.1 K/uL (1.8-7.0); NEUT % 61.8 % (50.0-75.0); RBC 3.98 Mil/uL (4.40-5.90); RED CELL DISTRIBUTION WIDTH 13.4 % (11.5-14.5); WHITE BLOOD COUNT 5.1 K/uL (4.8-10.8)
[2018-05-17 07:31] LABS: ALB/GLOB RATIO 0.9 (1.0-2.1); ALBUMIN 3.1 g/dL (3.5-5.0); ALT/SGPT 68 U/L (21-72); AST/SGOT 61 U/L (17-59); BLOOD UREA NITROGEN 14 mg/dL (9-20); CALCIUM 8.4 mg/dl (8.6-10.4); GFR NON-AFRICAN AMERICAN > 60
[2018-05-17] MEDS: Heparin25000 units/250ml 1/2NS 25,000 UNITS/250 ML BAG IV PRN (07:47)
--- NOTE | 2018-05-17 09:35 | CP.PCM.PN ---
<Obie Muller - Last Filed: 05/17/18 13:40> Subjective - Date & Time of Evaluation Date of Evaluation: 05/17/18 Time of Evaluation: 09:34 - Subjective Subjective: PGY-1 Medicine progress note for Dr. Buckner Patient was seen and examined this morning. He is s/p liver Bx 6 days ago. No acute events overnight. Pt reports upper abdominal distension after eating, with worsening of abdominal pain. upper abdominal pain is relieved by leaning forward, but that brings on lower abdominal and back pain. He is requesting an enema to help him move his bowels. He denies chest pain, sob, n/v/d, hemoptysis, hematochezia, melena, dysuria, dizziness, headache, visual changes, lightheadedness. Objective - Vital Signs/Intake and Output Vital Signs (last 24 hours): Temp Pulse Resp BP Pulse Ox 98.4 F 88 20 159/95 H 96 05/17/18 07:25 05/17/18 07:25 05/17/18 07:25 05/17/18 07:25 05/17/18 07:25 Intake and Output: 05/17/18 05/17/18 06:59 18:59 Intake Total 165.2 250 Output Total 850 Balance -684.8 250 - Medications Medications: Current Medications Acetaminophen (Tylenol 325mg Tab) 650 mg PO Q8 PRN PRN Reason: Fever >100.4 F Benzocaine/Menthol (Cepacol Sore Throat) 1 isatu MT QID PRN PRN Reason: Sore Throat Last Admin: 05/14/18 02:05 Dose: 1 isatu Dextrose (Dextrose 50% Inj) 0 ml IV STAT PRN; Protocol PRN Reason: Hypoglycemia Protocol Dextrose (Glutose 15) 0 gm PO ONCE PRN; Protocol PRN Reason: Hypoglycemia Protocol Docusate Sodium (Colace) 100 mg PO DAILY [facility] Last Admin: 05/16/18 09:41 Dose: 100 mg Glucagon (Glucagen Diagnostic Kit) 0 mg IM STAT PRN; Protocol PRN Reason: Hypoglycemia Protocol Dextrose (Dextrose 5% In Water 1000 Ml) 1,000 mls @ 0 mls/hr IV .Q0M PRN; Protocol PRN Reason: Hypoglycemia Protocol Piperacillin Sod/Tazobactam Sod (Zosyn 3.375 Gm Iv Premix) 3.375 gm in 50 mls @ 100 mls/hr IVPB Q6H [facility]; Protocol Last Admin: 05/17/18 03:42 Dose: 100 mls/hr Heparin Sodium/Sodium Chloride (Heparin 50405 Units/250ml 1/2 Normal Saline) 25,000 units in 250 mls @ 14.403 mls/hr IV .[id number] PRN; Protocol PRN Reason: PROTOCOL Last Admin: 05/17/18 07:47 Dose: 18 units/kg/hr, 14.403 mls/hr Insulin Aspart (Novolog) 2 unit SC TIDAC [facility] Last Admin: 05/16/18 18:01 Dose: 2 units Insulin Aspart (Novolog) 0 unit SC ACHS [facility]; Protocol Last Admin: 05/16/18 22:00 Dose: Not Given Insulin Glargine (Lantus) 18 unit SC HS [facility] Last Admin: 05/16/18 21:42 Dose: 18 units Lidocaine (Lidoderm) 1 ea TD DAILY [facility] Last Admin: 05/16/18 09:42 Dose: Not Given Losartan Potassium (Cozaar) 100 mg PO DAILY [facility] Last Admin: 05/16/18 09:41 Dose: 100 mg Morphine Sulfate (Morphine) 2 mg IVP Q4 PRN PRN Reason: Pain, moderate (4-7) Last Admin: 05/17/18 07:42 Dose: 2 mg Rosuvastatin Calcium (Crestor) 5 mg PO HS [facility] Last Admin: 05/12/18 21:29 Dose: 5 mg Tramadol HCl (Ultram) 25 mg PO Q12H PRN PRN Reason: Pain, moderate (4-7) - Labs Labs: 05/17/18 07:06 05/17/18 07:06 PT 12.2 SECONDS (9.7-12.2) 05/13/18 02:04 INR 1.1 05/13/18 02:04 APTT 54 SECONDS (21-34) H 05/17/18 07:06 - Additional Findings Additional findings: - Constitutional Appears: No Acute Distress - Head Exam Head Exam: ATRAUMATIC, NORMAL INSPECTION, NORMOCEPHALIC - Eye Exam Eye Exam: EOMI, Normal appearance, PERRL - ENT Exam ENT Exam: Mucous Membranes Moist - Neck Exam Neck Exam: Normal Inspection - Respiratory Exam Respiratory Exam: Clear to Ausculation Bilateral, NORMAL BREATHING PATTERN. absent: Accessory Muscle Use, Respiratory Distress - Cardiovascular Exam Cardiovascular Exam: REGULAR RHYTHM, +S1, +S2 - GI/Abdominal Exam GI & Abdominal Exam: Distension of the epigastrium, Moderate tenderness in the RUQ and epigastruim, Mild tenderness of the right lower quadrant; absent: Rigid, Mass, Rebound, rovsig's signs, mcburneys point tenderness Additional comments: liver bx site with dressing over it; clean, dry, no signs of bleeding or infection, nontender - Extremities Exam Extremities Exam: absent: Pedal Edema Additional comments: Right BKA - Back Exam Back Exam: muscle spasm, paraspinal tenderness. 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 CT showed necrotizing pancreatitis, nongas-forming, with suspicion for SMV thrombus, as well as innumerable liver masses. Vascular surgery was consulted for necrotizing pancreatitis and possible SMV thrombus. GI was consulted for necrotizing pancreatitis. Heme/Onc was consulted due to liver masses, possible mets. 05/10: CTA showed large right lower lobe pulmonary branch pulmonary embol us. Lower extremity venous doppler shows left long saphenous vein DVT. Lovenox switched to Heparin gtt. Pt not a candidate for IVC filter, as per [place]. 05/11, pt underwent us guided liver biopsy of masses, well tolerated. Plan: Pancreatitis with Necrosis (non-gas forming), with hypodense masses; likely pancreatic cancer - CT A/P with IV contrast (05/08): grossly abnormal appearing pancreas with extensive pancreatitis and necrosis. At time of imaging, non-gas forming. Contiguous hypodensity in SMV; thrombus must be considered. Innumerable liver masses. Right pleural effusion - US Abd (05/08): Multiple hepatic masses. Fatty infiltrate. Incidental right upper pole renal cortical cyst. - AST/ALT 67/77 on admission, ALP 438- improving, AST/ALT 60/73, ALP 328 - Hepatitis panel negative, CPK 50 - Lidoderm patch to lower back - Morphine increased to 1 mg IVP Q4H PRN - Tramadol 25 mg PO Q12H CARL - Avoid Tylenol, muscle relaxants due to transaminitis - Avoid NSAIDs due to increased bleeding risk with heparin drip - Vascular Surgery consulted: Dr. Musa- No need for surgical intervention at this time - Hematology/Oncology consulted: Dr. Rangel- recs liver and pancreas IR biopsy - Interventional radiology consulted: Dr. Wetzel- CT-guided biopsy of liver 05/11 - Gastroenterology consulted: Dr. Montelongo - Possible sterile necrosis within pancreas. Cannot exclude pancreatic mass. - Patient would benefit from dedicated pancreatic imaging following resolution of acute inflammatory process - No clear indication for antibiotic therapy for pancreatic necrosis. Necrosis is likely sterile. No obvious signs of infection at this time. - Overall clinical picture suggestive of metastatic malignancy from possible pancreatic or GI source, poor patient prognosis. - Elevated tumor markers: CA 19-9 Ag >10,000, CEA Ag 251, CA 125 Ag 203 - AFP 1.1 - Low fat mod carb consistent diet - Fluids discontinued due to HTN - f/u liver biopsy Pulmonary embolism and Deep vein thrombosis, likely secondary to hypercoagulability due to probably malignancy - Abd/pelv CTA: large right lower lobe pulmonary branch pulmonary embolus. - CTA chest: Filling defect consistent with pulmonary embolus evident within the right lower lobe pulmonary artery branch. - Lower extremity venous doppler: left long saphenous vein DVT - Echocardiogram to r/o right heart strain: LVEF is 60%. Mild concentric LVH. Grade 1 diastolic dysfunction. AV appears to be bicuspid. Borderline to mild . MR is trace to mild. RVSP is less than 30 mmHg. - Heparin gtt- monitor PTT - Not a candidate for IVC filter as per Dr. Rangel - Wait on starting oral anticoagulation pending any procedures once liver Bx results available Liver masses, likely mets > possible infection - Gastroenterology consulted, Dr. Monetlongo - Hematology/Oncology consulted, Dr. Rangel - s/p US guided biopsy by Dr. Wetzel 05/11- continue to monitor for signs of bleeding - Hepatitis panel negative - Transaminitis improving - Will monitor LFTs on Tylenol; max of 2g daily - Hold statin, and avoid unnecessary hepatotoxic medications - Head CT ordered to r/o mets due to complaint of dizziness; shows no acute intracranial abnormality Fevers (resolved), possibly due to thrombus in pulm artery or effusions which could be secondary to occult pneumonia - Fever was controlled with ice packs to the axillas - pt without leukocytosis - Tylenol 650 mg PO Q8 PRN, max of 2g daily - pt started on Zosyn 3.375 IVPB Q6H (05/13) Discontinued 05/17 - Blood culture x 2 is prelim negative x 48 hours - urine culture is negative for growth Insulin Dependant Diabetes Mellitus - HgA1c 13.5 - Accuchecks ACHS - ISS low - Hypoglycemia protocol - Novolog increased to 12u SC TIDAC - Lantus increased to 18u SC QHS Hypertension - continue Losartan to 100 mg PO daily Hyperlipidemia - TG 162, choles 182, LDL 135, HDL 32 - Crestor 5 mg PO QHS- hold due to transaminitis Pleural effusions R>L - CXR (05/08): no active disease - CTA chest: Moderate right and small left pleural effusions and associated consolidations. Right middle lobe pneumonia or atelectasis, partially imaged. - Continue to monitor Constipation - Likely due to opioid pain medications - Pt is passing gas - Colace 100 mg PO daily - Dulcolax enema [place] Ppx - DVT: SCDs CI due to DVT and BKA, heparin gtt - GI: not indicated - Diet: low fat mod carb consistent diet Code status: full code Dispo: Pt is being treated for PE/DVT with heparin gtt. Currently, transition to oral AC is on hold due to potential of future procedures as liver biopsy is pending. Palliative care, Martine, is consulted. Pt has expressed that if this cancer is treatable he would like to have chemotherapy done. Liver biopsy results are pending. Case discussed with attending, Dr. Buckner. Obie Muller PGY1 <Stephanie Buckner V - Last Filed: 05/17/18 18:17> Objective - Vital Signs/Intake and Output Vital Signs (last 24 hours): Temp Pulse Resp BP Pulse Ox 98.8 F 86 20 156/78 H 96 05/17/18 15:00 05/17/18 16:16 05/17/18 15:00 05/17/18 16:44 05/17/18 15:00 Intake and Output: 05/17/18 05/17/18 06:59 18:59 Intake Total 165.2 250 Output Total 850 Balance -684.8 250 - Medications Medications: Current Medications Acetaminophen (Tylenol 325mg Tab) 650 mg PO Q8 PRN PRN Reason: Fever >100.4 F Benzocaine/Menthol (Cepacol Sore Throat) 1 isatu MT QID PRN PRN Reason: Sore Throat Last Admin: 05/14/18 02:05 Dose: 1 isatu Dextrose (Dextrose 50% Inj) 0 ml IV STAT PRN; Protocol PRN Reason: Hypoglycemia Protocol Dextrose (Glutose 15) 0 gm PO ONCE PRN; Protocol PRN Reason: Hypoglycemia Protocol Docusate Sodium (Colace) 100 mg PO DAILY [facility] Last Admin: 05/17/18 09:38 Dose: 100 mg Glucagon (Glucagen Diagnostic Kit) 0 mg IM STAT PRN; Protocol PRN Reason: Hypoglycemia Protocol Dextrose (Dextrose 5% In Water 1000 Ml) 1,000 mls @ 0 mls/hr IV .Q0M PRN; Protocol PRN Reason: Hypoglycemia Protocol Heparin Sodium/Sodium Chloride (Heparin 07690 Units/250ml 1/2 Normal Saline) 25,000 units in 250 mls @ 14.403 mls/hr IV .[id number] PRN; Protocol PRN Reason: PROTOCOL Last Admin: 05/17/18 07:47 Dose: 18 units/kg/hr, 14.403 mls/hr Insulin Aspart (Novolog) 0 unit SC ACHS [facility]; Protocol Last Admin: 05/17/18 17:34 Dose: Not Given Insulin Aspart (Novolog) 3 unit SC TIDAC [facility] Insulin Glargine (Lantus) 18 unit SC HS [facility] Last Admin: 05/16/18 21:42 Dose: 18 units Lidocaine (Lidoderm) 1 ea TD DAILY [facility] Last Admin: 05/17/18 09:38 Dose: 1 ea Losartan Potassium (Cozaar) 100 mg PO DAILY [facility] Last Admin: 05/17/18 09:38 Dose: 100 mg Morphine Sulfate (Morphine) 2 mg IVP Q4 PRN PRN Reason: Pain, moderate (4-7) Last Admin: 05/17/18 17:58 Dose: 2 mg Rosuvastatin Calcium (Crestor) 5 mg PO HS [facility] Last Admin: 05/12/18 21:29 Dose: 5 mg Tramadol HCl (Ultram) 25 mg PO Q12H PRN PRN Reason: Pain, moderate (4-7) - Labs Labs: 05/17/18 07:06 05/17/18 07:06 PT 12.2 SECONDS (9.7-12.2) 05/13/18 02:04 INR 1.1 05/13/18 02:04 APTT 54 SECONDS (21-34) H 05/17/18 07:06 Attending/Attestation - Attestation I have personally seen and examined this patient.: Yes I have fully participated in the care of the patient.: Yes I have reviewed all pertinent clinical information, including history, physical exam and plan: Yes Notes (Text): Pancreatitis with Necrosis (non-gas forming), with hypodense masses; likely pancreatic cancer - CT A/P with IV contrast (05/08): grossly abnormal appearing pancreas with extensive pancreatitis and necrosis. At time of imaging, non-gas forming. Contiguous hypodensity in SMV; thrombus must be considered. Innumerable liver masses. Right pleural effusion - US Abd (05/08): Multiple hepatic masses. Fatty infiltrate. Incidental right upper pole renal cortical cyst. - AST/ALT 67/77 on admission, ALP 438- improving, AST/ALT 60/73, ALP 328 - Hepatitis panel negative, CPK 50 - Lidoderm patch to lower back - Morphine increased to 1 mg IVP Q4H PRN - Tramadol 25 mg PO Q12H [facility] - Avoid Tylenol, muscle relaxants due to transaminitis - Avoid NSAIDs due to increased bleeding risk with heparin drip - Vascular Surgery consulted: Dr. Musa- No need for surgical intervention at this time - Hematology/Oncology consulted: Dr. Rangel- urmila liver and pancreas IR biopsy - Interventional radiology consulted: Dr. Wetzel- CT-guided biopsy of liver 05/11 - Gastroenterology consulted: Dr. Montelongo - Possible sterile necrosis within pancreas. Cannot exclude pancreatic mass. - Patient would benefit from dedicated pancreatic imaging following resolution of acute inflammatory process - No clear indication for antibiotic therapy for pancreatic necrosis. Necrosis is likely sterile. No obvious signs of infection at this time. - Overall clinical picture suggestive of metastatic malignancy from possible pancreatic or GI source, poor patient prognosis. - Elevated tumor markers: CA 19-9 Ag >10,000, CEA Ag 251, CA 125 Ag 203 - AFP 1.1 - Low fat mod carb consistent diet - Fluids discontinued due to HTN - f/u liver biopsy Pulmonary embolism and Deep vein thrombosis, likely secondary to hypercoagulability due to probably malignancy - Abd/pelv CTA: large right lower lobe pulmonary branch pulmonary embolus. - CTA chest: Filling defect consistent with pulmonary embolus evident within the right lower lobe pulmonary artery branch. - Lower extremity venous doppler: left long saphenous vein DVT - Echocardiogram to r/o right heart strain: LVEF is 60%. Mild concentric LVH. Grade 1 diastolic dysfunction. AV appears to be bicuspid. Borderline to mild . MR is trace to mild. RVSP is less than 30 mmHg. - Heparin gtt- monitor PTT - Not a candidate for IVC filter as per Dr. Rangel - Wait on starting oral anticoagulation pending any procedures once liver Bx results available Liver masses, likely mets > possible infection - Gastroenterology consulted, Dr. Montelongo - Hematology/Oncology consulted, Dr. Rangel - s/p US guided biopsy by Dr. Wetzel 05/11- continue to monitor for signs of bleeding - Hepatitis panel negative - Transaminitis improving - Will monitor LFTs on Tylenol; max of 2g daily - Hold statin, and avoid unnecessary hepatotoxic medications - Head CT ordered to r/o mets due to complaint of dizziness; shows no acute intracranial abnormality Fevers (resolved), possibly due to thrombus in pulm artery or effusions which could be secondary to occult pneumonia - Fever was controlled with ice packs to the axillas - pt without leukocytosis - Tylenol 650 mg PO Q8 PRN, max of 2g daily - pt started on Zosyn 3.375 IVPB Q6H (05/13) Discontinued 05/17 - Blood culture x 2 is prelim negative x 48 hours - urine culture is negative for growth Insulin Dependant Diabetes Mellitus - HgA1c 13.5 - Accuchecks ACHS - ISS low - Hypoglycemia protocol - Novolog increased to 12u SC TIDAC - Lantus increased to 18u SC QHS Hypertension - continue Losartan to 100 mg PO daily Hyperlipidemia - TG 162, choles 182, LDL 135, HDL 32 - Crestor 5 mg PO QHS- hold due to transaminitis Pleural effusions R>L - CXR (05/08): no active disease - CTA chest: Moderate right and small left pleural effusions and associated consolidations. Right middle lobe pneumonia or atelectasis, partially imaged. - Continue to monitor Constipation - Likely due to opioid pain medications - Pt is passing gas - Colace 100 mg PO daily - Dulcolax enema [place] Ppx - DVT: SCDs CI due to DVT and BKA, heparin gtt - GI: not indicated - Diet: low fat mod carb consistent diet Code status: full code Dispo: Pt is being treated for PE/DVT with heparin gtt. Currently, transition to oral AC is on hold due to potential of future procedures as liver biopsy is pending. Palliative care, Martine, is consulted. Pt has expressed that if this cancer is treatable he would like to have chemotherapy done. Liver biopsy results are pending. Case discussed with attending, Dr. Buckner. Obie Muller PGY1
[2018-05-17] MEDS: (Novolog) Insulin Aspart, Recombinant 100 u/ml 10 ml vial SC SCH ×7 (09:37→21:34)
[2018-05-17] MEDS: Lidocaine 5% Patch TD SCH (09:38)
[2018-05-17] MEDS: (Lantus) Insulin Glargine, Recombinant SC SCH (22:23)
[2018-05-18] MEDS: Heparin25000 units/250ml 1/2NS 25,000 UNITS/250 ML BAG IV PRN ×2 (01:30→20:21)
[2018-05-18 07:37] LABS: ALB/GLOB RATIO 0.9 (1.0-2.1); ALBUMIN 3.1 g/dL (3.5-5.0); ALT/SGPT 77 U/L (21-72); AST/SGOT 87 U/L (17-59); BLOOD UREA NITROGEN 12 mg/dL (9-20); CALCIUM 8.4 mg/dl (8.6-10.4); GFR NON-AFRICAN AMERICAN > 60
[2018-05-18 07:59] LABS: BASO # 0.1 K/uL (0.0-0.2); BASO % 1.1 % (0.0-2.0); EOS # 0.2 K/uL (0.0-0.7); EOS % 4.1 % (0.0-4.0); HEMOGLOBIN 11.2 g/dL (12.0-18.0); LYMPH # 1.5 K/uL (1.0-4.3); LYMPH % 25.7 % (20.0-40.0); MEAN CELL VOLUME 86.9 fL (80.0-94.0); MEAN CORPUSCULAR HEMOGLOBIN 29.4 pg (27.0-31.0); MEAN CORPUSCULAR HGB CONC 33.8 g/dL (33.0-37.0); MEAN PLATELET VOLUME 7.9 fL (7.2-11.7); MONO # 0.6 K/uL (0.0-0.8); MONO % 10.2 % (0.0-10.0); NEUT # 3.4 K/uL (1.8-7.0); NEUT % 58.9 % (50.0-75.0); RBC 3.8 Mil/uL (4.40-5.90); RED CELL DISTRIBUTION WIDTH 13.3 % (11.5-14.5); WHITE BLOOD COUNT 5.7 K/uL (4.8-10.8)
[2018-05-18] MEDS: (Novolog) Insulin Aspart, Recombinant 100 u/ml 10 ml vial SC SCH ×7 (08:20→22:12)
[2018-05-18] MEDS: Lidocaine 5% Patch TD SCH ×2 (10:45→10:46)
--- NOTE | 2018-05-18 11:11 | CP.PCM.PN ---
Subjective - Date & Time of Evaluation Date of Evaluation: 05/18/18 Time of Evaluation: 18:08 - Subjective Subjective: PGY-[address] Buckner Patient seen and examined at bedside. Patient continues to have abdominal pain. Patient states he did have a bowel movement today for first time since Monday. Patient was made aware of the results of his biopsy. He was understandably distraught and asked for some time to speak with his family. Will f/u with patient's wishes. Objective - Vital Signs/Intake and Output Vital Signs (last 24 hours): Temp Pulse Resp BP Pulse Ox 98.5 F 85 20 148/84 96 05/18/18 07:20 05/18/18 07:20 05/18/18 07:20 05/18/18 07:20 05/18/18 07:20 Intake and Output: 05/18/18 05/18/18 06:59 18:59 Intake Total 250 Output Total 400 Balance -150 - Medications Medications: Current Medications Acetaminophen (Tylenol 325mg Tab) 650 mg PO Q8 PRN PRN Reason: Fever >100.4 F Benzocaine/Menthol (Cepacol Sore Throat) 1 isatu MT QID PRN PRN Reason: Sore Throat Last Admin: 05/14/18 02:05 Dose: 1 isatu Dextrose (Dextrose 50% Inj) 0 ml IV STAT PRN; Protocol PRN Reason: Hypoglycemia Protocol Dextrose (Glutose 15) 0 gm PO ONCE PRN; Protocol PRN Reason: Hypoglycemia Protocol Docusate Sodium (Colace) 100 mg PO DAILY [facility] Last Admin: 05/18/18 10:43 Dose: 100 mg Glucagon (Glucagen Diagnostic Kit) 0 mg IM STAT PRN; Protocol PRN Reason: Hypoglycemia Protocol Dextrose (Dextrose 5% In Water 1000 Ml) 1,000 mls @ 0 mls/hr IV .Q0M PRN; Protocol PRN Reason: Hypoglycemia Protocol Heparin Sodium/Sodium Chloride (Heparin 12689 Units/250ml 1/2 Normal Saline) 25,000 units in 250 mls @ 14.403 mls/hr IV .[id number] PRN; Protocol PRN Reason: PROTOCOL Last Admin: 05/18/18 01:30 Dose: 18 units/kg/hr, 14.403 mls/hr Insulin Aspart (Novolog) 0 unit SC ACHS [facility]; Protocol Last Admin: 05/18/18 08:21 Dose: 2 unit Insulin Aspart (Novolog) 3 unit SC TIDAC [facility] Last Admin: 05/18/18 08:20 Dose: 3 units Insulin Glargine (Lantus) 18 unit SC HS [facility] Last Admin: 05/17/18 22:23 Dose: 18 units Lidocaine (Lidoderm) 1 ea TD DAILY [facility] Last Admin: 05/18/18 10:46 Dose: Not Given Losartan Potassium (Cozaar) 100 mg PO DAILY [facility] Last Admin: 05/18/18 10:43 Dose: 100 mg Morphine Sulfate (Morphine) 2 mg IVP Q4 PRN PRN Reason: Pain, moderate (4-7) Last Admin: 05/18/18 06:18 Dose: 2 mg Rosuvastatin Calcium (Crestor) 5 mg PO HS [facility] Last Admin: 05/12/18 21:29 Dose: 5 mg Tramadol HCl (Ultram) 25 mg PO Q12H PRN PRN Reason: Pain, moderate (4-7) - Labs Labs: 05/18/18 06:57 05/18/18 06:57 PT 12.2 SECONDS (9.7-12.2) 05/13/18 02:04 INR 1.1 05/13/18 02:04 APTT 53 SECONDS (21-34) H 05/18/18 06:57 - Constitutional Appears: Non-toxic - Head Exam Head Exam: ATRAUMATIC, NORMAL INSPECTION - Eye Exam Eye Exam: EOMI, Normal appearance - ENT Exam ENT Exam: Mucous Membranes Moist - Respiratory Exam Respiratory Exam: Clear to Ausculation Bilateral, NORMAL BREATHING PATTERN. absent: Rales, Rhonchi, Wheezes - Cardiovascular Exam Cardiovascular Exam: +S1, +S2 - GI/Abdominal Exam GI & Abdominal Exam: Soft, Tenderness (Epigastric tenderness), Hypoactive Bowel Sounds - Extremities Exam Extremities Exam: absent: Pedal Edema, Tenderness - Neurological Exam Neurological Exam: Alert, Awake, Oriented x3 - Psychiatric Exam Psychiatric exam: Normal Affect Additional comments: Patient visibly upset during exam - Skin Skin Exam: Dry, Intact, Normal Color, Warm Assessment and Plan - Assessment and Plan (Free Text) Assessment: Pancreatic cancer with liver mets/pancreatitis with necrosis (non-gas forming) - Official Pathology Report (05/11) - Biopsy liver lesion: Final diagnosis - Liver tissue involved by adenocarcinoma. Favor pancreatico-biliary origin. - CT A/P with IV contrast (05/08): grossly abnormal appearing pancreas with ext ensive pancreatitis and necrosis. At time of imaging, non-gas forming. Contiguous hypodensity in SMV; thrombus must be considered. Innumerable liver masses. Right pleural effusion - US Abd (05/08): Multiple hepatic masses. Fatty infiltrate. Incidental right upper pole renal cortical cyst. - AST/ALT 67/77 on admission, ALP 438- improving, AST/ALT 60/73, ALP 328 - Hepatitis panel negative, CPK 50 - Lidoderm patch to lower back - Morphine increased to 1 mg IVP Q4H PRN - Tramadol 25 mg PO Q12H CARL - Avoid Tylenol, muscle relaxants due to transaminitis - Avoid NSAIDs due to increased bleeding risk with heparin drip - Vascular Surgery consulted: Dr. Musa- No need for surgical intervention at this time - Hematology/Oncology consulted: Dr. Rangel- recs liver and pancreas IR biopsy - --Patient ok for d/c from Heme onc standpoint, but must remain on lifelong AC. Chemo is an option if patient chooses to go that route. Pt can follow with Dr. Rangel in clinic or may choose to go through [facility]. CM stated that Dr. Romero does take [facility]. Will f/u patient decision and plan accordingly. - Interventional radiology consulted: Dr. Wetzel- CT-guided biopsy of liver 05/11 - See results above - Gastroenterology consulted: Dr. Montelongo - Possible sterile necrosis within pancreas. Cannot exclude pancreatic mass. - Patient would benefit from dedicated pancreatic imaging following resoluti on of acute inflammatory process - No clear indication for antibiotic therapy for pancreatic necrosis. Necrosis is likely sterile. No obvious signs of infection at this time. - Overall clinical picture suggestive of metastatic malignancy from possible pancreatic or GI source, poor patient prognosis. - Elevated tumor markers: CA 19-9 Ag >10,000, CEA Ag 251, CA 125 Ag 203 - AFP 1.1 - Low fat mod carb consistent diet - Fluids discontinued due to HTN - f/u liver biopsy Pulmonary embolism and Deep vein thrombosis, likely secondary to hypercoagulability due to probably malignancy - Abd/pelv CTA: large right lower lobe pulmonary branch pulmonary embolus. - CTA chest: Filling defect consistent with pulmonary embolus evident within the right lower lobe pulmonary artery branch. - Lower extremity venous doppler: left long saphenous vein DVT - Echocardiogram to r/o right heart strain: LVEF is 60%. Mild concentric LVH. Grade 1 diastolic dysfunction. AV appears to be bicuspid. Borderline to mild . MR is trace to mild. RVSP is less than 30 mmHg. - Heparin gtt- monitor PTT - Not a candidate for IVC filter as per Dr. Rangel - Wait on starting oral anticoagulation pending any procedures once liver Bx results available - -Restart AC tomorrow Metastatic liver lesions - Gastroenterology consulted, Dr. Montelongo - Hematology/Oncology consulted, Dr. Rangel - s/p US guided biopsy by Dr. Wetzel 05/11- continue to monitor for signs of bleeding - Hepatitis panel negative - Transaminitis improving - Will monitor LFTs on Tylenol; max of 2g daily - Hold statin, and avoid unnecessary hepatotoxic medications - Head CT ordered to r/o mets due to complaint of dizziness; shows no acute intracranial abnormality Fevers (resolved), possibly due to thrombus in pulm artery or effusions which could be secondary to occult pneumonia - Fever was controlled with ice packs to the axillas - pt without leukocytosis - Tylenol 650 mg PO Q8 PRN, max of 2g daily - pt started on Zosyn 3.375 IVPB Q6H (05/13) Discontinued 05/17 - Blood culture x 2 is prelim negative x 48 hours - urine culture is negative for growth Insulin Dependant Diabetes Mellitus - HgA1c 13.5 - Accuchecks ACHS - ISS low - Hypoglycemia protocol - Novolog increased to 12u SC TIDAC - Lantus increased to 18u SC QHS Hypertension - continue Losartan to 100 mg PO daily Hyperlipidemia - TG 162, choles 182, LDL 135, HDL 32 - Crestor 5 mg PO QHS- hold due to transaminitis Pleural effusions R>L - CXR (05/08): no active disease - CTA chest: Moderate right and small left pleural effusions and associated consolidations. Right middle lobe pneumonia or atelectasis, partially imaged. - Continue to monitor Constipation - Likely due to opioid pain medications - Pt is passing gas - Colace 100 mg PO daily - Dulcolax enema SD Ppx - DVT: SCDs CI due to DVT and BKA, heparin gtt - GI: not indicated - Diet: low fat mod carb consistent diet Code status: full code Dispo: Pt is being treated for PE/DVT with heparin gtt. Liver bx completed, will transition to oral AC. Bx shows adenoCA on liver, likely pancreatic in origin. Palliative care, Martine, is consulted. Pt has expressed that if this cancer is treatable he would like to have chemotherapy done. Will f/u chemo options and discuss possible discharge with outpatient f/u Case discussed with attending, Dr. Buckner. Chuck Jean Baptiste, PGY-1
[2018-05-18] MEDS: (Lantus) Insulin Glargine, Recombinant SC SCH (22:12)
[2018-05-19 06:15] LABS: BASO % 0.7 % (0.0-2.0); EOS # 0.2 K/uL (0.0-0.7); EOS % 2.9 % (0.0-4.0); LYMPH # 1.8 K/uL (1.0-4.3); LYMPH % 28.4 % (20.0-40.0); MEAN CELL VOLUME 87.1 fL (80.0-94.0); MEAN CORPUSCULAR HEMOGLOBIN 29.5 pg (27.0-31.0); MEAN CORPUSCULAR HGB CONC 33.8 g/dL (33.0-37.0); MEAN PLATELET VOLUME 6.8 fL (7.2-11.7); MONO # 0.7 K/uL (0.0-0.8); MONO % 10.7 % (0.0-10.0); NEUT # 3.6 K/uL (1.8-7.0); NEUT % 57.3 % (50.0-75.0); RBC 3.72 Mil/uL (4.40-5.90); RED CELL DISTRIBUTION WIDTH 13.8 % (11.5-14.5); WHITE BLOOD COUNT 6.4 K/uL (4.8-10.8)
[2018-05-19 06:39] LABS: ALB/GLOB RATIO 0.9 (1.0-2.1); ALBUMIN 3.3 g/dL (3.5-5.0); ALT/SGPT 147 U/L (21-72); AST/SGOT 157 U/L (17-59); BLOOD UREA NITROGEN 13 mg/dL (9-20); CALCIUM 8.6 mg/dl (8.6-10.4); GFR NON-AFRICAN AMERICAN > 60
[2018-05-19] MEDS: (Novolog) Insulin Aspart, Recombinant 100 u/ml 10 ml vial SC SCH ×7 (08:09→21:22)
[2018-05-19] MEDS: Lidocaine 5% Patch TD SCH (10:09)
[2018-05-19] MEDS: Heparin25000 units/250ml 1/2NS 25,000 UNITS/250 ML BAG IV PRN (14:42)
--- NOTE | 2018-05-19 17:06 | CP.PCM.PN ---
Subjective - Date & Time of Evaluation Date of Evaluation: 05/19/18 Time of Evaluation: 08:20 - Subjective Subjective: Medicine Progress Note Patient seen and examined at bedside. Patient complains of weakness and abdominal bloating. Patient is aware of his diagnosis. He feels strong about getting chemotherapy to treat pancreatic cancer. He denies headache, shortness of breath, chest pain, hemoptysis, melena, dysuria, dizziness, and lightheadedness. Objective - Vital Signs/Intake and Output Vital Signs (last 24 hours): Temp Pulse Resp BP Pulse Ox 99.1 F 92 H 20 169/96 H 95 05/19/18 16:11 05/19/18 16:11 05/19/18 16:11 05/19/18 16:11 05/19/18 16:11 Intake and Output: 05/19/18 05/19/18 06:59 18:59 Output Total 550 Balance -550 - Medications Medications: Current Medications Benzocaine/Menthol (Cepacol Sore Throat) 1 isatu MT QID PRN PRN Reason: Sore Throat Last Admin: 05/14/18 02:05 Dose: 1 isatu Dextrose (Dextrose 50% Inj) 0 ml IV STAT PRN; Protocol PRN Reason: Hypoglycemia Protocol Dextrose (Glutose 15) 0 gm PO ONCE PRN; Protocol PRN Reason: Hypoglycemia Protocol Docusate Sodium (Colace) 100 mg PO DAILY [facility] Last Admin: 05/19/18 10:08 Dose: 100 mg Glucagon (Glucagen Diagnostic Kit) 0 mg IM STAT PRN; Protocol PRN Reason: Hypoglycemia Protocol Heparin Sodium/Sodium Chloride (Heparin 41066 Units/250ml 1/2 Normal Saline) 25,000 units in 250 mls @ 14.403 mls/hr IV .[id number] PRN; Protocol PRN Reason: FOLLOW TITRATION SCHEDULE Last Admin: 05/19/18 14:42 Dose: 18 units/kg/hr, 14.403 mls/hr Insulin Aspart (Novolog) 0 unit SC ACHS [facility]; Protocol Last Admin: 05/19/18 13:55 Dose: 3 unit Insulin Aspart (Novolog) 3 unit SC TIDAC [facility] Last Admin: 05/19/18 13:56 Dose: 3 units Insulin Glargine (Lantus) 18 unit SC HS [facility] Last Admin: 05/18/18 22:12 Dose: 18 units Lidocaine (Lidoderm) 1 ea TD DAILY [facility] Last Admin: 05/19/18 10:09 Dose: Not Given Losartan Potassium (Cozaar) 100 mg PO DAILY [facility] Last Admin: 05/19/18 10:08 Dose: 100 mg Morphine Sulfate (Morphine) 2 mg IVP Q4 PRN PRN Reason: Pain, moderate (4-7) Last Admin: 05/19/18 15:35 Dose: 2 mg Rosuvastatin Calcium (Crestor) 5 mg PO HS [facility] Last Admin: 05/12/18 21:29 Dose: 5 mg Tramadol HCl (Ultram) 25 mg PO Q12H PRN PRN Reason: Pain, moderate (4-7) - Labs Labs: 05/19/18 06:08 05/19/18 06:08 PT 12.2 SECONDS (9.7-12.2) 05/13/18 02:04 INR 1.1 05/13/18 02:04 APTT 53 SECONDS (21-34) H 05/18/18 06:57 - Constitutional Appears: Non-toxic, Chronically Ill - Head Exam Head Exam: ATRAUMATIC, NORMOCEPHALIC - Eye Exam Eye Exam: EOMI, Normal appearance - ENT Exam ENT Exam: Mucous Membranes Moist - Respiratory Exam Respiratory Exam: Clear to Ausculation Bilateral, NORMAL BREATHING PATTERN. absent: Wheezes, Respiratory Distress - Cardiovascular Exam Cardiovascular Exam: REGULAR RHYTHM, +S1, +S2. absent: Murmur - GI/Abdominal Exam GI & Abdominal Exam: Distended, Tenderness (epigastric), Hypoactive Bowel Sounds - Extremities Exam Extremities Exam: absent: Pedal Edema, Tenderness - Neurological Exam Neurological Exam: Alert, Awake, Oriented x3 - Psychiatric Exam Psychiatric exam: Normal Affect Additional comments: Patient visibly upset during exam - Skin Skin Exam: Dry, Intact, Normal Color, Warm Assessment and Plan - Assessment and Plan (Free Text) Assessment: Pancreatic cancer with liver mets/pancreatitis with necrosis (non-gas forming) - Official Pathology Report (05/11) - Biopsy liver lesion: Final diagnosis - Liver tissue involved by adenocarcinoma. Favor pancreatico-biliary origin. - CT A/P with IV contrast (05/08): grossly abnormal appearing pancreas with extensive pancreatitis and necrosis. At time of imaging, non-gas forming. Contiguous hypodensity in SMV; thrombus must be considered. Innumerable liver masses. Right pleural effusion - US Abd (05/08): Multiple hepatic masses. Fatty infiltrate. Incidental right upper pole renal cortical cyst. - AST/ALT 67/77 on admission, ALP 438- improving, AST/ALT 60/73, ALP 328 - Hepatitis panel negative, CPK 50 - Lidoderm patch to lower back - Morphine increased to 1 mg IVP Q4H PRN - Tramadol 25 mg PO Q12H CARL - Avoid Tylenol, muscle relaxants due to transaminitis - Avoid NSAIDs due to increased bleeding risk with heparin drip - Vascular Surgery consulted: Dr. Musa- No need for surgical intervention at this time - Interventional radiology consulted: Dr. Wetzel- CT-guided biopsy of liver 05/11 - See results above - Gastroenterology consulted: Dr. Montelongo - Possible sterile necrosis within pancreas. Cannot exclude pancreatic mass. - Patient would benefit from dedicated pancreatic imaging following resolution of acute inflammatory process - No clear indication for antibiotic therapy for pancreatic necrosis. Necrosis is likely sterile. No obvious signs of infection at this time. - Overall clinical picture suggestive of metastatic malignancy from possible pancreatic or GI source, poor patient prognosis. - Elevated tumor markers: CA 19-9 Ag >10,000, CEA Ag 251, CA 125 Ag 203 - AFP 1.1 - Low fat mod carb consistent diet - Fluids discontinued due to HTN - Hematology/Oncology consulted: Dr. Rangel- recs liver and pancreas IR biopsy - --Patient ok for d/c from Heme onc standpoint, but must remain on lifelong AC. Chemo is an option if patient chooses to go that route. Pt can follow with Dr. Rangel in clinic or may choose to go through [facility]. stated that Dr. Romero does take [facility]. Patient agreed on chemotherapy, will consult surgery for port placement. Pulmonary embolism and Deep vein thrombosis, likely secondary to hypercoagulability due to probably malignancy - Abd/pelv CTA: large right lower lobe pulmonary branch pulmonary embolus. - CTA chest: Filling defect consistent with pulmonary embolus evident within the right lower lobe pulmonary artery branch. - Lower extremity venous doppler: left long saphenous vein DVT - Echocardiogram to r/o right heart strain: LVEF is 60%. Mild concentric LVH. Grade 1 diastolic dysfunction. AV appears to be bicuspid. Borderline to mild . MR is trace to mild. RVSP is less than 30 mmHg. - Heparin gtt- monitor PTT - Not a candidate for IVC filter as per Dr. Rangel - Restarted AC tomorrow - Advised patient not to refuse PTT blood draw Metastatic liver lesions - Gastroenterology consulted, Dr. Montelongo - Hematology/Oncology consulted, Dr. Rangel - s/p US guided biopsy by Dr. Wetzel 05/11- continue to monitor for signs of bleeding - Hepatitis panel negative - Transaminitis improving - Will monitor LFTs on Tylenol; max of 2g daily - Hold statin, and avoid unnecessary hepatotoxic medications - Head CT ordered to r/o mets due to complaint of dizziness; shows no acute intracranial abnormality Fevers (resolved), possibly due to thrombus in pulm artery or effusions which could be secondary to occult pneumonia - Fever was controlled with ice packs to the axillas - pt without leukocytosis - Tylenol 650 mg PO Q8 PRN, max of 2g daily - pt started on Zosyn 3.375 IVPB Q6H (05/13) Discontinued 05/17 - Blood culture x 2 is prelim negative x 48 hours - urine culture is negative for growth Insulin Dependant Diabetes Mellitus - HgA1c 13.5 - Accuchecks ACHS - ISS low - Hypoglycemia protocol - Novolog increased to 12u SC TIDAC - Lantus increased to 18u SC QHS Hypertension - continue Losartan to 100 mg PO daily Hyperlipidemia - TG 162, choles 182, LDL 135, HDL 32 - Crestor 5 mg PO QHS- hold due to transaminitis Pleural effusions R>L - CXR (05/08): no active disease - CTA chest: Moderate right and small left pleural effusions and associated consolidations. Right middle lobe pneumonia or atelectasis, partially imaged. - Continue to monitor Constipation, resolved - Likely due to opioid pain medications - Pt is passing gas - Colace 100 mg PO daily - Dulcolax enema SC Ppx - DVT: SCDs CI due to DVT and BKA, heparin gtt - GI: not indicated - Diet: low fat mod carb consistent diet Code status: full code Dispo: Pt is being treated for PE/DVT with heparin gtt. Liver bx completed, will transition to oral AC. Bx shows adeno CA on liver, likely pancreatic in origin. Palliative care, Martine, is consulted. Pt has expressed that if this cancer is treatable he would like to have chemotherapy.
[2018-05-19] MEDS: (Lantus) Insulin Glargine, Recombinant SC SCH (21:28)
--- NOTE | 2018-05-20 01:56 | CP.PCM.PN ---
<RenzoObie - Last Filed: 05/20/18 01:52> Subjective - Date & Time of Evaluation Date of Evaluation: 05/20/18 Time of Evaluation: 01:53 - Subjective Subjective: PGY1 Medicine progress note Patient seen and examined at bedside. Pt continues to reports abdominal pain but states that it is relieved mostly by the pain medications. He continues to have right lower back pain on deep inspiration. He denies fever, chills, headache, shortness of breath, chest pain, hemoptysis, hematochezia, melena, dysuria, dizziness, lightheadedness, numbness or tingling, hematuria, or any bleeding. He reports that he would like to fight this cancer with all he has. Objective - Vital Signs/Intake and Output Vital Signs (last 24 hours): Temp Pulse Resp BP Pulse Ox 99.1 F 81 20 136/81 95 05/19/18 16:11 05/19/18 20:06 05/19/18 16:11 05/19/18 20:06 05/19/18 16:11 Intake and Output: 05/19/18 05/20/18 18:59 06:59 Intake Total 435.2 Output Total 650 Balance -214.8 - Medications Medications: Current Medications Benzocaine/Menthol (Cepacol Sore Throat) 1 isatu MT QID PRN PRN Reason: Sore Throat Last Admin: 05/14/18 02:05 Dose: 1 isatu Dextrose (Dextrose 50% Inj) 0 ml IV STAT PRN; Protocol PRN Reason: Hypoglycemia Protocol Dextrose (Glutose 15) 0 gm PO ONCE PRN; Protocol PRN Reason: Hypoglycemia Protocol Docusate Sodium (Colace) 100 mg PO DAILY [facility] Last Admin: 05/19/18 10:08 Dose: 100 mg Glucagon (Glucagen Diagnostic Kit) 0 mg IM STAT PRN; Protocol PRN Reason: Hypoglycemia Protocol Heparin Sodium/Sodium Chloride (Heparin 78777 Units/250ml 1/2 Normal Saline) 25,000 units in 250 mls @ 14.403 mls/hr IV .[id number] PRN; Protocol PRN Reason: FOLLOW TITRATION SCHEDULE Last Admin: 05/19/18 14:42 Dose: 18 units/kg/hr, 14.403 mls/hr Insulin Aspart (Novolog) 0 unit SC ACHS [facility]; Protocol Last Admin: 05/19/18 21:22 Dose: Not Given Insulin Aspart (Novolog) 3 unit SC TIDAC [facility] Last Admin: 05/19/18 18:01 Dose: 3 units Insulin Glargine (Lantus) 18 unit SC HS [facility] Last Admin: 05/19/18 21:28 Dose: 18 units Lidocaine (Lidoderm) 1 ea TD DAILY [facility] Last Admin: 05/19/18 10:09 Dose: Not Given Losartan Potassium (Cozaar) 100 mg PO DAILY [facility] Last Admin: 05/19/18 10:08 Dose: 100 mg Morphine Sulfate (Morphine) 2 mg IVP Q4 PRN PRN Reason: Pain, moderate (4-7) Last Admin: 05/19/18 19:55 Dose: 2 mg Rosuvastatin Calcium (Crestor) 5 mg PO HS [facility] Last Admin: 05/12/18 21:29 Dose: 5 mg Tramadol HCl (Ultram) 25 mg PO Q12H PRN PRN Reason: Pain, moderate (4-7) - Labs Labs: 05/19/18 06:08 05/19/18 06:08 PT 12.2 SECONDS (9.7-12.2) 05/13/18 02:04 INR 1.1 05/13/18 02:04 APTT 53 SECONDS (21-34) H 05/18/18 06:57 - Additional Findings Additional findings: - Constitutional Appears: Non-toxic, Chronically Ill - Head Exam Head Exam: ATRAUMATIC, NORMOCEPHALIC - Eye Exam Eye Exam: EOMI, Normal appearance - ENT Exam ENT Exam: Mucous Membranes Moist - Respiratory Exam Respiratory Exam: Clear to Ausculation Bilateral, NORMAL BREATHING PATTERN. absent: Wheezes, Respiratory Distress - Cardiovascular Exam Cardiovascular Exam: REGULAR RHYTHM, +S1, +S2, 3/6 systolic ejection murmur - GI/Abdominal Exam GI & Abdominal Exam: Distended, Tenderness (epigastric and RUQ), Hypoactive Bowel Sounds. Absent: rigidity, rebound. - Extremities Exam Extremities Exam: absent: Pedal Edema, Tenderness - Neurological Exam Neurological Exam: Alert, Awake, Oriented x3 - Psychiatric Exam Psychiatric exam: Normal Affect, Depressed mood. 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 CT showed necrotizing pancreatitis, nongas-forming, with suspicion for SMV thrombus, as well as innumerable liver masses. Vascular surgery was consulted for necrotizing pancreatitis and possible SMV thrombus. GI was consulted for necrotizing pancreatitis. Heme/Onc was consulted due to liver masses, possible mets. 05/10: CTA showed large right lower lobe pulmonary branch pulmonary embolus. Lower extremity venous doppler shows left long saphenous vein DVT. Lovenox switched to Heparin gtt. Pt not a candidate for IVC filter, as per [place]. 05/11, pt underwent us guided liver biopsy of masses, well tolerated. Biopsy liver lesion: Final diagnosis - Liver tissue involved by adenocarcinoma. Favor pancreatico-biliary origin. Plan: Pancreatic cancer with liver mets/pancreatitis with necrosis (non-gas forming) - Official Pathology Report (05/11) - Biopsy liver lesion: Final diagnosis - Liver tissue involved by adenocarcinoma. Favor pancreatico-biliary origin. - CT A/P with IV contrast (05/08): grossly abnormal appearing pancreas with extensive pancreatitis and necrosis. At time of imaging, non-gas forming. Contiguous hypodensity in SMV; thrombus must be considered. Innumerable liver masses. Right pleural effusion - US Abd (05/08): Multiple hepatic masses. Fatty infiltrate. Incidental right upper pole renal cortical cyst. - AST/ALT 67/77 on admission, ALP 438- improving, AST/ALT 60/73, ALP 328 - Hepatitis panel negative, CPK 50 - Lidoderm patch to lower back - Morphine 1 mg IVP Q4H PRN - Tramadol 25 mg PO Q12H CALR - Avoid Tylenol, muscle relaxants due to transaminitis - Avoid NSAIDs due to increased bleeding risk with heparin drip - Vascular Surgery consulted: Dr. Musa- No need for surgical intervention at this time - Interventional radiology consulted: Dr. Wetzel- CT-guided biopsy of liver 05/11 - See results above - Gastroenterology consulted: Dr. Montelongo - Possible sterile necrosis within pancreas. Cannot exclude pancreatic mass. - Patient would benefit from dedicated pancreatic imaging following resolution of acute inflammatory process - No clear indication for antibiotic therapy for pancreatic necrosis. Necrosis is likely sterile. No obvious signs of infection at this time. - Overall clinical picture suggestive of metastatic malignancy from possible pancreatic or GI source, poor patient prognosis. - Elevated tumor markers: CA 19-9 Ag >10,000, CEA Ag 251, CA 125 Ag 203 - AFP 1.1 - Low fat mod carb consistent diet - Fluids discontinued due to HTN - Hematology/Oncology consulted: Dr. Rangel- recs liver and pancreas IR biopsy Patient ok for d/c from Heme onc standpoint, but must remain on lifelong AC. Chemo is an option if patient chooses to go that route. Pt can follow with Dr. Rangel in clinic or may choose to go through [facility]. CM stated that Dr. Romero does take [facility] care. Patient agreed on chemotherapy, will consult surgery for port placement. Pulmonary embolism and Deep vein thrombosis, likely secondary to hype rcoagulability due to probably malignancy - Abd/pelv CTA: large right lower lobe pulmonary branch pulmonary embolus. - CTA chest: Filling defect consistent with pulmonary embolus evident within the right lower lobe pulmonary artery branch. - Lower extremity venous doppler: left long saphenous vein DVT - Echocardiogram to r/o right heart strain: LVEF is 60%. Mild concentric LVH. Grade 1 diastolic dysfunction. AV appears to be bicuspid. Borderline to mild . MR is trace to mild. RVSP is less than 30 mmHg. - Heparin gtt- monitor PTT - Not a candidate for IVC filter as per Dr. Rangel - Advised patient not to refuse PTT blood draw Metastatic liver lesions - Gastroenterology consulted, Dr. Montelongo - Hematology/Oncology consulted, Dr. Rangel - s/p US guided biopsy by Dr. Wetzel 05/11- continue to monitor for signs of bleeding - Hepatitis panel negative - Worsening transaminitis - Hold statin, and avoid unnecessary hepatotoxic medications - Head CT ordered to r/o mets due to complaint of dizziness; shows no acute intracranial abnormality Fevers (resolved), possibly due to thrombus in pulm artery or effusions which could be secondary to occult pneumonia - Fever controlled with ice packs to the axillas - pt without leukocytosis - pt started on Zosyn 3.375 IVPB Q6H (05/13) Discontinued 05/17 - Blood culture x 2 is prelim negative x 5 days - urine culture is negative for growth - will give NSAIDs for fever is needed, avoid tylenol Insulin Dependant Diabetes Mellitus - HgA1c 13.5 - Accuchecks ACHS - ISS low - Hypoglycemia protocol - Novolog 3u SC TIDAC - Lantus 18u SC QHS Hypertension - continue Losartan to 100 mg PO daily Hyperlipidemia - TG 162, choles 182, LDL 135, HDL 32 - Crestor 5 mg PO QHS- hold due to transaminitis Pleural effusions R>L - CXR (05/08): no active disease - CTA chest: Moderate right and small left pleural effusions and associated consolidations. Right middle lobe pneumonia or atelectasis, partially imaged. - Continue to monitor Constipation, resolved - Likely due to opioid pain medications - Pt is passing gas - Colace 100 mg PO daily - Dulcolax enema OH Ppx - DVT: SCDs CI due to DVT and BKA, heparin gtt - GI: not indicated - Diet: low fat mod carb consistent diet Code status: full code Dispo: Pt is being treated for PE/DVT with heparin gtt. Liver bx completed, will transition to oral AC. Bx shows adeno CA on liver, likely pancreatic in origin. Palliative care, Martine, is consulted. Pt has expressed that if this cancer is treatable he would like to have chemotherapy. <Stephanie Buckner V - Last Filed: 05/20/18 09:25> Objective - Vital Signs/Intake and Output Vital Signs (last 24 hours): Temp Pulse Resp BP Pulse Ox 98.6 F 85 20 163/87 H 94 L 05/20/18 07:00 05/20/18 07:00 05/20/18 07:00 05/20/18 07:00 05/20/18 07:00 Intake and Output: 05/20/18 05/20/18 06:59 18:59 Intake Total 435.2 Output Total 900 Balance -464.8 - Medications Medications: Current Medications Benzocaine/Menthol (Cepacol Sore Throat) 1 isatu MT QID PRN PRN Reason: Sore Throat Last Admin: 05/14/18 02:05 Dose: 1 isatu Dextrose (Dextrose 50% Inj) 0 ml IV STAT PRN; Protocol PRN Reason: Hypoglycemia Protocol Dextrose (Glutose 15) 0 gm PO ONCE PRN; Protocol PRN Reason: Hypoglycemia Protocol Docusate Sodium (Colace) 100 mg PO DAILY [facility] Last Admin: 05/19/18 10:08 Dose: 100 mg Glucagon (Glucagen Diagnostic Kit) 0 mg IM STAT PRN; Protocol PRN Reason: Hypoglycemia Protocol Heparin Sodium/Sodium Chloride (Heparin 85372 Units/250ml 1/2 Normal Saline) 25,000 units in 250 mls @ 14.403 mls/hr IV .[id number] PRN; Protocol PRN Reason: FOLLOW TITRATION SCHEDULE Last Admin: 05/19/18 14:42 Dose: 18 units/kg/hr, 14.403 mls/hr Insulin Aspart (Novolog) 0 unit SC ACHS [facility]; Protocol Last Admin: 05/20/18 07:38 Dose: Not Given Insulin Aspart (Novolog) 3 unit SC TIDAC [facility] Last Admin: 05/20/18 08:06 Dose: 3 units Insulin Glargine (Lantus) 18 unit SC HS [facility] Last Admin: 05/19/18 21:28 Dose: 18 units Lidocaine (Lidoderm) 1 ea TD DAILY [facility] Last Admin: 05/19/18 10:09 Dose: Not Given Losartan Potassium (Cozaar) 100 mg PO DAILY [facility] Last Admin: 05/19/18 10:08 Dose: 100 mg Morphine Sulfate (Morphine) 2 mg IVP Q4 PRN PRN Reason: Pain, moderate (4-7) Last Admin: 05/20/18 04:55 Dose: 2 mg Rosuvastatin Calcium (Crestor) 5 mg PO HS [facility] Last Admin: 05/12/18 21:29 Dose: 5 mg Tramadol HCl (Ultram) 25 mg PO Q12H PRN PRN Reason: Pain, moderate (4-7) - Labs Labs: 05/20/18 08:07 05/20/18 08:07 PT 12.2 SECONDS (9.7-12.2) 05/13/18 02:04 INR 1.1 05/13/18 02:04 APTT 62 SECONDS (21-34) H D 05/20/18 08:07 Attending/Attestation - Attestation I have personally seen and examined this patient.: Yes I have fully participated in the care of the patient.: Yes I have reviewed all pertinent clinical information, including history, physical exam and plan: Yes Notes (Text): Patient seen, examined and case discussed with day-time resident. Patient reports he is doing ok. He would like to pursue chemotherapy. We will need to f/u with heme-oncology and for placement of chemo port by interventional radiologist. We will need to hold heparin drip when we find when IR can place port for the patient. Assessment/Plan 1. Pancreatic cancer Pancreatitis with Necrosis (non-gas forming), with hypodense masses Liver mets Assessment/Plan * Vascular Surgery consulted: Dr. Musa- No need for surgical intervention at this time * Hematology/Oncology consulted: Dr. Harley kearns liver and pancreas IR biopsy * Interventional radiology consulted: Dr. Wetzel- CT-guided biopsy of liver 05/11 * Gastroenterology consulted: Dr. Montelongo * Possible sterile necrosis within pancreas. Cannot exclude pancreatic mass. * Patient would benefit from dedicated pancreatic imaging following resolution of acute inflammatory process * No clear indication for antibiotic therapy for pancreatic necrosis. Necrosis is likely sterile. No obvious signs of infection at this time. * Overall clinical picture suggestive of metastatic malignancy from possible pancreatic or GI source, poor patient prognosis. * CT A/P with IV contrast (05/08): grossly abnormal appearing pancreas with extensive pancreatitis and necrosis. At time of imaging, non-gas forming. Con tiguous hypodensity in SMV; thrombus must be considered. Innumerable liver masses. Right pleural effusion * US Abd (05/08): Multiple hepatic masses. Fatty infiltrate. Incidental right upper pole renal cortical cyst. * Hepatitis panel negative, CPK 50 * Lidoderm patch to lower back * Morphine 2 mg IVP Q4H PRN * Tramadol 25 mg PO Q12H [facility] * Avoid Tylenol, muscle relaxants due to transaminitis * Avoid NSAIDs due to increased bleeding risk with heparin drip * Elevated tumor markers: CA 19-9 Ag >10,000, CEA Ag 251, CA 125 Ag 203 * AFP 1.1 * Low fat mod carb consistent diet * Pathology: liver tissue involved by adenocarcinoma. Favor Pancreatico-biliary origin * Discussed with heme-onc, patient without chemo life expectancy <6 months; life expectancy about year with chemo; chemo side effects including nause a/vomitting/low blood counts * Patient has spoken with his family; confirms he would like to pursue chemo * Will consult IR for port-cath placement. 2. Pulmonary embolism and Deep vein thrombosis Assessment/Plan * Secondary to hypercoaguable state * Abd/pelv CTA: large right lower lobe pulmonary branch pulmonary embolus. * CTA chest: Filling defect consistent with pulmonary embolus evident within the right lower lobe pulmonary artery branch. * Lower extremity venous doppler: left long saphenous vein DVT * Echocardiogram to r/o right heart strain: LVEF is 60%. Mild concentric LVH. Grade 1 diastolic dysfunction. AV appears to be bicuspid. Borderline to mild . MR is trace to mild. RVSP is less than 30 mmHg. * Heparin gtt- monitor PT * Not a candidate for IVC filter as per Dr. Rangel * Pending conversion to oral anticoagulant once chemo port has been established 3. Fever (resolved) Assessment/Plan * 05/14/18 Blood culture: no growth for 5 days X2 * 05/15/18 Urine culture: no growth * Completed Zosyn 05/13-05/17 * Likely secondary to cancer/clot 4. Insulin Dependant Diabetes Mellitus Assessment/Plan * HgA1c 13.5 * Accuchecks ACHS * ISS low * Hypoglycemia protocol * Novolog 3u SC TIDAC * Lantus 18u SC QHS 5. Hypertension Assessment/Plan * Losartan to 100 mg PO daily 6. Hyperlipidemia Assessment/Plan * TG 162, choles 182, LDL 135, HDL 32 * Crestor 5 mg PO QHS- hold due to transaminitis 7. Constipation (resolved) 8. Ppx * DVT: SCDs CI due to DVT (left lower extremity) and BKA (right lower extremity), heparin gtt * GI: not indicated * Diet: low fat mod carb consistent diet * Pain PRN: * Lidoderm patch * Morphine 2mg IV Q4H Code status: full code Dispo: Pt is being treated for PE/DVT with heparin gtt. Currently, transition to oral AC is on hold due to potential of future procedure chemo port placement. Patient is opting for chemotherapy to extend life; he knows there is no cure.
[2018-05-20] MEDS: (Novolog) Insulin Aspart, Recombinant 100 u/ml 10 ml vial SC SCH ×7 (07:38→22:10)
[2018-05-20 08:26] LABS: BASO % 0.5 % (0.0-2.0); EOS # 0.2 K/uL (0.0-0.7); EOS % 2.6 % (0.0-4.0); HEMOGLOBIN 11.3 g/dL (12.0-18.0); LYMPH # 1.8 K/uL (1.0-4.3); LYMPH % 25.3 % (20.0-40.0); MEAN CELL VOLUME 87.2 fL (80.0-94.0); MEAN CORPUSCULAR HEMOGLOBIN 29.7 pg (27.0-31.0); MEAN CORPUSCULAR HGB CONC 34.1 g/dL (33.0-37.0); MEAN PLATELET VOLUME 7.6 fL (7.2-11.7); MONO # 0.7 K/uL (0.0-0.8); MONO % 9.3 % (0.0-10.0); NEUT # 4.5 K/uL (1.8-7.0); NEUT % 62.3 % (50.0-75.0); RBC 3.82 Mil/uL (4.40-5.90); RED CELL DISTRIBUTION WIDTH 13.8 % (11.5-14.5); WHITE BLOOD COUNT 7.2 K/uL (4.8-10.8)
[2018-05-20 08:35] LABS: ALB/GLOB RATIO 0.9 (1.0-2.1); ALBUMIN 3.4 g/dL (3.5-5.0); ALT/SGPT 179 U/L (21-72); AST/SGOT 154 U/L (17-59); BLOOD UREA NITROGEN 14 mg/dL (9-20); CALCIUM 8.8 mg/dl (8.6-10.4); GFR NON-AFRICAN AMERICAN > 60
[2018-05-20] MEDS: Heparin25000 units/250ml 1/2NS 25,000 UNITS/250 ML BAG IV PRN (09:37)
[2018-05-20] MEDS: Lidocaine 5% Patch TD SCH (09:41)
[2018-05-20] MEDS: (Lantus) Insulin Glargine, Recombinant SC SCH (22:11)
[2018-05-21] MEDS: Heparin25000 units/250ml 1/2NS 25,000 UNITS/250 ML BAG IV PRN (03:51)
--- NOTE | 2018-05-21 07:41 | CP.PCM.PN ---
Subjective - Date & Time of Evaluation Date of Evaluation: 05/21/18 Time of Evaluation: 07:41 - Subjective Subjective: PGY1 Medicine progress note for Dr. Hayley Valladares Patient seen and examined at bedside. Pt's abdominal pain is well controlled with Morphine. He reports that he is moving his bowel regularly, but has not had a bowel movement today. He continues to have right lower back pain on deep inspiration. He denies fever, chills, headache, shortness of breath, chest pain, hemoptysis, hematochezia, melena, dysuria, dizziness, lightheadedness, numbness or tingling, hematuria, or any bleeding. Pt informed that port placement for chemotherapy will be tomorrow. Objective - Vital Signs/Intake and Output Vital Signs (last 24 hours): Temp Pulse Resp BP Pulse Ox 98.8 F 90 20 141/90 97 05/21/18 03:25 05/21/18 03:25 05/21/18 03:25 05/21/18 03:25 05/21/18 03:25 Intake and Output: 05/21/18 05/21/18 06:59 18:59 Intake Total 685.2 Output Total 650 Balance 35.2 - Medications Medications: Current Medications Benzocaine/Menthol (Cepacol Sore Throat) 1 isatu MT QID PRN PRN Reason: Sore Throat Last Admin: 05/14/18 02:05 Dose: 1 isatu Dextrose (Dextrose 50% Inj) 0 ml IV STAT PRN; Protocol PRN Reason: Hypoglycemia Protocol Dextrose (Glutose 15) 0 gm PO ONCE PRN; Protocol PRN Reason: Hypoglycemia Protocol Docusate Sodium (Colace) 100 mg PO DAILY [facility] Last Admin: 05/20/18 09:37 Dose: 100 mg Glucagon (Glucagen Diagnostic Kit) 0 mg IM STAT PRN; Protocol PRN Reason: Hypoglycemia Protocol Heparin Sodium/Sodium Chloride (Heparin 96720 Units/250ml 1/2 Normal Saline) 25 ,000 units in 250 mls @ 14.403 mls/hr IV .[id number] PRN; Protocol PRN Reason: FOLLOW TITRATION SCHEDULE Last Admin: 05/21/18 03:51 Dose: 18 units/kg/hr, 14.403 mls/hr Insulin Aspart (Novolog) 0 unit SC ACHS [facility]; Protocol Last Admin: 05/20/18 22:10 Dose: Not Given Insulin Aspart (Novolog) 3 unit SC TIDAC [facility] Last Admin: 05/20/18 18:30 Dose: 3 units Insulin Glargine (Lantus) 18 unit SC [facility] Last Admin: 05/20/18 22:11 Dose: 18 units Lidocaine (Lidoderm) 1 ea TD DAILY [facility] Last Admin: 05/20/18 09:41 Dose: Not Given Losartan Potassium (Cozaar) 100 mg PO DAILY [facility] Last Admin: 05/20/18 09:37 Dose: 100 mg Morphine Sulfate (Morphine) 2 mg IVP Q4 PRN PRN Reason: Pain, moderate (4-7) Last Admin: 05/21/18 03:29 Dose: 2 mg Rosuvastatin Calcium (Crestor) 5 mg PO [facility] Last Admin: 05/12/18 21:29 Dose: 5 mg Tramadol HCl (Ultram) 25 mg PO Q12H PRN PRN Reason: Pain, moderate (4-7) - Labs Labs: 05/20/18 08:07 05/20/18 08:07 PT 12.2 SECONDS (9.7-12.2) 05/13/18 02:04 INR 1.1 05/13/18 02:04 APTT 62 SECONDS (21-34) H D 05/20/18 08:07 - Constitutional Appears: Non-toxic, Chronically Ill - Head Exam Head Exam: ATRAUMATIC, NORMAL INSPECTION - Eye Exam Eye Exam: EOMI, Normal appearance - ENT Exam ENT Exam: Mucous Membranes Moist - Respiratory Exam Respiratory Exam: Clear to Ausculation Bilateral. absent: Rales, Rhonchi, Wheezes, Respiratory Distress - Cardiovascular Exam Cardiovascular Exam: REGULAR RHYTHM, +S1, +S2 Additional comments: 3/6 systolic ejection murmur - GI/Abdominal Exam GI & Abdominal Exam: Distended (upper abdominal distension), Guarding, Tenderness (RUQ and epigrastric tenderness to palpation), Normal Bowel Sounds. absent: Firm, Rigid, Rebound - Extremities Exam Extremities Exam: Normal Capillary Refill. absent: Calf Tenderness, Pedal Edema, Tenderness Additional comments: (+) right BKA, (+) left foot toe amputations - Back Exam Back Exam: CVA tenderness (R), NORMAL INSPECTION. 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 CT showed necrotizing pancreatitis, nongas-forming, with suspicion for SMV thrombus, as well as innumerable liver masses. Vascular surgery was consulted for necrotizing pancreatitis and possible SMV thrombus. GI was consulted for necrotizing pancreatitis. Heme/Onc was consulted due to liver masses, possible mets. 05/10: CTA showed large right lower lobe pulmonary branch pulmonary embolus. Lower extremity venous doppler shows left long saphenous vein DVT. Lovenox switched to Heparin gtt. Pt not a candidate for IVC filter, as per [place]. 05/11, pt underwent us guided liver biopsy of masses, well tolerated. Bi opsy liver lesion: Final diagnosis - Liver tissue involved by adenocarcinoma. Favor pancreatico-biliary origin. Planned port-cath for 05/22 by IR. Plan: Pancreatic cancer with liver mets/pancreatitis with necrosis (non-gas forming) - Official Pathology Report (05/11) - Biopsy liver lesion: Final diagnosis - Liver tissue involved by adenocarcinoma. Favor pancreatico-biliary origin. - CT A/P with IV contrast (05/08): grossly abnormal appearing pancreas with extensive pancreatitis and necrosis. At time of imaging, non-gas forming. Contiguous hypodensity in SMV; thrombus must be considered. Innumerable liver masses. Right pleural effusion - US Abd (05/08): Multiple hepatic masses. Fatty infiltrate. Incidental right u pper pole renal cortical cyst. - AST/ALT 67/77 on admission, ALP 438- improving, AST/ALT 60/73, ALP 328 - Head CT ordered to r/o mets due to complaint of dizziness; shows no acute intracranial abnormality - Hepatitis panel negative, CPK 50 - Lidoderm patch to lower back - Morphine 1 mg IVP Q4H PRN - Tramadol 25 mg PO Q12H CARL - Avoid Tylenol, muscle relaxants due to transaminitis - Avoid NSAIDs due to increased bleeding risk with heparin drip - Vascular Surgery consulted: Dr. Musa- No need for surgical intervention at this time - Interventional radiology consulted: Dr. Wetzel- CT-guided biopsy of liver 05/11 - See results above - Gastroenterology consulted: Dr. Montelongo - Possible sterile necrosis within pancreas. Cannot exclude pancreatic mass. - Patient would benefit from dedicated pancreatic imaging following resolution of acute inflammatory process - No clear indication for antibiotic therapy for pancreatic necrosis. Necrosis is likely sterile. No obvious signs of infection at this time. - Overall clinical picture suggestive of metastatic malignancy from possible pancreatic or GI source, poor patient prognosis. - Elevated tumor markers: CA 19-9 Ag >10,000, CEA Ag 251, CA 125 Ag 203 - AFP 1.1 - Low fat mod carb consistent diet - Fluids discontinued due to HTN - Hematology/Oncology consulted: Dr. Rangel Chemo side effects discussed with pt, he would like to pursue chemo to extend life IR, Dr. Wetzel, consulted for placement of port-cath placement Will be done tomorrow morning (05/22), Will hold heparin gtt after midnight, and NPO after midnight\ Will follow up with Dr. Rangel in the clinic. - Morphine IV DC'd. Will start MS Contin 15 mg PO Q12h, with MS IR 15 mg PO q6h for break through pain Pulmonary embolism and Deep vein thrombosis, likely secondary to hypercoagulability due to probably malignancy - Abd/pelv CTA: large right lower lobe pulmonary branch pulmonary embolus. - CTA chest: Filling defect consistent with pulmonary embolus evident within the right lower lobe pulmonary artery branch. - Lower extremity venous doppler: left long saphenous vein DVT - Echocardiogram to r/o right heart strain: LVEF is 60%. Mild concentric LVH. Grade 1 diastolic dysfunction. AV appears to be bicuspid. Borderline to mild . MR is trace to mild. RVSP is less than 30 mmHg. - Not a candidate for IVC filter as per Dr. Rangel - Advised patient not to refuse PTT blood draw - Heparin gtt on hold after midnight for port-cath placement tomorrow - Will start Xarelto tomorrow after procedure Fevers (resolved), likey secondary to pulm embolus or cancer - pt without leukocytosis - Completed course of Zosyn 3.375mg (05/13-05/17) - Blood culture x 2 is negative x 5 days - urine culture is negative for growth - will give ice packs for fever if needed. Will avoid tylenol Insulin Dependant Diabetes Mellitus - HgA1c 13.5 - Accuchecks ACHS - ISS low - Hypoglycemia protocol - Novolog 3u SC TIDAC - Lantus 18u SC QHS Hypertension - continue Losartan to 100 mg PO daily Hyperlipidemia - TG 162, choles 182, LDL 135, HDL 32 - Crestor 5 mg PO QHS- hold due to transaminitis Pleural effusions R>L - CXR (05/08): no active disease - CTA chest: Moderate right and small left pleural effusions and associated consolidations. Right middle lobe pneumonia or atelectasis, partially imaged. - Continue to monitor Constipation, resolved - Continue Colace 100 mg daily increased to BID Ppx - DVT: SCDs CI due to DVT and BKA, heparin gtt - GI: not indicated - Diet: low fat mod carb consistent diet - Pain meds PRN: Lidoderm patch, MS contin 15 mg PO Q12H, MS IR 15 mg PO Q6H PRN for breakthrough pain Code status: full code Dispo: Pt continues to be treated for PE/DVT with heparin gtt. Patient is opting for chemotherapy to extend life; he knows there is no cure. Pt to go for chemo port placement tomorrow (05/22), will hold heparin after tonight and place pt NPO past midnight as per Dr. Wetzel. Pt to start Xarelto tomorrow after the procedure. SW/CM to arrange chemotherapy. Case discussed with attending physician, Dr. Hayley Muller PGY1
[2018-05-21 08:14] LABS: BASO % 0.3 % (0.0-2.0); EOS # 0.2 K/uL (0.0-0.7); EOS % 2.9 % (0.0-4.0); HEMOGLOBIN 11.1 g/dL (12.0-18.0); LYMPH # 1.8 K/uL (1.0-4.3); LYMPH % 26.5 % (20.0-40.0); MEAN CELL VOLUME 88.3 fL (80.0-94.0); MEAN CORPUSCULAR HEMOGLOBIN 28.8 pg (27.0-31.0); MEAN CORPUSCULAR HGB CONC 32.6 g/dL (33.0-37.0); MEAN PLATELET VOLUME 8.6 fL (7.2-11.7); MONO # 0.6 K/uL (0.0-0.8); MONO % 8.5 % (0.0-10.0); NEUT # 4.2 K/uL (1.8-7.0); NEUT % 61.8 % (50.0-75.0); RBC 3.87 Mil/uL (4.40-5.90); RED CELL DISTRIBUTION WIDTH 14.2 % (11.5-14.5); WHITE BLOOD COUNT 6.8 K/uL (4.8-10.8)
[2018-05-21] MEDS: (Novolog) Insulin Aspart, Recombinant 100 u/ml 10 ml vial SC SCH ×7 (08:21→23:11)
[2018-05-21 08:40] LABS: ALB/GLOB RATIO 0.8 (1.0-2.1); ALBUMIN 3.2 g/dL (3.5-5.0); ALT/SGPT 171 U/L (21-72); AST/SGOT 137 U/L (17-59); BLOOD UREA NITROGEN 19 mg/dL (9-20); CALCIUM 8.5 mg/dl (8.6-10.4); GFR NON-AFRICAN AMERICAN > 60
[2018-05-21] MEDS: Lidocaine 5% Patch TD SCH (10:49)
[2018-05-21] MEDS ORDERED: oxyCODONE 10 mg Immediate Release Tab PO PRN (12:46)
[2018-05-21] MEDS ORDERED: oxyCODONE 10 mg ER Tab (oxyCONTIN) PO SCH (13:00)
[2018-05-21] MEDS: Morphine 15 mg Immediate Release Tab PO PRN (17:11)
[2018-05-21] MEDS: Morphine 15 mg SR Tab PO SCH (21:37)
[2018-05-21] MEDS: (Lantus) Insulin Glargine, Recombinant SC SCH (21:38)
--- NOTE | 2018-05-22 07:38 | CP.PCM.PN ---
Subjective - Date & Time of Evaluation Date of Evaluation: 05/22/18 Time of Evaluation: 07:38 - Subjective Subjective: PGY1 Medicine progress note for Dr. Hayley Valladares Patient seen and examined at bedside. Pt state sthat he is feeling much better in regards to the abdominal and back pain. He prefers the oral morphine over the parental morphine. He denies fever, chills, headache, shortness of breath, chest pain, hemoptysis, hematochezia, melena, dysuria, dizziness, lightheadedness, numbness or tingling, hematuria, or any bleeding. Pt will go for port-cath placement today. Objective - Vital Signs/Intake and Output Vital Signs (last 24 hours): Temp Pulse Resp BP Pulse Ox 98.8 F 84 20 146/84 94 L 05/21/18 23:45 05/21/18 23:45 05/21/18 23:45 05/21/18 23:45 05/21/18 23:45 Intake and Output: 05/22/18 05/22/18 06:59 18:59 Intake Total 915.2 Balance 915.2 - Medications Medications: Current Medications Benzocaine/Menthol (Cepacol Sore Throat) 1 isatu MT QID PRN PRN Reason: Sore Throat Last Admin: 05/14/18 02:05 Dose: 1 isatu Dextrose (Dextrose 50% Inj) 0 ml IV STAT PRN; Protocol PRN Reason: Hypoglycemia Protocol Dextrose (Glutose 15) 0 gm PO ONCE PRN; Protocol PRN Reason: Hypoglycemia Protocol Docusate Sodium (Colace) 100 mg PO BID [facility] Last Admin: 05/21/18 17:11 Dose: 100 mg Glucagon (Glucagen Diagnostic Kit) 0 mg IM STAT PRN; Protocol PRN Reason: Hypoglycemia Protocol Heparin Sodium/Sodium Chloride (Heparin 59318 Units/250ml 1/2 Normal Saline) 25,000 units in 250 mls @ 14.403 mls/hr IV .[id number] PRN; Protocol PRN Reason: FOLLOW TITRATION SCHEDULE Last Admin: 05/21/18 03:51 Dose: 18 units/kg/hr, 14.403 mls/hr Insulin Aspart (Novolog) 0 unit SC ACHS CARL; Protocol Last Admin: 05/21/18 23:11 Dose: Not Given Insulin Aspart (Novolog) 3 unit SC TIDAC [facility] Last Admin: 05/21/18 17:11 Dose: 3 units Insulin Glargine (Lantus) 18 unit SC HS [facility] Last Admin: 05/21/18 21:38 Dose: 18 units Lidocaine (Lidoderm) 1 ea TD DAILY [facility] Last Admin: 05/21/18 10:49 Dose: Not Given Losartan Potassium (Cozaar) 100 mg PO DAILY [facility] Last Admin: 05/21/18 10:49 Dose: 100 mg Morphine Sulfate (Morphine Extended Release Tab) 15 mg PO Q12H [facility] Last Admin: 05/21/18 21:37 Dose: 15 mg Morphine Sulfate (Morphine Immediate Release Tab) 15 mg PO Q6H PRN PRN Reason: Pain, severe (8-10) Last Admin: 05/21/18 17:11 Dose: 15 mg Rosuvastatin Calcium (Crestor) 5 mg PO [facility] Last Admin: 05/12/18 21:29 Dose: 5 mg - Labs Labs: 05/21/18 08:04 05/21/18 08:04 PT 12.2 SECONDS (9.7-12.2) 05/13/18 02:04 INR 1.1 05/13/18 02:04 APTT 48 SECONDS (21-34) H D 05/21/18 08:04 - Additional Findings Additional findings: - Constitutional Appears: Non-toxic, Chronically Ill - Head Exam Head Exam: ATRAUMATIC, NORMAL INSPECTION - Eye Exam Eye Exam: EOMI, Normal appearance - ENT Exam ENT Exam: Mucous Membranes Moist - Respiratory Exam Respiratory Exam: Clear to Ausculation Bilateral. absent: Rales, Rhonchi, Wheezes, Respiratory Distress - Cardiovascular Exam Cardiovascular Exam: REGULAR RHYTHM, +S1, +S2 Additional comments: 3/6 systolic ejection murmur - GI/Abdominal Exam GI & Abdominal Exam: Distended (upper abdominal distension), Guarding, Tenderness (mild RUQ and epigrastric tenderness to palpation), Normal Bowel Sounds. absent: Firm, Rigid, Rebound - Extremities Exam Extremities Exam: Normal Capillary Refill. absent: Calf Tenderness, Pedal Edema, Tenderness Additional comments: (+) right BKA, (+) left foot toe amputations - Back Exam Back Exam: CVA tenderness (R), NORMAL INSPECTION. 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 CT showed necrotizing pancreatitis, nongas-forming, with suspicion for SMV thro mbus, as well as innumerable liver masses. Vascular surgery was consulted for necrotizing pancreatitis and possible SMV thrombus. GI was consulted for necrotizing pancreatitis. Heme/Onc was consulted due to liver masses, possible mets. 05/10: CTA showed large right lower lobe pulmonary branch pulmonary embolus. Lower extremity venous doppler shows left long saphenous vein DVT. Lovenox switched to Heparin gtt. Pt not a candidate for IVC filter, as per [place]. 05/11, pt underwent us guided liver biopsy of masses, well tolerated. Biopsy liver lesion: Final diagnosis - Liver tissue involved by adenocarcinoma. Favor pancreatico-biliary origin. Right IJV port-cath for 05/22 by IR. Plan: Pancreatic cancer with liver mets/pancreatitis with necrosis (non-gas forming) - Official Pathology Report (05/11) - Biopsy liver lesion: Final diagnosis - Liver tissue involved by adenocarcinoma. Favor pancreatico-biliary origin. - CT A/P with IV contrast (05/08): grossly abnormal appearing pancreas with extensive pancreatitis and necrosis. At time of imaging, non-gas forming. Contiguous hypodensity in SMV; thrombus must be considered. Innumerable liver masses. Right pleural effusion - US Abd (05/08): Multiple hepatic masses. Fatty infiltrate. Incidental right upper pole renal cortical cyst. - AST/ALT 67/77 on admission, ALP 438- improving, AST/ALT 60/73, ALP 328 - Head CT ordered to r/o mets due to complaint of dizziness; shows no acute intracranial abnormality - Hepatitis panel negative, CPK 50 - Lidoderm patch to lower back - Avoid Tylenol, muscle relaxants due to transaminitis - Avoid NSAIDs due to increased bleeding risk with heparin drip - Vascular Surgery consulted: Dr. Musa- No need for surgical intervention at this time - Interventional radiology consulted: Dr. Wetzel- CT-guided biopsy of liver 05/11 - See results above - Gastroenterology consulted: Dr. Montelongo - Possible sterile necrosis within pancreas. Cannot exclude pancreatic mass. - Patient would benefit from dedicated pancreatic imaging following resolution of acute inflammatory process - No clear indication for antibiotic therapy for pancreatic necrosis. Necrosis is likely sterile. No obvious signs of infection at this time. - Overall clinical picture suggestive of metastatic malignancy from possible pancreatic or GI source, poor patient prognosis. - Elevated tumor markers: CA 19-9 Ag >10,000, CEA Ag 251, CA 125 Ag 203 - AFP 1.1 - Low fat mod carb consistent diet - Fluids discontinued due to HTN - Hematology/Oncology consulted: Dr. Rangel Chemo side effects discussed with pt, he would like to pursue chemo to extend life IR, Dr. Wetzel, consulted Right IJV port cath placed by Dr. Wetzel Will follow up with Dr. Rangel in the clinic. - Continue MS Contin 15 mg PO Q12h, with MS IR 15 mg PO q6h for break through pain Pulmonary embolism and Deep vein thrombosis, likely secondary to hypercoagulability due to probably malignancy - Abd/pelv CTA: large right lower lobe pulmonary branch pulmonary embolus. - CTA chest: Filling defect consistent with pulmonary embolus evident within the right lower lobe pulmonary artery branch. - Lower extremity venous doppler: left long saphenous vein DVT - Echocardiogram to r/o right heart strain: LVEF is 60%. Mild concentric LVH. Grade 1 diastolic dysfunction. AV appears to be bicuspid. Borderline to mild . MR is trace to mild. RVSP is less than 30 mmHg. - Not a candidate for IVC filter as per Dr. Rangel - Advised patient not to refuse PTT blood draw - Heparin gtt on hold after midnight for port-cath placement tomorrow - Pt to start xarelto 15 mg PO tomorrow (05/23) Xarelto 15 mg PO BID x21 days then Xarelto 20 mg PO daily Fevers (resolved), likey secondary to pulm embolus or cancer - pt remains without leukocytosis - Completed course of Zosyn 3.375mg (05/13-05/17) - Blood culture x 2 is negative x 5 days - urine culture is negative for growth - will give ice packs for fever if needed. Will avoid tylenol Insulin Dependant Diabetes Mellitus - HgA1c 13.5 - Accuchecks ACHS - ISS low - Hypoglycemia protocol - Novolog 3u SC TIDAC - Lantus 18u SC QHS Hypertension - continue Losartan to 100 mg PO daily Hyperlipidemia - TG 162, choles 182, LDL 135, HDL 32 - Crestor 5 mg PO QHS- hold due to transaminitis Pleural effusions R>L - CXR (05/08): no active disease - CTA chest: Moderate right and small left pleural effusions and associated consolidations. Right middle lobe pneumonia or atelectasis, partially imaged. - Continue to monitor Constipation, resolved - Continue Colace 100 mg daily increased to BID Ppx - DVT: SCDs CI due to DVT and BKA, heparin gtt - GI: not indicated - Diet: low fat mod carb consistent diet - Pain meds PRN: Lidoderm patch, MS contin 15 mg PO Q12H, MS IR 15 mg PO Q6H PRN for breakthrough pain Code status: full code Dispo: Pt will start oral AC for treatment of PE/DVT tomorrow with xarelto. Patient is opting for chemotherapy to extend life; he knows there is no cure. Pt will go for chemo port today (05/22). SW/CM to arrange chemotherapy. Case discussed with attending physician, Dr. Hayley Muller PGY1
[2018-05-22] MEDS: (Novolog) Insulin Aspart, Recombinant 100 u/ml 10 ml vial SC SCH ×7 (07:39→21:56)
[2018-05-22] MEDS ORDERED: ceFAZolin 1 gm in NS 1 GM/100 ML BAG IVPB ONE (10:15)
[2018-05-22] MEDS ORDERED: Iohexol 240 (50 ml) ONE (10:16)
[2018-05-22] MEDS ORDERED: HEPARIN-NS 5,000 UNITS/500 ML 5,000 UNIT/500 ML BAG IV ONE (10:16)
[2018-05-22] MEDS ORDERED: Lidocaine Hydrochloride 5 ML INJ ONE ×2 (10:16→10:50)
[2018-05-22] MEDS ORDERED: Lidocaine/Epinephrine 1% 1:100000 10 ML IJ ONE (10:34)
[2018-05-22] MEDS ORDERED: Midazolam 2 MG/2 ML VIAL ONE (10:48)
[2018-05-22] MEDS ORDERED: Propofol 10 mg/ml Inj (20 ML) ONE (10:48)
[2018-05-22] MEDS: Lidocaine 5% Patch TD SCH (11:07)
[2018-05-22] MEDS: Morphine 15 mg SR Tab PO SCH ×2 (11:07→20:25)
--- NOTE | 2018-05-22 11:29 | PCM.SURG1 ---
Surgeon's Initial Post Op Note - Surgeon's Notes Surgeon: Alvaro Wetzel MD President [employer] Founder: NONE Type of Anesthesia: IV Sedation Pre-Operative Diagnosis: Pancreatic cancer Operative Findings: Patent right IJ Post-Operative Diagnosis: Pancreatic cancer Operation Performed: Right IJV port placement Specimen/Specimens Removed: NONE Estimated Blood Loss: EBL {In ML}: 2 Blood Products Given: N/A Drains Used: No Drains Post-Op Condition: Fair Date of Surgery/Procedure: 05/22/18 Time of Surgery/Procedure: 11:25
[2018-05-22] MEDS ORDERED: Lactated Ringer's 1,000 ML IV SCH (11:45)
[2018-05-22] MEDS ORDERED: HYDROmorphone 0.5 mg/0.5 ml ISec IVP PRN (11:45)
--- NOTE | 2018-05-22 12:27 | RAD ---
PROCEDURE: Date of procedure: 05/22/2018 Procedure: 1. Placement of a right IJ port catheter with ultrasound and fluoroscopic guidance, CPT 39058 2. Catheter tip confirmation with spot radiograph in the superior vena cava. Medications: The patient was sedated anesthesiologist along with monitoring, Ancef 1 gm, Lidocaine 1% w Epinephrine Fluoroscopic time: 13.5 Seconds Radiation: 2.87 MGy Blood loss: 4 cc HISTORY: Pancreatic cancer requiring port for chemotherapy TECHNIQUE: Following informed consent the procedure time-out, patient was placed supine on the interventional table and the right neck and chest were prepped and draped in the usual sterile fashion. Ultrasound showed a compressible right internal jugular vein. After the patient was sedated by the anesthesiologist, the skin anesthetized with 1% lidocaine with epinephrine. Under direct ultrasound guidance, the right internal jugular vein was accessed with micropuncture technique. A guidewire was then advanced under fluoroscopic guidance into the superior vena cava. An image documenting ultrasound guidance for vascular access was permanently saved. The subcutaneous tissue of patient right chest was infiltrated with 1 percent lidocaine with epinephrine. A dermatotomy was made with a 15. Scalpel. The port pocket was then created with blunt dissection using a Areli clamp. The port pocket was flushed. A port catheter was then tunneled under the skin and out the venotomy site. The port catheter was flushed, advanced through a peel-away sheath, adjusted for length, and attached to the port. The port was flushed and locked with heparin. The port pocket was then closed with absorbable 4-0 Polysorb sutures. The port pocket and the venotomy site were reprepped with ChloraPrep. Steri-Strips were then applied to the port incision also venotomy site. A sterile dressing was then applied. Final spot radiograph showed the right IJ port catheter with tip of the port catheter in the superior vena cava. A port is functional and ready for use. IMPRESSION: Placement of right IJ port catheter. The tip of the port is in the superior vena cava.
[2018-05-22] MEDS: Morphine 15 mg Immediate Release Tab PO PRN (14:47)
[2018-05-22] MEDS: (Lantus) Insulin Glargine, Recombinant SC SCH (22:00)
[2018-05-23] MEDS: Morphine 15 mg SR Tab PO SCH ×2 (08:25→21:54)
[2018-05-23] MEDS: (Novolog) Insulin Aspart, Recombinant 100 u/ml 10 ml vial SC SCH ×7 (09:21→21:56)
[2018-05-23 10:45] LABS: BASO % 0.7 % (0.0-2.0); EOS # 0.2 K/uL (0.0-0.7); EOS % 2.4 % (0.0-4.0); HEMOGLOBIN 10.8 g/dL (12.0-18.0); LYMPH % 15.4 % (20.0-40.0); MEAN CORPUSCULAR HEMOGLOBIN 29.6 pg (27.0-31.0); MEAN CORPUSCULAR HGB CONC 33.6 g/dL (33.0-37.0); MEAN PLATELET VOLUME 7.4 fL (7.2-11.7); MONO # 0.7 K/uL (0.0-0.8); MONO % 10.7 % (0.0-10.0); NEUT # 4.8 K/uL (1.8-7.0); NEUT % 70.8 % (50.0-75.0); RBC 3.65 Mil/uL (4.40-5.90); WHITE BLOOD COUNT 6.8 K/uL (4.8-10.8)
[2018-05-23] MEDS: Lidocaine 5% Patch TD SCH (10:56)
[2018-05-23 11:20] LABS: ALB/GLOB RATIO 0.8 (1.0-2.1); ALBUMIN 3.2 g/dL (3.5-5.0); ALT/SGPT 128 U/L (21-72); AST/SGOT 94 U/L (17-59); BLOOD UREA NITROGEN 20 mg/dL (9-20); CALCIUM 8.4 mg/dl (8.6-10.4); GFR NON-AFRICAN AMERICAN > 60
--- NOTE | 2018-05-23 13:24 | CP.PCM.PN ---
Subjective - Date & Time of Evaluation Date of Evaluation: 05/23/18 Time of Evaluation: 13:21 - Subjective Subjective: PGY1 Medicine progress note for Dr. Hayley Valladares Patient seen and examined at bedside. Pt reports continued abdominal pain, but reports improvement with oral morphine. He started xarelto today. Pt has not had a bowel movement in two days. He denies fever, chills, headache, shortness of breath, chest pain, hemoptysis, hematochezia, melena, dysuria, dizziness, lightheadedness, numbness or tingling, hematuria, or any bleeding. Objective - Vital Signs/Intake and Output Vital Signs (last 24 hours): Temp Pulse Resp BP Pulse Ox 99.0 F 94 H 18 154/89 H 94 L 05/23/18 07:00 05/23/18 07:00 05/23/18 07:00 05/23/18 07:00 05/23/18 07:00 Intake and Output: 05/23/18 05/23/18 06:59 18:59 Intake Total 480 Output Total 800 Balance -320 - Medications Medications: Current Medications Benzocaine/Menthol (Cepacol Sore Throat) 1 isatu MT QID PRN PRN Reason: Sore Throat Last Admin: 05/14/18 02:05 Dose: 1 isatu Dextrose (Dextrose 50% Inj) 0 ml IV STAT PRN; Protocol PRN Reason: Hypoglycemia Protocol Dextrose (Glutose 15) 0 gm PO ONCE PRN; Protocol PRN Reason: Hypoglycemia Protocol Docusate Sodium (Colace) 100 mg PO BID [facility] Last Admin: 05/23/18 10:55 Dose: 100 mg Glucagon (Glucagen Diagnostic Kit) 0 mg IM STAT PRN; Protocol PRN Reason: Hypoglycemia Protocol Insulin Aspart (Novolog) 0 unit SC ACHS [facility]; Protocol Last Admin: 05/23/18 12:38 Dose: 1 unit Insulin Aspart (Novolog) 3 unit SC TIDAC [facility] Last Admin: 05/23/18 12:37 Dose: 3 units Insulin Glargine (Lantus) 18 unit SC HS [facility] Last Admin: 05/22/18 22:00 Dose: 18 units Lidocaine (Lidoderm) 1 ea TD DAILY [facility] Last Admin: 05/23/18 10:56 Dose: Not Given Losartan Potassium (Cozaar) 100 mg PO DAILY [facility] Last Admin: 05/23/18 10:55 Dose: 100 mg Morphine Sulfate (Morphine Extended Release Tab) 15 mg PO Q12H [facility] Last Admin: 05/23/18 08:25 Dose: 15 mg Morphine Sulfate (Morphine Immediate Release Tab) 15 mg PO Q6H PRN PRN Reason: Pain, severe (8-10) Last Admin: 05/22/18 14:47 Dose: 15 mg Rivaroxaban (Xarelto) 15 mg PO BID [facility] Last Admin: 05/23/18 10:55 Dose: 15 mg Rosuvastatin Calcium (Crestor) 5 mg PO HS [facility] Last Admin: 05/12/18 21:29 Dose: 5 mg - Labs Labs: 05/23/18 10:36 05/23/18 10:36 PT 12.2 SECONDS (9.7-12.2) 05/13/18 02:04 INR 1.1 05/13/18 02:04 APTT 48 SECONDS (21-34) H D 05/21/18 08:04 - Additional Findings Additional findings: - Constitutional Appears: Non-toxic, Chronically Ill - Head Exam Head Exam: ATRAUMATIC, NORMAL INSPECTION - Eye Exam Eye Exam: EOMI, Normal appearance - ENT Exam ENT Exam: Mucous Membranes Moist - Respiratory Exam Respiratory Exam: Clear to Ausculation Bilateral. absent: Rales, Rhonchi, Wheezes, Respiratory Distress - Cardiovascular Exam Cardiovascular Exam: REGULAR RHYTHM, +S1, +S2 Additional comments: 3/6 systolic ejection murmur - GI/Abdominal Exam GI & Abdominal Exam: Distended (upper abdominal distension), Guarding, Tenderness (mild RUQ and epigastric tenderness to palpation), Normal Bowel Sounds. absent: Firm, Rigid, Rebound - Extremities Exam Extremities Exam: Normal Capillary Refill. absent: Calf Tenderness, Pedal Edema, Tenderness Additional comments: (+) right BKA, (+) left foot toe amputations - Back Exam Back Exam: CVA tenderness (R), NORMAL INSPECTION. absent: CVA tenderness (L) - Neurological Exam Neurological Exam: Alert, Awake, Oriented x3 - Psychiatric Exam Psychiatric exam: Depressed, Normal Affect - Skin Skin Exam: Dry, Normal Color, Warm (+) right IJV port-cath; c/d/i, no signs of infection or bleeding, nontender. 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 CT showed necrotizing pancreatitis, nongas-forming, with suspicion for SMV thrombus, as well as innumerable liver masses. Vascular surgery was consulted for necrotizing pancreatitis and possible SMV thrombus. GI was consulted for necrotizing pancreatitis. Heme/Onc was consulted due to liver masses, possible mets. 05/10: CTA showed large right lower lobe pulmonary branch pulmonary e mbolus. Lower extremity venous doppler shows left long saphenous vein DVT. Lovenox switched to Heparin gtt. Pt not a candidate for IVC filter, as per [place]. 05/11, pt underwent us guided liver biopsy of masses, well tolerated. Biopsy liver lesion: Final diagnosis - Liver tissue involved by adenocarcinoma. Favor pancreatico-biliary origin. Right IJV port-cath for 05/22 by IR. Plan: Pancreatic cancer with liver mets/pancreatitis with necrosis (non-gas forming) - Official Pathology Report (05/11) - Biopsy liver lesion: Final diagnosis - Liver tissue involved by adenocarcinoma. Favor pancreatico-biliary origin. - CT A/P with IV contrast (05/08): grossly abnormal appearing pancreas with extensive pancreatitis and necrosis. At time of imaging, non-gas forming. Contiguous hypodensity in SMV; thrombus must be considered. Innumerable liver masses. Right pleural effusion - US Abd (05/08): Multiple hepatic masses. Fatty infiltrate. Incidental right upper pole renal cortical cyst. - AST/ALT 67/77 on admission, ALP 438- improving, AST/ALT 60/73, ALP 328 - Head CT ordered to r/o mets due to complaint of dizziness; shows no acute intracranial abnormality - Hepatitis panel negative, CPK 50 - Lidoderm patch to lower back - Avoid Tylenol, muscle relaxants due to transaminitis - Avoid NSAIDs due to increased bleeding risk with heparin drip - Vascular Surgery consulted: Dr. Musa- No need for surgical intervention at this time - Interventional radiology consulted: Dr. Wetzel- CT-guided biopsy of liver 05/11 - See results above - Gastroenterology consulted: Dr. Montelongo - Possible sterile necrosis within pancreas. Cannot exclude pancreatic mass. - Patient would benefit from dedicated pancreatic imaging following resolution of acute inflammatory process - No clear indication for antibiotic therapy for pancreatic necrosis. Necrosis is likely sterile. No obvious signs of infection at this time. - Overall clinical picture suggestive of metastatic malignancy from possible pancreatic or GI source, poor patient prognosis. - Elevated tumor markers: CA 19-9 Ag >10,000, CEA Ag 251, CA 125 Ag 203 - AFP 1.1 - Low fat mod carb consistent diet - Fluids discontinued due to HTN - Hematology/Oncology consulted: Dr. Rangel Chemo side effects discussed with pt, he would like to pursue chemo to extend life IR, Dr. Wetzel, consulted Right IJV port cath placed by Dr. Wetzel Will follow up with Dr. Rangel in the clinic. - Continue MS Contin 15 mg PO Q12h, with MS IR 15 mg PO q6h for break through pain Pulmonary embolism and Deep vein thrombosis, likely secondary to hypercoagulability due to probably malignancy - Abd/pelv CTA: large right lower lobe pulmonary branch pulmonary embolus. - CTA chest: Filling defect consistent with pulmonary embolus evident within the right lower lobe pulmonary artery branch. - Lower extremity venous doppler: left long saphenous vein DVT - Echocardiogram to r/o right heart strain: LVEF is 60%. Mild concentric LVH. Grade 1 diastolic dysfunction. AV appears to be bicuspid. Borderline to mild . MR is trace to mild. RVSP is less than 30 mmHg. - Not a candidate for IVC filter as per Dr. Rangel - Advised patient not to refuse PTT blood draw - Heparin gtt on hold after midnight for port-cath placement tomorrow - Xarelto 15 mg PO BID x21 days then Xarelto 20 mg PO daily Fevers (resolved), likey secondary to pulm embolus or cancer - pt remains without leukocytosis - Completed course of Zosyn 3.375mg (05/13-05/17) - Blood culture x 2 is negative x 5 days - urine culture is negative for growth - will give ice packs for fever if needed. Will avoid tylenol Insulin Dependant Diabetes Mellitus - HgA1c 13.5 - Accuchecks ACHS - ISS low - Hypoglycemia protocol - Novolog 3u SC TIDAC - Lantus 18u SC QHS Hypertension - continue Losartan 100 mg PO daily Hyperlipidemia - TG 162, choles 182, LDL 135, HDL 32 - Crestor 5 mg PO QHS- hold due to transaminitis Pleural effusions R>L - CXR (05/08): no active disease - CTA chest: Moderate right and small left pleural effusions and associated consolidations. Right middle lobe pneumonia or atelectasis, partially imaged. - Continue to monitor Constipation, resolved - Continue Colace 100 mg daily increased to BID - Dulcolax VT x1 Ppx - DVT: SCDs CI due to DVT and BKA, heparin gtt - GI: not indicated - Diet: low fat mod carb consistent diet - Pain meds PRN: Lidoderm patch, MS contin 15 mg PO Q12H, MS IR 15 mg PO Q6H PRN for breakthrough pain Code status: full code Dispo: Pt started xarelto 15 mg for treatment of PE/DVT today. Patient is opting for chemotherapy to extend life; he knows there is no cure. SW/CM to arrange chemotherapy. Pt has an appointment with Dr. Rangel on 05/25/18 at noon scheduled by CM. Case discussed with attending physician, Dr. Hayley Muller PGY1
[2018-05-23] MEDS: Morphine 15 mg Immediate Release Tab PO PRN (18:59)
[2018-05-23] MEDS: (Lantus) Insulin Glargine, Recombinant SC SCH (21:56)
[2018-05-24] MEDS: (Novolog) Insulin Aspart, Recombinant 100 u/ml 10 ml vial SC SCH ×6 (07:30→17:29)
[2018-05-24 08:10] VITALS: BP 133/79; RESP 18; TEMP 98.7; O2SAT 96
[2018-05-24] MEDS: Morphine 15 mg SR Tab PO SCH (08:21)
[2018-05-24 08:52] VITALS: PULSE 84
[2018-05-24] MEDS: Lidocaine 5% Patch TD SCH (09:32)
--- NOTE | 2018-05-24 13:30 | CP.PCM.DIS ---
<RenzoObie - Last Filed: 05/24/18 18:17> Provider - Provider Date of Admission: 05/08/18 18:38 Attending physician: Emerson Valladares MD Consults: 05/09/18 09:47 Hematology Oncology Consult Routine Comment: Consulting Provider: Collins Rangel Consulting Physician: Collins Rangel Reason for Consult: innumerable liver masses, presented w/ nec pancr on ct lipase normal 05/09/18 09:48 Physician Consult Routine Comment: Consulting Provider: Alvaro Wetzel Consulting Physician: Alvaro Wetzel Reason for Consult: for possible ct guided biopsy, innumerable liver masses Additional Comments: presented with abd p, nec pancreatitis on ct (nongas forming), lipase normal 05/14/18 07:00 Palliative Care Consult Routine Comment: Consulting Provider: Martine Serrano Physician Instructions: Reason For Exam: probable pancreatic cancer with mets, 05/20/18 09:12 Physician Consult Routine Comment: Consulting Provider: Alvaro Wetzel Consulting Physician: Alvaro Wetzel Reason for Consult: chemo port placement Additional Comments: (no [email or web address] order for port placement) Time Spent in preparation of Discharge (in minutes): 35 Diagnosis - Discharge Diagnosis (1) DVT (deep venous thrombosis) Status: Acute (2) Pancreatic cancer Status: Acute (3) Anemia Status: Acute (4) Lesion of liver Status: Acute (5) Pancreatitis Status: Chronic (6) Pulmonary embolism Status: Acute (7) Diabetes mellitus type 2 in obese Status: Chronic (8) Hyperlipidemia Status: Chronic (9) Hypertension Status: Chronic Hospital Course - Lab Results Lab Results: Micro Results 05/14/18 13:47 Blood-Venous Blood Culture - Final NO GROWTH AFTER 5 DAYS 05/14/18 13:47 Blood-Venous Gram Stain - Final TEST NOT PERFORMED 05/14/18 13:47 Blood-Venous Blood Culture - Final NO GROWTH AFTER 5 DAYS 05/14/18 13:47 Blood-Venous Gram Stain - Final TEST NOT PERFORMED 05/15/18 05:08 Urine,Clean Catch Urine Culture - Final No Growth (<1,000 CFU/ML) Most Recent Lab Values WBC 6.8 K/uL (4.8-10.8) 05/23/18 10:36 RBC 3.65 Mil/uL (4.40-5.90) L 05/23/18 10:36 Hgb 10.8 g/dL (12.0-18.0) L 05/23/18 10:36 Hct 32.1 % (35.0-51.0) L 05/23/18 10:36 MCV 88.0 fL (80.0-94.0) 05/23/18 10:36 MCH 29.6 pg (27.0-31.0) 05/23/18 10:36 MCHC 33.6 g/dL (33.0-37.0) 05/23/18 10:36 RDW 14.0 % (11.5-14.5) 05/23/18 10:36 Plt Count 223 K/uL (130-400) D 05/23/18 10:36 MPV 7.4 fL (7.2-11.7) 05/23/18 10:36 Neut % (Auto) 70.8 % (50.0-75.0) 05/23/18 10:36 Lymph % (Auto) 15.4 % (20.0-40.0) L 05/23/18 10:36 Weston % (Auto) 10.7 % (0.0-10.0) H 05/23/18 10:36 Eos % (Auto) 2.4 % (0.0-4.0) 05/23/18 10:36 Baso % (Auto) 0.7 % (0.0-2.0) 05/23/18 10:36 Neut # (Auto) 4.8 K/uL (1.8-7.0) 05/23/18 10:36 Lymph # (Auto) 1.0 K/uL (1.0-4.3) 05/23/18 10:36 Weston # (Auto) 0.7 K/uL (0.0-0.8) 05/23/18 10:36 Eos # (Auto) 0.2 K/uL (0.0-0.7) 05/23/18 10:36 Baso # (Auto) 0.0 K/uL (0.0-0.2) 05/23/18 10:36 Neutrophils % (Manual) 92 % (50-75) H 05/14/18 06:27 Band Neutrophils % 1 % (0-2) 05/14/18 06:27 Lymphocytes % (Manual) 3 % (20-40) L 05/14/18 06:27 Monocytes % (Manual) 3 % (0-10) 05/14/18 06:27 Eosinophils % (Manual) 1 % (0-4) 05/14/18 06:27 Platelet Estimate Normal (NORMAL) 05/14/18 06:27 RBC Morphology Normal 05/14/18 06:27 PT 12.2 SECONDS (9.7-12.2) 05/13/18 02:04 INR 1.1 05/13/18 02:04 APTT 48 SECONDS (21-34) H D 05/21/18 08:04 Sodium 132 mmol/L (132-148) 05/23/18 10:36 Potassium 4.5 mmol/L (3.6-5.2) 05/23/18 10:36 Chloride 98 mmol/L (98-107) 05/23/18 10:36 Carbon Dioxide 25 mmol/L (22-30) 05/23/18 10:36 Anion Gap 13 (10-20) 05/23/18 10:36 BUN 20 mg/dL (9-20) 05/23/18 10:36 Creatinine 0.9 mg/dL (0.8-1.5) 05/23/18 10:36 Est GFR ( Amer) > 60 05/23/18 10:36 Est GFR (Non-Af Amer) > 60 05/23/18 10:36 POC Glucose (mg/dL) 208 mg/dL (65-110) H 05/24/18 11:42 Random Glucose 200 mg/dL (75-110) H 05/23/18 10:36 Hemoglobin A1c 13.5 % (4.2-6.5) H 05/09/18 06:51 Serum Osmolality 314 mosm/kg (272-300) H 05/08/18 16:44 Calcium 8.4 mg/dl (8.6-10.4) L 05/23/18 10:36 Phosphorus 4.1 mg/dL (2.5-4.5) 05/23/18 10:36 Magnesium 2.0 mg/dL (1.6-2.3) 05/23/18 10:36 Total Bilirubin 1.6 mg/dL (0.2-1.3) H 05/23/18 10:36 AST 94 U/L (17-59) H D 05/23/18 10:36 ALT 128 U/L (21-72) H D 05/23/18 10:36 Alkaline Phosphatase 450 U/L (38-126) H 05/23/18 10:36 Total Creatine Kinase 50 U/L (55-170) L 05/09/18 06:51 Troponin I < 0.0120 ng/mL (0.00-0.120) 05/08/18 14:10 NT-Pro-B Natriuret Pep 155 pg/mL (0-900) 05/08/18 14:10 Total Protein 7.1 g/dL (6.3-8.3) 05/23/18 10:36 Albumin 3.2 g/dL (3.5-5.0) L 05/23/18 10:36 Globulin 3.9 gm/dL (2.2-3.9) 05/23/18 10:36 Albumin/Globulin Ratio 0.8 (1.0-2.1) L 05/23/18 10:36 Triglycerides 162 mg/dL (0-149) H 05/10/18 07:51 Cholesterol 182 mg/dL (0-199) 05/10/18 07:51 LDL Cholesterol Direct 135 mg/dL (0-129) H 05/10/18 07:51 HDL Cholesterol 32 mg/dL (30-70) 05/10/18 07:51 Amylase 67 U/L (30-110) 05/08/18 18:49 Lipase 195 U/L (23-300) 05/08/18 14:10 Alpha Fetoprotein 1.1 ng/mL (0.0-7.5) 05/10/18 07:51 Carcinoembryonic Ag 251.0 ng/mL (0-3.0) H 05/09/18 12:57 CA 19-9 Antigen > 08511 U/mL (0-37) H 05/09/18 12:57 CA 125 Antigen 203 U/mL (0-35) H 05/09/18 12:57 Free T4 2.18 ng/dL (0.78-2.19) 05/10/18 07:51 TSH 3rd Generation 2.10 mIU/L (0.46-4.68) 05/10/18 07:51 Urine Color Yellow (YELLOW) 05/08/18 14:10 Urine Clarity Clear (Clear) 05/08/18 14:10 Urine pH 7.0 (5.0-8.0) 05/08/18 14:10 Ur Specific Mesa 1.030 (1.003-1.030) 05/08/18 14:10 Urine Protein 2+ mg/dL (NEGATIVE) H 05/08/18 14:10 Urine Glucose (UA) 3+ mg/dL (Normal) H 05/08/18 14:10 Urine Ketones Negative mg/dL (NEGATIVE) 05/08/18 14:10 Urine Blood 1+ (NEGATIVE) H 05/08/18 14:10 Urine Nitrate Negative (NEGATIVE) 05/08/18 14:10 Urine Bilirubin Negative (NEGATIVE) 05/08/18 14:10 Urine Urobilinogen Normal mg/dL (0.2-1.0) 05/08/18 14:10 Ur Leukocyte Esterase Neg Scott/uL (Negative) 05/08/18 14:10 Urine WBC (Auto) 1 /hpf (0-5) 05/08/18 14:10 Urine RBC (Auto) 4 /hpf (0-3) H 05/08/18 14:10 Ur Squamous Epith Cells < 1 /hpf (0-5) 05/08/18 14:10 B-Hydroxybutyrate 0.41 mM (0.02-0.27) H 05/08/18 14:10 Hepatitis A IgM Ab Negative (NEGATIVE) 05/09/18 06:51 Hep Bs Antigen Negative (NEGATIVE) 05/09/18 06:51 Hep Bs Antibody Negative (NEGATIVE) 05/09/18 06:51 Hep B Core IgM Ab Negative (NEGATIVE) 05/09/18 06:51 Hepatitis C Antibody Negative (NEGATIVE) 05/09/18 06:51 - Hospital Course Hospital Course: On admission: Patient is a 53 years old male with PMhx of hypertension, hyperlipidemia, diabetes, and recent diagnosis of pancreatitis at [facility] 2 months ago presented to ED on May 08, 2018 for 2 days of worsening abdominal pain similar to 2 months ago. The pain started in epigastric area radiating to his back. He admitted to having diaphoresis, lightheadedness without syncope, shortness of breath, nausea, and cough associated with the pain. Chest X-Ray was negative. CT of abdomen/pelvis showed abnormal appearing pancreas with non- gas forming, extensive pancreatitis with necrosis, superior messenteric vein thrombus, innumerable liver masses, and right pleural effusion. Patient had elevated AST, ALT, alkaline phosphatase, blood glucose, and beta- hydroxybutyrate. Patient was admitted for acute pancreatitis with necrosis secondary to alcohol use and uncontrolled diabetes. Course of hospital stay Patient had epigastric abdominal pain radiating to the back. On 05/08, abdominal ultrasound showed multiple hepatic masses. Patient had elevated tumor markers, CA 19-9 (>10,000), CEA of 251, CEA 125 of 203, and AFP is 1.1. GI, Dr. Montelongo, was consulted for the liver lesions and pancreatitis. Dr. Rangel, heme/onc, was consulted for likely pancreatic CA. Hepatitis panel was negative. Patient complained of shortness of breath. On 05/09, abdomen/pelvis CTA showed pulmonary embolus, liver masses most likely related to metastasis, and abnormal appearing pancreas possible malignant neoplasm, necrosis, or inflammation. It also showed right and left pleural effusions with consolidations along with right middle lobe pneumonia or atelectasis. On 05/10, venous duplex scan of bi lateral lower extremities showed acute thrombosis of the left proximal calf to ankle. Patient was treated for PE/DVT with heparin gtt and then switched to Xarelto. Patient was not a candidate for IVC filter. On 05/10, echocardiogram showed LVEF of 60%, mild concentric left ventricle hypertrophy, grade 1 diastolic dysfunction, aortic valve appears to be bicuspid, borderline to mild aortic stenosis, mitral regurgitation is trace to mild, and right ventricular systolic pressure is less than 30 mmHg. On 05/11, ultrasound-guided core biopsy of liver was performed. Pathology report stated liver tissue involved by adenocarcinoma, favor pancreatic-biliary origin. Patient complained of dizziness. On 05/14, head CT was performed and showed no acute intracranial abnormality. Patient had fevers with negative blood cultures and urine culture. Patients fever resolved with antibiotics and ice packs. Patients constipation was resolved with Colace and Dulcolax. Patient was treated for his chronic medical conditions, hypertension, hyperlipidemia, and diabetes. Patient was well-controlled on his hypertension and diabetes medications. However, Crestor for hyperlipidemia was held due to elevated transaminitis. Palliative care was consulted. Patient opted for chemotherapy to extend life. On 05/22, right IJV port-cath was performed for future chemotherapy with Dr. Rangel. On discharge, pt reports good control of his pain with PO morphine ER and morpine IR as needed. He This is a summary of the hospital course. Please see EMR for full details. Discharge Exam - Additional Findings Additional findings: - Constitutional Appears: Non-toxic, Chronically Ill - Head Exam Head Exam: ATRAUMATIC, NORMAL INSPECTION - Eye Exam Eye Exam: EOMI, Normal appearance - ENT Exam ENT Exam: Mucous Membranes Moist - Respiratory Exam Respiratory Exam: Clear to Ausculation Bilateral. absent: Rales, Rhonchi, Wheezes, Respiratory Distress - Cardiovascular Exam Cardiovascular Exam: REGULAR RHYTHM, +S1, +S2 Additional comments: 3/6 systolic ejection murmur - GI/Abdominal Exam GI & Abdominal Exam: Distended (upper abdominal distension), Guarding, Tenderness (mild RUQ and epigastric tenderness to palpation), Normal Bowel Sounds. absent: Firm, Rigid, Rebound - Extremities Exam Extremities Exam: Normal Capillary Refill. absent: Calf Tenderness, Pedal Edema, Tenderness Additional comments: (+) right BKA, (+) left foot toe amputations - Back Exam Back Exam: CVA tenderness (R), NORMAL INSPECTION. absent: CVA tenderness (L) - Neurological Exam Neurological Exam: Alert, Awake, Oriented x3 - Psychiatric Exam Psychiatric exam: Depressed, Normal Affect - Skin Skin Exam: Dry, Normal Color, Warm (+) right IJV port-cath; c/d/i, no signs of infection or bleeding, nontender. Discharge Plan - Discharge Medications Prescriptions: Atorvastatin [Lipitor] 20 mg PO DAILY #14 tab Bisacodyl [Dulcolax] 10 mg AK ONCE #10 sup Docusate [Colace] 100 mg PO BID #60 cap Losartan [Cozaar] 100 mg PO DAILY #30 tab Rivaroxaban [Xarelto] 15 mg PO BID #38 tab Rivaroxaban [Xarelto] 20 mg PO DAILY #30 tab - Follow Up Plan Condition: GOOD Disposition: HOME/ ROUTINE Instructions: Diabetes Exchange Diet, Rivaroxaban, Diabetes Diet , Pulmonary Embolism (Blood Clot in the Lungs) (DC), Portacath (DC), Atorvastatin, Losartan, Pancreatitis (DC), Hypertension (DC), Hypertension (GEN) Additional Instructions: Pt is medically stable for discharge home as per Dr. Hayley Valladares. 1. Pt should take only the following medications as prescribed: Insulin Aspart 3 mL FlexPen (100/mL) 3 units SC before [id number], Insulin Degludec (100 units/mL), 20 units SC at bedtime, Docusate 100 mg per mouth twice a day, Dulcolax suppository if no bowel movement for 3 days, Losartan 100 mg per mouth once daily, Morphine ER 15 mg per mouth twice daily, Morphine IR 15 mg per mouth every 6 hours for break through pain, Xarelto 15 mg per mouth twice daily until 06/11/18, Xarelto 20 mg per mouth once daily starting 06/12/18, Atovastatin 20 mg per mouth nightly. 2. Pt should follow up with Manager [employer]/Oncologist Dr. Collins Rangel at 12 pm Monday05/25/[address] [place] [address] in [place], [place]. His office number is [phone]. 3. Pt should follow up with [facility] located on [address] of [address] by calling [phone] for appointment that must take place in 14 days. They will help coordinate your care. Should symptoms worsen, please head to the nearest Emergency Department for further evaluation. Instructions explained to the patient, who understands and agrees with discharge plan. Referrals: [facility] at [facility] [Outside] Collins Rangel MD [Staff Provider] - <Emerson Valladares - Last Filed: 05/24/18 20:05> Provider - Provider Date of Admission: 05/08/18 18:38 Attending physician: Emerson Valladares MD Consults: 05/09/18 09:47 Hematology Oncology Consult Routine Comment: Consulting Provider: Collins Rangel Consulting Physician: Collins Rangel Reason for Consult: innumerable liver masses, presented w/ nec pancr on ct lipase normal 05/09/18 09:48 Physician Consult Routine Comment: Consulting Provider: Alvaro Wetzel Consulting Physician: Alvaro Wetzel Reason for Consult: for possible ct guided biopsy, innumerable liver masses Additional Comments: presented with abd p, nec pancreatitis on ct (nong[place] forming), lipase normal 05/14/18 07:00 Palliative Care Consult Routine Comment: Consulting Provider: Martine Serrano Physician Instructions: Reason For Exam: probable pancreatic cancer with mets, 05/20/18 09:12 Physician Consult Routine Comment: Consulting Provider: Alvaro Wetzel Consulting Physician: Alvaro Wetzel Reason for Consult: chemo port placement Additional Comments: (no [employer] order for port placement) Time Spent in preparation of Discharge (in minutes): 40 Hospital Course - Lab Results Lab Results: Micro Results 05/14/18 13:47 Blood-Venous Blood Culture - Final NO GROWTH AFTER 5 DAYS 05/14/18 13:47 Blood-Venous Gram Stain - Final TEST NOT PERFORMED 05/14/18 13:47 Blood-Venous Blood Culture - Final NO GROWTH AFTER 5 DAYS 05/14/18 13:47 Blood-Venous Gram Stain - Final TEST NOT PERFORMED 05/15/18 05:08 Urine,Clean Catch Urine Culture - Final No Growth (<1,000 CFU/ML) Most Recent Lab Values WBC 6.8 K/uL (4.8-10.8) 05/23/18 10:36 RBC 3.65 Mil/uL (4.40-5.90) L 05/23/18 10:36 Hgb 10.8 g/dL (12.0-18.0) L 05/23/18 10:36 Hct 32.1 % (35.0-51.0) L 05/23/18 10:36 MCV 88.0 fL (80.0-94.0) 05/23/18 10:36 MCH 29.6 pg (27.0-31.0) 05/23/18 10:36 MCHC 33.6 g/dL (33.0-37.0) 05/23/18 10:36 RDW 14.0 % (11.5-14.5) 05/23/18 10:36 Plt Count 223 K/uL (130-400) D 05/23/18 10:36 MPV 7.4 fL (7.2-11.7) 05/23/18 10:36 Neut % (Auto) 70.8 % (50.0-75.0) 05/23/18 10:36 Lymph % (Auto) 15.4 % (20.0-40.0) L 05/23/18 10:36 Weston % (Auto) 10.7 % (0.0-10.0) H 05/23/18 10:36 Eos % (Auto) 2.4 % (0.0-4.0) 05/23/18 10:36 Baso % (Auto) 0.7 % (0.0-2.0) 05/23/18 10:36 Neut # (Auto) 4.8 K/uL (1.8-7.0) 05/23/18 10:36 Lymph # (Auto) 1.0 K/uL (1.0-4.3) 05/23/18 10:36 Weston # (Auto) 0.7 K/uL (0.0-0.8) 05/23/18 10:36 Eos # (Auto) 0.2 K/uL (0.0-0.7) 05/23/18 10:36 Baso # (Auto) 0.0 K/uL (0.0-0.2) 05/23/18 10:36 Neutrophils % (Manual) 92 % (50-75) H 05/14/18 06:27 Band Neutrophils % 1 % (0-2) 05/14/18 06:27 Lymphocytes % (Manual) 3 % (20-40) L 05/14/18 06:27 Monocytes % (Manual) 3 % (0-10) 05/14/18 06:27 Eosinophils % (Manual) 1 % (0-4) 05/14/18 06:27 Platelet Estimate Normal (NORMAL) 05/14/18 06:27 RBC Morphology Normal 05/14/18 06:27 PT 12.2 SECONDS (9.7-12.2) 05/13/18 02:04 INR 1.1 05/13/18 02:04 APTT 48 SECONDS (21-34) H D 05/21/18 08:04 Sodium 132 mmol/L (132-148) 05/23/18 10:36 Potassium 4.5 mmol/L (3.6-5.2) 05/23/18 10:36 Chloride 98 mmol/L (98-107) 05/23/18 10:36 Carbon Dioxide 25 mmol/L (22-30) 05/23/18 10:36 Anion Gap 13 (10-20) 05/23/18 10:36 BUN 20 mg/dL (9-20) 05/23/18 10:36 Creatinine 0.9 mg/dL (0.8-1.5) 05/23/18 10:36 Est GFR ( Amer) > 60 05/23/18 10:36 Est GFR (Non-Af Amer) > 60 05/23/18 10:36 POC Glucose (mg/dL) 208 mg/dL (65-110) H 05/24/18 11:42 Random Glucose 200 mg/dL (75-110) H 05/23/18 10:36 Hemoglobin A1c 13.5 % (4.2-6.5) H 05/09/18 06:51 Serum Osmolality 314 mosm/kg (272-300) H 05/08/18 16:44 Calcium 8.4 mg/dl (8.6-10.4) L 05/23/18 10:36 Phosphorus 4.1 mg/dL (2.5-4.5) 05/23/18 10:36 Magnesium 2.0 mg/dL (1.6-2.3) 05/23/18 10:36 Total Bilirubin 1.6 mg/dL (0.2-1.3) H 05/23/18 10:36 AST 94 U/L (17-59) H D 05/23/18 10:36 ALT 128 U/L (21-72) H D 05/23/18 10:36 Alkaline Phosphatase 450 U/L (38-126) H 05/23/18 10:36 Total Creatine Kinase 50 U/L (55-170) L 05/09/18 06:51 Troponin I < 0.0120 ng/mL (0.00-0.120) 05/08/18 14:10 NT-Pro-B Natriuret Pep 155 pg/mL (0-900) 05/08/18 14:10 Total Protein 7.1 g/dL (6.3-8.3) 05/23/18 10:36 Albumin 3.2 g/dL (3.5-5.0) L 05/23/18 10:36 Globulin 3.9 gm/dL (2.2-3.9) 05/23/18 10:36 Albumin/Globulin Ratio 0.8 (1.0-2.1) L 05/23/18 10:36 Triglycerides 162 mg/dL (0-149) H 05/10/18 07:51 Cholesterol 182 mg/dL (0-199) 05/10/18 07:51 LDL Cholesterol Direct 135 mg/dL (0-129) H 05/10/18 07:51 HDL Cholesterol 32 mg/dL (30-70) 11/29/18 07:51 Amylase 67 U/L (30-110) 05/08/18 18:49 Lipase 195 U/L (23-300) 05/08/18 14:10 Alpha Fetoprotein 1.1 ng/mL (0.0-7.5) 05/10/18 07:51 Carcinoembryonic Ag 251.0 ng/mL (0-3.0) H 05/09/18 12:57 CA 19-9 Antigen > 13430 U/mL (0-37) H 05/09/18 12:57 CA 125 Antigen 203 U/mL (0-35) H 05/09/18 12:57 Free T4 2.18 ng/dL (0.78-2.19) 05/10/18 07:51 TSH 3rd Generation 2.10 mIU/L (0.46-4.68) 05/10/18 07:51 Urine Color Yellow (YELLOW) 05/08/18 14:10 Urine Clarity Clear (Clear) 05/08/18 14:10 Urine pH 7.0 (5.0-8.0) 05/08/18 14:10 Ur Specific Mesa 1.030 (1.003-1.030) 05/08/18 14:10 Urine Protein 2+ mg/dL (NEGATIVE) H 05/08/18 14:10 Urine Glucose (UA) 3+ mg/dL (Normal) H 05/08/18 14:10 Urine Ketones Negative mg/dL (NEGATIVE) 05/08/18 14:10 Urine Blood 1+ (NEGATIVE) H 05/08/18 14:10 Urine Nitrate Negative (NEGATIVE) 05/08/18 14:10 Urine Bilirubin Negative (NEGATIVE) 05/08/18 14:10 Urine Urobilinogen Normal mg/dL (0.2-1.0) 05/08/18 14:10 Ur Leukocyte Esterase Neg Scott/uL (Negative) 05/08/18 14:10 Urine WBC (Auto) 1 /hpf (0-5) 05/08/18 14:10 Urine RBC (Auto) 4 /hpf (0-3) H 05/08/18 14:10 Ur Squamous Epith Cells < 1 /hpf (0-5) 05/08/18 14:10 B-Hydroxybutyrate 0.41 mM (0.02-0.27) H 05/08/18 14:10 Hepatitis A IgM Ab Negative (NEGATIVE) 05/09/18 06:51 Hep Bs Antigen Negative (NEGATIVE) 05/09/18 06:51 Hep Bs Antibody Negative (NEGATIVE) 05/09/18 06:51 Hep B Core IgM Ab Negative (NEGATIVE) 05/09/18 06:51 Hepatitis C Antibody Negative (NEGATIVE) 05/09/18 06:51 Attending/Attestation - Attestation I have personally seen and examined this patient.: Yes I have fully participated in the care of the patient.: Yes I have reviewed all pertinent clinical information, including history, physical exam and plan: Yes Notes (Text): 05/24/18 20:04 Patient was seen and examined shortly after resident. Discharge instructions and medications were gone over in detail with Dr. Brady
== END 2018-05-24 18:19 | disposition home or self-care (01) | DRG 435 ==
LOC: C.ER 13:08 → C.9E 18:38 → C.6T 19:59
PROVIDERS: ADMIT Family Medicine; ATTEND Family Medicine
PROC: 0FB13ZX Excision of Right Lobe Liver, Percutaneous Approach, Diagnostic (ICD-10-PCS; principal; 2018-05-11)
PROC: 0JH63WZ Insertion of Totally Implantable Vascular Access Device into Chest Subcutaneous Tissue and Fascia, Percutaneous Approach (ICD-10-PCS; 2018-05-22)
PROC: 02HV33Z Insertion of Infusion Device into Superior Vena Cava, Percutaneous Approach (ICD-10-PCS; 2018-05-22)
DX: C25.7 Malignant neoplasm of other parts of pancreas (principal); K85.21 Alcohol induced acute pancreatitis with uninfected necrosis; I26.99 Other pulmonary embolism without acute cor pulmonale; J18.9 Pneumonia, unspecified organism; C78.7 Secondary malignant neoplasm of liver and intrahepatic bile duct; I82.819 Embolism and thrombosis of superficial veins of unspecified lower extremity; J90 Pleural effusion, not elsewhere classified; I82.492 Acute embolism and thrombosis of other specified deep vein of left lower extremity; C25.9 Malignant neoplasm of pancreas, unspecified; D63.8 Anemia in other chronic diseases classified elsewhere; Z51.5 Encounter for palliative care; F17.210 Nicotine dependence, cigarettes, uncomplicated; I10 Essential (primary) hypertension; Z79.4 Long term (current) use of insulin; E11.65 Type 2 diabetes mellitus with hyperglycemia; K76.9 Liver disease, unspecified

== ENCOUNTER 2018-06-03 10:18 | Inpatient (IN) | payer MEDICARE ==
[2018-06-03] MEDS ORDERED: Sodium Chloride 0.9% 1,000 ML IV ONE (11:04)
[2018-06-03] MEDS ORDERED: (Novolin R) Insulin Human Regular 100 units/ml vial IVP STA (11:04)
[2018-06-03] MEDS ORDERED: Morphine 4 MG/ML VIAL IV ONE (11:08)
[2018-06-03] MEDS ORDERED: (Novolin R) Insulin Human Regular 100 units/ml vial ONE (11:22)
[2018-06-03] MEDS ORDERED: Morphine 4 MG/ML VIAL ONE ×2 (11:23→14:25)
--- NOTE | 2018-06-03 11:57 | C.PDOC ---
History Of Present Illness 53 y/o male, with history of diabetes and right sided BKA, comes in to ED complaining of abdominal pain, vomiting, and diarrhea. Patient was admitted 2 weeks ago to the hospital and was re-diagnosed with pancreatic cancer. Patient w as inserted port-a-cath but chemotherapy has not started yet. As of today, patients blood sugar level was 500. Time Seen by Provider: 06/03/18 10:33 Chief Complaint (Nursing): High Blood Sugar Past Medical History Reviewed: Historical Data, Nursing Documentation, Vital Signs Vital Signs: Last Vital Signs Temp 98.0 F 06/03/18 10:28 Pulse 93 H 06/03/18 10:28 Resp 13 06/03/18 10:28 BP 153/93 H 06/03/18 10:28 Pulse Ox 96 06/03/18 10:28 - Medical History PMH: Asthma, Diabetes, Gastritis, HTN, Hyperlipidemia - [facility] Procedures EXCISION OF RIGHT LOBE LIVER, PERCUTANEOUS APPROACH, DIAGN (05/08/18) INSERT VAD RESERVOIR IN CHEST SUBCU/FASCIA, PERC (05/08/18) INSERTION OF INFUSION DEV INTO SUP VENA CAVA, PERC APPROACH (05/08/18) INTRODUCTION OF SERUM/TOX/VACCINE INTO MUSCLE, PERC APPROACH (03/12/18) Family History: States: No Known Family Hx - Social History Hx Tobacco Use: No Hx Alcohol Use: Yes Hx Substance Use: No - Immunization History Hx Tetanus Toxoid Vaccination: Yes Hx Influenza Vaccination: Yes Hx Pneumococcal Vaccination: Yes Review Of Systems Except As Marked, All Systems Reviewed And Found Negative. Constitutional: Negative for: Fever Gastrointestinal: Positive for: Vomiting, Abdominal Pain, Diarrhea Physical Exam - Physical Exam Appears: Non-toxic, No Acute Distress Skin: Warm, Dry Head: Atraumatic, Normacephalic Eye(s): bilateral: Normal Inspection Oral Mucosa: Moist Neck: Normal ROM Chest: Symmetrical Cardiovascular: Rhythm Regular, No Murmur Respiratory: Normal Breath Sounds, No Rales, No Rhonchi, No Wheezing Gastrointestinal/Abdominal: Tenderness (diffuse upper abdominal tenderness), No Guarding, No Rebound Extremity: Other (R sided BKA) Neurological/Psych: Oriented x3, Normal Speech ED Course And Treatment - Laboratory Results Result Diagrams: 06/03/18 11:58 06/03/18 11:58 O2 Sat by Pulse Oximetry: 96 (RA) Pulse Ox Interpretation: Normal - Other Rad Chest x-ray X-Ray: Read By Radiologist Interpretation: FINDINGS: LUNGS: Moderate right pleural effusion. Possible elevated right hemidiaphragm. No left pleural effusion. No infiltrate. No pneumothorax. Linear scar/atelectasis at left base. PLEURA: As above. CARDIOVASCULAR: No aortic atherosclerotic calcification present. Normal heart size. No congestive change. Right central venous infusion port. OSSEOUS STRUCTURES: No significant abnormalities. VISUALIZED UPPER ABDOMEN: Normal. OTHER FINDINGS: None. IMPRESSION: Moderate right pleural effusion. No definite infiltrate. Medical Decision Making Medical Decision Making: Plan: --VBG --EKG --Bloodwork --Chest x-ray --Morphine 4 mg IV --Novolin R 10 unit IVP --IV fluids 1L --Zofran 4 mg IVP --Urinalysis Disposition Counseled Patient/Family Regarding: Diagnosis - Disposition Disposition: HOSPITALIZED Disposition Time: 14:01 Condition: GUARDED - Clinical Impression Clinical Impression: Uncontrolled diabetes mellitus with hyperglycemia, Abdominal pain - Scribe Statement The provider has reviewed the documentation as recorded by the Shannon Sampson Provider Attestation: All medical record entries made by the Shannon were at my direction and personally dictated by me. I have reviewed the chart and agree that the record accurately reflects my personal performance of the history, physical exam, medical decision making, and the department course for this patient. I have also personally directed, reviewed, and agree with the discharge instructions and disposition.
[2018-06-03 12:00] LABS: VENOUS BLOOD GAS BASE EXCESS 6.4 mmol/L (0.0-2.0); VENOUS BLOOD GAS PCO2 41 mmHg (40-60); VENOUS BLOOD GAS PO2 37 mm/Hg (30-55); VENOUS BLOOD PH 7.48 (7.32-7.43)
[2018-06-03 12:12] LABS: BASO % 0.5 % (0.0-2.0); EOS % 0.5 % (0.0-4.0); HEMOGLOBIN 11.6 g/dL (12.0-18.0); LYMPH # 0.8 K/uL (1.0-4.3); LYMPH % 10.6 % (20.0-40.0); MEAN CELL VOLUME 89.2 fL (80.0-94.0); MEAN CORPUSCULAR HEMOGLOBIN 30.2 pg (27.0-31.0); MEAN CORPUSCULAR HGB CONC 33.9 g/dL (33.0-37.0); MEAN PLATELET VOLUME 8.3 fL (7.2-11.7); MONO # 0.6 K/uL (0.0-0.8); MONO % 7.5 % (0.0-10.0); NEUT % 80.9 % (50.0-75.0); RBC 3.84 Mil/uL (4.40-5.90); RED CELL DISTRIBUTION WIDTH 14.6 % (11.5-14.5); WHITE BLOOD COUNT 7.4 K/uL (4.8-10.8)
[2018-06-03 12:45] LABS: ALB/GLOB RATIO 0.8 (1.0-2.1); ALBUMIN 3.3 g/dL (3.5-5.0); ALT/SGPT 124 U/L (21-72); AST/SGOT 145 U/L (17-59); BLOOD UREA NITROGEN 24 mg/dL (9-20); CALCIUM 8.4 mg/dl (8.6-10.4); GFR NON-AFRICAN AMERICAN > 60; LIPASE 36 U/L (23-300)
--- NOTE | 2018-06-03 13:38 | RAD ---
Date of service: 06/03/2018 PROCEDURE: CHEST RADIOGRAPH, 1 VIEW HISTORY: Diabetic COMPARISON: 05/08/2028 FINDINGS: LUNGS: Moderate right pleural effusion. Possible elevated right hemidiaphragm. No left pleural effusion. No infiltrate. No pneumothorax. Linear scar/atelectasis at left base. PLEURA: As above CARDIOVASCULAR: No aortic atherosclerotic calcification present. Normal heart size. No congestive change. Right central venous infusion port. OSSEOUS STRUCTURES: No significant abnormalities. VISUALIZED UPPER ABDOMEN: Normal. OTHER FINDINGS: None. IMPRESSION: Moderate right pleural effusion. No definite infiltrate.
[2018-06-03] MEDS ORDERED: Morphine 4 MG/ML VIAL IV STA (14:04)
[2018-06-03] MEDS ORDERED: Glucagon Recombinant 1 mg Inj IM PRN (14:15)
[2018-06-03] MEDS ORDERED: Dextrose 50% SYRINGE Inj (50 ml) IV PRN (14:15)
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
[2018-06-03] MEDS: (Novolin R) Insulin Human Regular 100 units/ml vial SC SCH ×2 (16:25→22:44)
[2018-06-03] MEDS: Sodium Chloride 0.9% 1,000 ML IV SCH (16:30)
[2018-06-03] MEDS ORDERED: DiphenhydrAMINE 12.5 mg/5 ml LIQ UD (5 ml) PO PRN (17:03)
[2018-06-03] MEDS ORDERED: Iohexol 240 (50 ml) PO ONE (17:30)
--- NOTE | 2018-06-03 17:47 | RAD ---
Date of service: 06/03/2018 PROCEDURE: Radiographs of the chest and abdomen (obstructive series) HISTORY: epigastric/RUQ pain, vomiting COMPARISON: No prior. TECHNIQUE: AP radiograph of the chest, with upright and supine radiographs of the abdomen. FINDINGS: CHEST: Lungs: No definite infiltrate. However, superimposed density of right pleural effusion obscures the lung base. Linear scar/atelectasis at left base laterally. Cardiovascular: Normal size heart. No pulmonary vascular congestion. Right central venous infusion port. No aortic atherosclerotic calcification present Pleura: Moderate right pleural effusion. No left pleural effusion. Other findings: None. ABDOMEN AND PELVIS: Bowel: Unremarkable bowel gas pattern. No evidence of mechanical obstruction. Free air: None. Bones: Unremarkable. Other findings: None. IMPRESSION: Moderate right pleural effusion. No definite infiltrate. Normal bowel gas pattern.
[2018-06-03] MEDS: Morphine 4 MG/ML VIAL IVP PRN (19:03)
[2018-06-03] MEDS ORDERED: Iodixanol 320 MG/ML 100 ML BOTTLE IV ONE (19:57)
[2018-06-03 20:05] LABS: INR 1.2; PROTHROMBIN TIME 13.4 SECONDS (9.7-12.2)
[2018-06-03] MEDS: Morphine 15 mg SR Tab PO SCH (22:45)
[2018-06-04] MEDS: Sodium Chloride 0.9% 1,000 ML IV SCH ×3 (03:16→21:14)
[2018-06-04] MEDS: Morphine 4 MG/ML VIAL IVP PRN ×3 (06:08→16:59)
[2018-06-04] MEDS: (Novolin R) Insulin Human Regular 100 units/ml vial SC SCH ×4 (08:09→21:31)
[2018-06-04 08:22] LABS: BASO % 0.3 % (0.0-2.0); EOS # 0.1 K/uL (0.0-0.7); EOS % 1.9 % (0.0-4.0); HEMOGLOBIN 11.8 g/dL (12.0-18.0); LYMPH # 0.8 K/uL (1.0-4.3); LYMPH % 12.1 % (20.0-40.0); MEAN CELL VOLUME 89.7 fL (80.0-94.0); MEAN CORPUSCULAR HEMOGLOBIN 29.3 pg (27.0-31.0); MEAN CORPUSCULAR HGB CONC 32.6 g/dL (33.0-37.0); MEAN PLATELET VOLUME 8.2 fL (7.2-11.7); MONO # 0.6 K/uL (0.0-0.8); MONO % 9.3 % (0.0-10.0); NEUT # 4.9 K/uL (1.8-7.0); NEUT % 76.4 % (50.0-75.0); RBC 4.03 Mil/uL (4.40-5.90); RED CELL DISTRIBUTION WIDTH 14.8 % (11.5-14.5); WHITE BLOOD COUNT 6.4 K/uL (4.8-10.8)
[2018-06-04 08:41] LABS: ALB/GLOB RATIO 0.9 (1.0-2.1); ALBUMIN 3.2 g/dL (3.5-5.0); ALT/SGPT 109 U/L (21-72); AST/SGOT 110 U/L (17-59); BLOOD UREA NITROGEN 25 mg/dL (9-20); CALCIUM 7.9 mg/dl (8.6-10.4); GFR NON-AFRICAN AMERICAN > 60
--- NOTE | 2018-06-04 08:47 | CP.PCM.PN ---
<Chuck Jean Baptiste - Last Filed: 06/04/18 15:39> Subjective - Date & Time of Evaluation Date of Evaluation: 06/04/18 Time of Evaluation: 08:40 - Subjective Subjective: PGY-[address] Brown Patient seen and examined at bedside. No acute events overnight. Patient still c/o diffused abdominal pain and nausea. He states feeling as though he needs to vomit but nothing comes up. He complains of diffuse abdominal pain worst in RUQ with radiation to the lower back. Pt also having shortness of breath and pain with deep inspiration. Patient kept NPO. Denies chest pain, palpitations, fevers, dizziness, headache, blurry vision. Patient needs to have discussion about goals of care. Will follow up with palliative. Objective - Vital Signs/Intake and Output Vital Signs (last 24 hours): Temp Pulse Resp BP Pulse Ox 98.7 F 93 H 18 134/82 96 06/04/18 07:21 06/04/18 07:21 06/04/18 07:21 06/04/18 07:21 06/04/18 07:21 Intake and Output: 06/04/18 06/04/18 06:59 18:59 Intake Total 800 Output Total 400 Balance 400 - Medications Medications: Current Medications Dextrose (Dextrose 50% Inj) 0 ml IV STAT PRN; Protocol PRN Reason: Hypoglycemia Protocol Dextrose (Glutose 15) 0 gm PO ONCE PRN; Protocol PRN Reason: Hypoglycemia Protocol Diphenhydramine HCl (Benadryl) 12.5 mg PO ONCE PRN PRN Reason: Allergy symptoms Glucagon (Glucagen Diagnostic Kit) 0 mg IM STAT PRN; Protocol PRN Reason: Hypoglycemia Protocol Dextrose (Dextrose 5% In Water 1000 Ml) 1,000 mls @ 0 mls/hr IV .Q0M PRN; Protocol PRN Reason: Hypoglycemia Protocol Sodium Chloride (Sodium Chloride 0.9%) 1,000 mls @ 100 mls/hr IV .Q10H CARL Last Admin: 06/04/18 03:16 Dose: Not Given Insulin Detemir (Levemir) 20 unit SC HS CARL Insulin Human Regular (Novolin R) 0 unit SC ACHS CARL; Protocol Last Admin: 06/04/18 08:09 Dose: Not Given Losartan Potassium (Cozaar) 100 mg PO DAILY CARL Last Admin: 06/03/18 18:59 Dose: 100 mg Morphine Sulfate (Morphine) 3 mg IVP Q4 PRN PRN Reason: Pain, moderate (4-7) Last Admin: 06/04/18 06:08 Dose: 3 mg Morphine Sulfate (Morphine Extended Release Tab) 15 mg PO Q12 [facility] Last Admin: 06/03/18 22:45 Dose: 15 mg Ondansetron HCl (Zofran Inj) 4 mg IVP Q4H PRN PRN Reason: Nausea/Vomiting Last Admin: 06/04/18 06:08 Dose: 4 mg Pantoprazole Sodium (Protonix Inj) 40 mg IVP DAILY [facility] Last Admin: 06/03/18 16:30 Dose: 40 mg Rivaroxaban (Xarelto) 15 mg PO BID [facility] Last Admin: 06/03/18 18:59 Dose: 15 mg - Labs Labs: 06/04/18 08:10 06/03/18 11:58 PT 13.4 SECONDS (9.7-12.2) H 06/03/18 19:50 INR 1.2 06/03/18 19:50 APTT 28 SECONDS (21-34) 06/03/18 19:50 - Constitutional Appears: No Acute Distress, Other - Head Exam Head Exam: ATRAUMATIC, NORMAL INSPECTION - Eye Exam Eye Exam: EOMI, PERRL - ENT Exam ENT Exam: Mucous Membranes Moist - Respiratory Exam Respiratory Exam: Decreased Breath Sounds. absent: Accessory Muscle Use, Rhonchi, Wheezes Additional comments: pain on deep inspiration - Cardiovascular Exam Cardiovascular Exam: REGULAR RHYTHM, +S1, +S2 - GI/Abdominal Exam GI & Abdominal Exam: Distended, Tenderness (Diffuse tenderness worst in RUQ). absent: Guarding, Rigid, Rebound - Extremities Exam Extremities Exam: absent: Pedal Edema Additional comments: R BKA. Small wound on distal stump is clean. - Neurological Exam Neurological Exam: Alert, Awake, CN II-XII Intact, Oriented x3 - Psychiatric Exam Psychiatric exam: Normal Affect, Normal Mood - Skin Skin Exam: Dry, Intact, Normal Color Assessment and Plan - Assessment and Plan (Free Text) Assessment: 53 year old male with PMHx of HTN, HLD, DM, pancreatitis w/ necrosis, recent dx of pancreatic cancer on last admission presenting to ED with acute o nset intractable abdominal pain with associated nausea/vomiting since earlier today. Plan: Pancreatic cancer with liver mets Pancreatitis with necrosis (non-gas forming) -Official Pathology Report (05/11): Biopsy liver lesion: Final diagnosis - Liver tissue involved by adenocarcinoma. Favor pancreatico-biliary origin. -CT abdomen/pelvis with IV contrast (05/08): grossly abnormal appearing pancreas with extensive pancreatitis and necrosis. At time of imaging, non-gas forming. Contiguous hypodensity in SMV; thrombus must be considered. Innumerable liver masses. Right pleural effusion. -Abdominal U/S (05/08): Multiple hepatic masses. Fatty infiltrate. Incidental right upper pole renal cortical cyst. -CXR (06/03): moderate R pleural effusion. No definite infiltrate. Normal bowel gas pattern. -CT Abdomen/Pelvis 06/03 - Large R pleural effusion evident. Awaiting official read. -AST/ALT 145/124 (06/03) --> 110/109 (06/04) -ALP 740 --> 641 -Hepatitis panel from last admission negative -Elevated tumor markers on last admission: CA 19-9 Ag >10,000, CEA Ag 251, CA 125 Ag 203 -Heme/Onc (Dr. Rangel) on case -Palliative care on case, will f/u. Patient is Full Code as of now. -Morphine 3 mg q4h prn -Morphine ER 15 mg PO q12 prn for breakthrough pain -Zofran 4 mg IVP q4 prn -NS @ 100cc/hr -Advanced to clear liquids -Avoid Tylenol, muscle relaxants due to transaminitis -Holding off on therapeutic paracentesis of ascitic fluid at this time due to recent PE Recent PE and DVT likely 2/2 hypercoagulability due to underlying malignancy -CTA abdomen/pelvis (05/08/18): large right lower lobe pulmonary branch pulmonary embolus -CTA chest (05/09/18): Filling defect consistent with pulmonary embolus evident within the right lower lobe pulmonary artery branch. -LE dopplers (05/10/18): left long saphenous vein DVT -ECHO (05/10/18): LVEF is 60%. Mild concentric LVH. Grade 1 diastolic dysfunction. AV appears to be bicuspid. Borderline to mild . MR is trace to mild. RVSP is less than 30 mmHg. -Xarelto 15 mg PO BID x 21 days, then 20 mg PO daily. Patient was unable to swallow PO meds yesterday due to nausea/vomiting, but he did take them today. R Pleural effusion -CXR (06/03): moderate R pleural effusion. No definite infiltrate -continue to monitor DM -A1C: 13.5 (05/09/18) -ISS high -Levemir 20 units HS CARL -accuchecks achs -hypoglycemic protocol HTN -resume home losartan 100 mg PO daily HLD -crestor held due to transaminitis PPx, Diet, Disposition -DVT ppx: scds CI due to DVT and BKA, xarelto -GI: protonix 40 -Diet: NPO except meds and ice chips -Code status: Full code Case discussed with Dr. Stephanie Jean Baptiste DO, PGY-1 <Harsh Brown H - Last Filed: 06/04/18 18:43> Objective - Vital Signs/Intake and Output Vital Signs (last 24 hours): Temp Pulse Resp BP Pulse Ox 99.1 F 93 H 17 149/82 90 L 06/04/18 17:21 06/04/18 17:21 06/04/18 17:21 06/04/18 17:21 06/04/18 17:21 Intake and Output: 06/04/18 06/04/18 06:59 18:59 Intake Total 800 Output Total 400 Balance 400 - Medications Medications: Current Medications Dextrose (Dextrose 50% Inj) 0 ml IV STAT PRN; Protocol PRN Reason: Hypoglycemia Protocol Dextrose (Glutose 15) 0 gm PO ONCE PRN; Protocol PRN Reason: Hypoglycemia Protocol Diphenhydramine HCl (Benadryl) 12.5 mg PO ONCE PRN PRN Reason: Allergy symptoms Glucagon (Glucagen Diagnostic Kit) 0 mg IM STAT PRN; Protocol PRN Reason: Hypoglycemia Protocol Dextrose (Dextrose 5% In Water 1000 Ml) 1,000 mls @ 0 mls/hr IV .Q0M PRN; Bello col PRN Reason: Hypoglycemia Protocol Sodium Chloride (Sodium Chloride 0.9%) 1,000 mls @ 100 mls/hr IV .Q10H CARL Last Admin: 06/04/18 12:00 Dose: Not Given Insulin Detemir (Levemir) 20 unit SC HS CARL Insulin Human Regular (Novolin R) 0 unit SC ACHS CARL; Protocol Last Admin: 06/04/18 17:08 Dose: 10 units Losartan Potassium (Cozaar) 100 mg PO DAILY [facility] Last Admin: 06/04/18 10:12 Dose: 100 mg Morphine Sulfate (Morphine) 3 mg IVP Q4 PRN PRN Reason: Pain, moderate (4-7) Last Admin: 06/04/18 16:59 Dose: 3 mg Morphine Sulfate (Morphine Extended Release Tab) 15 mg PO Q12 [facility] Last Admin: 06/04/18 10:18 Dose: 15 mg Morphine Sulfate (Morphine) 3 mg IVP Q2 PRN PRN Reason: Pain, moderate (4-7) Ondansetron HCl (Zofran Inj) 4 mg IVP Q4H PRN PRN Reason: Nausea/Vomiting Last Admin: 06/04/18 06:08 Dose: 4 mg Pantoprazole Sodium (Protonix Inj) 40 mg IVP DAILY [facility] Last Admin: 06/04/18 10:10 Dose: 40 mg Rivaroxaban (Xarelto) 15 mg PO BID [facility] Last Admin: 06/04/18 17:24 Dose: 15 mg - Labs Labs: 06/04/18 08:10 06/04/18 08:10 PT 13.4 SECONDS (9.7-12.2) H 06/03/18 19:50 INR 1.2 06/03/18 19:50 APTT 28 SECONDS (21-34) 06/03/18 19:50 Attending/Attestation - Attestation I have personally seen and examined this patient.: Yes I have fully participated in the care of the patient.: Yes I have reviewed all pertinent clinical information, including history, physical exam and plan: Yes Notes (Text): 06/04/18 18:36 Medical attending: Patient was seen and examined by me. Agree with the above note by the resident The patient was seen earlier in the morning with the medical office technician The patient does not look well at all - he still feels nausea as well as ongoing abdominal pain. He requested we try him on a clear diet just to see how he would do, we will do this however we cautioned him CT scan did not report obstruction - however there is ascities as well as a pleural effusion that appears to be larger now - he does report that his abdomen seems more distended now. The abdomen is sensitive to palpation The patient as mentioned previously has had a recent DVT and then PE and is ther efore on Xarelto. They could not do colonscopy or EGD because of the PE This morning we tried to increase his IV morphine frequency so he would have some comfort - however he could not take the long acting oxycontin due to ongoing nausea. The patient the previous admission was found to have pancreatic and multiple liver lesions. A liver bioppsy was done showing adenocarcinoma from the panc rease. Last time there was a discussion with mazin to code status and at that time he wanted to be full code. Later today palliative care spoke with him and I see that he is now changed over to DNR and DNI. Overall prognosis is not good. Tommorow when we see him maybe we can continue to increase his pain medications. Harsh Brown 06/04/18 18:43
[2018-06-04] MEDS: Morphine 15 mg SR Tab PO SCH ×2 (10:18→21:36)
--- NOTE | 2018-06-04 10:58 | CT ---
Date of service: 06/03/2018 PROCEDURE: CT Abdomen and Pelvis with contrast HISTORY: abd pain, n/v, ttp, ca mets COMPARISON: 05/08/2018 TECHNIQUE: Contrast dose: Radiation dose: Total exam DLP = 1127.67 mGy-cm. This CT exam was performed using one or more of the following dose reduction techniques: Automated exposure control, adjustment of the mA and/or kV according to patient size, and/or use of iterative reconstruction technique. FINDINGS: LOWER THORAX: Increase in size of a large right pleural effusion with small left pleural effusion. LIVER: Redemonstration of innumerable hepatic metastases. GALLBLADDER AND BILE DUCTS: Unremarkable. PANCREAS: Large hypodense pancreatic mass on is completely occupying the body and tail. Dorsal peripancreatic lymph nodes. SPLEEN: Unremarkable. ADRENALS: Unremarkable. No mass. KIDNEYS AND URETERS: Unremarkable. No hydronephrosis. No solid mass. VASCULATURE: Unremarkable. No aortic aneurysm. No aortic atherosclerotic calcification or mural plaque present. BOWEL: Unremarkable. No obstruction. No gross mural thickening. APPENDIX: Normal appendix. PERITONEUM: Unremarkable. No free fluid. No free air. LYMPH NODES: Unremarkable. No enlarged lymph nodes. BLADDER: Unremarkable. REPRODUCTIVE: Unremarkable. BONES: No acute fracture. OTHER FINDINGS: None. IMPRESSION: Increase in size of a large right pleural effusion with small left pleural effusion. Otherwise no significant change in large pancreatic mass in diffuse hepatic metastases.
--- NOTE | 2018-06-04 11:50 | CP.PCM.CON ---
History of Present Illness - History of Present Illness History of Present Illness: Palliative consult requested by Doctor Stephanie for Code status and goals of care discussion Patient is a 53 yo male admitted with complains of abdominal pain and distention, nausea, vomiting and diarrhea. Patient was discharged just 2 weeks ago from this hospital when was diagnosed with pancreatic cancer. Patient had received [id number] at that time, but have not started chemo Tx just yet. The Ct abdomen and pelvis on the last admission was significant for severe necrosis of pancreas . The cancer has advanced ever since with mets to liver. Patient presents with extended abdomen, elevated T Migue and elevated AST and A LT. Patient looks much more sick than on last admission. Doctor Stephanie asked me to re visit Code status discussion. PMH: asthma, DM, Right BKA, Left foot amputation of metatarsals Soc. Hx: single, 1 year ago, has one daughter Fam. Hx: Mother is Jehovah witness Review of Systems - Constitutional Constitutional: Fatigue - EENT Eyes: absent: As Per HPI, Blind Spots, Blurred Vision, Change in Vision, Decreased Night Vision, Diplopia, Discharge, Dry Eye, Exophthalmos, Floaters, Ir ritation, Itchy Eyes, Loss of Peripheral Vision, Pain, Photophobia, Requires Corrective Lenses, Sees Flashes, Spots in Vision, Tunnel Vision, Other Visual Disturbances, Loss of Vision, Other Ears: absent: As Per HPI, Decreased Hearing, Ear Discharge, Ear Pain, Tinnitus, Abnormal Hearing, Disequilibrium, Dizziness, Other Nose/Mouth/Throat: absent: As Per HPI, Epistaxis, Nasal Congestion, Nasal Discharge, Nasal Obstruction, Nasal Trauma, Nose Pain, Post Nasal Drip, Sinus Pain, Sinus Pressure, Bleeding Gums, Change in Voice, Dental Pain, Dry Mouth, Dysphagia, Halitosis, Hoarsness, Lip Swelling, Mouth Lesions, Mouth Pain, Odynophagia, Sore Throat, Throat Swelling, Tongue Swelling, Facial Pain, Neck Pain, Neck Mass, Other - Cardiovascular Cardiovascular: Dyspnea on Exertion, Rapid Heart Rate - Respiratory Respiratory: Dyspnea on Exertion - Gastrointestinal Gastrointestinal: Abdominal Pain, Bloating, Change in Bowel Habits, Nausea, Vomiting - Genitourinary Genitourinary: Urinary Frequency - Musculoskeletal Musculoskeletal: Limited Range of Motion - Integumentary Integumentary: Change in Pigmentation - Neurological Neurological: absent: As Per HPI, Abnormal Gait, Abnormal Hearing, Abnormal Movements, Abnormal Speech, Behavioral Changes, Burning Sensations, Confusion, Convulsions, Disequilibrium, Dizziness, Numbness, Focal Weakness, Frequent Falls, Headaches, Lack of Coordination, Loss of Vision, Memory Loss, Paresthesias, Radicular Pain, Restless Legs, Sensory Deficit, Syncope, Tingling, Tremor, Vertigo, Weakness, Other Visual Disturbances, Other - Psychiatric Psychiatric: Anxiety, Hopelessness - Endocrine Endocrine: Change in Body Appearance - Hematologic/Lymphatic Hematologic: Easy Bleeding Past Patient History - Infectious Disease Hx of Infectious Diseases: None - Past Medical History & Family History Past Medical History?: Yes - Past Social History Smoking Status: Current Some Days Smoker - CARDIAC Hx Hypertension: Yes - PULMONARY Hx Asthma: Yes - ENDOCRINE/METABOLIC Hx Endocrine Disorders: Yes Hx Diabetes Mellitus Type 1: Yes - MUSCULOSKELETAL/RHEUMATOLOGICAL Hx Musculoskeletal Disorders: No Hx Falls: No - GASTROINTESTINAL Hx Gastritis: Yes - PSYCHIATRIC Hx Substance Use: No - SURGICAL HISTORY Hx Surgeries: Yes Hx Amputation: Yes (Right BKA, Left TMA) - ANESTHESIA Hx Anesthesia: Yes Hx Anesthesia Reactions: No Meds Allergies/Adverse Reactions: Allergies Allergy/AdvReac Type Severity Reaction Status Date / Time FISH Allergy RASH Verified 03/12/18 16:06 hazelnut Allergy RASH Verified 03/12/18 16:06 - Medications Medications: Current Medications Dextrose (Dextrose 50% Inj) 0 ml IV STAT PRN; Protocol PRN Reason: Hypoglycemia Protocol Dextrose (Glutose 15) 0 gm PO ONCE PRN; Protocol PRN Reason: Hypoglycemia Protocol Diphenhydramine HCl (Benadryl) 12.5 mg PO ONCE PRN PRN Reason: Allergy symptoms Glucagon (Glucagen Diagnostic Kit) 0 mg IM STAT PRN; Protocol PRN Reason: Hypoglycemia Protocol Dextrose (Dextrose 5% In Water 1000 Ml) 1,000 mls @ 0 mls/hr IV .Q0M PRN; Protocol PRN Reason: Hypoglycemia Protocol Sodium Chloride (Sodium Chloride 0.9%) 1,000 mls @ 100 mls/hr IV .Q10H CARL Last Admin: 06/04/18 03:16 Dose: Not Given Insulin Detemir (Levemir) 20 unit SC HS CARL Insulin Human Regular (Novolin R) 0 unit SC ACHS CARL; Protocol Last Admin: 06/04/18 08:09 Dose: Not Given Losartan Potassium (Cozaar) 100 mg PO DAILY ACRL Last Admin: 06/04/18 10:12 Dose: 100 mg Morphine Sulfate (Morphine) 3 mg IVP Q4 PRN PRN Reason: Pain, moderate (4-7) Last Admin: 06/04/18 10:19 Dose: 3 mg Morphine Sulfate (Morphine Extended Release Tab) 15 mg PO Q12 [facility] Last Admin: 06/04/18 10:18 Dose: 15 mg Morphine Sulfate (Morphine) 3 mg IVP Q2 PRN PRN Reason: Pain, moderate (4-7) Ondansetron HCl (Zofran Inj) 4 mg IVP Q4H PRN PRN Reason: Nausea/Vomiting Last Admin: 06/04/18 06:08 Dose: 4 mg Pantoprazole Sodium (Protonix Inj) 40 mg IVP DAILY [facility] Last Admin: 06/04/18 10:10 Dose: 40 mg Rivaroxaban (Xarelto) 15 mg PO BID [facility] Last Admin: 06/04/18 10:10 Dose: 15 mg Physical Exam - Constitutional Appears: Chronically Ill - Head Exam Head Exam: ATRAUMATIC, NORMAL INSPECTION, NORMOCEPHALIC - Eye Exam Eye Exam: EOMI, Normal appearance, PERRL Pupil Exam: NORMAL ACCOMODATION, PERRL - ENT Exam ENT Exam: Mucous Membranes Moist, Normal Exam - Neck Exam Neck exam: Positive for: Normal Inspection - Respiratory Exam Respiratory Exam: Decreased Breath Sounds, NORMAL BREATHING PATTERN - Cardiovascular Exam Cardiovascular Exam: Tachycardia, REGULAR RHYTHM - GI/Abdominal Exam GI & Abdominal Exam: Diminished Bowel Sounds, Distended, Firm, Hypoactive Bowel Sounds, Soft - Rectal Exam Rectal Exam: Deferred - Exam Exam: NORMAL INSPECTION - Extremities Exam Additional comments: right BKA, left metatarsals amputated - Back Exam Back exam: NORMAL INSPECTION - Neurological Exam Neurological exam: Alert, Oriented x3 - Psychiatric Exam Psychiatric exam: Depressed - Skin Skin Exam: Dry, Intact, Normal Color, Warm Results - Vital Signs Recent Vital Signs: Last Vital Signs Temp 98.7 F 06/04/18 07:21 Pulse 100 H 06/04/18 08:56 Resp 18 06/04/18 07:21 BP 134/82 06/04/18 07:21 Pulse Ox 96 06/04/18 08:53 - Labs Result Diagrams: 06/04/18 08:10 06/04/18 08:10 Labs: Laboratory Results - last 24 hr 12/23/18 12/23/18 12/23/18 11:50 11:58 11:58 WBC 7.4 RBC 3.84 L Hgb 11.6 L Hct 34.3 L MCV 89.2 MCH 30.2 MCHC 33.9 RDW 14.6 H Plt Count 222 MPV 8.3 Neut % (Auto) 80.9 H Lymph % (Auto) 10.6 L Fall[place] % (Auto) 7.5 Eos % (Auto) 0.5 Baso % (Auto) 0.5 Neut # (Auto) 6.0 Lymph # (Auto) 0.8 L Fallon # (Auto) 0.6 Eos # (Auto) 0.0 Baso # (Auto) 0.0 PT INR APTT pO2 37 VBG pH 7.48 H VBG pCO2 41 VBG HCO3 29.3 VBG Total CO2 31.8 H VBG O2 Sat (Calc) 77.1 H VBG Base Excess 6.4 H VBG Potassium 4.3 Sodium 135.0 133 Chloride 93.0 L 91 L Glucose 455 H* Lactate 1.7 Crit Value Called To Michelle bowen Crit Value Called By Silvia johnson Crit Value Read Back Y Blood Gas Notified Time 1200 Potassium 4.2 Carbon Dioxide 25 Anion Gap 21 H BUN 24 H Creatinine 0.9 Est GFR ( Amer) > 60 Est GFR (Non-Af Amer) > 60 POC Glucose (mg/dL) Random Glucose 476 H* D Calcium 8.4 L Phosphorus Magnesium Total Bilirubin 4.3 H AST 145 H D ALT 124 H Alkaline Phosphatase 740 H D Total Protein 7.2 Albumin 3.3 L Globulin 3.9 Albumin/Globulin Ratio 0.8 L Lipase 36 Venous Blood Potassium 4.3 B-Hydroxybutyrate 4.10 H 06/03/18 06/03/18 06/03/18 13:18 15:43 19:50 WBC RBC Hgb Hct MCV MCH MCHC RDW Plt Count MPV Neut % (Auto) Lymph % (Auto) Fallon % (Auto) Eos % (Auto) Baso % (Auto) Neut # (Auto) Lymph # (Auto) Fallon # (Auto) Eos # (Auto) Baso # (Auto) PT 13.4 H INR 1.2 APTT 28 pO2 VBG pH VBG pCO2 VBG HCO3 VBG Total CO2 VBG O2 Sat (Calc) VBG Base Excess VBG Potassium Sodium Chloride Glucose Lactate Crit Value Called To Crit Value Called By Crit Value Read Back Blood Gas Notified Time Potassium Carbon Dioxide Anion Gap BUN Creatinine Est GFR ( Amer) Est GFR (Non-Af Amer) POC Glucose (mg/dL) 307 H 335 H Random Glucose Calcium Phosphorus Magnesium Total Bilirubin AST ALT Alkaline Phosphatase Total Protein Albumin Globulin Albumin/Globulin Ratio Lipase Venous Blood Potassium B-Hydroxybutyrate 06/03/18 06/04/18 06/04/18 21:16 06:09 08:10 WBC 6.4 RBC 4.03 L Hgb 11.8 L Hct 36.2 MCV 89.7 MCH 29.3 MCHC 32.6 L RDW 14.8 H Plt Count 216 MPV 8.2 Neut % (Auto) 76.4 H Lymph % (Auto) 12.1 L Fallon % (Auto) 9.3 Eos % (Auto) 1.9 Baso % (Auto) 0.3 Neut # (Auto) 4.9 Lymph # (Auto) 0.8 L Fallon # (Auto) 0.6 Eos # (Auto) 0.1 Baso # (Auto) 0.0 PT INR APTT pO2 VBG pH VBG pCO2 VBG HCO3 VBG Total CO2 VBG O2 Sat (Calc) VBG Base Excess VBG Potassium Sodium Chloride Glucose Lactate Crit Value Called To Crit Value Called By Crit Value Read Back Blood Gas Notified Time Potassium Carbon Dioxide Anion Gap BUN Creatinine Est GFR ( Amer) Est GFR (Non-Af Amer) POC Glucose (mg/dL) 271 H 282 H Random Glucose Calcium Phosphorus Magnesium Total Bilirubin AST ALT Alkaline Phosphatase Total Protein Albumin Globulin Albumin/Globulin Ratio Lipase Venous Blood Potassium B-Hydroxybutyrate 06/04/18 08:10 WBC RBC Hgb Hct MCV MCH MCHC RDW Plt Count MPV Neut % (Auto) Lymph % (Auto) Fallon % (Auto) Eos % (Auto) Baso % (Auto) Neut # (Auto) Lymph # (Auto) Fallon # (Auto) Eos # (Auto) Baso # (Auto) PT INR APTT pO2 VBG pH VBG pCO2 VBG HCO3 VBG Total CO2 VBG O2 Sat (Calc) VBG Base Excess VBG Potassium Sodium 131 L Chloride 92 L Glucose Lactate Crit Value Called To Crit Value Called By Crit Value Read Back Blood Gas Notified Time Potassium 3.9 Carbon Dioxide 31 H Anion Gap 12 BUN 25 H Creatinine 1.0 Est GFR ( Amer) > 60 Est GFR (Non-Af Amer) > 60 POC Glucose (mg/dL) Random Glucose 305 H D Calcium 7.9 L Phosphorus 3.3 Magnesium 2.1 Total Bilirubin 4.0 H AST 110 H D ALT 109 H Alkaline Phosphatase 641 H Total Protein 6.9 Albumin 3.2 L Globulin 3.7 Albumin/Globulin Ratio 0.9 L Lipase Venous Blood Potassium B-Hydroxybutyrate Assessment & Plan - Assessment and Plan (Free Text) Assessment: Palliative consult There was no Advance directive on chart, PPS 40% I reviewed Medical records, all diagnostic studies, examined and interviewed patient in the bed Patient is alert, oriented X 3 with affect that is flat and speech clear. Patient looks ill. Skin and sclera of yellowish tone. Breathing is diminished due to distended abdomen. Abdomen is hardly distended, with hypoactive bowel sounds. No BM on this admission. Urinates frequently in small amounts. Urine is dark carin. Patient complens of abdominal pain and is using Morphine for relief. BP 134/82, HR 100, O2Sat 96% RA, afebrile WBC 6.4, Hb 11.8, Na 131, T Migue 4.0, AST and ALT elevated Goals of care discussed. I reviewed patient's clinical presentation and elicited his understanding and expectations of care. Patient said he had spoken to Doctor Brown this morning and is aware of his progressed cancer. Patient was obviously sad and related his emotions to the same time of last year when his . Patient said, he had no [place] nor New Year celebration ever since. patient admitted to be feeling depressed but denied ability to sleep well. Patient further verbalized desire to feel more comfortable, especially with his abdominal discomfort. I spoke about possible Lasix, lactulose and finally Paracenetesis to help him get rid of ascites in his stomach. He agreed. Patient admitted still hoping that Chemo Tx would help him in cure for the cancer. I offered my concerns due to advanced stage of cancer. Code status discussed. POLST introduced. I made sure patient understood the meaning of CPR and DNR/DNI. I questioned patient's wishes for end of life care. Patient said, he did not want to suffer any further once all ordinary measures were exhausted and his becomes imminent. He signed for DNR/DNI amd made his brother Jacek Conway [phone] as surrogate decision maker . I shared this with Nursing staff and entered the order under the Elli. Impression * Pancreatic Metastatic disease * Pain cancer related * Abdominal distention and pain 2nd to cancer * Discomfort 2nd to abdominal distention * Depression * Anticipatory anxiety * Lack of family support * Feelings of hopelessness * Wishes to natural Suggestions * Continue Morphine for pain * Would consider lactulose and Lasix for treatment of ascites * Consider Paracentesis if ascites worsen * Psych eval of depression * DNR/DNI * If patient's condition worsens on this admission, the comfort care discussion would be appropriate Palliative care will remain on board to support this patient during this very difficult time for him Advance care planing 55 min
[2018-06-04] MEDS: Insulin Detemir 100 units/ml Vial (Levemir) SC SCH (21:41)
[2018-06-05] MEDS: Morphine 4 MG/ML VIAL IVP PRN ×2 (05:36→10:47)
[2018-06-05 07:16] LABS: BASO % 0.4 % (0.0-2.0); EOS # 0.1 K/uL (0.0-0.7); EOS % 1.7 % (0.0-4.0); HEMOGLOBIN 11.4 g/dL (12.0-18.0); LYMPH # 0.9 K/uL (1.0-4.3); LYMPH % 12.6 % (20.0-40.0); MEAN CELL VOLUME 89.3 fL (80.0-94.0); MEAN CORPUSCULAR HEMOGLOBIN 29.4 pg (27.0-31.0); MEAN CORPUSCULAR HGB CONC 32.9 g/dL (33.0-37.0); MEAN PLATELET VOLUME 7.9 fL (7.2-11.7); MONO # 0.8 K/uL (0.0-0.8); MONO % 10.5 % (0.0-10.0); NEUT # 5.4 K/uL (1.8-7.0); NEUT % 74.8 % (50.0-75.0); RBC 3.89 Mil/uL (4.40-5.90); WHITE BLOOD COUNT 7.2 K/uL (4.8-10.8)
[2018-06-05 07:42] LABS: ALB/GLOB RATIO 0.8 (1.0-2.1); ALBUMIN 2.9 g/dL (3.5-5.0); ALT/SGPT 88 U/L (21-72); AST/SGOT 87 U/L (17-59); BLOOD UREA NITROGEN 26 mg/dL (9-20); CALCIUM 7.7 mg/dl (8.6-10.4); GFR NON-AFRICAN AMERICAN > 60
[2018-06-05] MEDS: Sodium Chloride 0.9% 1,000 ML IV SCH ×2 (07:42→18:37)
[2018-06-05] MEDS: (Novolin R) Insulin Human Regular 100 units/ml vial SC SCH ×4 (08:15→21:48)
[2018-06-05] MEDS: Morphine 15 mg SR Tab PO SCH ×2 (10:37→22:08)
--- NOTE | 2018-06-05 13:09 | CP.PCM.PN ---
<Chuck Jean Baptiste - Last Filed: 06/05/18 18:10> Subjective - Date & Time of Evaluation Date of Evaluation: 06/05/18 Time of Evaluation: 16:42 - Subjective Subjective: PGY-[address] Brown Patient seen and examined at bedside. No acute events overnight. Patient does continue to have abdominal pain and nausea, though vomiting has been less. Patient had conversation with palliative yesterday and was made DNR/DNI with establishment of his brother Jacek Conway as surrogate decision maker. Care of this patient from the perspective of primary service is going to be symptom control. He was not able to take his PO morphine due to nausea so we increased his IV dose. Objective - Vital Signs/Intake and Output Vital Signs (last 24 hours): Temp Pulse Resp BP Pulse Ox 98.5 F 95 H 18 128/85 92 L 06/05/18 07:20 06/05/18 07:20 06/05/18 07:20 06/05/18 07:20 06/05/18 07:20 Intake and Output: 06/05/18 06/05/18 06:59 18:59 Intake Total 640 Balance 640 - Medications Medications: Current Medications Dextrose (Dextrose 50% Inj) 0 ml IV STAT PRN; Protocol PRN Reason: Hypoglycemia Protocol Dextrose (Glutose 15) 0 gm PO ONCE PRN; Protocol PRN Reason: Hypoglycemia Protocol Diphenhydramine HCl (Benadryl) 12.5 mg PO ONCE PRN PRN Reason: Allergy symptoms Glucagon (Glucagen Diagnostic Kit) 0 mg IM STAT PRN; Protocol PRN Reason: Hypoglycemia Protocol Dextrose (Dextrose 5% In Water 1000 Ml) 1,000 mls @ 0 mls/hr IV .Q0M PRN; Protocol PRN Reason: Hypoglycemia Protocol Sodium Chloride (Sodium Chloride 0.9%) 1,000 mls @ 100 mls/hr IV .Q10H [facility] Last Admin: 06/05/18 07:42 Dose: 100 mls/hr Insulin Detemir (Levemir) 20 unit SC HS [facility] Last Admin: 06/04/18 21:41 Dose: 20 u Insulin Human Regular (Novolin R) 0 unit SC ACHS [facility]; Protocol Last Admin: 06/05/18 11:30 Dose: 4 units Losartan Potassium (Cozaar) 100 mg PO DAILY [facility] Last Admin: 06/05/18 10:40 Dose: 100 mg Morphine Sulfate (Morphine) 3 mg IVP Q4 PRN PRN Reason: Pain, moderate (4-7) Last Admin: 06/05/18 10:47 Dose: 3 mg Morphine Sulfate (Morphine Extended Release Tab) 15 mg PO Q12 [facility] Last Admin: 06/05/18 10:37 Dose: 15 mg Morphine Sulfate (Morphine) 3 mg IVP Q2 PRN PRN Reason: Pain, moderate (4-7) Ondansetron HCl (Zofran Inj) 4 mg IVP Q4H PRN PRN Reason: Nausea/Vomiting Last Admin: 06/05/18 10:47 Dose: 4 mg Pantoprazole Sodium (Protonix Inj) 40 mg IVP DAILY [facility] Last Admin: 06/05/18 10:40 Dose: 40 mg Rivaroxaban (Xarelto) 15 mg PO BID [facility] Last Admin: 06/05/18 10:41 Dose: 15 mg - Labs Labs: 06/05/18 06:57 06/05/18 06:57 PT 13.4 SECONDS (9.7-12.2) H 06/03/18 19:50 INR 1.2 06/03/18 19:50 APTT 28 SECONDS (21-34) 06/03/18 19:50 - Constitutional Appears: No Acute Distress - Head Exam Head Exam: ATRAUMATIC, NORMAL INSPECTION - Eye Exam Eye Exam: EOMI Additional comments: No scleral icterus - ENT Exam ENT Exam: Mucous Membranes Moist - Respiratory Exam Respiratory Exam: Clear to Ausculation Bilateral, NORMAL BREATHING PATTERN. absent: Rhonchi, Wheezes - GI/Abdominal Exam GI & Abdominal Exam: Distended, Firm, Tenderness (diffuse tenderness greatest in RUQ), Normal Bowel Sounds. absent: Rebound - Extremities Exam Extremities Exam: absent: Pedal Edema, Tenderness - Neurological Exam Neurological Exam: Alert, Awake, Oriented x3 - Psychiatric Exam Psychiatric exam: Normal Affect, Normal Mood - Skin Skin Exam: Dry, Intact, Normal Color Additional comments: No jaundice Assessment and Plan - Assessment and Plan (Free Text) Assessment: 53 year old male with PMHx of HTN, HLD, DM, pancreatitis w/ necrosis, recent dx of pancreatic cancer on last admission presenting to ED with acute onset intractable abdominal pain with associated nausea/vomiting since earlier today. Plan: Pancreatic cancer with liver mets Pancreatitis with necrosis (non-gas forming) -Official Pathology Report (05/11): Biopsy liver lesion: Final diagnosis - Liver tissue involved by adenocarcinoma. Favor pancreatico-biliary origin. -CT abdomen/pelvis with IV contrast (05/08): grossly abnormal appearing pancreas with extensive pancreatitis and necrosis. At time of imaging, non-gas forming. Contiguous hypodensity in SMV; thrombus must be considered. Innumerable liver masses. Right pleural effusion. -Abdominal U/S (05/08): Multiple hepatic masses. Fatty infiltrate. Incidental right upper pole renal cortical cyst. -CXR (06/03): moderate R pleural effusion. No definite infiltrate. Normal bowel gas pattern. -CT Abdomen/Pelvis 06/03 - Large R pleural effusion evident. Awaiting official read. -AST/ALT 145/124 (06/03) --> 110/109 (06/04) -ALP 740 --> 641 -Hepatitis panel from last admission negative -Elevated tumor markers on last admission: CA 19-9 Ag >10,000, CEA Ag 251, CA 125 Ag 203 -Heme/Onc (Dr. Rangel) on case - f/u recs -Morphine 4mg IVP Q2 increased from 3mg IV Q2 --> may consider Fentanyl patch as patient has not been able to swallow pills, if he is still in need of pain control -Morphine ER 15 mg PO q12 prn for breakthrough pain -Zofran 4 mg IVP q4 prn -Reglan 10 mg daily added -NS @ 100cc/hr -Advanced to clear liquids -Avoid Tylenol, muscle relaxants due to transaminitis -Holding off on therapeutic paracentesis of ascitic fluid at this time due to patient high risk Code Status - DNR/DNI -Palliative care on case, help appreciated - --Palliative care held in-depth discussion with patient regarding medical decision making and his poor prognosis of metastatic pancreatic CA. - --Patient made DNR/DNI - BrotherJacek made surrogate decision maker Recent PE and DVT likely 2/2 hypercoagulability due to underlying malignancy -CTA abdomen/pelvis (05/08/18): large right lower lobe pulmonary branch pulmonary embolus -CTA chest (05/09/18): Filling defect consistent with pulmonary embolus evident within the right lower lobe pulmonary artery branch. -LE dopplers (05/10/18): left long saphenous vein DVT -ECHO (05/10/18): LVEF is 60%. Mild concentric LVH. Grade 1 diastolic dysfunction. AV appears to be bicuspid. Borderline to mild . MR is trace to mild. RVSP is less than 30 mmHg. -Xarelto 15 mg PO BID x 21 days, then 20 mg PO daily. Patient was unable to swallow PO meds yesterday due to nausea/vomiting, but he did take them today. R Pleural effusion -CXR (06/03): moderate R pleural effusion. 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 Stephanie Jean Baptiste DO, PGY-1 <Harsh Brown H - Last Filed: 06/05/18 19:17> Objective - Vital Signs/Intake and Output Vital Signs (last 24 hours): Temp Pulse Resp BP Pulse Ox 99.4 F 93 H 18 139/88 95 06/05/18 15:00 06/05/18 15:00 06/05/18 15:00 06/05/18 15:00 06/05/18 15:00 - Medications Medications: Current Medications Dextrose (Dextrose 50% Inj) 0 ml IV STAT PRN; Protocol PRN Reason: Hypoglycemia Protocol Dextrose (Glutose 15) 0 gm PO ONCE PRN; Protocol PRN Reason: Hypoglycemia Protocol Diphenhydramine HCl (Benadryl) 12.5 mg PO ONCE PRN PRN Reason: Allergy symptoms Glucagon (Glucagen Diagnostic Kit) 0 mg IM STAT PRN; Protocol PRN Reason: Hypoglycemia Protocol Dextrose (Dextrose 5% In Water 1000 Ml) 1,000 mls @ 0 mls/hr IV .Q0M PRN; Protocol PRN Reason: Hypoglycemia Protocol Sodium Chloride (Sodium Chloride 0.9%) 1,000 mls @ 100 mls/hr IV .Q10H [facility] Last Admin: 06/05/18 18:37 Dose: 100 mls/hr Insulin Detemir (Levemir) 20 unit SC HS [facility] Last Admin: 06/04/18 21:41 Dose: 20 u Insulin Human Regular (Novolin R) 0 unit SC ACHS [facility]; Protocol Last Admin: 06/05/18 18:15 Dose: 2 units Losartan Potassium (Cozaar) 100 mg PO DAILY [facility] Last Admin: 06/05/18 10:40 Dose: 100 mg Metoclopramide HCl (Reglan) 10 mg IVP DAILY PRN PRN Reason: Nausea/Vomiting Last Admin: 06/05/18 18:29 Dose: 10 mg Morphine Sulfate (Morphine Extended Release Tab) 15 mg PO Q12 [facility] Last Admin: 06/05/18 10:37 Dose: 15 mg Morphine Sulfate (Morphine) 4 mg IVP Q2 [facility] Last Admin: 06/05/18 18:16 Dose: 4 mg Ondansetron HCl (Zofran Inj) 4 mg IVP Q4H PRN PRN Reason: Nausea/Vomiting Last Admin: 06/05/18 16:11 Dose: 4 mg Pantoprazole Sodium (Protonix Inj) 40 mg IVP DAILY [facility] Last Admin: 06/05/18 10:40 Dose: 40 mg Rivaroxaban (Xarelto) 15 mg PO BID [facility] Last Admin: 06/05/18 18:27 Dose: 15 mg - Labs Labs: 06/05/18 06:57 06/05/18 06:57 PT 13.4 SECONDS (9.7-12.2) H 06/03/18 19:50 INR 1.2 06/03/18 19:50 APTT 28 SECONDS (21-34) 06/03/18 19:50 Attending/Attestation - Attestation I have personally seen and examined this patient.: Yes I have fully participated in the care of the patient.: Yes I have reviewed all pertinent clinical information, including history, physical exam and plan: Yes Notes (Text): 06/05/18 19:14 Medical attending: Patient was seen and examined by me. Agree with the above note by the resident. The patient was not in any acute distress when we saw - however he reported ongoing nausea and repeatedly dry heaving. He does report some relief with the adminstration of IV morphine and IV zofran. He is not able to take the PO long acting morphine. He is now DNR and DNI. We increased the IV morphine and if by tommorrow he is not able to take the long acting then we will consider TD fentanyl patch with the IV morphine. The patient still has the tense appearing ascities - if the distension gets larger he may need a paracentesis - perhaphs for relief. Overal prognosis is very poor, he says his family is comming to see him Harsh Brown
[2018-06-05] MEDS: Insulin Detemir 100 units/ml Vial (Levemir) SC SCH (21:58)
[2018-06-06] MEDS: Sodium Chloride 0.9% 1,000 ML IV SCH ×2 (03:47→05:30)
[2018-06-06 07:58] LABS: BASO % 0.3 % (0.0-2.0); EOS % 0.4 % (0.0-4.0); LYMPH # 1.2 K/uL (1.0-4.3); LYMPH % 8.9 % (20.0-40.0); MEAN CELL VOLUME 88.9 fL (80.0-94.0); MEAN CORPUSCULAR HEMOGLOBIN 29.1 pg (27.0-31.0); MEAN CORPUSCULAR HGB CONC 32.7 g/dL (33.0-37.0); MEAN PLATELET VOLUME 9.1 fL (7.2-11.7); MONO # 1.2 K/uL (0.0-0.8); MONO % 9.1 % (0.0-10.0); NEUT # 10.7 K/uL (1.8-7.0); NEUT % 81.3 % (50.0-75.0); PLATELET COUNT 201 K/uL (130-400); RBC 3.78 Mil/uL (4.40-5.90); RED CELL DISTRIBUTION WIDTH 14.7 % (11.5-14.5)
[2018-06-06 08:09] LABS: WHITE BLOOD COUNT 13.2 K/uL (4.8-10.8)
[2018-06-06] MEDS: (Novolin R) Insulin Human Regular 100 units/ml vial SC SCH ×4 (08:17→21:35)
[2018-06-06 08:28] LABS: ALB/GLOB RATIO 0.7 (1.0-2.1); ALBUMIN 2.7 g/dL (3.5-5.0); CALCIUM 7.6 mg/dl (8.6-10.4)
[2018-06-06 09:32] LABS: ANISOCYTOSIS SLIGHT; BANDS 1 % (0-2); HYPOCHROMIC SLIGHT; LYMPHOCYTE 10 % (20-40); MONOCYTE 9 % (0-10); NEUTROPHIL 80 % (50-75); PLATELET ESTIMATE NORMAL (NORMAL); POIKILOCYTOSIS SLIGHT; TOTAL CELLS COUNTED 100
[2018-06-06] MEDS ORDERED: Sodium Chloride 0.45% 1,000 ML IV ONE (10:43)
--- NOTE | 2018-06-06 10:49 | CP.PCM.PN ---
<Chuck Jean Baptiste - Last Filed: 06/06/18 16:09> Subjective - Date & Time of Evaluation Date of Evaluation: 06/06/18 Time of Evaluation: 10:46 - Subjective Subjective: PGY-[address] Brown Patient seen and examined at bedside. Patient did spike a fever overnight of 101.2 tmax. Blood cultures were drawn and patient started on Rocephin 1gm daily. Could potentially be caused by pancreatic malignancy. He is still hav ing nausea but Zofran/reglan helping. He has been unable to swallow PO meds. Patient states pain is better controlled, but abdominal distension causes discomfort and worsens his shortness of breath. We plan to perform paracentesis this afternoon at bedside. Patient denies chest pain, dizziness, headache. Objective - Vital Signs/Intake and Output Vital Signs (last 24 hours): Temp Pulse Resp BP Pulse Ox 99.6 F 80 20 130/69 97 06/06/18 07:00 06/06/18 09:48 06/06/18 07:00 06/06/18 09:48 06/06/18 07:10 Intake and Output: 06/06/18 06/06/18 06:59 18:59 Intake Total 800 Balance 800 - Medications Medications: Current Medications Dextrose (Dextrose 50% Inj) 0 ml IV STAT PRN; Protocol PRN Reason: Hypoglycemia Protocol Dextrose (Glutose 15) 0 gm PO ONCE PRN; Protocol PRN Reason: Hypoglycemia Protocol Diphenhydramine HCl (Benadryl) 12.5 mg PO ONCE PRN PRN Reason: Allergy symptoms Glucagon (Glucagen Diagnostic Kit) 0 mg IM STAT PRN; Protocol PRN Reason: Hypoglycemia Protocol Dextrose (Dextrose 5% In Water 1000 Ml) 1,000 mls @ 0 mls/hr IV .Q0M PRN; Protocol PRN Reason: Hypoglycemia Protocol Ceftriaxone Sodium 1 gm/ (Sodium Chloride) 100 mls @ 100 mls/hr IVPB DAILY [facility]; Protocol Last Admin: 06/06/18 09:51 Dose: 100 mls/hr Sodium Chloride (Sodium Chloride 0.45%) 1,000 mls @ 100 mls/hr IV .Q10H ONE Stop: 06/06/18 20:42 Insulin Detemir (Levemir) 20 unit SC HS [facility] Last Admin: 06/05/18 21:58 Dose: 20 u Insulin Human Regular (Novolin R) 0 unit SC ACHS [facility]; Protocol Last Admin: 06/06/18 08:17 Dose: Not Given Losartan Potassium (Cozaar) 100 mg PO DAILY [facility] Last Admin: 06/06/18 09:49 Dose: 100 mg Metoclopramide HCl (Reglan) 10 mg IVP DAILY PRN PRN Reason: Nausea/Vomiting Last Admin: 06/05/18 18:29 Dose: 10 mg Morphine Sulfate (Morphine Extended Release Tab) 15 mg PO Q12 [facility] Last Admin: 06/05/18 22:08 Dose: Not Given Morphine Sulfate (Morphine) 4 mg IVP Q2 [facility] Last Admin: 06/06/18 09:50 Dose: 4 mg Ondansetron HCl (Zofran Inj) 4 mg IVP Q4H PRN PRN Reason: Nausea/Vomiting Last Admin: 06/05/18 16:11 Dose: 4 mg Pantoprazole Sodium (Protonix Inj) 40 mg IVP DAILY [facility] Last Admin: 06/06/18 09:50 Dose: 40 mg Rivaroxaban (Xarelto) 15 mg PO BID [facility] Last Admin: 06/06/18 09:59 Dose: 15 mg - Labs Labs: 06/06/18 07:34 06/06/18 07:34 PT 13.4 SECONDS (9.7-12.2) H 06/03/18 19:50 INR 1.2 06/03/18 19:50 APTT 28 SECONDS (21-34) 06/03/18 19:50 - Constitutional Appears: Non-toxic - Head Exam Head Exam: ATRAUMATIC, NORMAL INSPECTION - Eye Exam Eye Exam: EOMI Additional comments: anicteric sclera - ENT Exam ENT Exam: Mucous Membranes Moist - Respiratory Exam Respiratory Exam: Clear to Ausculation Bilateral, NORMAL BREATHING PATTERN. absent: Rhonchi, Wheezes - GI/Abdominal Exam GI & Abdominal Exam: Distended, Firm, Tenderness - Extremities Exam Extremities Exam: Normal Inspection. absent: Pedal Edema - Neurological Exam Neurological Exam: Alert, Awake, CN II-XII Intact, Oriented x3 - Psychiatric Exam Psychiatric exam: Normal Affect, Normal Mood - Skin Skin Exam: Dry, Intact, Normal Color Assessment and Plan - Assessment and Plan (Free Text) Assessment: Pancreatic cancer with liver mets Pancreatitis with necrosis (non-gas forming) -Official Pathology Report (05/11): Biopsy liver lesion: Final diagnosis - Liver tissue involved by adenocarcinoma. Favor pancreatico-biliary origin. -CT abdomen/pelvis with IV contrast (05/08): grossly abnormal appearing pancreas with extensive pancreatitis and necrosis. At time of imaging, non-gas forming. Contiguous hypodensity in SMV; thrombus must be considered. Innumerable liver masses. Right pleural effusion. -Abdominal U/S (05/08): Multiple hepatic masses. Fatty infiltrate. Incidental right upper pole renal cortical cyst. -CXR (06/03): moderate R pleural effusion. No definite infiltrate. Normal bowel gas pattern. -CT Abdomen/Pelvis 06/03 - Large R pleural effusion evident. Awaiting official read. -AST/ALT 145/124 (06/03) --> 110/109 (06/04) --> 92/72 (06/06) -ALP 740 --> 641 --> 425 (06/06) -Hepatitis panel from last admission negative -Elevated tumor markers on last admission: CA 19-9 Ag >10,000, CEA Ag 251, CA 125 Ag 203 -Heme/Onc (Dr. Rangel) on case - f/u recs -Morphine 4mg IVP Q2 --> may consider Fentanyl patch as patient has not been able to swallow pills, if he is still in need of pain control -Morphine ER 15 mg PO q12 prn for breakthrough pain -Zofran 4 mg IVP q4 prn -Reglan 10 mg daily -Fluids changed to 1/2NS @ 100/hr -Clear liquids -Avoid Tylenol, muscle relaxants due to transaminitis -We are planning therapeutic bedside paracentesis this afternoon Code Status - DNR/DNI -Palliative care on case, help appreciated - --Palliative care held in-depth discussion with patient regarding medical decision making and his poor prognosis of metastatic pancreatic CA. - --Patient made DNR/DNI - BrotherJacek made surrogate decision maker Fever/Leukocytosis -Tmax 101.2 F overnight -Night team started Rocephin 1 gm daily, we will continue -Possibly reaction to pancreatic malignancy Recent PE and DVT likely 2/2 hypercoagulability due to underlying malignancy -CTA abdomen/pelvis (05/08/18): large right lower lobe pulmonary branch pulmonary embolus -CTA chest (05/09/18): Filling defect consistent with pulmonary embolus evident within the right lower lobe pulmonary artery branch. -LE dopplers (05/10/18): left long saphenous vein DVT -ECHO (05/10/18): LVEF is 60%. Mild concentric LVH. Grade 1 diastolic dysfunction. AV appears to be bicuspid. Borderline to mild . MR is trace to mild. RVSP is less than 30 mmHg. -Xarelto 15 mg PO BID x 21 days, then 20 mg PO daily. Patient was unable to swallow PO meds yesterday due to nausea/vomiting, but he did take them today. R Pleural effusion -CXR (06/03): moderate R pleural effusion. 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 Stephanie Jean Baptiste DO, PGY-1 <Harsh Brown H - Last Filed: 06/06/18 18:19> Objective - Vital Signs/Intake and Output Vital Signs (last 24 hours): Temp Pulse Resp BP Pulse Ox 99.7 F H 105 H 20 126/78 94 L 06/06/18 15:00 06/06/18 15:00 06/06/18 15:00 06/06/18 15:00 06/06/18 15:00 Intake and Output: 06/06/18 06/06/18 06:59 18:59 Intake Total 800 50 Output Total 1500 Balance 800 -1450 - Medications Medications: Current Medications Albumin Human (Albumin Human 25% (12.5 Gm/50 Ml)) 12.5 gm IV Q2H [facility] Stop: 06/06/18 20:46 Last Admin: 06/06/18 17:06 Dose: 12.5 gm Dextrose (Dextrose 50% Inj) 0 ml IV STAT PRN; Protocol PRN Reason: Hypoglycemia Protocol Dextrose (Glutose 15) 0 gm PO ONCE PRN; Protocol PRN Reason: Hypoglycemia Protocol Diphenhydramine HCl (Benadryl) 12.5 mg PO ONCE PRN PRN Reason: Allergy symptoms Glucagon (Glucagen Diagnostic Kit) 0 mg IM STAT PRN; Protocol PRN Reason: Hypoglycemia Protocol Ceftriaxone Sodium 1 gm/ (Sodium Chloride) 100 mls @ 100 mls/hr IVPB DAILY [facility]; Protocol Last Admin: 06/06/18 09:51 Dose: 100 mls/hr Sodium Chloride (Sodium Chloride 0.45%) 1,000 mls @ 100 mls/hr IV .Q10H ONE Stop: 06/06/18 20:42 Last Admin: 06/06/18 11:07 Dose: 100 mls/hr Insulin Detemir (Levemir) 20 unit SC HS [facility] Last Admin: 06/05/18 21:58 Dose: 20 u Insulin Human Regular (Novolin R) 0 unit SC ACHS [facility]; Protocol Last Admin: 06/06/18 16:52 Dose: Not Given Losartan Potassium (Cozaar) 100 mg PO DAILY [facility] Last Admin: 06/06/18 09:49 Dose: 100 mg Metoclopramide HCl (Reglan) 10 mg IVP DAILY PRN PRN Reason: Nausea/Vomiting Last Admin: 06/05/18 18:29 Dose: 10 mg Morphine Sulfate (Morphine Extended Release Tab) 15 mg PO Q12 [facility] Last Admin: 06/06/18 10:55 Dose: 15 mg Morphine Sulfate (Morphine) 4 mg IVP Q2 [facility] Last Admin: 06/06/18 17:47 Dose: Not Given Ondansetron HCl (Zofran Inj) 4 mg IVP Q4H PRN PRN Reason: Nausea/Vomiting Last Admin: 06/05/18 16:11 Dose: 4 mg Pantoprazole Sodium (Protonix Inj) 40 mg IVP DAILY [facility] Last Admin: 06/06/18 09:50 Dose: 40 mg Rivaroxaban (Xarelto) 15 mg PO BID [facility] Last Admin: 06/06/18 09:59 Dose: 15 mg - Labs Labs: 06/06/18 07:34 06/06/18 07:34 PT 13.4 SECONDS (9.7-12.2) H 06/03/18 19:50 INR 1.2 06/03/18 19:50 APTT 28 SECONDS (21-34) 06/03/18 19:50 Attending/Attestation - Attestation I have personally seen and examined this patient.: Yes I have fully participated in the care of the patient.: Yes I have reviewed all pertinent clinical information, including history, physical exam and plan: Yes Notes (Text): 06/06/18 18:07 Medical attending: Patient was seen and examined by me. Agree with the above note by the resident. The patient was still feeling so uncomfortable with the abdominal despite the pain medication we are giving him I wanted to do a bedside paracentesis to get him some relief tomorrow - however he asked if it could be done today and I brought an ultrasound to bedside and removed 1.7 liters. It was straw colored fluid and he tolerated removal well. The patient will have additional IV albumin tonight. Also I spoke with the patient's brother as well and informed him that overall prognosis is not good. The paracentesis fluid is being sent for analysis cell count, cytology, culture, I told the patient and family that the results from the tap will likley be very concerning There is also the question of the right side pleural effusion as well - which given that he has a pulmonary embolism maybe very difficult to address. and I told him and the family this. The patient is DNR and DNI, the family is fully aware of this and we also dis cussed that we may be increasing the pain medication even further. Harsh Brown
[2018-06-06] MEDS: Morphine 15 mg SR Tab PO SCH ×2 (10:55→21:39)
[2018-06-06] MEDS: Albumin Human 25% (12.5 gm/50 ml) IV SCH ×3 (17:06→21:01)
[2018-06-06 17:14] LABS: BODY FLUID TYPE PERITONEAL/ASCITES
[2018-06-06 17:43] LABS: BF GROSS APPEARANCE SL CLOUDY (CLEAR)
[2018-06-06 19:09] LABS: BODY FLUID MONO/MACROPHAGE 8 % (0-0)
[2018-06-06] MEDS: Insulin Detemir 100 units/ml Vial (Levemir) SC SCH (21:36)
[2018-06-07] MEDS: (Novolin R) Insulin Human Regular 100 units/ml vial SC SCH ×4 (08:33→22:26)
--- NOTE | 2018-06-07 08:41 | RAD ---
Date of service: 06/07/2018 HISTORY: s/p paracentesis, re-eval pleural effusions COMPARISON: 06/03/2018 FINDINGS: LUNGS: No definite infiltrate. Patchy opacity in left apex may reflect developing pneumonia. PLEURA: Large right pleural effusion. No pneumothorax. Possible very small left pleural effusion. CARDIOVASCULAR: No aortic atherosclerotic calcification present. Normal cardiac size. No pulmonary vascular congestion. OSSEOUS STRUCTURES: No significant abnormalities. VISUALIZED UPPER ABDOMEN: Normal. OTHER FINDINGS: None. IMPRESSION: Large right pleural effusion, increased from prior examination. Possible very small left pleural effusion. Patchy opacity in left apex may reflect developing pneumonia. Follow-up advised.
[2018-06-07] MEDS: Morphine 15 mg SR Tab PO SCH ×2 (10:28→22:25)
[2018-06-07 11:32] LABS: BASO # 0.2 K/uL (0.0-0.2); BASO % 1.9 % (0.0-2.0); EOS # 0.2 K/uL (0.0-0.7); EOS % 1.8 % (0.0-4.0); HEMOGLOBIN 10.1 g/dL (12.0-18.0); LYMPH # 0.7 K/uL (1.0-4.3); LYMPH % 6.8 % (20.0-40.0); MEAN CELL VOLUME 89.7 fL (80.0-94.0); MEAN CORPUSCULAR HEMOGLOBIN 29.5 pg (27.0-31.0); MEAN CORPUSCULAR HGB CONC 32.9 g/dL (33.0-37.0); MEAN PLATELET VOLUME 9.3 fL (7.2-11.7); MONO # 0.9 K/uL (0.0-0.8); MONO % 8.9 % (0.0-10.0); NEUT # 8.1 K/uL (1.8-7.0); NEUT % 80.6 % (50.0-75.0); PLATELET COUNT 168 K/uL (130-400); RBC 3.44 Mil/uL (4.40-5.90); RED CELL DISTRIBUTION WIDTH 15.2 % (11.5-14.5); WHITE BLOOD COUNT 10.1 K/uL (4.8-10.8)
[2018-06-07 11:47] LABS: ALB/GLOB RATIO 0.8 (1.0-2.1); ALBUMIN 2.9 g/dL (3.5-5.0); ALT/SGPT 63 U/L (21-72); AST/SGOT 88 U/L (17-59); BLOOD UREA NITROGEN 35 mg/dL (9-20); CALCIUM 7.7 mg/dl (8.6-10.4); GFR NON-AFRICAN AMERICAN 37
[2018-06-07 11:50] LABS: LIPASE < 10 U/L (23-300)
[2018-06-07 12:03] LABS: ANISOCYTOSIS SLIGHT; EOSINOPHIL 1 % (0-4); HYPOCHROMIC SLIGHT; LYMPHOCYTE 8 % (20-40); MONOCYTE 9 % (0-10); MYELOCYTE 1 % (0-0); NEUTROPHIL 81 % (50-75); PLATELET ESTIMATE NORMAL (NORMAL); POIKILOCYTOSIS SLIGHT; TOTAL CELLS COUNTED 100
--- NOTE | 2018-06-07 14:05 | CP.PCM.PN ---
<Chuck Jean Baptiste - Last Filed: 06/07/18 16:18> Subjective - Date & Time of Evaluation Date of Evaluation: 06/07/18 Time of Evaluation: 13:52 - Subjective Subjective: PGY-[address] Brown Patient seen and examined at bedside. No new complaints - patient does continue to have nausea and dry heaving. He continues to have shortness of breath. His pain has been maintained at around a 3-4/10. Paracentesis yesterday was done bedside with removal of about 1.6 L of fluid. Patient reports significant relief following procedure. Plan for bedside thoracentesis this afternoon. Patient denies chest pain, headache, dizziness. Objective - Vital Signs/Intake and Output Vital Signs (last 24 hours): Temp Pulse Resp BP Pulse Ox 99.0 F 101 H 20 154/91 H 91 L 06/07/18 07:11 06/07/18 07:11 06/07/18 07:11 06/07/18 07:11 06/07/18 07:11 Intake and Output: 06/07/18 06/07/18 06:59 18:59 Intake Total 900 Balance 900 - Medications Medications: Current Medications Dextrose (Dextrose 50% Inj) 0 ml IV STAT PRN; Protocol PRN Reason: Hypoglycemia Protocol Dextrose (Glutose 15) 0 gm PO ONCE PRN; Protocol PRN Reason: Hypoglycemia Protocol Diphenhydramine HCl (Benadryl) 12.5 mg PO ONCE PRN PRN Reason: Allergy symptoms Glucagon (Glucagen Diagnostic Kit) 0 mg IM STAT PRN; Protocol PRN Reason: Hypoglycemia Protocol Ceftriaxone Sodium 1 gm/ (Sodium Chloride) 100 mls @ 100 mls/hr IVPB DAILY [facility]; Protocol Last Admin: 06/07/18 10:35 Dose: 100 mls/hr Insulin Detemir (Levemir) 20 unit SC HS [facility] Last Admin: 06/06/18 21:36 Dose: Not Given Insulin Human Regular (Novolin R) 0 unit SC ACHS [facility]; Protocol Last Admin: 06/07/18 12:42 Dose: 4 units Losartan Potassium (Cozaar) 100 mg PO DAILY [facility] Last Admin: 06/07/18 10:28 Dose: 100 mg Metoclopramide HCl (Reglan) 10 mg IVP DAILY PRN PRN Reason: Nausea/Vomiting Last Admin: 06/05/18 18:29 Dose: 10 mg Morphine Sulfate (Morphine Extended Release Tab) 15 mg PO Q12 [facility] Last Admin: 06/07/18 10:28 Dose: 15 mg Morphine Sulfate (Morphine) 4 mg IVP Q2 [facility] Last Admin: 06/07/18 10:29 Dose: 4 mg Ondansetron HCl (Zofran Inj) 4 mg IVP Q4H PRN PRN Reason: Nausea/Vomiting Last Admin: 06/07/18 12:42 Dose: 4 mg Pantoprazole Sodium (Protonix Inj) 40 mg IVP DAILY [facility] Last Admin: 06/07/18 10:29 Dose: 40 mg Rivaroxaban (Xarelto) 15 mg PO BID [facility] Last Admin: 06/06/18 09:59 Dose: 15 mg - Labs Labs: 06/07/18 11:13 06/07/18 11:13 PT 13.4 SECONDS (9.7-12.2) H 06/03/18 19:50 INR 1.2 06/03/18 19:50 APTT 28 SECONDS (21-34) 06/03/18 19:50 - Constitutional Appears: No Acute Distress - Head Exam Head Exam: ATRAUMATIC, NORMOCEPHALIC - Eye Exam Eye Exam: EOMI Pupil Exam: PERRL - ENT Exam ENT Exam: Mucous Membranes Moist - Respiratory Exam Respiratory Exam: Clear to Ausculation Bilateral, NORMAL BREATHING PATTERN. absent: Rhonchi, Wheezes - Cardiovascular Exam Cardiovascular Exam: REGULAR RHYTHM, +S1, +S2 - GI/Abdominal Exam GI & Abdominal Exam: Distended, Tenderness Additional comments: Decreased abdominal girth compared to yesterday s/p parecentesis - Extremities Exam Extremities Exam: absent: Pedal Edema, Tenderness - Neurological Exam Neurological Exam: Alert, Awake, Oriented x3 - Psychiatric Exam Psychiatric exam: Depressed, Normal Affect - Skin Skin Exam: Dry, Intact Assessment and Plan - Assessment and Plan (Free Text) Assessment: Pancreatic cancer with liver mets Pancreatitis with necrosis (non-gas forming) -Official Pathology Report (05/11): Biopsy liver lesion: Final diagnosis - Liver tissue involved by adenocarcinoma. Favor pancreatico-biliary origin. -CT abdomen/pelvis with IV contrast (05/08): grossly abnormal appearing pancreas with extensive pancreatitis and necrosis. At time of imaging, non-gas forming. Contiguous hypodensity in SMV; thrombus must be considered. Innumerable liver masses. Right pleural effusion. -Abdominal U/S (05/08): Multiple hepatic masses. Fatty infiltrate. Incidental right upper pole renal cortical cyst. -S/p Paracentesis 06/06 - Removal of about 1.7 liters of straw-colored fluid via ultrasound guided paracentesis. Initial fluid analysis reveals WBCs and RBCs. -Plan for ultrasound-guided thoracentesis this afternoon at bedside -CXR (06/03): moderate R pleural effusion. No definite infiltrate. Normal bowel gas pattern. -CT Abdomen/Pelvis 06/03 - Large R pleural effusion evident. Awaiting official read. -All cultures (blood, sputum, RAFFY fungal culture) negative x24 hours -AST/ALT 145/124 (06/03) --> 110/109 (06/04) --> 92/72 (06/06) -ALP 740 --> 641 --> 425 (06/06) -Hepatitis panel from last admission negative -Elevated tumor markers on last admission: CA 19-9 Ag >10,000, CEA Ag 251, CA 125 Ag 203 -Heme/Onc (Dr. Rangel) on case - f/u recs -Morphine 4mg IVP Q2 --> may consider Fentanyl patch as patient has not been able to swallow pills, if he is still in need of pain control -Morphine ER 15 mg PO q12 prn for breakthrough pain -Zofran 4 mg IVP q4 prn -Reglan 10 mg daily -Fluids changed to 1/2NS @ 100/hr -Clear liquids -Avoid Tylenol, muscle relaxants due to transaminitis -We are planning therapeutic bedside paracentesis this afternoon Code Status - DNR/DNI -Palliative care on case, help appreciated - --Palliative care held in-depth discussion with patient regarding medical decision making and his poor prognosis of metastatic pancreatic CA. - --Patient made DNR/DNI - Brother, Jacek Conway made surrogate decision maker Fever/Leukocytosis -Normal temp at WBC count as of 06/07 -Rocephin 1 gm daily -Possibly reaction to pancreatic malignancy Recent PE and DVT likely 2/2 hypercoagulability due to underlying malignancy -CTA abdomen/pelvis (05/08/18): large right lower lobe pulmonary branch pulmonary embolus -CTA chest (05/09/18): Filling defect consistent with pulmonary embolus evident within the right lower lobe pulmonary artery branch. -LE dopplers (05/10/18): left long saphenous vein DVT -ECHO (05/10/18): LVEF is 60%. Mild concentric LVH. Grade 1 diastolic dysfunction. AV appears to be bicuspid. Borderline to mild . MR is trace to mild. RVSP is less than 30 mmHg. -Xarelto 15 mg PO BID x 21 days, then 20 mg PO daily. Patient was unable to swallow PO meds yesterday due to nausea/vomiting, but he did take them today. R Pleural effusion -CXR (06/03): moderate R pleural effusion. 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 Stephanie Jean Baptiste DO, PGY-1 <Harsh Brown H - Last Filed: 06/07/18 16:38> Objective - Vital Signs/Intake and Output Vital Signs (last 24 hours): Temp Pulse Resp BP Pulse Ox 99.0 F 104 H 20 154/91 H 91 L 06/07/18 07:11 06/07/18 12:00 06/07/18 07:11 06/07/18 07:11 06/07/18 12:00 Intake and Output: 06/07/18 06/07/18 06:59 18:59 Intake Total 900 Balance 900 - Medications Medications: Current Medications Dextrose (Dextrose 50% Inj) 0 ml IV STAT PRN; Protocol PRN Reason: Hypoglycemia Protocol Dextrose (Glutose 15) 0 gm PO ONCE PRN; Protocol PRN Reason: Hypoglycemia Protocol Diphenhydramine HCl (Benadryl) 12.5 mg PO ONCE PRN PRN Reason: Allergy symptoms Glucagon (Glucagen Diagnostic Kit) 0 mg IM STAT PRN; Protocol PRN Reason: Hypoglycemia Protocol Ceftriaxone Sodium 1 gm/ (Sodium Chloride) 100 mls @ 100 mls/hr IVPB DAILY [facility]; Protocol Last Admin: 06/07/18 10:35 Dose: 100 mls/hr Insulin Detemir (Levemir) 20 unit SC HS [facility] Last Admin: 06/06/18 21:36 Dose: Not Given Insulin Human Regular (Novolin R) 0 unit SC ACHS [facility]; Protocol Last Admin: 06/07/18 12:42 Dose: 4 units Losartan Potassium (Cozaar) 100 mg PO DAILY [facility] Last Admin: 06/07/18 10:28 Dose: 100 mg Metoclopramide HCl (Reglan) 10 mg IVP DAILY PRN PRN Reason: Nausea/Vomiting Last Admin: 06/05/18 18:29 Dose: 10 mg Morphine Sulfate (Morphine Extended Release Tab) 15 mg PO Q12 [facility] Last Admin: 06/07/18 10:28 Dose: 15 mg Morphine Sulfate (Morphine) 4 mg IVP Q2 [facility] Last Admin: 06/07/18 15:01 Dose: 4 mg Ondansetron HCl (Zofran Inj) 4 mg IVP Q4H PRN PRN Reason: Nausea/Vomiting Last Admin: 06/07/18 12:42 Dose: 4 mg Pantoprazole Sodium (Protonix Inj) 40 mg IVP DAILY [facility] Last Admin: 06/07/18 10:29 Dose: 40 mg Rivaroxaban (Xarelto) 15 mg PO BID [facility] Last Admin: 06/06/18 09:59 Dose: 15 mg - Labs Labs: 06/07/18 11:13 06/07/18 11:13 PT 13.4 SECONDS (9.7-12.2) H 06/03/18 19:50 INR 1.2 06/03/18 19:50 APTT 28 SECONDS (21-34) 06/03/18 19:50 Attending/Attestation - Attestation I have personally seen and examined this patient.: Yes I have fully participated in the care of the patient.: Yes I have reviewed all pertinent clinical information, including history, physical exam and plan: Yes Notes (Text): 06/07/18 16:30 Medical attending: Patient was seen and examined by me. Reviewed the above note by the resident and agree with the above The patient at about 3:15 this afternoon we did a thoracentesis to see if we could get any relief for his breathing - he was having low SpO2s in the 90 and 91 range with nasal canula overnight and morning. He has a history of a DVT and PE and also yesterday on Xarelto. This is not ideal to do a thoracentesis - however given his advanced pancreatic adenocarcinoma with metastasis I want to try to get him any relief possible. The CXRAY yesterday looks a lot worse since before. He also had a CT scan with larger pleural effusions We used sonosite ultrasound to assess the right lung and find a suitable area for thoracentesis. Consent was signed. We had the patient bend over at the bedside and onto a portable table with pillow. After a sutiable area was marked, it was cleaned with cholrahexadine and benadine and 1 % lidocaine was given for anesthesia to this area. During the anesthesia there was aspiration of of pleural fluid as well. It was very easily aspiration and pushed. This same area was then used to introduce the cather over needle and the catheter was lefted in place. This was connected to the piping and connected to the suction 1 liter vials and 1.1 liters removed. It was a dark purple color. He was not short of breath, he did not have chest pain, did not have tachycardia. He went back to bed shortly We are getting a new chest XRAY now Hopefully he will feel better and have better Sp02s This being said overal prognosis is still very very poor. Harsh
--- NOTE | 2018-06-07 16:53 | RAD ---
Date of service: 06/07/2018 HISTORY: s/p thoracentesis COMPARISON: 06/07/2018 FINDINGS: LUNGS: Extensive opacity in the lower right hemithorax. Rule out pneumonia. There is lesser opacity in the upper right clifford thorax, mildly improved compared to the prior examination. There opacity in the left apex. Possible pneumonia. PLEURA: Moderate right pleural effusion, grossly unchanged. No pneumothorax. Possible very small left pleural effusion. CARDIOVASCULAR: Normal heart size. No definite congestive change. Right central venous infusion port. Normal cardiac size. No pulmonary vascular congestion. OSSEOUS STRUCTURES: No significant abnormalities. VISUALIZED UPPER ABDOMEN: Normal. OTHER FINDINGS: None. IMPRESSION: Moderate right pleural effusion. Opacity at right base and lesser opacity in both upper lobes possible pneumonia no pneumothorax.
[2018-06-07 17:14] LABS: BODY FLUID TYPE PLEURAL/THORACENTESI
[2018-06-07 20:29] LABS: BODY FLUID MONO/MACROPHAGE 10 % (0-0)
[2018-06-07 20:30] LABS: BF GROSS APPEARANCE BLOODY (CLEAR)
[2018-06-07 20:35] LABS: BODY FLUID TOTAL COUNT 100 (0-0)
[2018-06-07] MEDS: Insulin Detemir 100 units/ml Vial (Levemir) SC SCH (22:23)
--- NOTE | 2018-06-08 01:00 | CP.PCM.CON ---
History of Present Illness - History of Present Illness History of Present Illness: 53 year old female with a history of DM, PE on Xarelto, stage IV pancreatic cancer with liver metastasis diagnosed 05/2018 awaiting chemotherapy, admitted with abdominal pain and distention. The patient was to receive chemotherapy thi s week but notes to increasing abdominal pain and swelling. He denies fevers and chills. Imaging revealed B/L pleural effusions and abdominal ascites. Past medical history: DM, PE on Xarelto, stage IV pancreatic cancer with liver metastasis Past surgical history: LE amputation related to DM complication. Family history: Denies hematologic and oncologic problems Social history: Former tobacco abuse Allergies: NKDA Review of systems: All remaining review of systems including HEENT, c ardiovascular, respiratory, gastrointestinal, genitourinary, musculoskeletal, dermatologic, neurologic, and psychiatric are negative unless mentioned in the HPI. Past Patient History - Infectious Disease Hx of Infectious Diseases: None - Past Medical History & Family History Past Medical History?: Yes - Past Social History Smoking Status: Current Some Days Smoker - CARDIAC Hx Cardiac Disorders: Yes Hx Hypertension: Yes - PULMONARY Hx Respiratory Disorders: Yes Hx Asthma: Yes Hx Pulmonary Embolism: Yes - NEUROLOGICAL Hx Neurological Disorder: No - HEENT Hx HEENT Problems: No - RENAL Hx Chronic Kidney Disease: No - ENDOCRINE/METABOLIC Hx Endocrine Disorders: Yes Hx Diabetes Mellitus Type 1: Yes - HEMATOLOGICAL/ONCOLOGICAL Hx Blood Disorders: Yes Hx Cancer: Yes - INTEGUMENTARY Hx Dermatological Problems: Yes - MUSCULOSKELETAL/RHEUMATOLOGICAL Hx Musculoskeletal Disorders: Yes Hx Falls: No Other/Comment: BKA - GASTROINTESTINAL Hx Gastrointestinal Disorders: Yes Hx Gastritis: Yes Hx Pancreatitis: Yes - GENITOURINARY/GYNECOLOGICAL Hx Genitourinary Disorders: No - PSYCHIATRIC Hx Psychophysiologic Disorder: No Hx Substance Use: No - SURGICAL HISTORY Hx Surgeries: Yes Hx Amputation: Yes (Right BKA, Left TMA) - ANESTHESIA Hx Anesthesia: Yes Hx Anesthesia Reactions: No Hx Malignant Hyperthermia: No Has any member of the family had a problem w/ anesthesia?: No Meds Allergies/Adverse Reactions: Allergies Allergy/AdvReac Type Severity Reaction Status Date / Time FISH Allergy RASH Verified 03/12/18 16:06 hazelnut Allergy RASH Verified 03/12/18 16:06 - Medications Medications: Current Medications Dextrose (Dextrose 50% Inj) 0 ml IV STAT PRN; Protocol PRN Reason: Hypoglycemia Protocol Dextrose (Glutose 15) 0 gm PO ONCE PRN; Protocol PRN Reason: Hypoglycemia Protocol Diphenhydramine HCl (Benadryl) 12.5 mg PO ONCE PRN PRN Reason: Allergy symptoms Glucagon (Glucagen Diagnostic Kit) 0 mg IM STAT PRN; Protocol PRN Reason: Hypoglycemia Protocol Ceftriaxone Sodium 1 gm/ (Sodium Chloride) 100 mls @ 100 mls/hr IVPB DAILY [facility]; Protocol Last Admin: 06/07/18 10:35 Dose: 100 mls/hr Insulin Detemir (Levemir) 20 unit SC HS [facility] Last Admin: 06/07/18 22:23 Dose: 20 u Insulin Human Regular (Novolin R) 0 unit SC ACHS [facility]; Protocol Last Admin: 06/07/18 22:26 Dose: 2 units Losartan Potassium (Cozaar) 100 mg PO DAILY [facility] Last Admin: 06/07/18 10:28 Dose: 100 mg Metoclopramide HCl (Reglan) 10 mg IVP DAILY PRN PRN Reason: Nausea/Vomiting Last Admin: 06/05/18 18:29 Dose: 10 mg Morphine Sulfate (Morphine Extended Release Tab) 15 mg PO Q12 [facility] Last Admin: 06/07/18 22:25 Dose: Not Given Morphine Sulfate (Morphine) 4 mg IVP Q2 [facility] Last Admin: 06/07/18 23:45 Dose: 4 mg Ondansetron HCl (Zofran Inj) 4 mg IVP Q4H PRN PRN Reason: Nausea/Vomiting Last Admin: 06/07/18 23:48 Dose: 4 mg Pantoprazole Sodium (Protonix Inj) 40 mg IVP DAILY [facility] Last Admin: 06/07/18 10:29 Dose: 40 mg Rivaroxaban (Xarelto) 15 mg PO BID [facility] Last Admin: 06/06/18 09:59 Dose: 15 mg Physical Exam - Head Exam Head Exam: ATRAUMATIC - Eye Exam Eye Exam: Normal appearance - ENT Exam ENT Exam: Mucous Membranes Dry - Respiratory Exam Respiratory Exam: NORMAL BREATHING PATTERN - Cardiovascular Exam Cardiovascular Exam: +S1, +S2 - GI/Abdominal Exam GI & Abdominal Exam: Normal Bowel Sounds - Neurological Exam Neurological exam: Oriented x3 - Psychiatric Exam Psychiatric exam: Normal Affect - Skin Skin Exam: Warm Results - Vital Signs Recent Vital Signs: Last Vital Signs Temp 100.1 F H 06/07/18 23:25 Pulse 105 H 06/07/18 23:25 Resp 20 06/07/18 23:25 BP 126/70 06/07/18 23:25 Pulse Ox 86 L 06/07/18 16:00 - Labs Result Diagrams: 06/07/18 11:13 06/07/18 11:13 Labs: Laboratory Results - last 24 hr 06/07/18 06/07/18 06/07/18 06:41 11:09 11:13 WBC 10.1 RBC 3.44 L Hgb 10.1 L Hct 30.8 L MCV 89.7 MCH 29.5 MCHC 32.9 L RDW 15.2 H Plt Count 168 MPV 9.3 Neut % (Auto) 80.6 H Lymph % (Auto) 6.8 L Major % (Auto) 8.9 Eos % (Auto) 1.8 Baso % (Auto) 1.9 Neut # (Auto) 8.1 H Lymph # (Auto) 0.7 L Major # (Auto) 0.9 H Eos # (Auto) 0.2 Baso # (Auto) 0.2 Neutrophils % (Manual) 81 H Lymphocytes % (Manual) 8 L Monocytes % (Manual) 9 Eosinophils % (Manual) 1 Myelocytes % 1 H Platelet Estimate Normal Hypochromasia (manual) Slight Poikilocytosis (manual Slight Anisocytosis (manual) Slight Sodium Potassium Chloride Carbon Dioxide Anion Gap BUN Creatinine Est GFR ( Amer) Est GFR (Non-Af Amer) POC Glucose (mg/dL) 121 H 214 H Random Glucose Calcium Phosphorus Magnesium Total Bilirubin AST ALT Alkaline Phosphatase Total Protein Albumin Globulin Albumin/Globulin Ratio Lipase Fluid Source Fluid Appearance Fluid WBC Fluid RBC Fluid Tot Cell Count Fluid Neutrophils Fluid Lymphocytes Fld Monocyte/Macrophag Fluid Comment 06/07/18 06/07/18 06/07/18 11:13 16:21 17:12 WBC RBC Hgb Hct MCV MCH MCHC RDW Plt Count MPV Neut % (Auto) Lymph % (Auto) Major % (Auto) Eos % (Auto) Baso % (Auto) Neut # (Auto) Lymph # (Auto) Major # (Auto) Eos # (Auto) Baso # (Auto) Neutrophils % (Manual) Lymphocytes % (Manual) Monocytes % (Manual) Eosinophils % (Manual) Myelocytes % Platelet Estimate Hypochromasia (manual) Poikilocytosis (manual Anisocytosis (manual) Sodium 131 L Potassium 4.1 Chloride 96 L Carbon Dioxide 27 Anion Gap 13 BUN 35 H Creatinine 1.9 H Est GFR ( Amer) 45 Est GFR (Non-Af Amer) 37 POC Glucose (mg/dL) 198 H Random Glucose 181 H D Calcium 7.7 L Phosphorus 4.4 Magnesium 2.1 Total Bilirubin 6.8 H AST 88 H ALT 63 Alkaline Phosphatase 363 H Total Protein 6.4 Albumin 2.9 L Globulin 3.4 Albumin/Globulin Ratio 0.8 L Lipase < 10 L Fluid Source Pleural/thoracentesi Fluid Appearance Bloody Fluid WBC 810.0 H Fluid RBC 392505.0 H Fluid Tot Cell Count 100 H Fluid Neutrophils 64.0 H Fluid Lymphocytes 20.0 H Fld Monocyte/Macrophag 10 H Fluid Comment 06/07/18 21:20 WBC RBC Hgb Hct MCV MCH MCHC RDW Plt Count MPV Neut % (Auto) Lymph % (Auto) Major % (Auto) Eos % (Auto) Baso % (Auto) Neut # (Auto) Lymph # (Auto) Major # (Auto) Eos # (Auto) Baso # (Auto) Neutrophils % (Manual) Lymphocytes % (Manual) Monocytes % (Manual) Eosinophils % (Manual) Myelocytes % Platelet Estimate Hypochromasia (manual) Poikilocytosis (manual Anisocytosis (manual) Sodium Potassium Chloride Carbon Dioxide Anion Gap BUN Creatinine Est GFR ( Amer) Est GFR (Non-Af Amer) POC Glucose (mg/dL) 330 H Random Glucose Calcium Phosphorus Magnesium Total Bilirubin AST ALT Alkaline Phosphatase Total Protein Albumin Globulin Albumin/Globulin Ratio Lipase Fluid Source Fluid Appearance Fluid WBC Fluid RBC Fluid Tot Cell Count Fluid Neutrophils Fluid Lymphocytes Fld Monocyte/Macrophag Fluid Comment Assessment & Plan (1) Pancreatic cancer Assessment and Plan: stage IV liver metastasis outpatient chemotherapy DNR/DNI Status: Acute (2) Pulmonary embolism Assessment and Plan: with DVT provoked from malignancy was on Xarelto Status: Acute (3) Anemia Assessment and Plan: anemia of chronic disease Thank you for this interesting consult. Status: Acute
--- NOTE | 2018-06-08 01:07 | CP.PCM.PN ---
Subjective - Date & Time of Evaluation Date of Evaluation: 06/06/18 Time of Evaluation: 12:00 - Subjective Subjective: Has abdominal pain. Objective - Vital Signs/Intake and Output Vital Signs (last 24 hours): Temp Pulse Resp BP Pulse Ox 100.1 F H 105 H 20 126/70 86 L 06/07/18 23:25 06/07/18 23:25 06/07/18 23:25 06/07/18 23:25 06/07/18 16:00 Intake and Output: 06/07/18 06/08/18 18:59 06:59 Intake Total 240 Output Total 1500 Balance -1260 - Medications Medications: Current Medications Dextrose (Dextrose 50% Inj) 0 ml IV STAT PRN; Protocol PRN Reason: Hypoglycemia Protocol Dextrose (Glutose 15) 0 gm PO ONCE [facility]N; Protocol PRN Reason: Hypoglycemia Protocol Diphenhydramine HCl (Benadryl) 12.5 mg PO ONCE PRN PRN Reason: Allergy symptoms Glucagon (Glucagen Diagnostic Kit) 0 mg IM STAT PRN; Protocol PRN Reason: Hypoglycemia Protocol Ceftriaxone Sodium 1 gm/ (Sodium Chloride) 100 mls @ 100 mls/hr IVPB DAILY [facility]; Protocol Last Admin: 06/07/18 10:35 Dose: 100 mls/hr Insulin Detemir (Levemir) 20 unit SC HS [facility] Last Admin: 06/07/18 22:23 Dose: 20 u Insulin Human Regular (Novolin R) 0 unit SC ACHS [facility]; Protocol Last Admin: 06/07/18 22:26 Dose: 2 units Losartan Potassium (Cozaar) 100 mg PO DAILY [facility] Last Admin: 06/07/18 10:28 Dose: 100 mg Metoclopramide HCl (Reglan) 10 mg IVP DAILY PRN PRN Reason: Nausea/Vomiting Last Admin: 06/05/18 18:29 Dose: 10 mg Morphine Sulfate (Morphine Extended Release Tab) 15 mg PO Q12 [facility] Last Admin: 06/07/18 22:25 Dose: Not Given Morphine Sulfate (Morphine) 4 mg IVP Q2 [facility] Last Admin: 06/07/18 23:45 Dose: 4 mg Ondansetron HCl (Zofran Inj) 4 mg IVP Q4H PRN PRN Reason: Nausea/Vomiting Last Admin: 06/07/18 23:48 Dose: 4 mg Pantoprazole Sodium (Protonix Inj) 40 mg IVP DAILY [facility] Last Admin: 06/07/18 10:29 Dose: 40 mg Rivaroxaban (Xarelto) 15 mg PO BID [facility] Last Admin: 06/06/18 09:59 Dose: 15 mg - Labs Labs: 06/07/18 11:13 06/07/18 11:13 PT 13.4 SECONDS (9.7-12.2) H 06/03/18 19:50 INR 1.2 06/03/18 19:50 APTT 28 SECONDS (21-34) 06/03/18 19:50 - Head Exam Head Exam: ATRAUMATIC - Eye Exam Eye Exam: Normal appearance - ENT Exam ENT Exam: Mucous Membranes Dry - Respiratory Exam Respiratory Exam: Decreased Breath Sounds - Cardiovascular Exam Cardiovascular Exam: +S1, +S2 - GI/Abdominal Exam GI & Abdominal Exam: Normal Bowel Sounds Assessment and Plan (1) Pancreatic cancer Assessment & Plan: liver mets ? malignant ascites; for paracentesis Status: Acute (2) Pulmonary embolism Assessment & Plan: was on Xarelto; on hold for paracentesis Status: Acute (3) Anemia Assessment & Plan: chronic disease Status: Acute
--- NOTE | 2018-06-08 01:10 | CP.PCM.PN ---
Subjective - Date & Time of Evaluation Date of Evaluation: 06/07/18 Time of Evaluation: 17:00 - Subjective Subjective: Feeling better s/p paracentesis Objective - Vital Signs/Intake and Output Vital Signs (last 24 hours): Temp Pulse Resp BP Pulse Ox 100.1 F H 105 H 20 126/70 86 L 06/07/18 23:25 06/07/18 23:25 06/07/18 23:25 06/07/18 23:25 06/07/18 16:00 Intake and Output: 06/07/18 06/08/18 18:59 06:59 Intake Total 240 Output Total 1500 Balance -1260 - Medications Medications: Current Medications Dextrose (Dextrose 50% Inj) 0 ml IV STAT PRN; Protocol PRN Reason: Hypoglycemia Protocol Dextrose (Glutose 15) 0 gm PO ONCE PRN; Protocol PRN Reason: Hypoglycemia Protocol Diphenhydramine HCl (Benadryl) 12.5 mg PO ONCE PRN PRN Reason: Allergy symptoms Glucagon (Glucagen Diagnostic Kit) 0 mg IM STAT PRN; Protocol PRN Reason: Hypoglycemia Protocol Ceftriaxone Sodium 1 gm/ (Sodium Chloride) 100 mls @ 100 mls/hr IVPB DAILY [facility]; Protocol Last Admin: 06/07/18 10:35 Dose: 100 mls/hr Insulin Detemir (Levemir) 20 unit SC HS [facility] Last Admin: 06/07/18 22:23 Dose: 20 u Insulin Human Regular (Novolin R) 0 unit SC ACHS [facility]; Protocol Last Admin: 06/07/18 22:26 Dose: 2 units Losartan Potassium (Cozaar) 100 mg PO DAILY [facility] Last Admin: 06/07/18 10:28 Dose: 100 mg Metoclopramide HCl (Reglan) 10 mg IVP DAILY PRN PRN Reason: Nausea/Vomiting Last Admin: 06/05/18 18:29 Dose: 10 mg Morphine Sulfate (Morphine Extended Release Tab) 15 mg PO Q12 [facility] Last Admin: 06/07/18 22:25 Dose: Not Given Morphine Sulfate (Morphine) 4 mg IVP Q2 [facility] Last Admin: 06/07/18 23:45 Dose: 4 mg Ondansetron HCl (Zofran Inj) 4 mg IVP Q4H PRN PRN Reason: Nausea/Vomiting Last Admin: 06/07/18 23:48 Dose: 4 mg Pantoprazole Sodium (Protonix Inj) 40 mg IVP DAILY [facility] Last Admin: 06/07/18 10:29 Dose: 40 mg Rivaroxaban (Xarelto) 15 mg PO BID [facility] Last Admin: 06/06/18 09:59 Dose: 15 mg - Labs Labs: 06/07/18 11:13 06/07/18 11:13 PT 13.4 SECONDS (9.7-12.2) H 06/03/18 19:50 INR 1.2 06/03/18 19:50 APTT 28 SECONDS (21-34) 06/03/18 19:50 - Head Exam Head Exam: ATRAUMATIC - Eye Exam Eye Exam: Normal appearance - ENT Exam ENT Exam: Mucous Membranes Dry - Respiratory Exam Respiratory Exam: NORMAL BREATHING PATTERN - Cardiovascular Exam Cardiovascular Exam: +S1, +S2 - GI/Abdominal Exam GI & Abdominal Exam: Normal Bowel Sounds Assessment and Plan (1) Pancreatic cancer Assessment & Plan: liver metastasis s/p paracentesis ? malignant rising bilirirubin concerning; consider GI evaluation DNR/DNI Status: Acute (2) Pulmonary embolism Assessment & Plan: provoked from malignancy Xarelto on hold s/p paracentesis Status: Acute (3) Anemia Assessment & Plan: chronic disease Status: Acute
[2018-06-08] MEDS: (Novolin R) Insulin Human Regular 100 units/ml vial SC SCH ×4 (07:42→21:19)
[2018-06-08 07:58] LABS: BASO % 0.3 % (0.0-2.0); EOS # 0.2 K/uL (0.0-0.7); EOS % 2.2 % (0.0-4.0); LYMPH % 9.8 % (20.0-40.0); MEAN CELL VOLUME 88.4 fL (80.0-94.0); MEAN CORPUSCULAR HEMOGLOBIN 29.8 pg (27.0-31.0); MEAN CORPUSCULAR HGB CONC 33.8 g/dL (33.0-37.0); MEAN PLATELET VOLUME 8.1 fL (7.2-11.7); MONO % 9.9 % (0.0-10.0); NEUT # 7.7 K/uL (1.8-7.0); NEUT % 77.8 % (50.0-75.0); PLATELET COUNT 220 K/uL (130-400); RBC 3.35 Mil/uL (4.40-5.90); RED CELL DISTRIBUTION WIDTH 14.8 % (11.5-14.5); WHITE BLOOD COUNT 9.8 K/uL (4.8-10.8)
[2018-06-08 08:20] LABS: ALB/GLOB RATIO 0.8 (1.0-2.1); ALBUMIN 2.9 g/dL (3.5-5.0); CALCIUM 7.6 mg/dl (8.6-10.4)
[2018-06-08 09:07] LABS: BANDS 1 % (0-2); HYPOCHROMIC SLIGHT; LYMPHOCYTE 4 % (20-40); MONOCYTE 7 % (0-10); NEUTROPHIL 86 % (50-75); PLATELET ESTIMATE NORMAL (NORMAL); REACTIVE LYMPHOCYTES 2 % (0-0); TOTAL CELLS COUNTED 100
--- NOTE | 2018-06-08 09:46 | RAD ---
Date of service: 06/08/2018 HISTORY: s/p thoracentesis COMPARISON: 06/07/2018 FINDINGS: The right MediPort terminates at the cavoatrial junction. LUNGS: The lungs are well inflated. There is multifocal patchy airspace disease in the right upper lobe. There is also patchy airspace disease in the left upper and lower lobes. There is mild pulmonary venous congestion. Perpendicular linear opacities in the left lower lobe may represent mild interstitial pulmonary edema. PLEURA: There is little interval change in moderate right pleural effusion. No left pleural effusion. No pneumothorax. CARDIOVASCULAR: The heart is normal in size. No aortic atherosclerotic calcification present. OSSEOUS STRUCTURES: Within normal limits for the patient's age. VISUALIZED UPPER ABDOMEN: Normal. OTHER FINDINGS: None. IMPRESSION: Persistent moderate right pleural effusion. Multifocal airspace disease in the right lung may represent multifocal pneumonia. Patchy airspace disease in the left upper and lower lobes may represent subsegmental atelectasis however superimposed pneumonia cannot be excluded.
--- NOTE | 2018-06-08 09:50 | CP.PCM.PN ---
<Chuck Jean Baptiste - Last Filed: 06/08/18 15:58> Subjective - Date & Time of Evaluation Date of Evaluation: 06/08/18 Time of Evaluation: 09:58 - Subjective Subjective: PGY-[address] Brown Patient seen and examined at bedside. No acute events overnight. S/p thoracentesis yesterday 06/07 and paracentesis 06/06. Patient does report significant relief following thoracentesis yesterday. He is still having shortness of breath, but it is improved. Pt reports relief from paracentesis as well. His pain has been controlled with Q2 morphine. The patient has been desaturating intermittently overnight, right now has prn NRB. Elevated temp overnight 100.1. Denies chest pain, dizziness, headache. Objective - Vital Signs/Intake and Output Vital Signs (last 24 hours): Temp Pulse Resp BP Pulse Ox 99.4 F 106 H 20 108/63 93 L 06/08/18 08:00 06/08/18 08:22 06/08/18 08:00 06/08/18 08:00 06/08/18 08:00 Intake and Output: 06/08/18 06/08/18 06:59 18:59 Intake Total 240 Output Total 1500 Balance -1260 - Medications Medications: Current Medications Dextrose (Dextrose 50% Inj) 0 ml IV STAT PRN; Protocol PRN Reason: Hypoglycemia Protocol Dextrose (Glutose 15) 0 gm PO ONCE PRN; Protocol PRN Reason: Hypoglycemia Protocol Diphenhydramine HCl (Benadryl) 12.5 mg PO ONCE PRN PRN Reason: Allergy symptoms Glucagon (Glucagen Diagnostic Kit) 0 mg IM STAT PRN; Protocol PRN Reason: Hypoglycemia Protocol Ceftriaxone Sodium 1 gm/ (Sodium Chloride) 100 mls @ 100 mls/hr IVPB DAILY [facility]; Protocol Last Admin: 06/07/18 10:35 Dose: 100 mls/hr Insulin Detemir (Levemir) 20 unit SC HS [facility] Last Admin: 06/07/18 22:23 Dose: 20 u Insulin Human Regular (Novolin R) 0 unit SC ACHS [facility]; Protocol Last Admin: 06/08/18 07:42 Dose: Not Given Losartan Potassium (Cozaar) 100 mg PO DAILY [facility] Last Admin: 06/07/18 10:28 Dose: 100 mg Metoclopramide HCl (Reglan) 10 mg IVP DAILY PRN PRN Reason: Nausea/Vomiting Last Admin: 06/05/18 18:29 Dose: 10 mg Morphine Sulfate (Morphine Extended Release Tab) 15 mg PO Q12 [facility] Last Admin: 06/07/18 22:25 Dose: Not Given Morphine Sulfate (Morphine) 4 mg IVP Q2 [facility] Last Admin: 06/08/18 08:07 Dose: 4 mg Ondansetron HCl (Zofran Inj) 4 mg IVP Q4H PRN PRN Reason: Nausea/Vomiting Last Admin: 06/07/18 23:48 Dose: 4 mg Pantoprazole Sodium (Protonix Inj) 40 mg IVP DAILY [facility] Last Admin: 06/07/18 10:29 Dose: 40 mg Rivaroxaban (Xarelto) 15 mg PO BID [facility] Last Admin: 06/06/18 09:59 Dose: 15 mg - Labs Labs: 06/08/18 07:48 06/08/18 07:48 PT 13.4 SECONDS (9.7-12.2) H 06/03/18 19:50 INR 1.2 06/03/18 19:50 APTT 28 SECONDS (21-34) 06/03/18 19:50 - Constitutional Appears: Non-toxic, No Acute Distress - Head Exam Head Exam: ATRAUMATIC, NORMOCEPHALIC - Eye Exam Eye Exam: EOMI, Normal appearance - ENT Exam ENT Exam: Mucous Membranes Moist - Respiratory Exam Respiratory Exam: Decreased Breath Sounds. absent: Rhonchi, Wheezes - Cardiovascular Exam Cardiovascular Exam: REGULAR RHYTHM, +S1, +S2 - GI/Abdominal Exam GI & Abdominal Exam: Distended, Soft, Tenderness, Normal Bowel Sounds Additional comments: Decrease abdominal girth s/p paracentesis, still distended. Tenderness greatest in RUQ. - Extremities Exam Extremities Exam: absent: Pedal Edema, Tenderness - Neurological Exam Neurological Exam: Alert, Awake, Oriented x3 - Psychiatric Exam Psychiatric exam: Depressed, Normal Affect - Skin Skin Exam: Dry, Intact Assessment and Plan - Assessment and Plan (Free Text) Assessment: Pancreatic cancer with liver mets Pancreatitis with necrosis (non-gas forming) -Official Pathology Report (05/11): Biopsy liver lesion: Final diagnosis - Liver tissue involved by adenocarcinoma. Favor pancreatico-biliary origin. -CT abdomen/pelvis with IV contrast (05/08): grossly abnormal appearing pancreas with extensive pancreatitis and necrosis. At time of imaging, non-gas forming. Contiguous hypodensity in SMV; thrombus must be considered. Innumerable liver masses. Right pleural effusion. -Abdominal U/S (05/08): Multiple hepatic masses. Fatty infiltrate. Incidental right upper pole renal cortical cyst. -S/p Paracentesis 06/06 - Removal of about 1.7 liters of straw-colored fluid via ultrasound guided paracentesis. Initial fluid analysis reveals WBCs and RBCs. -S/p bedside thoracentesis 06/07 with removal of 1.1 L opaque dark red/purple fluid. Sent for fluid analysis/cytology. LDH and total protein pending, but suspect exudative due to fluid appearance and patient history. -CXR (06/03): moderate R pleural effusion. No definite infiltrate. Normal bowel gas pattern. -CT Abdomen/Pelvis 06/03 - Large R pleural effusion evident. Awaiting official read. -All cultures (blood, sputum, RAFFY fungal culture) negative x24 hours -AST/ALT 145/124 (06/03) --> 110/109 (06/04) --> 92/72 (06/06) -ALP 740 --> 641 --> 425 (06/06) -Hepatitis panel from last admission negative -Elevated tumor markers on last admission: CA 19-9 Ag >10,000, CEA Ag 251, CA 125 Ag 203 -Heme/Onc (Dr. Rangel) on case - Our team spoke with Dr. Montelongo and he agrees this is a case where the focus should probably be on palliative care. Chemo may have a role for prolongation of life, but will most likely not be curative. He has suggested GI consulted for increasing T Bili, which we have placed. -GI Consult Dr. Montelongo - f/u recs -Morphine 4mg IVP Q2 --> may consider Fentanyl patch as patient has not been able to swallow pills, if he is still in need of pain control -Morphine ER 15 mg PO q12 prn for breakthrough pain -Zofran 4 mg IVP q4 prn -Reglan 10 mg daily -Fluids changed to 1/2NS @ 100/hr -Diet advanced to regular diet -Avoid Tylenol, muscle relaxants due to transaminitis -We are planning therapeutic bedside paracentesis this afternoon Code Status - DNR/DNI -Palliative care on case, help appreciated - --Palliative care held in-depth discussion with patient regarding medical decision making and his poor prognosis of metastatic pancreatic CA. - --Patient made DNR/DNI - Brother, Jacek Conway made surrogate decision maker Fever/Leukocytosis -Normal temp at WBC count as of 06/07 -Rocephin 1 gm daily -Possibly reaction to pancreatic malignancy Recent PE and DVT likely 2/2 hypercoagulability due to underlying malignancy -CTA abdomen/pelvis (05/08/18): large right lower lobe pulmonary branch pulmonary embolus -CTA chest (05/09/18): Filling defect consistent with pulmonary embolus evident within the right lower lobe pulmonary artery branch. -LE dopplers (05/10/18): left long saphenous vein DVT -ECHO (05/10/18): LVEF is 60%. Mild concentric LVH. Grade 1 diastolic dysfunction. AV appears to be bicuspid. Borderline to mild . MR is trace to mild. RVSP is less than 30 mmHg. -Xarelto 15 mg PO BID x 21 days, then 20 mg PO daily. Patient was unable to swallow PO meds yesterday due to nausea/vomiting, but he did take them today. R Pleural effusion -CXR (06/03): moderate R pleural effusion. 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 Stephanie Jean Baptiste DO, PGY-1 <Harsh Brown - Last Filed: 06/08/18 16:47> Objective - Vital Signs/Intake and Output Vital Signs (last 24 hours): Temp Pulse Resp BP Pulse Ox 98.6 F 70 20 124/70 96 06/08/18 15:51 06/08/18 15:51 06/08/18 15:51 06/08/18 15:51 06/08/18 15:51 Intake and Output: 06/08/18 06/08/18 06:59 18:59 Intake Total 240 Output Total 1500 Balance -1260 - Medications Medications: Current Medications Dextrose (Dextrose 50% Inj) 0 ml IV STAT PRN; Protocol PRN Reason: Hypoglycemia Protocol Dextrose (Glutose 15) 0 gm PO ONCE PRN; Protocol PRN Reason: Hypoglycemia Protocol Diphenhydramine HCl (Benadryl) 12.5 mg PO ONCE PRN PRN Reason: Allergy symptoms Glucagon (Glucagen Diagnostic Kit) 0 mg IM STAT PRN; Protocol PRN Reason: Hypoglycemia Protocol Ceftriaxone Sodium 1 gm/ (Sodium Chloride) 100 mls @ 100 mls/hr IVPB DAILY [facility]; Protocol Last Admin: 06/08/18 09:57 Dose: 100 mls/hr Insulin Detemir (Levemir) 20 unit SC HS [facility] Last Admin: 06/07/18 22:23 Dose: 20 u Insulin Human Regular (Novolin R) 0 unit SC ACHS [facility]; Protocol Last Admin: 06/08/18 11:39 Dose: Not Given Losartan Potassium (Cozaar) 100 mg PO DAILY [facility] Last Admin: 06/08/18 09:58 Dose: 100 mg Metoclopramide HCl (Reglan) 10 mg IVP DAILY PRN PRN Reason: Nausea/Vomiting Last Admin: 06/05/18 18:29 Dose: 10 mg Morphine Sulfate (Morphine Extended Release Tab) 15 mg PO Q12 [facility] Last Admin: 06/08/18 09:58 Dose: 15 mg Morphine Sulfate (Morphine) 4 mg IVP Q2 [facility] Last Admin: 06/08/18 15:40 Dose: 4 mg Ondansetron HCl (Zofran Inj) 4 mg IVP Q4H PRN PRN Reason: Nausea/Vomiting Last Admin: 06/08/18 15:40 Dose: 4 mg Pantoprazole Sodium (Protonix Inj) 40 mg IVP DAILY [facility] Last Admin: 06/08/18 09:58 Dose: 40 mg Rivaroxaban (Xarelto) 15 mg PO BID [facility] Last Admin: 06/06/18 09:59 Dose: 15 mg - Labs Labs: 06/08/18 07:48 06/08/18 07:48 PT 13.4 SECONDS (9.7-12.2) H 12/23/18 19:50 INR 1.2 06/03/18 19:50 APTT 28 SECONDS (21-34) 06/03/18 19:50 Attending/Attestation - Attestation I have personally seen and examined this patient.: Yes I have fully participated in the care of the patient.: Yes I have reviewed all pertinent clinical information, including history, physical exam and plan: Yes Notes (Text): 06/08/18 16:40 Medical attending: Patient was seen and examined by me, reviewed the above note by the resident The patient yesterday thoracentesis in the afternoon like we documented above and yesterday. And paracentesis day before. Discussed with hematology oncology with reguards to the rising billirubin levels and for now will consult GI. This being said there might not be much that can be done. Patient feels better after thoracentesis yesterday and the CXRAY this morning is improved however the SpO2 was still in the low 90s and high 80s with nasal cannula. Prognosis remains really poor Harsh Brown
[2018-06-08] MEDS: Morphine 15 mg SR Tab PO SCH ×2 (09:58→21:26)
[2018-06-08] MEDS: Insulin Detemir 100 units/ml Vial (Levemir) SC SCH (22:22)
[2018-06-09] MEDS: (Novolin R) Insulin Human Regular 100 units/ml vial SC SCH ×4 (07:14→21:45)
[2018-06-09] MEDS: Morphine 15 mg SR Tab PO SCH ×2 (09:52→21:58)
[2018-06-09 10:53] LABS: BASO # 0.1 K/uL (0.0-0.2); BASO % 0.8 % (0.0-2.0); EOS # 0.1 K/uL (0.0-0.7); HEMOGLOBIN 9.9 g/dL (12.0-18.0); LYMPH % 9.6 % (20.0-40.0); MEAN CELL VOLUME 87.6 fL (80.0-94.0); MEAN CORPUSCULAR HEMOGLOBIN 28.6 pg (27.0-31.0); MEAN CORPUSCULAR HGB CONC 32.6 g/dL (33.0-37.0); MONO # 1.4 K/uL (0.0-0.8); MONO % 13.1 % (0.0-10.0); NEUT # 8.2 K/uL (1.8-7.0); NEUT % 75.5 % (50.0-75.0); NRBC % 0.1 % (0.0-2.0); PLATELET COUNT 260 K/uL (130-400); RBC 3.46 Mil/uL (4.40-5.90); RED CELL DISTRIBUTION WIDTH 14.8 % (11.5-14.5); WHITE BLOOD COUNT 10.8 K/uL (4.8-10.8)
[2018-06-09 11:03] LABS: ALB/GLOB RATIO 0.8 (1.0-2.1); ALBUMIN 2.8 g/dL (3.5-5.0); CALCIUM 7.6 mg/dl (8.6-10.4)
[2018-06-09 11:15] LABS: EOSINOPHIL 2 % (0-4); LYMPHOCYTE 9 % (20-40); MONOCYTE 12 % (0-10); NEUTROPHIL 77 % (50-75); PLATELET ESTIMATE NORMAL (NORMAL); TOTAL CELLS COUNTED 100
[2018-06-09 11:16] LABS: ANISOCYTOSIS SLIGHT; HYPOCHROMIC SLIGHT; POLYCHROMIC SLIGHT; TOXIC GRANULATION PRESENT
--- NOTE | 2018-06-09 12:07 | US ---
Date of service: 06/08/2018 HISTORY: rising bilirubin COMPARISON: CT abdomen and pelvis from 06/03/2018. TECHNIQUE: Grayscale imaging was performed. FINDINGS: LIVER: Measures 21.0 cm. There is diffuse increased l echogenicity of the liver parenchyma with coarse heterogeneous echotexture. There are well-circumscribed round hypoechoic masses in the liver, measuring 3.7 x 2.8 x 3.8 cm in the right hepatic lobe, 1.9 x 2.2 x 2.0 cm in the right hepatic lobe and 1.5 x 1.6 x 1.7 cm in the left hepatic lobe.. No intrahepatic bile duct dilatation. GALLBLADDER: There are multiple gallstones. There is diffuse gallbladder wall thickening. The sonographic Hunt's sign is negative. COMMON BILE DUCT: Measures 5.0 mm. No stones. No dilatation. PANCREAS: Not well visualized. RIGHT KIDNEY: Measures 11.9cm. Normal echogenicity. No calculus, mass, or hydronephrosis. LEFT KIDNEY: Measures 11.9cm. Normal echogenicity. No calculus, mass, or hydronephrosis. There is a 2.0 x 1.7 x 2.1 cm simple cyst in the upper pole. SPLEEN: Normal in size and contour. No mass. AORTA: No aneurysmal dilatation. IVC: Unremarkable. OTHER FINDINGS: There is moderate abdominal ascites. IMPRESSION: Three hepatic masses, the largest in the right hepatic lobe measures 3.7 x 2.8 x 3.8 cm mass compatible with metastasis. Cholelithiasis. Moderate ascites and right pleural effusion.
--- NOTE | 2018-06-09 12:32 | CP.PCM.PN ---
Subjective - Date & Time of Evaluation Date of Evaluation: 06/09/18 Time of Evaluation: 12:00 - Subjective Subjective: Patient was seen and examined by me He was sleeping he said he was able to sleep ok overnight He did not want more pain medication or adjustments to pain meds Breathing he says is ok for the time being, he had the bloody pleural thorace ntesis the other day and paracentesis before Yesterday we ordered regular diet - he's just about to try the regular food as I spoke and examined him. Urged him a lot of caution and that if he has trouble to stop. Objective - Vital Signs/Intake and Output Vital Signs (last 24 hours): Temp Pulse Resp BP Pulse Ox 98.1 F 108 H 20 114/64 93 L 06/09/18 08:10 06/09/18 08:10 06/09/18 08:10 06/09/18 08:10 06/09/18 08:10 Intake and Output: 06/09/18 06/09/18 06:59 18:59 Output Total 300 Balance -300 - Medications Medications: Current Medications Dextrose (Dextrose 50% Inj) 0 ml IV STAT PRN; Protocol PRN Reason: Hypoglycemia Protocol Dextrose (Glutose 15) 0 gm PO ONCE PRN; Protocol PRN Reason: Hypoglycemia Protocol Diphenhydramine HCl (Benadryl) 12.5 mg PO ONCE PRN PRN Reason: Allergy symptoms Glucagon (Glucagen Diagnostic Kit) 0 mg IM STAT PRN; Protocol PRN Reason: Hypoglycemia Protocol Insulin Detemir (Levemir) 20 unit SC [facility] Last Admin: 06/08/18 22:22 Dose: 20 u Insulin Human Regular (Novolin R) [address] [facility]; Protocol Last Admin: 06/09/18 11:58 Dose: Not Given Losartan Potassium (Cozaar) 100 mg PO DAILY [facility] Last Admin: 06/09/18 09:52 Dose: 100 mg Metoclopramide HCl (Reglan) 10 mg IVP DAILY PRN PRN Reason: Nausea/Vomiting Last Admin: 06/09/18 09:52 Dose: 10 mg Morphine Sulfate (Morphine Extended Release Tab) 15 mg PO Q12 [facility] Last Admin: 06/09/18 09:52 Dose: 15 mg Morphine Sulfate (Morphine) 4 mg IVP Q2 [facility] Last Admin: 06/09/18 12:26 Dose: Not Given Ondansetron HCl (Zofran Inj) 4 mg IVP Q4H PRN PRN Reason: Nausea/Vomiting Last Admin: 06/08/18 15:40 Dose: 4 mg Pantoprazole Sodium (Protonix Inj) 40 mg IVP DAILY [facility] Last Admin: 06/09/18 09:52 Dose: 40 mg Rivaroxaban (Xarelto) 15 mg PO BID [facility] Last Admin: 06/09/18 09:52 Dose: 15 mg - Labs Labs: 06/09/18 10:43 06/09/18 10:43 PT 13.4 SECONDS (9.7-12.2) H 06/03/18 19:50 INR 1.2 06/03/18 19:50 APTT 28 SECONDS (21-34) 06/03/18 19:50 - Constitutional Appears: Well, No Acute Distress - Head Exam Head Exam: NORMAL INSPECTION, NORMOCEPHALIC - Eye Exam Eye Exam: EOMI, Normal appearance - ENT Exam ENT Exam: Mucous Membranes Moist - Respiratory Exam Respiratory Exam: Decreased Breath Sounds, Rales, NORMAL BREATHING PATTERN Additional comments: There is still dullness to percussion like before despite the thoracentesis - Cardiovascular Exam Cardiovascular Exam: REGULAR RHYTHM - GI/Abdominal Exam GI & Abdominal Exam: Soft, Normal Bowel Sounds - Extremities Exam Extremities Exam: Normal Capillary Refill - Neurological Exam Neurological Exam: Alert, Awake, Oriented x3 - Psychiatric Exam Psychiatric exam: Normal Affect, Normal Mood - Skin Skin Exam: Normal Color, Warm Assessment and Plan - Assessment and Plan (Free Text) Assessment: Pancreatic cancer with liver mets Pancreatitis with necrosis (non-gas forming) 06/09: Per discussion with hematology oncology, we should consult GI if there are any further interventions with reguards to the increased billirubin. If nothing can be done, then per conversation with hematology oncology we should try to start talking to patient about hospice and comfort care. I discussed with GI fellow this morning and explained the poor prognosis and that if they did not have any reccomendations then we will go down the hospice comfort care route. -Official Pathology Report (05/11): Biopsy liver lesion: Final diagnosis - Liver tissue involved by adenocarcinoma. Favor pancreatico-biliary origin. -CT abdomen/pelvis with IV contrast (05/08): grossly abnormal appearing pancreas with extensive pancreatitis and necrosis. At time of imaging, non-gas forming. Contiguous hypodensity in SMV; thrombus must be considered. Innumerable liver masses. Right pleural effusion. -Abdominal U/S (05/08): Multiple hepatic masses. Fatty infiltrate. Incidental right upper pole renal cortical cyst. -S/p Paracentesis 06/06 - Removal of about 1.7 liters of straw-colored fluid via ultrasound guided paracentesis. Initial fluid analysis reveals WBCs and RBCs. -S/p bedside thoracentesis 06/07 with removal of 1.1 L opaque dark red/purple fluid. Sent for fluid analysis/cytology. LDH and total protein pending, but suspect exudative due to fluid appearance and patient history. -CXR (06/03): moderate R pleural effusion. No definite infiltrate. Normal bowel gas pattern. -CT Abdomen/Pelvis 06/03 - Large R pleural effusion evident. Awaiting official read. -All cultures (blood, sputum, RAFFY fungal culture) negative x24 hours -AST/ALT 145/124 (06/03) --> 110/109 (06/04) --> 92/72 (06/06) -ALP 740 --> 641 --> 425 (06/06) -Hepatitis panel from last admission negative -Elevated tumor markers on last admission: CA 19-9 Ag >10,000, CEA Ag 251, CA 125 Ag 203 -Heme/Onc (Dr. Rangel) on case - Our team spoke with Dr. Montelongo and he agrees this is a case where the focus should probably be on palliative care. Chemo may have a role for prolongation of life, but will most likely not be curative. He has suggested GI consulted for increasing T Bili, which we have placed. -GI Consult Dr. Montelongo - f/u recs -Morphine 4mg IVP Q2 --> may consider Fentanyl patch as patient has not been able to swallow pills, if he is still in need of pain control -Morphine ER 15 mg PO q12 prn for breakthrough pain -Zofran 4 mg IVP q4 prn -Reglan 10 mg daily -Fluids changed to 1/2NS @ 100/hr -Diet advanced to regular diet -Avoid Tylenol, muscle relaxants due to transaminitis -We are planning therapeutic bedside paracentesis this afternoon Code Status - DNR/DNI -Palliative care on case, help appreciated - --Palliative care held in-depth discussion with patient regarding medical decision making and his poor prognosis of metastatic pancreatic CA. - --Patient made DNR/DNI - Brother, Jacek Conway made surrogate decision maker Fever/Leukocytosis -Normal temp at WBC count as of 06/07 -Rocephin 1 gm daily -Possibly reaction to pancreatic malignancy Recent PE and DVT likely 2/2 hypercoagulability due to underlying malignancy -CTA abdomen/pelvis (05/08/18): large right lower lobe pulmonary branch pulmonary embolus -CTA chest (05/09/18): Filling defect consistent with pulmonary embolus evident within the right lower lobe pulmonary artery branch. -LE dopplers (05/10/18): left long saphenous vein DVT -ECHO (05/10/18): LVEF is 60%. Mild concentric LVH. Grade 1 diastolic dysfunction. AV appears to be bicuspid. Borderline to mild . MR is trace to mild. RVSP is less than 30 mmHg. -Xarelto 15 mg PO BID x 21 days, then 20 mg PO daily. Patient was unable to swallow PO meds yesterday due to nausea/vomiting, but he did take them today. R Pleural effusion 06/09: He had a thoracentesis 06/07: Currently breathing is better, but still with low SpO2. -CXR (06/03): moderate R pleural effusion. 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
--- NOTE | 2018-06-09 13:30 | CP.PCM.CON ---
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 He later had paracentesis (1.6 L off, neg for infection) and thoracentesis with improvement in his symptoms. GI later consulted due to rising bilirubin since admission. Pt states that only complaint at this time is some mild nausea and occasional emesis. States emesis consists of PO intake, denying any blood or bilious sanjay sis. He states that bowel movements are "normal" without any signs of bleeding. He denied any fevers, chills, pruritus nor any prior endoscopic evaluations. 12 point ROS negative other than stated above MHx: See above PSHx: Portacath insertion (04/2018), R BKA, L toes amputation, unspecified L eye surgery (December 2017) Meds: Reviewed in chart FamHx: mother-DM SocHx: 1-3 cig/day for 25+ years,quit after portacath insertion; 6 pack of beer every weekend, denies illicit drug use. All: Fish and hazelnuts; anaphylaxis and hives Past Patient History - Infectious Disease Hx of Infectious Diseases: None - Past Medical History & Family History Past Medical History?: Yes - Past Social History Smoking Status: Current Some Days Smoker - CARDIAC Hx Cardiac Disorders: Yes Hx Hypertension: Yes - PULMONARY Hx Respiratory Disorders: Yes Hx Asthma: Yes Hx Pulmonary Embolism: Yes - NEUROLOGICAL Hx Neurological Disorder: No - HEENT Hx HEENT Problems: No - RENAL Hx Chronic Kidney Disease: No - ENDOCRINE/METABOLIC Hx Endocrine Disorders: Yes Hx Diabetes Mellitus Type 1: Yes - HEMATOLOGICAL/ONCOLOGICAL Hx Blood Disorders: Yes Hx Cancer: Yes - INTEGUMENTARY Hx Dermatological Problems: Yes - MUSCULOSKELETAL/RHEUMATOLOGICAL Hx Musculoskeletal Disorders: Yes Hx Falls: No Other/Comment: BKA - GASTROINTESTINAL Hx Gastrointestinal Disorders: Yes Hx Gastritis: Yes Hx Pancreatitis: Yes - GENITOURINARY/GYNECOLOGICAL Hx Genitourinary Disorders: No - PSYCHIATRIC Hx Psychophysiologic Disorder: No Hx Substance Use: No - SURGICAL HISTORY Hx Surgeries: Yes Hx Amputation: Yes (Right BKA, Left TMA) - ANESTHESIA Hx Anesthesia: Yes Hx Anesthesia Reactions: No Hx Malignant Hyperthermia: No Has any member of the family had a problem w/ anesthesia?: No Meds Allergies/Adverse Reactions: Allergies Allergy/AdvReac Type Severity Reaction Status Date / Time FISH Allergy RASH Verified 03/12/18 16:06 hazelnut Allergy RASH Verified 03/12/18 16:06 - Medications Medications: Current Medications Dextrose (Dextrose 50% Inj) 0 ml IV STAT PRN; Protocol PRN Reason: Hypoglycemia Protocol Dextrose (Glutose 15) 0 gm PO ONCE PRN; Protocol PRN Reason: Hypoglycemia Protocol Diphenhydramine HCl (Benadryl) 12.5 mg PO ONCE PRN PRN Reason: Allergy symptoms Glucagon (Glucagen Diagnostic Kit) 0 mg IM STAT PRN; Protocol PRN Reason: Hypoglycemia Protocol Insulin Detemir (Levemir) 20 unit SC [facility] Last Admin: 06/08/18 22:22 Dose: 20 u Insulin Human Regular (Novolin R) 0 unit SC [facility]; Protocol Last Admin: 06/09/18 11:58 Dose: Not Given Losartan Potassium (Cozaar) 100 mg PO DAILY [facility] Last Admin: 06/09/18 09:52 Dose: 100 mg Metoclopramide HCl (Reglan) 10 mg IVP DAILY PRN PRN Reason: Nausea/Vomiting Last Admin: 06/09/18 09:52 Dose: 10 mg Morphine Sulfate (Morphine Extended Release Tab) 15 mg PO Q12 [facility] Last Admin: 06/09/18 09:52 Dose: 15 mg Morphine Sulfate (Morphine) 4 mg IVP Q2 [facility] Last Admin: 06/09/18 12:26 Dose: Not Given Ondansetron HCl (Zofran Inj) 4 mg IVP Q4H PRN PRN Reason: Nausea/Vomiting Last Admin: 06/08/18 15:40 Dose: 4 mg Pantoprazole Sodium (Protonix Inj) 40 mg IVP DAILY [facility] Last Admin: 06/09/18 09:52 Dose: 40 mg Rivaroxaban (Xarelto) 15 mg PO BID [facility] Last Admin: 06/09/18 09:52 Dose: 15 mg Physical Exam - Constitutional Appears: Chronically Ill, Other (mildly uncomfortable sitting on edge of bed occasionally heaving) - Head Exam Head Exam: ATRAUMATIC, NORMAL INSPECTION - Eye Exam Eye Exam: EOMI, Scleral icterus - ENT Exam ENT Exam: Mucous Membranes Moist. absent: Mucous Membranes Dry - Respiratory Exam Respiratory Exam: NORMAL BREATHING PATTERN. absent: Accessory Muscle Use - Cardiovascular Exam Cardiovascular Exam: REGULAR RHYTHM, RRR - GI/Abdominal Exam GI & Abdominal Exam: Distended, Normal Bowel Sounds, Soft. absent: Mass, Organomegaly, Tenderness Additional comments: mildly distended, pt did not want to be supine for further exam due to nausea, + flank bulging. - Rectal Exam Rectal Exam: Deferred - Neurological Exam Neurological exam: Alert, CN II-XII Intact - Psychiatric Exam Psychiatric exam: Normal Affect, Normal Mood - Skin Skin Exam: Normal Color, Warm Results - Vital Signs Recent Vital Signs: Last Vital Signs Temp 98.1 F 06/09/18 08:10 Pulse 108 H 06/09/18 08:10 Resp 20 06/09/18 08:10 BP 114/64 06/09/18 08:10 Pulse Ox 93 L 06/09/18 08:10 - Labs Result Diagrams: 06/09/18 10:43 06/09/18 10:43 Labs: Laboratory Results - last 24 hr 06/08/18 06/08/18 06/09/18 16:37 20:31 02:09 WBC RBC Hgb Hct MCV MCH MCHC RDW Plt Count MPV Neut % (Auto) Lymph % (Auto) [place] % (Auto) Eos % (Auto) Baso % (Auto) Neut # (Auto) Lymph # (Auto) [place] # (Auto) Eos # (Auto) Baso # (Auto) Neutrophils % (Manual) Lymphocytes % (Manual) Monocytes % (Manual) Eosinophils % (Manual) Toxic Granulation Platelet Estimate Polychromasia Hypochromasia (manual) Anisocytosis (manual) Sodium Potassium Chloride Carbon Dioxide Anion Gap BUN Creatinine Est GFR ( Amer) Est GFR (Non-Af Amer) POC Glucose (mg/dL) 131 H 141 H 142 H Random Glucose Calcium Phosphorus Magnesium Total Bilirubin AST ALT Alkaline Phosphatase Total Protein Albumin Globulin Albumin/Globulin Ratio 06/09/18 06/09/18 06/09/18 06:20 10:43 10:43 WBC 10.8 RBC 3.46 L Hgb 9.9 L Hct 30.3 L MCV 87.6 MCH 28.6 MCHC 32.6 L RDW 14.8 H Plt Count 260 MPV 9.0 Neut % (Auto) 75.5 H Lymph % (Auto) 9.6 L [place] % (Auto) 13.1 H Eos % (Auto) 1.0 Baso % (Auto) 0.8 Neut # (Auto) 8.2 H Lymph # (Auto) 1.0 [place] # (Auto) 1.4 H Eos # (Auto) 0.1 Baso # (Auto) 0.1 Neutrophils % (Manual) 77 H Lymphocytes % (Manual) 9 L Monocytes % (Manual) 12 H Eosinophils % (Manual) 2 Toxic Granulation Present Platelet Estimate Normal Polychromasia Slight Hypochromasia (manual) Slight Anisocytosis (manual) Slight Sodium 133 Potassium 4.1 Chloride 97 L Carbon Dioxide 26 Anion Gap 13 BUN 48 H Creatinine 2.6 H Est GFR ( Amer) 31 Est GFR (Non-Af Amer) 26 POC Glucose (mg/dL) 119 H Random Glucose 94 Calcium 7.6 L Phosphorus 4.2 Magnesium 2.3 Total Bilirubin 7.4 H AST 75 H ALT 53 Alkaline Phosphatase 329 H Total Protein 6.4 Albumin 2.8 L Globulin 3.6 Albumin/Globulin Ratio 0.8 L 06/09/18 11:17 WBC RBC Hgb Hct MCV MCH MCHC RDW Plt Count MPV Neut % (Auto) Lymph % (Auto) [place] % (Auto) Eos % (Auto) Baso % (Auto) Neut # (Auto) Lymph # (Auto) [place] # (Auto) Eos # (Auto) Baso # (Auto) Neutrophils % (Manual) Lymphocytes % (Manual) Monocytes % (Manual) Eosinophils % (Manual) Toxic Granulation Platelet Estimate Polychromasia Hypochromasia (manual) Anisocytosis (manual) Sodium Potassium Chloride Carbon Dioxide Anion Gap BUN Creatinine Est GFR ( Amer) Est GFR (Non-Af Amer) POC Glucose (mg/dL) 112 H Random Glucose Calcium Phosphorus Magnesium Total Bilirubin AST ALT Alkaline Phosphatase Total Protein Albumin Globulin Albumin/Globulin Ratio Assessment & Plan - Assessment and Plan (Free Text) Assessment: 53 yo M with recently diagnosed Metastatic Pancreatic AdenoCA with mets to liver (not started on chemo yet) admitted for abd pain, found to have rising bili prado. # Abnormal Liver Tests: Cholestatic pattern with rising bilirubin most likely due to known liver mets from pancreatic CA. Abd US ordered yesterday reveal normal CBD; therefore, rising bili related to tumor burden within liver and not some pathology within CBD amenable to ERCP with stenting. Given rapid progression in his symptoms, perhaps more palliative approach indicated. # Metastatic Pancreatic AdenoCA with mets to liver (not started on chemo yet): c/b ascites, pleural effusion. Plan: - Supportive care with anti-emetics, PRN paracentesis - Fractionate bili - Agree with Palliative care consult - Panc CA management/Chemo per Oncology Pt discussed with Dr. Bethea; please see attestation for further recs/changes. Tez Chau, PGY-4 <Woody Bethea - Last Filed: 06/09/18 22:47> Meds - Medications Medications: Current Medications Dextrose (Dextrose 50% Inj) 0 ml IV STAT PRN; Protocol PRN Reason: Hypoglycemia Protocol Dextrose (Glutose 15) 0 gm PO ONCE PRN; Protocol PRN Reason: Hypoglycemia Protocol Diphenhydramine HCl (Benadryl) 12.5 mg PO ONCE PRN PRN Reason: Allergy symptoms Glucagon (Glucagen Diagnostic Kit) 0 mg IM STAT PRN; Protocol PRN Reason: Hypoglycemia Protocol Insulin Detemir (Levemir) 20 unit SC HS [facility] Last Admin: 06/09/18 21:59 Dose: 20 u Insulin Human Regular (Novolin R) 0 unit SC ACHS [facility]; Protocol Last Admin: 06/09/18 16:44 Dose: Not Given Losartan Potassium (Cozaar) 100 mg PO DAILY [facility] Last Admin: 06/09/18 09:52 Dose: 100 mg Metoclopramide HCl (Reglan) 10 mg IVP DAILY PRN PRN Reason: Nausea/Vomiting Last Admin: 06/09/18 09:52 Dose: 10 mg Morphine Sulfate (Morphine Extended Release Tab) 15 mg PO Q12 [facility] Last Admin: 06/09/18 21:58 Dose: 15 mg Morphine Sulfate (Morphine) 4 mg IVP Q2 [facility] Last Admin: 06/09/18 22:02 Dose: 4 mg Ondansetron HCl (Zofran Inj) 4 mg IVP Q4H PRN PRN Reason: Nausea/Vomiting Last Admin: 06/08/18 15:40 Dose: 4 mg Pantoprazole Sodium (Protonix Inj) 40 mg IVP DAILY [facility] Last Admin: 06/09/18 09:52 Dose: 40 mg Rivaroxaban (Xarelto) 15 mg PO BID [facility] Last Admin: 06/09/18 17:54 Dose: 15 mg Results - Vital Signs Recent Vital Signs: Last Vital Signs Temp 98.2 F 06/09/18 15:00 Pulse 106 H 06/09/18 15:00 Resp 18 06/09/18 15:00 BP 115/70 06/09/18 15:00 Pulse Ox 96 06/09/18 15:00 - Labs Result Diagrams: 06/09/18 10:43 06/09/18 10:43 Labs: Laboratory Results - last 24 hr 06/09/18 06/09/18 06/09/18 02:09 06:20 10:43 WBC 10.8 RBC 3.46 L Hgb 9.9 L Hct 30.3 L MCV 87.6 MCH 28.6 MCHC 32.6 L RDW 14.8 H Plt Count 260 MPV 9.0 Neut % (Auto) 75.5 H Lymph % (Auto) 9.6 L [place] % (Auto) 13.1 H Eos % (Auto) 1.0 Baso % (Auto) 0.8 Neut # (Auto) 8.2 H Lymph # (Auto) 1.0 [place] # (Auto) 1.4 H Eos # (Auto) 0.1 Baso # (Auto) 0.1 Neutrophils % (Manual) 77 H Lymphocytes % (Manual) 9 L Monocytes % (Manual) 12 H Eosinophils % (Manual) 2 Toxic Granulation Present Platelet Estimate Normal Polychromasia Slight Hypochromasia (manual) Slight Anisocytosis (manual) Slight Sodium Potassium Chloride Carbon Dioxide Anion Gap BUN Creatinine Est GFR ( Amer) Est GFR (Non-Af Amer) POC Glucose (mg/dL) 142 H 119 H Random Glucose Calcium Phosphorus Magnesium Total Bilirubin AST ALT Alkaline Phosphatase Total Protein Albumin Globulin Albumin/Globulin Ratio 06/09/18 06/09/18 06/09/18 10:43 11:17 16:15 WBC RBC Hgb Hct MCV MCH MCHC RDW Plt Count MPV Neut % (Auto) Lymph % (Auto) [place] % (Auto) Eos % (Auto) Baso % (Auto) Neut # (Auto) Lymph # (Auto) [place] # (Auto) Eos # (Auto) Baso # (Auto) Neutrophils % (Manual) Lymphocytes % (Manual) Monocytes % (Manual) Eosinophils % (Manual) Toxic Granulation Platelet Estimate Polychromasia Hypochromasia (manual) Anisocytosis (manual) Sodium 133 Potassium 4.1 Chloride 97 L Carbon Dioxide 26 Anion Gap 13 BUN 48 H Creatinine 2.6 H Est GFR ( Amer) 31 Est GFR (Non-Af Amer) 26 POC Glucose (mg/dL) 112 H 138 H Random Glucose 94 Calcium 7.6 L Phosphorus 4.2 Magnesium 2.3 Total Bilirubin 7.4 H AST 75 H ALT 53 Alkaline Phosphatase 329 H Total Protein 6.4 Albumin 2.8 L Globulin 3.6 Albumin/Globulin Ratio 0.8 L 06/09/18 21:07 WBC RBC Hgb Hct MCV MCH MCHC RDW Plt Count MPV Neut % (Auto) Lymph % (Auto) [place] % (Auto) Eos % (Auto) Baso % (Auto) Neut # (Auto) Lymph # (Auto) [place] # (Auto) Eos # (Auto) Baso # (Auto) Neutrophils % (Manual) Lymphocytes % (Manual) Monocytes % (Manual) Eosinophils % (Manual) Toxic Granulation Platelet Estimate Polychromasia Hypochromasia (manual) Anisocytosis (manual) Sodium Potassium Chloride Carbon Dioxide Anion Gap BUN Creatinine Est GFR ( Amer) Est GFR (Non-Af Amer) POC Glucose (mg/dL) 119 H Random Glucose Calcium Phosphorus Magnesium Total Bilirubin AST ALT Alkaline Phosphatase Total Protein Albumin Globulin Albumin/Globulin Ratio Attending/Attestation - Attestation I have personally seen and examined this patient.: Yes I have fully participated in the care of the patient.: Yes I have reviewed all pertinent clinical information: Yes Notes (Text): 06/09/18 22:47 The patient was seen and examined earlier today. Chart reviewed. Findings and management, as documented above, were discussed with Dr. Chau.
[2018-06-09] MEDS: Insulin Detemir 100 units/ml Vial (Levemir) SC SCH (21:59)
[2018-06-10 06:00] LABS: TOTAL PROTEIN PERITONEAL FLUID 3.1 g/dL
[2018-06-10] MEDS ORDERED: Dextrose 50% VIAL Inj (50 ml) IV ONE (07:08)
[2018-06-10 08:04] LABS: BASO # 0.1 K/uL (0.0-0.2); EOS # 0.2 K/uL (0.0-0.7); EOS % 1.8 % (0.0-4.0); HEMOGLOBIN 9.4 g/dL (12.0-18.0); LYMPH # 1.5 K/uL (1.0-4.3); MEAN CELL VOLUME 87.7 fL (80.0-94.0); MEAN CORPUSCULAR HEMOGLOBIN 28.7 pg (27.0-31.0); MEAN CORPUSCULAR HGB CONC 32.8 g/dL (33.0-37.0); MEAN PLATELET VOLUME 8.8 fL (7.2-11.7); MONO # 1.8 K/uL (0.0-0.8); MONO % 15.2 % (0.0-10.0); NEUT # 8.2 K/uL (1.8-7.0); NRBC % 0.1 % (0.0-2.0); RBC 3.29 Mil/uL (4.40-5.90); RED CELL DISTRIBUTION WIDTH 15.5 % (11.5-14.5); WHITE BLOOD COUNT 11.9 K/uL (4.8-10.8)
[2018-06-10] MEDS: (Novolin R) Insulin Human Regular 100 units/ml vial SC SCH ×4 (08:08→21:07)
[2018-06-10 08:21] LABS: ALB/GLOB RATIO 0.8 (1.0-2.1); ALBUMIN 2.8 g/dL (3.5-5.0); CALCIUM 7.7 mg/dl (8.6-10.4)
[2018-06-10] MEDS: Morphine 15 mg SR Tab PO SCH ×2 (09:28→21:45)
--- NOTE | 2018-06-10 09:44 | CP.PCM.PN ---
<Benjamin Guzman - Last Filed: 06/10/18 09:46> Subjective - Date & Time of Evaluation Date of Evaluation: 06/10/18 Time of Evaluation: 09:42 - Subjective Subjective: PGY2 Medicine Note for Dr. Brown Patient seen and examined this morning at bedside. No acute events overnight. Patient is sitting up off the side of the bed eating breakfast. He has a smile on his face saying that he is feeling well. He is happy to be eating regular food again. He has been experiencing intermittent nausea but denies vomiting. His pain has been well controlled. He is breathing well and has no complaints at this time. Objective - Vital Signs/Intake and Output Vital Signs (last 24 hours): Temp Pulse Resp BP Pulse Ox 98.4 F 107 H 20 107/71 94 L 06/10/18 00:00 06/10/18 00:00 06/10/18 00:00 06/10/18 00:00 06/10/18 00:00 - Medications Medications: Current Medications Dextrose (Dextrose 50% Inj) 0 ml IV STAT PRN; Protocol PRN Reason: Hypoglycemia Protocol Last Admin: 06/10/18 07:05 Dose: 25 ml Dextrose (Glutose 15) 0 gm PO ONCE PRN; Protocol PRN Reason: Hypoglycemia Protocol Diphenhydramine HCl (Benadryl) 12.5 mg PO ONCE PRN PRN Reason: Allergy symptoms Glucagon (Glucagen Diagnostic Kit) 0 mg IM STAT PRN; Protocol PRN Reason: Hypoglycemia Protocol Insulin Detemir (Levemir) 20 unit SC [facility] Last Admin: 06/09/18 21:59 Dose: 20 u Insulin Human Regular (Novolin R) 0 unit SC [facility]; Protocol Last Admin: 06/10/18 08:08 Dose: Not Given Losartan Potassium (Cozaar) 100 mg PO DAILY [facility] Last Admin: 06/10/18 09:28 Dose: 100 mg Metoclopramide HCl (Reglan) 10 mg IVP DAILY PRN PRN Reason: Nausea/Vomiting Last Admin: 06/10/18 08:49 Dose: 10 mg Morphine Sulfate (Morphine Extended Release Tab) 15 mg PO Q12 [facility] Last Admin: 06/10/18 09:28 Dose: Not Given Morphine Sulfate (Morphine) 4 mg IVP Q2 [facility] Last Admin: 06/10/18 08:40 Dose: Not Given Ondansetron HCl (Zofran Inj) 4 mg IVP Q4H PRN PRN Reason: Nausea/Vomiting Last Admin: 06/08/18 15:40 Dose: 4 mg Pantoprazole Sodium (Protonix Inj) 40 mg IVP DAILY [facility] Last Admin: 06/10/18 09:28 Dose: 40 mg Rivaroxaban (Xarelto) 15 mg PO BID [facility] Last Admin: 06/10/18 09:28 Dose: 15 mg - Labs Labs: 06/10/18 07:42 06/10/18 07:42 PT 13.4 SECONDS (9.7-12.2) H 06/03/18 19:50 INR 1.2 06/03/18 19:50 APTT 28 SECONDS (21-34) 06/03/18 19:50 - Constitutional Appears: Well, No Acute Distress - Head Exam Head Exam: ATRAUMATIC, NORMOCEPHALIC - Eye Exam Eye Exam: EOMI, Normal appearance - ENT Exam ENT Exam: Mucous Membranes Moist - Neck Exam Neck Exam: Normal Inspection. absent: Lymphadenopathy, Tenderness - Respiratory Exam Respiratory Exam: Decreased Breath Sounds, Rales, NORMAL BREATHING PATTERN. absent: Accessory Muscle Use, Rhonchi, Wheezes, Respiratory Distress Additional comments: dressing from thoracentesis in place - c/d/i - Cardiovascular Exam Cardiovascular Exam: REGULAR RHYTHM, +S1, +S2 - GI/Abdominal Exam GI & Abdominal Exam: Soft, Normal Bowel Sounds. absent: Firm, Guarding, Rigid, Tenderness - Extremities Exam Extremities Exam: Pedal Edema (2+ pitting on left leg; right leg AKA). absent: Calf Tenderness - Neurological Exam Neurological Exam: Alert, Awake, Oriented x3 - Psychiatric Exam Psychiatric exam: Normal Affect, Normal Mood - Skin Skin Exam: Dry, Warm Assessment and Plan - Assessment and Plan (Free Text) Plan: Pancreatic cancer with liver mets Pancreatitis with necrosis (non-gas forming) 06/10: Patient started on regular diet yesterday. He experienced mild nausea but no vomiting. Patient was very happy to be eating regular food again. Will continue regular diet while cautioning patient of importance of eating slow and stop if pain increases. Will likely need to begin discussions of hospice care this week. 06/09: Per discussion with hematology oncology, we should consult GI if there are any further interventions with reguards to the increased billirubin. If nothing can be done, then per conversation with hematology oncology we should try to start talking to patient about hospice and comfort care. I discussed with GI fellow this morning and explained the poor prognosis and that if they did not have any recommendations then we will go down the hospice comfort care route. -Official Pathology Report (05/11): Biopsy liver lesion: Final diagnosis - Liver tissue involved by adenocarcinoma. Favor pancreatico-biliary origin. -CT abdomen/pelvis with IV contrast (05/08): grossly abnormal appearing pancreas with extensive pancreatitis and necrosis. At time of imaging, non-gas forming. Contiguous hypodensity in SMV; thrombus must be considered. Innumerable liver masses. Right pleural effusion. -Abdominal U/S (05/08): Multiple hepatic masses. Fatty infiltrate. Incidental right upper pole renal cortical cyst. -S/p Paracentesis 06/06 - Removal of about 1.7 liters of straw-colored fluid via ultrasound guided paracentesis. Initial fluid analysis reveals WBCs and RBCs. Few Mesothelial and occasional Macrophages seen. Cultures negative at this time. -S/p bedside thoracentesis 06/07 with removal of 1.1 L opaque dark red/purple fluid. Moderate Macrophages and Moderate Mesothelial cells seen. LDH and total protein pending, but suspect exudative due to fluid appearance and patient history. Cultures negative at this time. -CXR (06/03): moderate R pleural effusion. No definite infiltrate. Normal bowel gas pattern. -CT Abdomen/Pelvis 06/03 - Large R pleural effusion evident. Awaiting official read. -All cultures (blood, sputum, RAFFY fungal culture) negative at this time -AST/ALT 145/124 (06/03) --> 110/109 (06/04) --> 92/72 (06/06) -ALP 740 --> 641 --> 425 (06/06) -Hepatitis panel from last admission negative -Elevated tumor markers on last admission: CA 19-9 Ag >10,000, CEA Ag 251, CA 125 Ag 203 -Heme/Onc (Dr. Rangel) on case - Our team spoke with Dr. Rangel and he agrees this is a case where the focus should probably be on palliative care. Chemo may have a role for prolongation of life, but will most likely not be curative. He has suggested GI consulted for increasing T Bili, which we have placed. -GI Consult Dr. Montelongo - f/u recs * Supportive care with anti-emetics, PRN paracentesis * Fractionate bili * Agree with Palliative care consult * Panc CA management/Chemo per Oncology -Morphine 4mg IVP Q2 --> may consider Fentanyl patch as patient has not been able to swallow pills, if he is still in need of pain control -Morphine ER 15 mg PO q12 prn for breakthrough pain -Zofran 4 mg IVP q4 prn -Reglan 10 mg daily -Fluids changed to 1/2NS @ 100/hr -Diet advanced to regular diet -Avoid Tylenol, muscle relaxants due to transaminitis Code Status - DNR/DNI -Palliative care on case, help appreciated - --Palliative care held in-depth discussion with patient regarding medical decision making and his poor prognosis of metastatic pancreatic CA. - --Patient made DNR/DNI - BrotherJacek made surrogate decision maker Fever/Leukocytosis -Normal temp at WBC count as of 06/07 -Rocephin 1 gm daily -Possibly reaction to pancreatic malignancy Recent PE and DVT likely 2/2 hypercoagulability due to underlying malignancy -CTA abdomen/pelvis (05/08/18): large right lower lobe pulmonary branch pulmonary embolus -CTA chest (05/09/18): Filling defect consistent with pulmonary embolus evident within the right lower lobe pulmonary artery branch. -LE dopplers (05/10/18): left long saphenous vein DVT -ECHO (05/10/18): LVEF is 60%. Mild concentric LVH. Grade 1 diastolic dysfunction. AV appears to be bicuspid. Borderline to mild . MR is trace to mild. RVSP is less than 30 mmHg. -Xarelto 15 mg PO BID x 21 days, then 20 mg PO daily. R Pleural effusion -CXR (06/03): moderate R pleural effusion. 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 Stephanie Guzman PGY2 <Harsh Brown H - Last Filed: 06/10/18 10:46> Objective - Vital Signs/Intake and Output Vital Signs (last 24 hours): Temp Pulse Resp BP Pulse Ox 98.6 F 100 H 18 117/68 94 L 06/10/18 07:30 06/10/18 07:30 06/10/18 07:30 06/10/18 07:30 06/10/18 07:30 - Medications Medications: Current Medications Dextrose (Dextrose 50% Inj) 0 ml IV STAT PRN; Protocol PRN Reason: Hypoglycemia Protocol Last Admin: 06/10/18 07:05 Dose: 25 ml Dextrose (Glutose 15) 0 gm PO ONCE PRN; Protocol PRN Reason: Hypoglycemia Protocol Diphenhydramine HCl (Benadryl) 12.5 mg PO ONCE PRN PRN Reason: Allergy symptoms Glucagon (Glucagen Diagnostic Kit) 0 mg IM STAT PRN; Protocol PRN Reason: Hypoglycemia Protocol Sodium Chloride (Sodium Chloride 0.45%) 1,000 mls @ 70 mls/hr IV .[id number] [facility] Insulin Detemir (Levemir) 20 unit SC HS [facility] Last Admin: 06/09/18 21:59 Dose: 20 u Insulin Human Regular (Novolin R) 0 unit SC ACHS [facility]; Protocol Last Admin: 06/10/18 08:08 Dose: Not Given Metoclopramide HCl (Reglan) 10 mg IVP DAILY PRN PRN Reason: Nausea/Vomiting Last Admin: 06/10/18 08:49 Dose: 10 mg Morphine Sulfate (Morphine Extended Release Tab) 15 mg PO Q12 [facility] Last Admin: 06/10/18 09:28 Dose: Not Given Morphine Sulfate (Morphine) 4 mg IVP Q2 [facility] Last Admin: 06/10/18 08:40 Dose: Not Given Ondansetron HCl (Zofran Inj) 4 mg IVP Q4H PRN PRN Reason: Nausea/Vomiting Last Admin: 06/08/18 15:40 Dose: 4 mg Pantoprazole Sodium (Protonix Inj) 40 mg IVP DAILY [facility] Last Admin: 06/10/18 09:28 Dose: 40 mg - Labs Labs: 06/10/18 07:42 06/10/18 07:42 PT 13.4 SECONDS (9.7-12.2) H 06/03/18 19:50 INR 1.2 06/03/18 19:50 APTT 28 SECONDS (21-34) 06/03/18 19:50 Attending/Attestation - Attestation I have personally seen and examined this patient.: Yes I have fully participated in the care of the patient.: Yes I have reviewed all pertinent clinical information, including history, physical exam and plan: Yes
--- NOTE | 2018-06-10 11:01 | RAD ---
Date of service: 06/10/2018 HISTORY: pleural effusions, pancreatic cancer COMPARISON: 06/08/2018 FINDINGS: The right MediPort terminates in the SVC. LUNGS: The lungs are well inflated. There is severe pulmonary venous congestion. There is redemonstration of consolidation in the right lower lobe. PLEURA: Persistent small right pleural effusion. No left pleural effusion or pneumothorax. CARDIOVASCULAR: The heart is normal in size. No aortic atherosclerotic calcification present. OSSEOUS STRUCTURES: Within normal limits for the patient's age. Severe degenerative osteoarthrosis in the left glenohumeral joint. VISUALIZED UPPER ABDOMEN: Normal. OTHER FINDINGS: None. IMPRESSION: Little interval change in right lower lobe consolidation and small right pleural effusion. Severe pulmonary venous congestion
[2018-06-10] MEDS: POLYETHYLENE GLYCOL 3350 17 GM/Dose PACKET PO SCH (12:54)
--- NOTE | 2018-06-10 13:04 | CP.PCM.PN ---
<Tez Chau - Last Filed: 06/10/18 13:00> Subjective - Date & Time of Evaluation Date of Evaluation: 06/10/18 Time of Evaluation: 08:10 - Subjective Subjective: PGY-4 GI Fellow Prog Note Pt lying in bed, about to eat when seen this AM. States nausea somewhat improved. States no BM in days. 5 point ROS negative other than stated above Objective - Vital Signs/Intake and Output Vital Signs (last 24 hours): Temp Pulse Resp BP Pulse Ox 98.6 F 100 H 18 163/83 H 94 L 06/10/18 07:30 06/10/18 07:30 06/10/18 07:30 06/10/18 10:56 06/10/18 07:30 - Medications Medications: Current Medications Dextrose (Dextrose 50% Inj) 0 ml IV STAT PRN; Protocol PRN Reason: Hypoglycemia Protocol Last Admin: 06/10/18 07:05 Dose: 25 ml Dextrose (Glutose 15) 0 gm PO ONCE PRN; Protocol PRN Reason: Hypoglycemia Protocol Diphenhydramine HCl (Benadryl) 12.5 mg PO ONCE PRN PRN Reason: Allergy symptoms Glucagon (Glucagen Diagnostic Kit) 0 mg IM STAT PRN; Protocol PRN Reason: Hypoglycemia Protocol Sodium Chloride (Sodium Chloride 0.45%) 1,000 mls @ 70 mls/hr IV .[id number] [facility] Insulin Detemir (Levemir) 20 unit SC [facility] Last Admin: 06/09/18 21:59 Dose: 20 u Insulin Human Regular (Novolin R) 0 unit SC [facility]; Protocol Last Admin: 06/10/18 11:23 Dose: Not Given Metoclopramide HCl (Reglan) 10 mg IVP DAILY PRN PRN Reason: Nausea/Vomiting Last Admin: 06/10/18 08:49 Dose: 10 mg Morphine Sulfate (Morphine Extended Release Tab) 15 mg PO Q12 [facility] Last Admin: 06/10/18 09:28 Dose: Not Given Morphine Sulfate (Morphine) 4 mg IVP Q2 [facility] Last Admin: 06/10/18 12:52 Dose: 4 mg Ondansetron HCl (Zofran Inj) 4 mg IVP Q4H PRN PRN Reason: Nausea/Vomiting Last Admin: 06/08/18 15:40 Dose: 4 mg Pantoprazole Sodium (Protonix Inj) 40 mg IVP DAILY [facility] Last Admin: 06/10/18 09:28 Dose: 40 mg Polyethylene Glycol (Miralax) 17 gm PO DAILY [facility] Last Admin: 06/10/18 12:54 Dose: 17 gm - Labs Labs: 06/10/18 07:42 06/10/18 07:42 PT 13.4 SECONDS (9.7-12.2) H 06/03/18 19:50 INR 1.2 06/03/18 19:50 APTT 28 SECONDS (21-34) 06/03/18 19:50 - Constitutional Appears: No Acute Distress, Chronically Ill - Head Exam Head Exam: ATRAUMATIC, NORMAL INSPECTION - Eye Exam Eye Exam: EOMI, Scleral icterus - ENT Exam ENT Exam: Mucous Membranes Moist. absent: Mucous Membranes Dry - Respiratory Exam Respiratory Exam: NORMAL BREATHING PATTERN. absent: Accessory Muscle Use, Respiratory Distress - GI/Abdominal Exam GI & Abdominal Exam: Distended, Soft, Normal Bowel Sounds. absent: Bruit, Firm, Guarding, Rigid, Tenderness, Mass, Pulsatile Mass Assessment and Plan - Assessment and Plan (Free Text) Assessment: 53 yo M with recently diagnosed Metastatic Pancreatic AdenoCA with mets to liver (not started on chemo yet) admitted for abd pain, found to have rising bilirubin. # Abnormal Liver Tests: Cholestatic pattern with rising bilirubin most likely due to known liver mets from pancreatic CA. Abd US ordered yesterday reveal normal CBD; therefore, rising bili related to tumor burden within liver and not some pathology within CBD amenable to ERCP with stenting. Given rapid progression in his symptoms, perhaps more palliative approach indicated. # Metastatic Pancreatic AdenoCA with mets to liver (not started on chemo yet): c/b ascites, pleural effusion. Plan: - Supportive care with anti-emetics, PRN paracentesis - Agree with Palliative care consult - Panc CA management/Chemo per Oncology - Miralax daily, can increase regimen to avoid constipation induced discomfort Thank you for the consult; will sign off. Please call if questions Pt discussed with Dr. Bethea; please see attestation for further recs/changes. Tez Chau, PGY-4 <Woody Bethea - Last Filed: 06/10/18 22:06> Objective - Vital Signs/Intake and Output Vital Signs (last 24 hours): Temp Pulse Resp BP Pulse Ox 98.8 F 111 H 20 137/71 96 06/10/18 22:01 06/10/18 22:01 06/10/18 15:56 06/10/18 22:01 06/10/18 15:56 Intake and Output: 06/10/18 06/11/18 18:59 06:59 Intake Total 810 200 Output Total 600 200 Balance 210 0 - Medications Medications: Current Medications Dextrose (Dextrose 50% Inj) 0 ml IV STAT PRN; Protocol PRN Reason: Hypoglycemia Protocol Last Admin: 06/10/18 07:05 Dose: 25 ml Dextrose (Glutose 15) 0 gm PO ONCE PRN; Protocol PRN Reason: Hypoglycemia Protocol Diphenhydramine HCl (Benadryl) 12.5 mg PO ONCE PRN PRN Reason: Allergy symptoms Glucagon (Glucagen Diagnostic Kit) 0 mg IM STAT PRN; Protocol PRN Reason: Hypoglycemia Protocol Sodium Chloride (Sodium Chloride 0.45%) 1,000 mls @ 70 mls/hr IV .[id number] [facility] Last Admin: 06/10/18 13:08 Dose: 70 mls/hr Insulin Detemir (Levemir) 20 unit SC HS [facility] Last Admin: 06/10/18 21:08 Dose: Not Given Insulin Human Regular (Novolin R) 0 unit SC ACHS [facility]; Protocol Last Admin: 06/10/18 21:07 Dose: Not Given Metoclopramide HCl (Reglan) 10 mg IVP DAILY PRN PRN Reason: Nausea/Vomiting Last Admin: 06/10/18 08:49 Dose: 10 mg Morphine Sulfate (Morphine Extended Release Tab) 15 mg PO Q12 [facility] Last Admin: 06/10/18 21:45 Dose: 15 mg Morphine Sulfate (Morphine) 4 mg IVP Q2 [facility] Last Admin: 06/10/18 21:47 Dose: 4 mg Ondansetron HCl (Zofran Inj) 4 mg IVP Q4H PRN PRN Reason: Nausea/Vomiting Last Admin: 06/08/18 15:40 Dose: 4 mg Pantoprazole Sodium (Protonix Inj) 40 mg IVP DAILY [facility] Last Admin: 06/10/18 09:28 Dose: 40 mg Polyethylene Glycol (Miralax) 17 gm PO DAILY [facility] Last Admin: 06/10/18 12:54 Dose: 17 gm - Labs Labs: 06/10/18 07:42 06/10/18 07:42 PT 13.4 SECONDS (9.7-12.2) H 06/03/18 19:50 INR 1.2 06/03/18 19:50 APTT 28 SECONDS (21-34) 06/03/18 19:50 Attending/Attestation - Attestation I have personally seen and examined this patient.: Yes I have fully participated in the care of the patient.: Yes I have reviewed all pertinent clinical information, including history, physical exam and plan: Yes Notes (Text): 06/10/18 22:06 The patient was seen and examined earlier to day. Chart reviewed. Findings, assessment and management were discussed with Dr. Chau and reflected above.
[2018-06-10] MEDS: Sodium Chloride 0.45% 1,000 ML IV SCH (13:08)
[2018-06-10] MEDS: Insulin Detemir 100 units/ml Vial (Levemir) SC SCH (21:08)
[2018-06-11] MEDS: Sodium Chloride 0.45% 1,000 ML IV SCH ×3 (01:02→15:45)
[2018-06-11] MEDS: (Novolin R) Insulin Human Regular 100 units/ml vial SC SCH ×4 (07:17→21:52)
--- NOTE | 2018-06-11 09:18 | CP.PCM.PN ---
Subjective - Date & Time of Evaluation Date of Evaluation: 06/11/18 Time of Evaluation: 09:19 - Subjective Subjective: PGY-[address] Venegas Patient seen and examined at bedside. No acute events overnight. Patient refused bloodwork this morning. He was visibly upset and seemingly depressed, wanting to go home. Patient complaining of nausea and abdominal pain. States his breathing is ok. Objective - Vital Signs/Intake and Output Vital Signs (last 24 hours): Temp Pulse Resp BP Pulse Ox 98.3 F 103 H 20 108/65 94 L 06/11/18 08:00 06/11/18 08:00 06/11/18 08:00 06/11/18 08:00 06/11/18 08:00 Intake and Output: 06/11/18 06/11/18 06:59 18:59 Intake Total 1290 Output Total 200 Balance 1090 - Medications Medications: Current Medications Dextrose (Dextrose 50% Inj) 0 ml IV STAT PRN; Protocol PRN Reason: Hypoglycemia Protocol Last Admin: 06/10/18 07:05 Dose: 25 ml Dextrose (Glutose 15) 0 gm PO ONCE PRN; Protocol PRN Reason: Hypoglycemia Protocol Diphenhydramine HCl (Benadryl) 12.5 mg PO ONCE PRN PRN Reason: Allergy symptoms Glucagon (Glucagen Diagnostic Kit) 0 mg IM STAT PRN; Protocol PRN Reason: Hypoglycemia Protocol Sodium Chloride (Sodium Chloride 0.45%) 1,000 mls @ 70 mls/hr IV .[id number] [facility] Last Admin: 06/11/18 05:12 Dose: 70 mls/hr Insulin Detemir (Levemir) 20 unit SC HS [facility] Last Admin: 06/10/18 21:08 Dose: Not Given Insulin Human Regular (Novolin R) 0 unit SC [facility]; Protocol Last Admin: 06/11/18 07:17 Dose: Not Given Metoclopramide HCl (Reglan) 10 mg IVP DAILY PRN PRN Reason: Nausea/Vomiting Last Admin: 06/11/18 08:45 Dose: 10 mg Morphine Sulfate (Morphine Extended Release Tab) 15 mg PO Q12 [facility] Last Admin: 06/10/18 21:45 Dose: 15 mg Morphine Sulfate (Morphine) 4 mg IVP Q2 [facility] Last Admin: 06/11/18 07:17 Dose: Not Given Ondansetron HCl (Zofran Inj) 4 mg IVP Q4H PRN PRN Reason: Nausea/Vomiting Last Admin: 06/08/18 15:40 Dose: 4 mg Pantoprazole Sodium (Protonix Ec Tab) 40 mg PO DAILY [facility] Polyethylene Glycol (Miralax) 17 gm PO DAILY [facility] Last Admin: 06/10/18 12:54 Dose: 17 gm - Labs Labs: 06/10/18 07:42 06/10/18 07:42 PT 13.4 SECONDS (9.7-12.2) H 06/03/18 19:50 INR 1.2 06/03/18 19:50 APTT 28 SECONDS (21-34) 06/03/18 19:50 - Constitutional Appears: No Acute Distress - Head Exam Head Exam: ATRAUMATIC, NORMAL INSPECTION - Eye Exam Eye Exam: EOMI, Normal appearance - ENT Exam ENT Exam: Mucous Membranes Moist - Respiratory Exam Respiratory Exam: Decreased Breath Sounds (Decreased breath sounds on the right). absent: Rhonchi, Wheezes - Cardiovascular Exam Cardiovascular Exam: REGULAR RHYTHM, +S1, +S2 - GI/Abdominal Exam GI & Abdominal Exam: Soft, Normal Bowel Sounds. absent: Tenderness - Extremities Exam Extremities Exam: absent: Pedal Edema, Tenderness - Neurological Exam Neurological Exam: Alert, Awake, Oriented x3 - Psychiatric Exam Psychiatric exam: Depressed - Skin Skin Exam: Dry, Intact Additional comments: Upper extremity bruising Assessment and Plan - Assessment and Plan (Free Text) Assessment: Pancreatic cancer with liver mets Pancreatitis with necrosis (non-gas forming) 06/10: Patient started on regular diet. He experienced mild nausea but no vomiting. Patient was very happy to be eating regular food again. Will continue regular diet while cautioning patient of importance of eating slow and stop if pain increases. Will likely need to begin discussions of hospice care this week. 06/09: Per discussion with hematology oncology, we should consult GI if there are any further interventions with reguards to the increased billirubin. If nothing can be done, then per conversation with hematology oncology we should try to start talking to patient about hospice and comfort care. I discussed with GI fellow this morning and explained the poor prognosis and that if they did not have any recommendations then we will go down the hospice comfort care route. -Will most likely do outpatient chemo, and discharge once plan is in place. To continue palliative treatments. -Official Pathology Report (05/11): Biopsy liver lesion: Final diagnosis - Liver tissue involved by adenocarcinoma. Favor pancreatico-biliary origin. -CT abdomen/pelvis with IV contrast (05/08): grossly abnormal appearing pancreas with extensive pancreatitis and necrosis. At time of imaging, non-gas forming. Contiguous hypodensity in SMV; thrombus must be considered. Innumerable liver masses. Right pleural effusion. -Abdominal U/S (05/08): Multiple hepatic masses. Fatty infiltrate. Incidental right upper pole renal cortical cyst. -S/p Paracentesis 06/06 - Removal of about 1.7 liters of straw-colored fluid via ultrasound guided paracentesis. Initial fluid analysis reveals WBCs and RBCs. Few Mesothelial and occasional Macrophages seen. Cultures negative at this time. -S/p bedside thoracentesis 06/07 with removal of 1.1 L opaque dark red/purple fluid. Moderate Macrophages and Moderate Mesothelial cells seen. LDH and total protein did not result but suspect exudative due to fluid appearance and patient history. Cultures negative at this time. -CXR (06/03): moderate R pleural effusion. No definite infiltrate. Normal bowel gas pattern. -CT Abdomen/Pelvis 06/03 - Large R pleural effusion evident. Awaiting official read. -All cultures (blood, sputum, RAFFY fungal culture) negative at this time -AST/ALT 145/124 (06/03) --> 110/109 (06/04) --> 92/72 (06/06) -ALP 740 --> 641 --> 425 (06/06) -Hepatitis panel from last admission negative -Elevated tumor markers on last admission: CA 19-9 Ag >10,000, CEA Ag 251, CA 125 Ag 203 -Heme/Onc (Dr. Rangel) on case - Our team spoke with Dr. Rangel and he agrees this is a case where the focus should probably be on palliative care. Chemo may have a role for prolongation of life, but will most likely not be curative. He has suggested GI consulted for increasing T Bili, which we have placed. -GI Consult Dr. Montelongo - signed off case * Supportive care with anti-emetics, PRN paracentesis * Fractionate bili * Agree with Palliative care consult * Panc CA management/Chemo per Oncology -Morphine 4mg IVP Q2 --> may consider Fentanyl patch as patient has not been able to swallow pills, if he is still in need of pain control -Morphine ER 15 mg PO q12 prn for breakthrough pain -Zofran 4 mg IVP q4 prn -Reglan 10 mg daily -Fluids changed to 1/2NS @ 100/hr -Diet advanced to regular diet -Avoid Tylenol, muscle relaxants due to transaminitis Code Status - DNR/DNI -Palliative care on case, help appreciated - --Palliative care held in-depth discussion with patient regarding medical decision making and his poor prognosis of metastatic pancreatic CA. - --Patient made DNR/DNI - BrotherJacek made surrogate decision maker - We will continue proceed with conversation regarding palliative care/hospice Fever/Leukocytosis -Afebrile -WBC 11.9 -Possibly reaction to pancreatic malignancy -Off Abx Recent PE and DVT likely 2/2 hypercoagulability due to underlying malignancy -CTA abdomen/pelvis (05/08/18): large right lower lobe pulmonary branch pulmonary embolus -CTA chest (05/09/18): Filling defect consistent with pulmonary embolus evident within the right lower lobe pulmonary artery branch. -LE dopplers (05/10/18): left long saphenous vein DVT -ECHO (05/10/18): LVEF is 60%. Mild concentric LVH. Grade 1 diastolic dysfunction. AV appears to be bicuspid. Borderline to mild . MR is trace to mild. RVSP is less than 30 mmHg. -Xarelto 15 mg PO BID x 21 days, then 20 mg PO daily. R Pleural effusion -CXR (06/03): moderate R pleural effusion. 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 Jf Jean Baptiste PGY1
[2018-06-11] MEDS: Morphine 15 mg SR Tab PO SCH ×2 (09:53→21:29)
[2018-06-11] MEDS: Pantoprazole 40 mg EC Tab PO SCH (09:53)
[2018-06-11] MEDS: POLYETHYLENE GLYCOL 3350 17 GM/Dose PACKET PO SCH (09:53)
--- NOTE | 2018-06-11 12:54 | CP.PCM.PN ---
Subjective - Date & Time of Evaluation Date of Evaluation: 06/08/18 Time of Evaluation: 12:00 - Subjective Subjective: Breathing better Objective - Vital Signs/Intake and Output Vital Signs (last 24 hours): Temp Pulse Resp BP Pulse Ox 98.3 F 103 H 20 108/65 94 L 06/11/18 08:00 06/11/18 08:00 06/11/18 08:00 06/11/18 08:00 06/11/18 08:00 Intake and Output: 06/11/18 06/11/18 06:59 18:59 Intake Total 1290 Output Total 200 Balance 1090 - Medications Medications: Current Medications Dextrose (Dextrose 50% Inj) 0 ml IV STAT PRN; Protocol PRN Reason: Hypoglycemia Protocol Last Admin: 06/10/18 07:05 Dose: 25 ml Dextrose (Glutose 15) 0 gm PO ONCE PRN; Protocol PRN Reason: Hypoglycemia Protocol Diphenhydramine HCl (Benadryl) 12.5 mg PO ONCE PRN PRN Reason: Allergy symptoms Glucagon (Glucagen Diagnostic Kit) 0 mg IM STAT PRN; Protocol PRN Reason: Hypoglycemia Protocol Sodium Chloride (Sodium Chloride 0.45%) 1,000 mls @ 70 mls/hr IV .[id number] [facility] Last Admin: 06/11/18 05:12 Dose: 70 mls/hr Insulin Detemir (Levemir) 20 unit SC HS [facility] Last Admin: 06/10/18 21:08 Dose: Not Given Insulin Human Regular (Novolin R) 0 unit SC ACHS [facility]; Protocol Last Admin: 06/11/18 11:08 Dose: Not Given Metoclopramide HCl (Reglan) 10 mg IVP DAILY PRN PRN Reason: Nausea/Vomiting Last Admin: 06/11/18 08:45 Dose: 10 mg Morphine Sulfate (Morphine) 4 mg IVP Q2 [facility] Last Admin: 06/11/18 12:05 Dose: Not Given Morphine Sulfate (Morphine Extended Release Tab) 30 mg PO Q12 [facility] Ondansetron HCl (Zofran Inj) 4 mg IVP Q4H PRN PRN Reason: Nausea/Vomiting Last Admin: 06/08/18 15:40 Dose: 4 mg Pantoprazole Sodium (Protonix Ec Tab) 40 mg PO DAILY [facility] Last Admin: 06/11/18 09:53 Dose: 40 mg Polyethylene Glycol (Miralax) 17 gm PO DAILY [facility] Last Admin: 06/11/18 09:53 Dose: 17 gm - Labs Labs: 06/10/18 07:42 06/10/18 07:42 PT 13.4 SECONDS (9.7-12.2) H 06/03/18 19:50 INR 1.2 06/03/18 19:50 APTT 28 SECONDS (21-34) 06/03/18 19:50 - Head Exam Head Exam: ATRAUMATIC - Eye Exam Eye Exam: Normal appearance - ENT Exam ENT Exam: Mucous Membranes Dry - Respiratory Exam Respiratory Exam: NORMAL BREATHING PATTERN - Cardiovascular Exam Cardiovascular Exam: +S1, +S2 - GI/Abdominal Exam GI & Abdominal Exam: Normal Bowel Sounds Assessment and Plan (1) Pancreatic cancer Assessment & Plan: liver metastasis s/p paracentesis ? malignant rising bilirirubin concerning; consider GI evaluation DNR/DNI Status: Acute (2) Pulmonary embolism Assessment & Plan: provoked from malignancy resume therapeutic anticoagulation when no further procedures Status: Acute (3) Anemia Assessment & Plan: chronic disease Status: Acute
--- NOTE | 2018-06-11 12:56 | CP.PCM.PN ---
Subjective - Date & Time of Evaluation Date of Evaluation: 06/09/18 Time of Evaluation: 12:00 - Subjective Subjective: Trying to eat more Objective - Vital Signs/Intake and Output Vital Signs (last 24 hours): Temp Pulse Resp BP Pulse Ox 98.3 F 103 H 20 108/65 94 L 06/11/18 08:00 06/11/18 08:00 06/11/18 08:00 06/11/18 08:00 06/11/18 08:00 Intake and Output: 06/11/18 06/11/18 06:59 18:59 Intake Total 1290 Output Total 200 Balance 1090 - Medications Medications: Current Medications Dextrose (Dextrose 50% Inj) 0 ml IV STAT PRN; Protocol PRN Reason: Hypoglycemia Protocol Last Admin: 06/10/18 07:05 Dose: 25 ml Dextrose (Glutose 15) 0 gm PO ONCE PRN; Protocol PRN Reason: Hypoglycemia Protocol Diphenhydramine HCl (Benadryl) 12.5 mg PO ONCE PRN PRN Reason: Allergy symptoms Glucagon (Glucagen Diagnostic Kit) 0 mg IM STAT PRN; Protocol PRN Reason: Hypoglycemia Protocol Sodium Chloride (Sodium Chloride 0.45%) 1,000 mls @ 70 mls/hr IV .[id number] [facility] Last Admin: 06/11/18 05:12 Dose: 70 mls/hr Insulin Detemir (Levemir) 20 unit SC HS [facility] Last Admin: 06/10/18 21:08 Dose: Not Given Insulin Human Regular (Novolin R) 0 unit SC ACHS [facility]; Protocol Last Admin: 06/11/18 11:08 Dose: Not Given Metoclopramide HCl (Reglan) 10 mg IVP DAILY PRN PRN Reason: Nausea/Vomiting Last Admin: 06/11/18 08:45 Dose: 10 mg Morphine Sulfate (Morphine) 4 mg IVP Q2 [facility] Last Admin: 06/11/18 12:05 Dose: Not Given Morphine Sulfate (Morphine Extended Release Tab) 30 mg PO Q12H [facility] Ondansetron HCl (Zofran Inj) 4 mg IVP Q4H PRN PRN Reason: Nausea/Vomiting Last Admin: 06/08/18 15:40 Dose: 4 mg Pantoprazole Sodium (Protonix Ec Tab) 40 mg PO DAILY [facility] Last Admin: 06/11/18 09:53 Dose: 40 mg Polyethylene Glycol (Miralax) 17 gm PO DAILY [facility] Last Admin: 06/11/18 09:53 Dose: 17 gm - Labs Labs: 06/10/18 07:42 06/10/18 07:42 PT 13.4 SECONDS (9.7-12.2) H 06/03/18 19:50 INR 1.2 06/03/18 19:50 APTT 28 SECONDS (21-34) 06/03/18 19:50 - Head Exam Head Exam: ATRAUMATIC - Eye Exam Eye Exam: Normal appearance - ENT Exam ENT Exam: Mucous Membranes Dry - Respiratory Exam Respiratory Exam: NORMAL BREATHING PATTERN - Cardiovascular Exam Cardiovascular Exam: +S1, +S2 - GI/Abdominal Exam GI & Abdominal Exam: Normal Bowel Sounds Assessment and Plan (1) Pancreatic cancer Assessment & Plan: liver metastasis s/p paracentesis ? malignant rising bilirirubin secondary to liver metastasis Status: Acute (2) Pulmonary embolism Assessment & Plan: provoked from malignancy Xarelto on hold s/p paracentesis Status: Acute (3) Anemia Assessment & Plan: chronic disease Status: Acute
--- NOTE | 2018-06-11 12:59 | CP.PCM.PN ---
Subjective - Date & Time of Evaluation Date of Evaluation: 06/10/18 Time of Evaluation: 13:00 - Subjective Subjective: Trying to eat more Objective - Vital Signs/Intake and Output Vital Signs (last 24 hours): Temp Pulse Resp BP Pulse Ox 98.3 F 103 H 20 108/65 94 L 06/11/18 08:00 06/11/18 08:00 06/11/18 08:00 06/11/18 08:00 06/11/18 08:00 Intake and Output: 06/11/18 06/11/18 06:59 18:59 Intake Total 1290 Output Total 200 Balance 1090 - Medications Medications: Current Medications Dextrose (Dextrose 50% Inj) 0 ml IV STAT PRN; Protocol PRN Reason: Hypoglycemia Protocol Last Admin: 06/10/18 07:05 Dose: 25 ml Dextrose (Glutose 15) 0 gm PO ONCE PRN; Protocol PRN Reason: Hypoglycemia Protocol Diphenhydramine HCl (Benadryl) 12.5 mg PO ONCE PRN PRN Reason: Allergy symptoms Glucagon (Glucagen Diagnostic Kit) 0 mg IM STAT PRN; Protocol PRN Reason: Hypoglycemia Protocol Sodium Chloride (Sodium Chloride 0.45%) 1,000 mls @ 70 mls/hr IV .[id number] [facility] Last Admin: 06/11/18 05:12 Dose: 70 mls/hr Insulin Detemir (Levemir) 20 unit SC HS [facility] Last Admin: 06/10/18 21:08 Dose: Not Given Insulin Human Regular (Novolin R) 0 unit SC ACHS [facility]; Protocol Last Admin: 06/11/18 11:08 Dose: Not Given Metoclopramide HCl (Reglan) 10 mg IVP DAILY PRN PRN Reason: Nausea/Vomiting Last Admin: 06/11/18 08:45 Dose: 10 mg Morphine Sulfate (Morphine) 4 mg IVP Q2 [facility] Last Admin: 06/11/18 12:05 Dose: Not Given Morphine Sulfate (Morphine Extended Release Tab) 30 mg PO Q12H [facility] Ondansetron HCl (Zofran Inj) 4 mg IVP Q4H PRN PRN Reason: Nausea/Vomiting Last Admin: 06/08/18 15:40 Dose: 4 mg Pantoprazole Sodium (Protonix Ec Tab) 40 mg PO DAILY [facility] Last Admin: 06/11/18 09:53 Dose: 40 mg Polyethylene Glycol (Miralax) 17 gm PO DAILY [facility] Last Admin: 06/11/18 09:53 Dose: 17 gm - Labs Labs: 06/10/18 07:42 06/10/18 07:42 PT 13.4 SECONDS (9.7-12.2) H 06/03/18 19:50 INR 1.2 06/03/18 19:50 APTT 28 SECONDS (21-34) 06/03/18 19:50 - Head Exam Head Exam: ATRAUMATIC - Eye Exam Eye Exam: Normal appearance - ENT Exam ENT Exam: Mucous Membranes Dry - Respiratory Exam Respiratory Exam: NORMAL BREATHING PATTERN - Cardiovascular Exam Cardiovascular Exam: +S1, +S2 - GI/Abdominal Exam GI & Abdominal Exam: Normal Bowel Sounds Assessment and Plan (1) Pancreatic cancer Assessment & Plan: liver metastasis s/p paracentesis ? malignant rising bilirirubin concerning; consider GI evaluation DNR/DNI Status: Acute (2) Pulmonary embolism Assessment & Plan: provoked from malignancy restart anticoagulation when no further procedures Status: Acute (3) Anemia Assessment & Plan: chronic disease Status: Acute
[2018-06-11 20:30] LABS: LDH PLEURAL FLUID 3619 U/L; TOTAL PROTEIN PLEURAL FLUID 6.3 g/dL; TRIGLYCERIDES PLEURAL FLUID 51 mg/dL
[2018-06-11 21:32] LABS: CEA PLEURAL FLUID 4179.8 ng/mL (<10.0)
[2018-06-12 04:20] LABS: AMYLASE PLEURAL FLUID <10 U/L
[2018-06-12] MEDS: (Novolin R) Insulin Human Regular 100 units/ml vial SC SCH ×4 (07:30→22:10)
[2018-06-12 09:29] LABS: BASO # 0.1 K/uL (0.0-0.2); BASO % 0.5 % (0.0-2.0); EOS # 0.1 K/uL (0.0-0.7); EOS % 0.8 % (0.0-4.0); HEMOGLOBIN 8.9 g/dL (12.0-18.0); LYMPH # 1.6 K/uL (1.0-4.3); LYMPH % 12.3 % (20.0-40.0); MEAN CELL VOLUME 86.4 fL (80.0-94.0); MEAN CORPUSCULAR HEMOGLOBIN 29.1 pg (27.0-31.0); MEAN CORPUSCULAR HGB CONC 33.7 g/dL (33.0-37.0); MEAN PLATELET VOLUME 7.6 fL (7.2-11.7); MONO # 1.6 K/uL (0.0-0.8); MONO % 12.3 % (0.0-10.0); NEUT # 9.6 K/uL (1.8-7.0); NEUT % 74.1 % (50.0-75.0); RBC 3.07 Mil/uL (4.40-5.90); RED CELL DISTRIBUTION WIDTH 15.5 % (11.5-14.5)
[2018-06-12 09:52] LABS: ALB/GLOB RATIO 0.7 (1.0-2.1); ALBUMIN 2.7 g/dL (3.5-5.0); CALCIUM 7.3 mg/dl (8.6-10.4)
[2018-06-12 09:53] LABS: INR 1.9; PROTHROMBIN TIME 20.7 SECONDS (9.7-12.2)
[2018-06-12] MEDS: POLYETHYLENE GLYCOL 3350 17 GM/Dose PACKET PO SCH (10:24)
[2018-06-12] MEDS: Morphine 15 mg SR Tab PO SCH ×2 (10:24→21:37)
[2018-06-12] MEDS: Pantoprazole 40 mg EC Tab PO SCH (10:49)
--- NOTE | 2018-06-12 12:19 | CP.PCM.PN ---
Subjective - Date & Time of Evaluation Date of Evaluation: 06/12/18 Time of Evaluation: 07:00 - Subjective Subjective: PGY-[address] Rhoades service Patient is seen and examined at bedside. As per nurse and night resident, last night patient was noted to be distended in his lower abdominal area. Patient did not complaint of any discomfort. Patient admitted he could not urinate. bladder scan showed 400 cc accumulated in bladder. straight cath was tried twice but as per nurse, there was obstruction noted and straight cath was not able to be done. CT was done, showing moderate bladder distention no hydronephrosis. second bladder scan shows 500cc, patient continues to no complain of pain, patient seemed to be Alert and oriented to person, but not oriented to place, time. Patient denies any other symptoms. Objective - Vital Signs/Intake and Output Vital Signs (last 24 hours): Temp Pulse Resp BP Pulse Ox 98.1 F 99 H 21 92/50 L 95 06/12/18 07:32 06/12/18 07:32 06/12/18 07:32 06/12/18 07:32 06/12/18 07:32 Intake and Output: 06/12/18 06/12/18 06:59 18:59 Intake Total 630 Balance 630 - Medications Medications: Current Medications Dextrose (Dextrose 50% Inj) 0 ml IV STAT PRN; Protocol PRN Reason: Hypoglycemia Protocol Last Admin: 06/10/18 07:05 Dose: 25 ml Dextrose (Glutose 15) 0 gm PO ONCE PRN; Protocol PRN Reason: Hypoglycemia Protocol Diphenhydramine HCl (Benadryl) 12.5 mg PO ONCE PRN PRN Reason: Allergy symptoms Glucagon (Glucagen Diagnostic Kit) 0 mg IM STAT PRN; Protocol PRN Reason: Hypoglycemia Protocol Sodium Chloride (Sodium Chloride 0.45%) 1,000 mls @ 70 mls/hr IV .[id number] CALR Last Admin: 06/11/18 15:45 Dose: 70 mls/hr Insulin Detemir (Levemir) 20 unit SC HS CARL Last Admin: 06/10/18 21:08 Dose: Not Given Insulin Human Regular (Novolin R) 0 unit SC ACHS CARL; Protocol Last Admin: 06/12/18 12:15 Dose: Not Given Metoclopramide HCl (Reglan) 10 mg IVP DAILY PRN PRN Reason: Nausea/Vomiting Last Admin: 06/11/18 08:45 Dose: 10 mg Morphine Sulfate (Morphine) 4 mg IVP Q2 [facility] Last Admin: 06/12/18 10:24 Dose: Not Given Morphine Sulfate (Morphine Extended Release Tab) 30 mg PO Q12H [facility] Last Admin: 06/12/18 10:24 Dose: Not Given Ondansetron HCl (Zofran Inj) 4 mg IVP Q4H PRN PRN Reason: Nausea/Vomiting Last Admin: 06/08/18 15:40 Dose: 4 mg Pantoprazole Sodium (Protonix Ec Tab) 40 mg PO DAILY [facility] Last Admin: 06/12/18 10:49 Dose: Not Given Polyethylene Glycol (Miralax) 17 gm PO DAILY [facility] Last Admin: 06/12/18 10:24 Dose: Not Given Tamsulosin HCl (Flomax) 0.4 mg PO DAILY [facility] Last Admin: 06/12/18 10:48 Dose: Not Given - Labs Labs: 06/12/18 09:23 06/12/18 09:23 PT 20.7 SECONDS (9.7-12.2) H 06/12/18 09:23 INR 1.9 06/12/18 09:23 APTT 29 SECONDS (21-34) 06/12/18 09:23 - Constitutional Appears: No Acute Distress - Head Exam Head Exam: ATRAUMATIC, NORMOCEPHALIC - Eye Exam Eye Exam: EOMI, Normal appearance - ENT Exam ENT Exam: Mucous Membranes Moist - Cardiovascular Exam Cardiovascular Exam: REGULAR RHYTHM, +S1, +S2 - GI/Abdominal Exam GI & Abdominal Exam: Normal Bowel Sounds - Extremities Exam Additional comments: right BKA - Back Exam Back Exam: NORMAL INSPECTION - Neurological Exam Neurological Exam: Alert, Awake. absent: Oriented x3 - Psychiatric Exam Psychiatric exam: Agitated - Skin Skin Exam: Dry, Warm. absent: Normal Color Additional comments: generalized Jaundice Assessment and Plan - Assessment and Plan (Free Text) Plan: Pancreatic cancer with liver mets Pancreatitis with necrosis (non-gas forming) -Official Pathology Report (05/11): Biopsy liver lesion: Final diagnosis - Liver tissue involved by adenocarcinoma. Favor pancreatico-biliary origin. -CT abdomen/pelvis with IV contrast (05/08): grossly abnormal appearing pancreas with extensive pancreatitis and necrosis. At time of imaging, non-gas forming. Contiguous hypodensity in SMV; thrombus must be considered. Innumerable liver m asses. Right pleural effusion. -Abdominal U/S (05/08): Multiple hepatic masses. Fatty infiltrate. Incidental right upper pole renal cortical cyst. -S/p Paracentesis 06/06 - Removal of about 1.7 liters of straw-colored fluid via ultrasound guided paracentesis. Initial fluid analysis reveals WBCs and RBCs. Few Mesothelial and occasional Macrophages seen. Cultures negative at this time. -S/p bedside thoracentesis 06/07 with removal of 1.1 L opaque dark red/purple fluid. Moderate Macrophages and Moderate Mesothelial cells seen. LDH and total protein did not result but suspect exudative due to fluid appearance and patient history. Cultures negative at this time. -CXR (06/03): moderate R pleural effusion. No definite infiltrate. Normal bowel gas pattern. -CT Abdomen/Pelvis 06/03 - Large R pleural effusion evident. Awaiting official read. -All cultures (blood, sputum, RAFFY fungal culture) negative at this time -AST/ALT 145/124 (06/03) --> 110/109 (06/04) --> 92/72 (06/06) -ALP 740 --> 641 --> 425 (06/06) -Hepatitis panel from last admission negative -Elevated tumor markers on last admission: CA 19-9 Ag >10,000, CEA Ag 251, CA 125 Ag 203 -Heme/Onc (Dr. Rangel) on case - Our team spoke with Dr. Rangel and he agrees this is a case where the focus should probably be on palliative care. Chemo may have a role for prolongation of life, but will most likely not be curative. He has s uggested GI consulted for increasing T Bili, which we have placed. -GI Consult Dr. Montelongo - signed off case * Supportive care with anti-emetics, PRN paracentesis * Fractionate bili * Agree with Palliative care consult * Panc CA management/Chemo per Oncology * miralax 17gm PO Daily -Morphine 4mg IVP Q2 --> may consider Fentanyl patch as patient has not been able to swallow pills, if he is still in need of pain control -Morphine ER 15 mg PO q12 prn for breakthrough pain -Zofran 4 mg IVP q4 prn -Reglan 10 mg daily -D/C fluids - regular diet -Avoid Tylenol, muscle relaxants due to transaminitis Urinary retention - failed attempts to straight cath pt and sexton cath - bladder scan 500cc - CT abd/pelvis- moderate bladder distention, no hydronephrosis - Urology consult - DR Barajas - sexton cath placed by Dr Barajas - continue to monitor output - Flomax PO daily elevated Ammonia levels - 06/12/18 - 53 - Lactulose 20gm PO Q8H - hold for 2-3 loose Bowel movements - most likely from Liver failure/liver met - causing pt's Disorientation - repeat ammonia levels in am next day Code Status - DNR/DNI -Palliative care on case, help appreciated - --Palliative care held in-depth discussion with patient regarding medical decision making and his poor prognosis of metastatic pancreatic CA. - --Patient made DNR/DNI - BrotherJacek made surrogate decision maker - We will continue proceed with conversation regarding palliative care/hospice Fever/Leukocytosis -Afebrile -WBC 13 -Possibly reaction to pancreatic malignancy -Off Abx Recent PE and DVT likely 2/2 hypercoagulability due to underlying malignancy -CTA abdomen/pelvis (05/08/18): large right lower lobe pulmonary branch pulmonary embolus -CTA chest (05/09/18): Filling defect consistent with pulmonary embolus evident within the right lower lobe pulmonary artery branch. -LE dopplers (05/10/18): left long saphenous vein DVT -ECHO (05/10/18): LVEF is 60%. Mild concentric LVH. Grade 1 diastolic dysfunction. AV appears to be bicuspid. Borderline to mild . MR is trace to mild. RVSP is less than 30 mmHg. R Pleural effusion -CXR (06/03): moderate R pleural effusion. No definite infiltrate -continue to monitor DM -A1C: 13.5 (05/09/18) -ISS high -Levemir 20 units HS CARL -accuchecks achs -hypoglycemic protocol HTN -continue to monitor HLD -Crestor held due to transaminitis Prophylactic Care, Diet, Disposition -DVT ppx: scds CI due to DVT and BKA, xarelto -GI: protonix 40 -Diet: regular -Code status: DNR/DNI Plan d/w Dr Rhoades
--- NOTE | 2018-06-12 14:55 | CT ---
PROCEDURE: CT Abdomen and Pelvis without Oral or IV contrast. HISTORY: urinary retention COMPARISON: Abdominal ultrasound performed 06/08/18, CT abdomen and pelvis with contrast performed 06/03/18 TECHNIQUE: Contiguous axial images of the abdomen and pelvis. No oral or IV contrast administered. Coronal and Sagittal reformats generated and reviewed. Radiation dose: Total exam DLP = 1044.37 mGy-cm. This CT exam was performed using one or more of the following dose reduction techniques: Automated exposure control, adjustment of the mA and/or kV according to patient size, and/or use of iterative reconstruction technique. FINDINGS: There is limited evaluation of the solid organs without the administration of IV contrast. LOWER THORAX: Moderate to large right-sided pleural effusion. Trace left pleural effusion. Bibasilar consolidations/atelectasis. No visible pneumothorax. Small hiatal hernia/distal esophageal wall thickening. LIVER: Nodular hepatic contour. Heterogeneous hepatic parenchyma. Hypodense hepatic masses measuring up to approximately 2.3 x 1.9 cm, right hepatic lobe; appearance consistent with metastatic disease. GALLBLADDER AND BILE DUCTS: Hyperdense material within the gallbladder likely related to vicarious excretion of contrast. Contract state limits evaluation. PANCREAS: Large hypodense pancreatic mass occupying pancreatic body/tail. Prominent peripancreatic lymph nodes re-identified. SPLEEN: Unremarkable. ADRENALS: Left adrenal gland hypertrophy. The right adrenal gland appears unremarkable. KIDNEYS AND URETERS: Heterogeneous enhancement/striated appearance of bilateral kidneys of uncertain significance, likely residual contrast. No hydronephrosis or obstructing renal calculus. 2.4 cm low-density lesion arising from the posterior midpole right kidney, likely cyst. BLADDER: Urinary bladder distension. REPRODUCTIVE: Unremarkable. APPENDIX: The presumed appendix measures approximately 7 mm in diameter containing probable intraluminal fecal material. BOWEL: The stomach is nondistended. Lack of oral contrast limits evaluation for bowel pathology. The bowel loops appear within normal limits of caliber without evidence of intestinal obstruction. PERITONEUM: Moderate abdominal and pelvic ascites persists. No definite free air. LYMPH NODES: Mesenteric/peripancreatic lymph nodes. VASCULATURE: No aortic aneurysm. BONES: Degenerative changes. OTHER FINDINGS: Anasarca. IMPRESSION: Urinary bladder distension. Nodular hepatic contour. Heterogeneous hepatic parenchyma. Hypodense hepatic masses measuring up to approximately 2.3 x 1.9 cm, right hepatic lobe; appearance consistent with metastatic disease. Large hypodense pancreatic mass occupying pancreatic body/tail. Prominent peripancreatic lymph nodes re-identified. Heterogeneous enhancement/striated appearance of bilateral kidneys of uncertain significance, likely retention of contrast. Recommend correlation with laboratory values assessing renal function. 2.4 cm low-density lesion arising from the posterior midpole right kidney, likely cyst. Hyperdense material within the gallbladder likely related to vicarious excretion of contrast. Contract state limits evaluation. The presumed appendix appears minimally dilated measuring approximately 7 mm in diameter and contains evidence of intraluminal fecal material. Correlate clinically. Left adrenal gland hypertrophy. Moderate to large right-sided pleural effusion. Trace left pleural effusion. Bibasilar consolidations/atelectasis. Anasarca. Moderate abdominal pelvic ascites. Additional findings as above. Preliminary impression was provided by [facility].
[2018-06-12 16:01] LABS: URINE BILIRUBIN 2+ (NEGATIVE); URINE BLOOD NEGATIVE (NEGATIVE); URINE CLARITY Hazy (Clear); URINE COLOR Amber (YELLOW); URINE GLUCOSE (UA) NORMAL (Normal); URINE LEUKOCYTE ESTERASE NEG Leu/uL (Negative); URINE PROTEIN NEGATIVE (NEGATIVE)
[2018-06-12 16:51] LABS: CREATININE, RANDOM URINE 252.4 mg/dL
[2018-06-12] MEDS: Albumin Human 25% (12.5 gm/50 ml) IV SCH (21:38)
[2018-06-12] MEDS: Insulin Detemir 100 units/ml Vial (Levemir) SC SCH (22:09)
[2018-06-13] MEDS: Albumin Human 25% (12.5 gm/50 ml) IV SCH ×6 (00:09→14:49)
--- NOTE | 2018-06-13 06:51 | CON ---
DATE: 06/12/2018 NEPHROLOGY CONSULTATION LOCATION: [facility]. HISTORY OF PRESENT ILLNESS: The patient is a 53-year-old male with past medical history of hypertension, uncontrolled diabetes, hyperlipidemia, gastritis, pancreatitis, and newly diagnosed pancreatic cancer on admission last month, presented to ED again late last month with epigastric right upper quadrant abdominal pain with associated nausea, vomiting, and diarrhea; Nephrology now being consulted for acute renal failure. The patient presented in 04/2018 with epigastric abdominal pain. On that admission, he had extensive workup done including CT of abdomen and pelvis showing extensive pancreatitis with necrosis, and innumerable liver masses. The patient underwent CTA that showed pulmonary embolus as well as possible malignant neoplasm of pancreas. He underwent biopsy of liver mass that was consistent with adenocarcinoma, likely of pancreatic biliary origin. The patient was placed on Xarelto and felt not to be a candidate for IVC filter. On current admission, the patient had CT of abdomen and pelvis done with contrast that again showed large hypodense pancreatic mass completely occupying body and tail as well as diffuse hepatic mets; also showed increase in size of large right pleural effusion. The patient currently reports no vomiting, although has some emesis during our encounter today. Has not had bowel movement in several days. Reports some back pain. PAST MEDICAL HISTORY: As above. SURGICAL HISTORY: He is status post Port-A-Cath insertion in 04/2018; status post right BKA; status post left partial foot amputation. FAMILY HISTORY: Mother with diabetes. SOCIAL HISTORY: One to three cigarettes per day for many years, quit recently. REVIEW OF SYSTEMS: CONSTITUTIONAL: Has been having night sweats, weakness. RESPIRATORY: Some dyspnea. CARDIOVASCULAR: Reported palpitation on admission. GASTROINTESTINAL: As per HPI. GENITOURINARY: The patient is unable to void, just had Pascual placed this afternoon with 400 mL drained. MUSCULOSKELETAL: Back pain. NEUROLOGIC: Has some confusion. PHYSICAL EXAMINATION: VITAL SIGNS: This afternoon, blood pressure 118/69, heart rate 67, respirations 20, temperature 98.4, O2 saturation 94% on nasal cannula oxygen. GENERAL: The patient is in mild distress. HEENT: Moist mucous membranes. Anicteric. No cervical lymphadenopathy. RESPIRATORY: Lungs clear to auscultation bilaterally. No rales. No rhonchi. No wheezes. CARDIOVASCULAR: Heart sounds S1 and S2 normal. No murmurs. No gallops. No rubs. GASTROINTESTINAL: Abdomen is soft. Tenderness present in most of the abdomen, not distended. GENITOURINARY: Pascual in place. No bladder distention. EXTREMITIES: Moderately edematous legs bilaterally, anasarca. SKIN: Warm. No cyanosis. NEUROLOGIC: No asterixis present. Following commands. PSYCHIATRIC: Somewhat anxious. LABORATORY DATA: Labs this morning, CBC: WBC 13, hemoglobin 8.9, hematocrit 26.5, platelets 378. Chemistry panel: Sodium 129; potassium 5.2; chloride 94; bicarb 20; BUN 79; creatinine 3.8 increased from 0.9 on presentation. Glucose 170, calcium 7.3, phosphorus 6.7, magnesium 2.4. T-bili 10.2, AST 112, ALT 67, alkaline phosphate 361, albumin 2.7, ammonia 53. Coag, INR 1.9. Urine studies, UA: Negative protein, negative blood, 2+ bilirubin. Urine sodium 13, creatinine 252. Abdominal and pelvic CT images reviewed from early this morning showing no hydronephrosis. ASSESSMENT AND PLAN: 1. Acute renal failure. Etiology is not entirely clear. There is a possibility of acute tubular necrosis caused by IV contrast as renal function started deteriorating right after presentation (at which time contrast imaging study was performed); however, given the patient's cholestatic pattern of bilirubin elevation as well as evidence of liver dysfunction, bile cast nephropathy is also in the differential although lack of obstruction noted on imaging makes this diagnosis less likely. Hepatorenal syndrome is highly suspected and needs to be considered after giving adequate intravascular volume repletion (low urine sodium and fractional excretion of sodium can be seen in both pre-renal states as well as hepatorenal syndrome). Currently with mild hyperkalemia and mild increased anion gap metabolic acidosis in the setting of renal failure; otherwise relatively stable respiratory status. -We will start IV albumin infusion 12.5 g every 3 hours x7 doses. -If no improvement in renal function after above measures, hepatorenal syndrome is most likely, and the patient should be started on midodrine and octreotide. -Avoid nephrotoxic agents; -Overall prognosis is very poor and we should only consider dialysis (not yet needed) if the patient has at least a projected life span of a few months. 2. Hyponatremia in the setting of liver dysfunction and likely intravascular volume depletion, given IV albumin as above. Should restrict oral fluids to less than 1.5 liters per day. 3. Urinary retention, etiology is unclear. Discussed with urologist who feels that this is likely not a prostate issue. Nevertheless was not contributing as much to acute renal failure as there is no hydronephrosis on imaging. We will continue to maintain Pascual. 4. Pain. The patient with continued abdominal and back pain. Currently on IV morphine. Recommend to change to IV Dilaudid 0.5 mg as morphine metabolites can accumulate in renal failure. 5. Hepatic encephalopathy. Agree with starting lactulose 20 g every 8 hours with goal of achieving at least three loose stools per day. Thank you for this referral. We will be following up closely. Mando Montanez MD [facility]
[2018-06-13 07:50] LABS: HEMOGLOBIN 7.6 g/dL (12.0-18.0); MEAN CELL VOLUME 86.4 fL (80.0-94.0); MEAN CORPUSCULAR HEMOGLOBIN 29.4 pg (27.0-31.0); MEAN PLATELET VOLUME 7.6 fL (7.2-11.7); RBC 2.57 Mil/uL (4.40-5.90); RED CELL DISTRIBUTION WIDTH 15.6 % (11.5-14.5)
[2018-06-13 08:20] LABS: ALB/GLOB RATIO 0.8 (1.0-2.1); ALBUMIN 2.8 g/dL (3.5-5.0); CALCIUM 7.3 mg/dl (8.6-10.4)
[2018-06-13] MEDS: HYDROmorphone 0.5 mg/0.5 ml ISec IVP SCH ×4 (08:58→21:00)
[2018-06-13] MEDS: (Novolin R) Insulin Human Regular 100 units/ml vial SC SCH ×4 (09:59→21:24)
[2018-06-13] MEDS: POLYETHYLENE GLYCOL 3350 17 GM/Dose PACKET PO SCH (10:00)
[2018-06-13] MEDS: Pantoprazole 40 mg EC Tab PO SCH (10:02)
--- NOTE | 2018-06-13 14:19 | CP.PCM.PN ---
Subjective - Date & Time of Evaluation Date of Evaluation: 06/13/18 Time of Evaluation: 14:21 - Subjective Subjective: PGY-[address] Rhoades Patient seen and examined at bedside. Clinically he appeared worse this morning. He was bent over and not speaking words due to discomfort. Still having nausea, abdominal pain, dry heaving. Labwork discontinued. Patient awaiting inpatient hospice. Objective - Vital Signs/Intake and Output Vital Signs (last 24 hours): Temp Pulse Resp BP Pulse Ox 98 F 98 H 21 120/71 94 L 06/13/18 07:33 06/13/18 12:45 06/13/18 07:33 06/13/18 12:45 06/13/18 07:33 Intake and Output: 06/13/18 06/13/18 06:59 18:59 Output Total 80 Balance -80 - Medications Medications: Current Medications Albumin Human (Albumin Human 25% (12.5 Gm/50 Ml)) 12.5 gm IV Q3H [facility] Stop: 06/13/18 15:01 Last Admin: 06/13/18 12:47 Dose: 12.5 gm Dextrose (Dextrose 50% Inj) 0 ml IV STAT PRN; Protocol PRN Reason: Hypoglycemia Protocol Last Admin: 06/10/18 07:05 Dose: 25 ml Dextrose (Glutose 15) 0 gm PO ONCE PRN; Protocol PRN Reason: Hypoglycemia Protocol Diphenhydramine HCl (Benadryl) 12.5 mg PO ONCE PRN PRN Reason: Allergy symptoms Glucagon (Glucagen Diagnostic Kit) 0 mg IM STAT PRN; Protocol PRN Reason: Hypoglycemia Protocol Hydromorphone HCl (Dilaudid) 0.5 mg IVP Q4H [facility] Last Admin: 06/13/18 12:48 Dose: 0.5 mg Insulin Detemir (Levemir) 20 unit SC HS [facility] Last Admin: 06/12/18 22:09 Dose: Not Given Insulin Human Regular (Novolin R) 0 unit SC ACHS [facility]; Protocol Last Admin: 06/13/18 13:48 Dose: Not Given Lactulose (Enulose) 20 gm PO Q8H [facility] Last Admin: 06/13/18 05:58 Dose: 20 gm Metoclopramide HCl (Reglan) 10 mg IVP DAILY PRN PRN Reason: Nausea/Vomiting Last Admin: 06/12/18 21:48 Dose: 10 mg Ondansetron HCl (Zofran Inj) 4 mg IVP Q4H PRN PRN Reason: Nausea/Vomiting Last Admin: 06/13/18 09:58 Dose: 4 mg Pantoprazole Sodium (Protonix Ec Tab) 40 mg PO DAILY [facility] Last Admin: 06/13/18 10:02 Dose: Not Given Polyethylene Glycol (Miralax) 17 gm PO DAILY [facility] Last Admin: 06/13/18 10:00 Dose: Not Given Tamsulosin HCl (Flomax) 0.4 mg PO DAILY [facility] Last Admin: 06/13/18 10:00 Dose: Not Given - Labs Labs: 06/13/18 07:38 06/13/18 07:38 PT 20.7 SECONDS (9.7-12.2) H 06/12/18 09:23 INR 1.9 06/12/18 09:23 APTT 29 SECONDS (21-34) 06/12/18 09:23 - Constitutional Appears: Other (Uncomfortable, ill) - Head Exam Head Exam: ATRAUMATIC, NORMOCEPHALIC - Eye Exam Eye Exam: EOMI - ENT Exam ENT Exam: Mucous Membranes Moist - Respiratory Exam Respiratory Exam: absent: Wheezes Additional comments: R sided decreased breath sounds - Cardiovascular Exam Cardiovascular Exam: REGULAR RHYTHM, +S1, +S2 - GI/Abdominal Exam GI & Abdominal Exam: Soft, Tenderness, Normal Bowel Sounds - Extremities Exam Extremities Exam: absent: Pedal Edema, Tenderness - Neurological Exam Neurological Exam: Alert, Awake, Oriented x3 - Psychiatric Exam Psychiatric exam: Depressed - Skin Skin Exam: Dry, Intact Assessment and Plan - Assessment and Plan (Free Text) Assessment: Pancreatic cancer with liver mets Pancreatitis with necrosis (non-gas forming) 06/10: Patient started on regular diet. He experienced mild nausea but no vomiting. Patient was very happy to be eating regular food again. Will continue regular diet while cautioning patient of importance of eating slow and stop if pain increases. Will likely need to begin discussions of hospice care this week. 06/09: Per discussion with hematology oncology, we should consult GI if there are any further interventions with reguards to the increased billirubin. If no thing can be done, then per conversation with hematology oncology we should try to start talking to patient about hospice and comfort care. I discussed with GI fellow this morning and explained the poor prognosis and that if they did not have any recommendations then we will go down the hospice comfort care route. 06/13: Plan now for inpatient hospice. Labwork shows worsening clinical picture across the board. Creatinine from 0.9 to 4.5 during hospital stay. We have s topped labs for worsening anemia and because we plan to transfer to inpatient hospital as soon as patient has placement. -Official Pathology Report (05/11): Biopsy liver lesion: Final diagnosis - Liver tissue involved by adenocarcinoma. Favor pancreatico-biliary origin. -CT abdomen/pelvis with IV contrast (05/08): grossly abnormal appearing pancreas with extensive pancreatitis and necrosis. At time of imaging, non-gas forming. Contiguous hypodensity in SMV; thrombus must be considered. Innumerable liver masses. Right pleural effusion. -Abdominal U/S (05/08): Multiple hepatic masses. Fatty infiltrate. Incidental right upper pole renal cortical cyst. -S/p Paracentesis 06/06 - Removal of about 1.7 liters of straw-colored fluid via ultrasound guided paracentesis. Initial fluid analysis reveals WBCs and RBCs. Few Mesothelial and occasional Macrophages seen. Cultures negative at this time. -S/p bedside thoracentesis 06/07 with removal of 1.1 L opaque dark red/purple fluid. Moderate Macrophages and Moderate Mesothelial cells seen. LDH and total protein did not result but suspect exudative due to fluid appearance and patient history. Cultures negative at this time. -CXR (06/03): moderate R pleural effusion. No definite infiltrate. Normal bowel gas pattern. -CT Abdomen/Pelvis 06/03 - Large R pleural effusion evident. Awaiting official read. -All cultures (blood, sputum, RAFFY fungal culture) negative at this time -AST/ALT 145/124 (06/03) --> 110/109 (06/04) --> 92/72 (06/06) -ALP 740 --> 641 --> 425 (06/06) -Hepatitis panel from last admission negative -Elevated tumor markers on last admission: CA 19-9 Ag >10,000, CEA Ag 251, CA 125 Ag 203 -Heme/Onc (Dr. Rangel) on case - Our team spoke with Dr. Rangel and he agrees this is a case where the focus should probably be on palliative care. Chemo may have a role for prolongation of life, but will most likely not be curative. He has suggested GI consulted for increasing T Bili, which we have placed. -GI Consult Dr. Motnelongo - signed off case * Supportive care with anti-emetics, PRN paracentesis * Fractionate bili * Agree with Palliative care consult * Panc CA management/Chemo per Oncology -Morphine 4mg IVP Q2 --> may consider Fentanyl patch as patient has not been able to swallow pills, if he is still in need of pain control -Morphine ER 15 mg PO q12 prn for breakthrough pain -Zofran 4 mg IVP q4 prn -Reglan 10 mg daily -Fluids changed to 1/2NS @ 100/hr -Diet advanced to regular diet -Avoid Tylenol, muscle relaxants due to transaminitis Code Status - DNR/DNI -Palliative care on case, help appreciated - --Palliative care held in-depth discussion with patient regarding medical decision making and his poor prognosis of metastatic pancreatic CA. - --Patient made DNR/DNI - BrotherJacek made surrogate decision maker - We will continue proceed with conversation regarding palliative care/hospice Fever/Leukocytosis -Afebrile -WBC 11.9 -Possibly reaction to pancreatic malignancy -Off Abx Recent PE and DVT likely 2/2 hypercoagulability due to underlying malignancy -CTA abdomen/pelvis (05/08/18): large right lower lobe pulmonary branch pulmonary embolus -CTA chest (05/09/18): Filling defect consistent with pulmonary embolus evident within the right lower lobe pulmonary artery branch. -LE dopplers (05/10/18): left long saphenous vein DVT -ECHO (05/10/18): LVEF is 60%. Mild concentric LVH. Grade 1 diastolic dysfunction. AV appears to be bicuspid. Borderline to mild . MR is trace to mild. RVSP is less than 30 mmHg. -Xarelto 15 mg PO BID x 21 days, then 20 mg PO daily. R Pleural effusion -CXR (06/03): moderate R pleural effusion. 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 Jf Jean Baptiste PGY1
[2018-06-13] MEDS ORDERED: HYDROmorphone 1 mg/ml ISec IVP PRN (19:13)
--- NOTE | 2018-06-13 20:21 | CP.PCM.PN ---
Subjective - Date & Time of Evaluation Date of Evaluation: 06/13/18 Time of Evaluation: 13:00 - Subjective Subjective: Patient more lethargic today but arousable and able to answer questions; Objective - Vital Signs/Intake and Output Vital Signs (last 24 hours): Temp Pulse Resp BP Pulse Ox 98.7 F 103 H 18 110/51 L 95 06/13/18 15:00 06/13/18 15:00 06/13/18 15:00 06/13/18 15:00 06/13/18 15:00 Intake and Output: 06/13/18 06/14/18 18:59 06:59 Output Total 225 Balance -225 - Medications Medications: Current Medications Dextrose (Dextrose 50% Inj) 0 ml IV STAT PRN; Protocol PRN Reason: Hypoglycemia Protocol Last Admin: 06/10/18 07:05 Dose: 25 ml Dextrose (Glutose 15) 0 gm PO ONCE PRN; Protocol PRN Reason: Hypoglycemia Protocol Diphenhydramine HCl (Benadryl) 12.5 mg PO ONCE PRN PRN Reason: Allergy symptoms Glucagon (Glucagen Diagnostic Kit) 0 mg IM STAT PRN; Protocol PRN Reason: Hypoglycemia Protocol Hydromorphone HCl (Dilaudid) 0.5 mg IVP Q4H [facility] Last Admin: 06/13/18 17:45 Dose: 0.5 mg Hydromorphone HCl (Dilaudid) 1 mg IVP Q4H PRN PRN Reason: Pain, severe (8-10) Insulin Detemir (Levemir) 20 unit SC HS [facility] Last Admin: 06/12/18 22:09 Dose: Not Given Insulin Human Regular (Novolin R) 0 unit SC ACHS [facility]; Protocol Last Admin: 06/13/18 16:26 Dose: Not Given Lactulose (Enulose) 20 gm PO Q8H [facility] Last Admin: 06/13/18 14:49 Dose: 20 gm Metoclopramide HCl (Reglan) 10 mg IVP DAILY PRN PRN Reason: Nausea/Vomiting Last Admin: 06/12/18 21:48 Dose: 10 mg Midodrine (Proamatine) 5 mg PO Q8H [facility] Last Admin: 06/13/18 17:41 Dose: 5 mg Octreotide Acetate (Sandostatin) 100 mcg SC Q8H [facility] Last Admin: 01/02/19 17:41 Dose: 100 mcg Ondansetron HCl (Zofran Inj) 4 mg IVP Q4H PRN PRN Reason: Nausea/Vomiting Last Admin: 06/13/18 09:58 Dose: 4 mg Pantoprazole Sodium (Protonix Ec Tab) 40 mg PO DAILY [facility] Last Admin: 06/13/18 10:02 Dose: Not Given Polyethylene Glycol (Miralax) 17 gm PO DAILY [facility] Last Admin: 06/13/18 10:00 Dose: Not Given Tamsulosin HCl (Flomax) 0.4 mg PO DAILY [facility] Last Admin: 06/13/18 10:00 Dose: Not Given - Labs Labs: 06/13/18 07:38 06/13/18 07:38 PT 20.7 SECONDS (9.7-12.2) H 06/12/18 09:23 INR 1.9 06/12/18 09:23 APTT 29 SECONDS (21-34) 06/12/18 09:23 - Constitutional Appears: Non-toxic, No Acute Distress - Respiratory Exam Respiratory Exam: Clear to Ausculation Bilateral. absent: Respiratory Distress - Cardiovascular Exam Cardiovascular Exam: RRR. absent: Gallop, Rubs - GI/Abdominal Exam GI & Abdominal Exam: Soft - Extremities Exam Additional comments: markedly edematous; - Neurological Exam Neurological Exam: Alert, Awake - Psychiatric Exam Psychiatric exam: absent: Agitated - Skin Skin Exam: Warm. absent: Cyanosis Assessment and Plan (1) Acute renal failure Assessment & Plan: Consistent with hepatorenal syndrome, no improvement after giving adequate intravascular volume expansion with IV albumin; poor overall prognosis discussed with brother who was at bedside; HD could be considered if patient can get chemo and have some expectation to live a few months, however, this seems very unl ikely and so initiating HD at this time is futile; electrolyte imbalance noted (mild hyperkalemia, improved; mild hyponatremia; metabolic acidosis); -starting vasoconstrictor therapy for HRS with midodrine and octreotide until hospice decision made; -avoid nephrotoxic meds; Status: Acute (2) Hepatic encephalopathy Assessment & Plan: Hasn't had any BM lately per nursing staff; will increase lactulose to q3h until BM achieved (will help offset hyperkalemia as well); Status: Acute
[2018-06-13] MEDS: Insulin Detemir 100 units/ml Vial (Levemir) SC SCH (21:24)
[2018-06-13 21:45] LABS: CREATININE, RANDOM URINE 155.5 mg/dL
[2018-06-14] MEDS: HYDROmorphone 0.5 mg/0.5 ml ISec IVP SCH ×3 (00:25→08:26)
--- NOTE | 2018-06-14 03:53 | PROCN ---
DATE OF PROCEDURE: 06/13/2018 BEDSIDE PROCEDURE NOTE PREOPERATIVE DIAGNOSES: Advanced cancer and urinary retention. POSTOPERATIVE DIAGNOSES: Advanced cancer and urinary retention. PROCEDURE: Insertion of a Pascual catheter, a 12-[place] coude-tip catheter with 2 tubes of lidocaine jelly for local numbing effect. There were no complications. INDICATIONS: See history and physical. See consultation. Basically, the nurse was having some difficulty inserting the catheter. So Urology was consulted and requested to insert a catheter. I explained to the patient and family in detail, what we are going to do. I provided Betadine, and under sterile technique, I used 2 tubes of lidocaine jelly and then tremendous amount of Surgilube. We were able to insert a 12-[place] catheter coude tip very gently, carefully, easily. We were able to insert a catheter. At the point, sphincter. The patient was clamping down and is uncomfortable, but with gentle pressure at insertion, we were able to insert a 12-[place] Pascual catheter. We drained urine. A brown-tinged urine. No blood. . The diagnosis then is retention. The plan will be Pascual catheter. Thank you for the urology consultation. See the consultation. See the operative note. Duong Barajas MD
--- NOTE | 2018-06-14 07:03 | CON ---
DATE: 06/12/2018 UROLOGY CONSULTATION REASON FOR THE CONSULTATION: Urinary retention. HISTORY OF PRESENT ILLNESS: The patient is a very pleasant gentleman, 53 years old, who had advanced cancer and now is found to be in urinary retention. He has multiple issues going on, see the chart notes. He has had paracentesis by Interventional Radiology, but he still has 700 to 800 mL in his bladder and Urology was consulted to see if we can inflate the Pascual catheter. See the plan listed below and see the procedure note. I have separately dictated bedside note. PAST MEDICAL HISTORY: Listed in the chart. PAST SURGICAL HISTORY: Listed in the chart. SOCIAL HISTORY: As mentioned, otherwise unremarkable. PHYSICAL EXAMINATION: GENERAL: A well-nourished male. He is currently resting comfortably in his bed, got oxygen on. ABDOMEN: The abdomen is difficult to evaluate because it is just generally distended. GENITOURINARY: The bladder scan is consistent with retention. He has a normal phallus without discharge. No testicular mass. RECTAL: Deferred for now. LABORATORY DATA: The labs are noted in the chart. Bilirubin noted. DIAGNOSES: Urinary retention and voiding dysfunction. PLAN: As follows; see the separately dictated bedside procedure note, but basically we inserted a Pascual catheter. From Urology standpoint, the ammonia level is noted. The patient is receiving lactulose. He was in retention. the patient in terms of laboratory studies. We have discussed options, but again it may be difficult to discuss everything with the patient in terms of his participation because he was uncomfortable, but we did in separately dictated a procedure note that we used two tubes of lidocaine to make the penis as gently numb as possible and insert the catheter as gently as possible and we used a we used a 12- [place] Coude tip. We did not run into any obstruction. We drained good amount of urine that had a brownish change consistent with the bilirubin. From Urology standpoint, the diagnosis is retention. The patient can keep the Pascual catheter for now and then further plans can follow. We will follow along with you at the consult. Regarding trial of voiding timing, we will discuss further. The plan is as follows; maintain his Pascual and trial of void to follow plus or minus starting Flomax with all the other medications the patient is getting and then decide the drug interactions. In the interim, the Pascual should remain draining and we will follow along. Duong Barajas MD [facility] # [id number]
[2018-06-14] MEDS: (Novolin R) Insulin Human Regular 100 units/ml vial SC SCH (07:30)
[2018-06-14] MEDS: Pantoprazole 40 mg EC Tab PO SCH (10:27)
--- NOTE | 2018-06-14 10:57 | CP.PCM.DIS ---
Provider - Provider Date of Admission: 06/08/18 01:52 Attending physician: Katya Rhoades MD Consults: 06/12/18 04:19 Urology Consult Routine Comment: Consulting Provider: Uzma Barajas Consulting Physician: Uzma Barajas Reason for Consult: Urinary retention/obstruction 06/12/18 11:29 Physician Consult Routine Comment: Consulting Provider: Mando Montanez Consulting Physician: Mando Montanez Reason for Consult: Acute renal failure/pancreatic ca/hyponatremia 06/13/18 07:50 Case Management Referral Routine Comment: with liver and renal failure/poor prognosis Physician Instructions: Reason For Exam: metastaic pancreatic cancer Reason for Referral: Hospice Eval 06/03/18 15:10 Physician Consult Routine Comment: Consulting Provider: Collins Rangel Consulting Physician: Collins Rangel Reason for Consult: recent pancreatic ca dx 06/03/18 22:32 Wound Care [Nursing Referral for Wound Care] Routine Comment: Physician Instructions: Reason For Exam: right bka stump drainage 06/04/18 10:19 Palliative Care Consult Routine Comment: Consulting Provider: Martine Serrano Physician Instructions: Reason For Exam: pancreatic cancer, ascites 06/07/18 12:53 Pastoral Care Referral Routine Comment: about a year ago, mixed emotions Physician Instructions: has metastatic pancreatic cancer Reason For Exam: spiritual and emotional support Time Spent in preparation of Discharge (in minutes): 45 Diagnosis - Discharge Diagnosis (1) Pancreatic carcinoma metastatic to liver Status: Acute Hospital Course - Lab Results Lab Results: Micro Results 06/07/18 17:12 Thoracic Fluid Gram Stain - Final 06/07/18 17:12 Thoracic Fluid Body Fluid Culture - Final No growth. 06/06/18 08:00 Blood Blood Culture - Final NO GROWTH AFTER 5 DAYS 06/06/18 08:00 Blood Gram Stain - Final TEST NOT PERFORMED 06/06/18 07:34 Blood Blood Culture - Final NO GROWTH AFTER 5 DAYS 06/06/18 07:34 Blood Gram Stain - Final TEST NOT PERFORMED 06/06/18 17:12 Body Fluid - Peritoneal Gram Stain - Final 06/06/18 17:12 Body Fluid - Peritoneal Body Fluid Culture - Final No growth. 06/06/18 17:12 Other: Please Indicate Mycobacterial Culture - Preliminary 06/06/18 17:12 Peritoneal Fluid Anaerobic Culture - Final NO ANAEROBES ISOLATED. 06/06/18 17:12 Other: Please Indicate Fungal Culture - Preliminary 06/03/18 13:29 Urine Urine Culture - Final No Growth (<1,000 CFU/ML) Most Recent Lab Values WBC 12.0 K/uL (4.8-10.8) H 06/13/18 07:38 RBC 2.57 Mil/uL (4.40-5.90) L 06/13/18 07:38 Hgb 7.6 g/dL (12.0-18.0) L 06/13/18 07:38 Hct 22.2 % (35.0-51.0) L 06/13/18 07:38 MCV 86.4 fL (80.0-94.0) 06/13/18 07:38 MCH 29.4 pg (27.0-31.0) 06/13/18 07:38 MCHC 34.0 g/dL (33.0-37.0) 06/13/18 07:38 RDW 15.6 % (11.5-14.5) H 06/13/18 07:38 Plt Count 279 K/uL (130-400) 06/13/18 07:38 MPV 7.6 fL (7.2-11.7) 06/13/18 07:38 Neut % (Auto) 74.1 % (50.0-75.0) 06/12/18 09:23 Lymph % (Auto) 12.3 % (20.0-40.0) L 06/12/18 09:23 [place] % (Auto) 12.3 % (0.0-10.0) H 06/12/18 09:23 Eos % (Auto) 0.8 % (0.0-4.0) 06/12/18 09:23 Baso % (Auto) 0.5 % (0.0-2.0) 06/12/18 09:23 Neut # (Auto) 9.6 K/uL (1.8-7.0) H 06/12/18 09:23 Lymph # (Auto) 1.6 K/uL (1.0-4.3) 06/12/18 09:23 [place] # (Auto) 1.6 K/uL (0.0-0.8) H 06/12/18 09:23 Eos # (Auto) 0.1 K/uL (0.0-0.7) 06/12/18 09:23 Baso # (Auto) 0.1 K/uL (0.0-0.2) 06/12/18 09:23 Neutrophils % (Manual) 77 % (50-75) H 06/09/18 10:43 Band Neutrophils % 1 % (0-2) 06/08/18 07:48 Lymphocytes % (Manual) 9 % (20-40) L 06/09/18 10:43 Reactive Lymphs % 2 % (0-0) H 06/08/18 07:48 Monocytes % (Manual) 12 % (0-10) H 06/09/18 10:43 Eosinophils % (Manual) 2 % (0-4) 06/09/18 10:43 Myelocytes % 1 % (0-0) H 06/07/18 11:13 Toxic Granulation Present 06/09/18 10:43 Platelet Estimate Normal (NORMAL) 06/09/18 10:43 Polychromasia Slight 06/09/18 10:43 Hypochromasia (manual) Slight 06/09/18 10:43 Poikilocytosis (manual Slight 06/07/18 11:13 Anisocytosis (manual) Slight 06/09/18 10:43 PT 20.7 SECONDS (9.7-12.2) H 06/12/18 09:23 INR 1.9 06/12/18 09:23 APTT 29 SECONDS (21-34) 06/12/18 09:23 pO2 37 mm/Hg (30-55) 06/03/18 11:50 VBG pH 7.48 (7.32-7.43) H 06/03/18 11:50 VBG pCO2 41 mmHg (40-60) 06/03/18 11:50 VBG HCO3 29.3 mmol/L 06/03/18 11:50 VBG Total CO2 31.8 mmol/L (22-28) H 06/03/18 11:50 VBG O2 Sat (Calc) 77.1 % (40-65) H 06/03/18 11:50 VBG Base Excess 6.4 mmol/L (0.0-2.0) H 06/03/18 11:50 VBG Potassium 4.3 mmol/L (3.6-5.2) 06/03/18 11:50 Sodium 135.0 mmol/l (132-148) 06/03/18 11:50 Chloride 93.0 mmol/L (98-107) L 06/03/18 11:50 Glucose 455 mg/dl (75-110) H* 06/03/18 11:50 Lactate 1.7 mmol/L (0.7-2.1) 06/03/18 11:50 Crit Value Called To Michelle bowen 06/03/18 11:50 Crit Value Called By Silvia johnson 06/03/18 11:50 Crit Value Read Back Y 06/03/18 11:50 Blood Gas Notified Time 1200 06/03/18 11:50 Sodium 128 mmol/L (132-148) L 06/13/18 07:38 Potassium 5.0 mmol/L (3.6-5.2) 06/13/18 07:38 Chloride 94 mmol/L (98-107) L 06/13/18 07:38 Carbon Dioxide 17 mmol/L (22-30) L 06/13/18 07:38 Anion Gap 21 (10-20) H 06/13/18 07:38 BUN 97 mg/dL (9-20) H 06/13/18 07:38 Creatinine 4.5 mg/dL (0.8-1.5) H 06/13/18 07:38 Est GFR ( Amer) 17 06/13/18 07:38 Est GFR (Non-Af Amer) 14 06/13/18 07:38 POC Glucose (mg/dL) 232 mg/dL (65-110) H 06/13/18 21:00 Random Glucose 219 mg/dL (75-110) H D 06/13/18 07:38 Calcium 7.3 mg/dl (8.6-10.4) L 06/13/18 07:38 Phosphorus 8.0 mg/dL (2.5-4.5) H 06/13/18 07:38 Magnesium 2.5 mg/dL (1.6-2.3) H 06/13/18 07:38 Total Bilirubin 10.6 mg/dL (0.2-1.3) H 06/13/18 07:38 AST 102 U/L (17-59) H 06/13/18 07:38 ALT 68 U/L (21-72) 06/13/18 07:38 Alkaline Phosphatase 297 U/L (38-126) H 06/13/18 07:38 Ammonia 36 umol/L (9-33) H D 06/13/18 07:38 Total Protein 6.3 g/dL (6.3-8.3) 06/13/18 07:38 Albumin 2.8 g/dL (3.5-5.0) L 06/13/18 07:38 Globulin 3.4 gm/dL (2.2-3.9) 06/13/18 07:38 Albumin/Globulin Ratio 0.8 (1.0-2.1) L 06/13/18 07:38 Lipase < 10 U/L (23-300) L 06/07/18 11:13 Venous Blood Potassium 4.3 mmol/L (3.6-5.2) 06/03/18 11:50 Urine Color [place] (YELLOW) 06/12/18 15:49 Urine Clarity Hazy (Clear) 06/12/18 15:49 Urine pH 5.0 (5.0-8.0) 06/12/18 15:49 Ur Specific [place] 1.018 (1.003-1.030) 06/12/18 15:49 Urine Protein Negative mg/dL (NEGATIVE) 06/12/18 15:49 Urine Glucose (UA) Normal mg/dL (Normal) 06/12/18 15:49 Urine Ketones Negative mg/dL (NEGATIVE) 06/12/18 15:49 Urine Blood Negative (NEGATIVE) 06/12/18 15:49 Urine Nitrate Negative (NEGATIVE) 06/12/18 15:49 Urine Bilirubin 2+ (NEGATIVE) H 06/12/18 15:49 Urine Urobilinogen 4.0 mg/dL (0.2-1.0) 06/12/18 15:49 Ur Leukocyte Esterase Neg [place]/uL (Negative) 06/12/18 15:49 Urine WBC (Auto) 1 /hpf (0-5) 06/12/18 15:49 Urine RBC (Auto) 1 /hpf (0-3) 06/12/18 15:49 Urine Osmolality 394 mosm/kg (300-1000) 06/13/18 21:03 Ur Random Creatinine 155.5 mg/dL 06/13/18 21:03 Ur Random Sodium 18 mmol/L 06/13/18 21:03 Fluid Source Pleural/thoracentesi 06/07/18 17:12 Fluid Appearance Bloody (CLEAR) 06/07/18 17:12 Fluid pH 7.4 06/07/18 10:15 Fluid pH Source Body fluid 06/07/18 10:15 Fluid WBC 810.0 /mm3 (0.0-300.0) H 06/07/18 17:12 Fluid RBC 022551.0 /mm3 (0.0-0.0) H 06/07/18 17:12 Fluid Tot Cell Count 100 (0-0) H 06/07/18 17:12 Fluid Neutrophils 64.0 % (0-0) H 06/07/18 17:12 Fluid Lymphocytes 20.0 % (0-0) H 06/07/18 17:12 Fld Monocyte/Macrophag 10 % (0-0) H 06/07/18 17:12 Fluid Albumin 1.9 g/dL 06/07/18 17:12 Fluid Comment 06/07/18 17:12 Peritoneal Tot Protein 3.1 g/dL 06/06/18 17:12 Peritoneal LDH 180 U/L (<63) H 06/06/18 17:12 Peritoneal Glucose 97 mg/dL 06/06/18 17:12 Peritoneal Lipase see note 06/06/18 17:12 Pleural Total Protein 6.3 g/dL 06/07/18 17:12 Pleural LDH 3619 U/L 06/07/18 17:12 Pleural Amylase <10 U/L 06/07/18 17:12 Pleural Triglycerides 51 mg/dL 06/07/18 17:12 Pleural Fluid CEA 4179.8 ng/mL (<10.0) H 06/07/18 17:12 B-Hydroxybutyrate 4.10 mM (0.02-0.27) H 06/03/18 11:58 - Hospital Course Hospital Course: PGY-[address] Rhoades Initial HPI: Patient is a 53 year old male with PMHx of HTN, HLD, gastritis, DM, pancreatitis, with newly diagnosed pancreatic cancer on previous admission (05/09-05/24) presenting to ED with acute onset epigastric/RUQ abdominal pain with associated nausea, NBNB vomiting,diarrhea, and chest palpitations that began earlier today. Patient has port-a-cath inserted but has not started jacqueline motherapy. No other acute somatic complaints. Denies fevers/chills, headaches, chest pain, sob, cough, constipation, dysuria, melena, hematochezia. In the ED, blood glucose levels were running in the 500s. Patient was given Novolin 10 unit IVP, morphine 4 mg, zofran 4 mg, IVF. Hospital Course: Patient was admitted for worsening abdominal pain with known diagnosis of p ancreatic CA with mets to the liver diagnosed by path on 05/11. Labwork showed elevated LFTs and tumor markers. Patient was short of breath, found to have pulmonary effusion imaging. He also was treated with anticoagulation for known recent PE/DVT from prior hospitalization which was likely related to underlying malignancy. Patient was made DNR/DNI and was primarily treated for abdominal pain with IV morphine, and late Dilaudid. He was also treated symptomatically for nausea and vomiting. For pleural effusion, patient had bedside thoracentesis with removal 1.7 L done which provided some relief. He also had bedside paracentesis for relief from abdominal distention due to large amount of ascitic fluid. Throughout his hospital stay, patient had difficulty with PO intake and difficulty swallowing pills. Clinically and based on labs, patient's prognosis worsened towards the end of this admission. Creatinine which was normal on admission reggie to 4.5 by day of discharge. He had increasing hyponatremia and anemia with HgB in the 7s. Patient was discharged and admitted to inpatient hospice for comfort care. Imaging/Path/Procedures -Official Pathology Report (05/11): Biopsy liver lesion: Final diagnosis - Liver tissue involved by adenocarcinoma. Favor pancreatico-biliary origin. -CT abdomen/pelvis with IV contrast (05/08): grossly abnormal appearing pancreas with extensive pancreatitis and necrosis. At time of imaging, non-gas forming. Contiguous hypodensity in SMV; thrombus must be considered. Innumerable liver masses. Right pleural effusion. -Abdominal U/S (05/08): Multiple hepatic masses. Fatty infiltrate. Incidental right upper pole renal cortical cyst. -S/p Paracentesis 06/06 - Removal of about 1.7 liters of straw-colored fluid via ultrasound guided paracentesis. Initial fluid analysis reveals WBCs and RBCs. Few Mesothelial and occasional Macrophages seen. Cultures negative at this time. -S/p bedside thoracentesis 06/07 with removal of 1.1 L opaque dark red/purple fluid. Moderate Macrophages and Moderate Mesothelial cells seen. LDH and total protein did not result but suspect exudative due to fluid appearance and patient history. Cultures negative at this time. -CXR (06/03): moderate R pleural effusion. No definite infiltrate. Normal bowel gas pattern. -CT Abdomen/Pelvis 06/03 - Large R pleural effusion evident. (see full report) Discharge Exam - Head Exam Head Exam: ATRAUMATIC, NORMOCEPHALIC - Eye Exam Eye Exam: EOMI, Normal appearance - ENT Exam ENT Exam: Mucous Membranes Moist - Respiratory Exam Respiratory Exam: absent: Rales, Rhonchi Additional comments: decreased breath sounds on right - Cardiovascular Exam Cardiovascular Exam: REGULAR RHYTHM, +S1, +S2 - GI/Abdominal Exam GI & Abdominal Exam: Distended, Tenderness. absent: Rebound - Extremities Exam Extremities exam: normal inspection - Neurological Exam Neurological exam: Alert, Oriented x3 - Psychiatric Exam Psychiatric exam: Depressed - Skin Skin Exam: Dry, Intact Discharge Plan - Follow Up Plan Condition: GUARDED Disposition: HOSPICE - MEDICAL FACILITY Instructions: Diabetes Diet , Diabetes Type 2 (DC), Pancreatic Cancer (DC) Referrals: Collins Rangel MD [Staff Provider] -
[2018-06-14 12:34] VITALS: BP 100/58; PULSE 93; RESP 21; TEMP 97; O2SAT 96
== END 2018-06-14 11:48 | disposition hospice, inpatient (51) | DRG 435 ==
LOC: C.ER 10:18 → C.9E 14:04 → UNDOADMOB 14:04 → C.9E 15:57 → C.5S 15:57 → OBSVTOIN 06-08 01:52 → C.5S 06-08 01:52 → INTOOBSV 06-08 01:52 → C.5S 06-11 22:21
PROVIDERS: ADMIT Hospitalist; ATTEND Internal Medicine
PROC: 0W9G3ZZ Drainage of Peritoneal Cavity, Percutaneous Approach (ICD-10-PCS; principal; 2018-06-06)
PROC: 0W993ZZ Drainage of Right Pleural Cavity, Percutaneous Approach (ICD-10-PCS; 2018-06-07)
PROC: 0T9B70Z Drainage of Bladder with Drainage Device, Via Natural or Artificial Opening (ICD-10-PCS; 2018-06-07)
DX: C25.8 Malignant neoplasm of overlapping sites of pancreas (principal); C78.7 Secondary malignant neoplasm of liver and intrahepatic bile duct; J90 Pleural effusion, not elsewhere classified; R18.0 Malignant ascites; N17.9 Acute kidney failure, unspecified; E11.65 Type 2 diabetes mellitus with hyperglycemia; R33.9 Retention of urine, unspecified; I82.819 Embolism and thrombosis of superficial veins of unspecified lower extremity; I26.99 Other pulmonary embolism without acute cor pulmonale; K85.91 Acute pancreatitis with uninfected necrosis, unspecified; E87.1 Hypo-osmolality and hyponatremia; E87.2 Acidosis; D68.69 Other thrombophilia; D63.8 Anemia in other chronic diseases classified elsewhere; I10 Essential (primary) hypertension; E86.9 Volume depletion, unspecified; E87.5 Hyperkalemia; K72.90 Hepatic failure, unspecified without coma; G89.3 Neoplasm related pain (acute) (chronic); Z66 Do not resuscitate; Z51.5 Encounter for palliative care; J45.909 Unspecified asthma, uncomplicated; F32.9 Major depressive disorder, single episode, unspecified; F41.9 Anxiety disorder, unspecified; E78.5 Hyperlipidemia, unspecified; Z89.511 Acquired absence of right leg below knee; Z89.422 Acquired absence of other left toe(s); Z79.4 Long term (current) use of insulin; Z79.01 Long term (current) use of anticoagulants; Z79.899 Other long term (current) drug therapy; Z91.018 Allergy to other foods; Z91.013 Allergy to seafood; Z83.3 Family history of diabetes mellitus

== ENCOUNTER 2018-06-14 10:47 | Inpatient (IN) | payer OTHER ==
[2018-06-14] MEDS ORDERED: Phytonadione 10 mg/ml Inj (Adult) IV STA (16:54)
[2018-06-14] MEDS: HYDROmorphone 1 mg/ml ISec IVP SCH ×2 (17:08→20:52)
--- NOTE | 2018-06-14 17:14 | CP.PCM.HP ---
<Chuck Jean Baptiste - Last Filed: 06/14/18 17:15> History of Present Illness - History of Present Illness History of Present Illness: PGY-1 H and P for Dr. Rhoades This patient who has been on our service is admitted to inpatient hospice for history of metastatic pancreatic CA with poor prognosis. Our goals of care for this patient are comfort care in terms of controlling pain and keeping breathing as comfortable as possible. For details regarding this patient's hospital course, please refer to previous admission's notes. Present on Admission - Present on Admission Any Indicators Present on Admission: Yes History of DVT/PE: Yes Review of Systems - Constitutional Constitutional: Fatigue. absent: Fever - EENT Eyes: absent: Blurred Vision, Pain Nose/Mouth/Throat: absent: Nasal Congestion, Dysphagia - Cardiovascular Cardiovascular: absent: Chest Pain, Chest Pain at Rest - Respiratory Respiratory: Cough, Chest Congestion - Gastrointestinal Gastrointestinal: Abdominal Pain, Belching, Bloating, Nausea - Genitourinary Genitourinary: absent: Dysuria, Hematuria - Musculoskeletal Musculoskeletal: absent: Neck Pain, Stiffness - Neurological Neurological: absent: Radicular Pain, Tingling - Psychiatric Psychiatric: Depression. absent: Anxiety - Hematologic/Lymphatic Hematologic: Easy Bruising. absent: Easy Bleeding Past Patient History - Infectious Disease Hx of Infectious Diseases: None - Past Medical History & Family History Past Medical History?: Yes - Past Social History Smoking Status: Never Smoked - CARDIAC Hx Cardiac Disorders: Yes Hx Hypertension: Yes - PULMONARY Hx Respiratory Disorders: Yes Hx Asthma: Yes Hx Pulmonary Embolism: Yes - NEUROLOGICAL Hx Neurological Disorder: No - HEENT Hx HEENT Problems: No - RENAL Hx Chronic Kidney Disease: No - ENDOCRINE/METABOLIC Hx Diabetes Mellitus Type 1: Yes - HEMATOLOGICAL/ONCOLOGICAL Hx Blood Disorders: Yes Hx Cancer: Yes - INTEGUMENTARY Hx Dermatological Problems: Yes - MUSCULOSKELETAL/RHEUMATOLOGICAL Hx Musculoskeletal Disorders: Yes Hx Falls: No Other/Comment: BKA - GASTROINTESTINAL Hx Gastrointestinal Disorders: Yes Hx Gastritis: Yes Hx Pancreatitis: Yes - GENITOURINARY/GYNECOLOGICAL Hx Genitourinary Disorders: No - PSYCHIATRIC Hx Substance Use: No - SURGICAL HISTORY Hx Surgeries: Yes Hx Amputation: Yes (Right BKA, Left TMA) - ANESTHESIA Hx Anesthesia: Yes Hx Anesthesia Reactions: No Hx Malignant Hyperthermia: No Meds Allergies/Adverse Reactions: Allergies Allergy/AdvReac Type Severity Reaction Status Date / Time FISH Allergy RASH Verified 03/12/18 16:06 hazelnut Allergy RASH Verified 03/12/18 16:06 Physical Exam - Constitutional Appears: Chronically Ill - Head Exam Head Exam: NORMOCEPHALIC - Eye Exam Eye Exam: EOMI - ENT Exam ENT Exam: Mucous Membranes Moist - Respiratory Exam Additional comments: Decreased breath sounds on right - Cardiovascular Exam Cardiovascular Exam: REGULAR RHYTHM, +S1, +S2 - GI/Abdominal Exam GI & Abdominal Exam: Distended, Tenderness - Extremities Exam Extremities exam: Negative for: pedal edema, tenderness - Neurological Exam Neurological exam: Alert, CN II-XII Intact, Oriented x3 - Psychiatric Exam Psychiatric exam: Depressed, Normal Affect - Skin Skin Exam: Dry, Intact Results - Vital Signs Recent Vital Signs: Last Vital Signs Temp 97.5 F L 06/14/18 16:00 Pulse 89 06/14/18 16:00 Resp 20 06/14/18 16:00 BP 136/76 06/14/18 16:00 Pulse Ox 100 06/14/18 16:00 Assessment & Plan - Assessment and Plan (Free Text) Assessment: Comfort care for patient with worsening metastatic pancreatic CA - Vitamin K 10 mg PO once - ADAT - Ensure Enlive 1/day - Zofran 4mg IV Q4 prn nausea - Dilaudid 1 mg IV Q4 prn pain - Morphine 2 mg IV Q4 prn pain - O2 NRB prn - IR consulted for therapeutic thoracentesis, Dr. Wetzel - f/u - --Repeat INR PPx: - SCDs <Katya Rhoades - Last Filed: 06/16/18 15:30> Results - Vital Signs Recent Vital Signs: Last Vital Signs Temp 97.3 F L 06/16/18 08:00 Pulse 84 06/16/18 10:47 Resp 13 06/16/18 08:00 BP 80/50 L 06/16/18 10:47 Pulse Ox 97 06/16/18 08:00 Attending/Attestation - Attestation I have personally seen and examined this patient.: Yes I have fully participated in the care of the patient.: Yes I have reviewed all pertinent clinical information: Yes Notes (Text): patient with pancreatic cancer, aggressive metastasis,liver failure and kidney failure d/w Dr Rangel patient's prognosis is poor continue morphine PRN and dilaudid for pain d/w Resident I agree with the resident's documentation We will do therapeutic paracentesis if he is in distress
[2018-06-15] MEDS: HYDROmorphone 1 mg/ml ISec IVP SCH ×3 (01:33→09:15)
--- NOTE | 2018-06-15 07:43 | CP.PCM.PN ---
<Joey Rodartejulia - Last Filed: 06/15/18 15:13> Subjective - Date & Time of Evaluation Date of Evaluation: 06/15/18 Time of Evaluation: 07:40 - Subjective Subjective: Shahida Rodarte PGY1 Progress Note for Dr. Rhoades Pt was examined at bedside this morning. He complains of abdominal pain, but denies nausea or vomiting. Pt denies fever, chills, shortness of breath, chest pain, diarrhea, dysuria. As per nursing, pt has not been eating or drinking today and has had no urinary output. Objective - Vital Signs/Intake and Output Vital Signs (last 24 hours): Temp Pulse Resp BP Pulse Ox 97.3 F L 78 20 92/58 L 97 06/14/18 23:26 06/14/18 23:26 06/14/18 23:26 06/14/18 23:26 06/14/18 23:26 - Medications Medications: Current Medications Hydromorphone HCl (Dilaudid) 1 mg IVP Q4H CARL Last Admin: 06/15/18 04:00 Dose: Not Given Morphine Sulfate (Morphine) 2 mg IVP Q4 PRN PRN Reason: Pain, severe (8-10) Last Admin: 06/15/18 06:15 Dose: 2 mg Ondansetron HCl (Zofran Inj) 4 mg IVP Q4H PRN PRN Reason: Nausea/Vomiting Last Admin: 06/15/18 06:14 Dose: 4 mg Phytonadione (Vitamin K Tab) 10 mg PO ONCE ONE Stop: 06/15/18 17:06 - Constitutional Appears: Chronically Ill - Head Exam Head Exam: ATRAUMATIC, NORMOCEPHALIC - Eye Exam Eye Exam: EOMI, Normal appearance, PERRL Pupil Exam: NORMAL ACCOMODATION - ENT Exam ENT Exam: Mucous Membranes Dry - Respiratory Exam Respiratory Exam: Clear to Ausculation Bilateral, NORMAL BREATHING PATTERN. absent: Rales, Rhonchi, Wheezes - Cardiovascular Exam Cardiovascular Exam: REGULAR RHYTHM, +S1, +S2. absent: Gallop, Rubs, Murmur - GI/Abdominal Exam GI & Abdominal Exam: Soft, Tenderness, Normal Bowel Sounds. absent: Distended, Firm Additional comments: generalized tenderness diffusely - Extremities Exam Extremities Exam: Pedal Edema. absent: Calf Tenderness - Neurological Exam Neurological Exam: Alert, Awake, Oriented x3 - Psychiatric Exam Psychiatric exam: Depressed - Skin Skin Exam: Normal Color Assessment and Plan - Assessment and Plan (Free Text) Assessment: 53yo M with metastatic pancreatic cancer admitted under hospice service. Pt for thoracentesis this weekend. Plan: Comfort care for patient with worsening metastatic pancreatic CA - Ensure Enlive 1/day - Zofran 4mg IV Q4 prn nausea - Dilaudid 2 mg IV Q4 prn pain - Morphine 2 mg IV Q4 prn pain - O2 NRB prn - IR consulted for therapeutic thoracentesis, Dr. Wetzel - f/u Urinary Retention - f/u bladder scan - sexton insertion PPx: - SCDs - advance diet as tolerated Pt seen and case reviewed with Dr. Rhoades <Katya Rhoades - Last Filed: 06/16/18 15:19> Objective - Vital Signs/Intake and Output Vital Signs (last 24 hours): Temp Pulse Resp BP Pulse Ox 97.3 F L 84 13 80/50 L 97 06/16/18 08:00 06/16/18 10:47 06/16/18 08:00 06/16/18 10:47 06/16/18 08:00 - Medications Medications: Current Medications Morphine Sulfate 250 mg/ (Dextrose) 250 mls @ 4 mls/hr IV .Q24H PRN; Protocol PRN Reason: Pain, severe (8-10) Ondansetron HCl (Zofran Inj) 4 mg IVP Q4H PRN PRN Reason: Nausea/Vomiting Last Admin: 06/16/18 10:37 Dose: 4 mg - Labs Labs: PT 21.6 SECONDS (9.7-12.2) H 06/15/18 11:53 INR 2.0 06/15/18 11:53 Attending/Attestation - Attestation I have personally seen and examined this patient.: Yes I have fully participated in the care of the patient.: Yes I have reviewed all pertinent clinical information, including history, physical exam and plan: Yes Notes (Text): Lying comfortable,poor intake,poor urine out put,arousable and answer simple questions. Denies discomfort,do bladder scan continue pain meds d/w RN I agree with the resident's documentation
[2018-06-15 12:16] LABS: PROTHROMBIN TIME 21.6 SECONDS (9.7-12.2)
[2018-06-15] MEDS ORDERED: Phytonadione 2.5 MG/0.5 TAB TAB PO ONE ×2 (17:05)
--- NOTE | 2018-06-16 11:08 | CP.PCM.PN ---
<Aydee Harley - Last Filed: 06/16/18 16:04> Subjective - Date & Time of Evaluation Date of Evaluation: 06/16/18 Time of Evaluation: 09:20 - Subjective Subjective: Patient seen and examined at bedside. ROS difficult to obtain due to patient being non-verbal and lethargic. He did point to his left and right chest when asked if he was having any pain. Objective - Vital Signs/Intake and Output Vital Signs (last 24 hours): Temp Pulse Resp BP Pulse Ox 97.3 F L 84 13 80/50 L 97 06/16/18 08:00 06/16/18 10:47 06/16/18 08:00 06/16/18 10:47 06/16/18 08:00 - Medications Medications: Current Medications Hydromorphone HCl (Dilaudid) 2 mg IVP Q4H CARL Last Admin: 06/16/18 10:53 Dose: 2 mg Morphine Sulfate (Morphine) 2 mg IVP Q4 PRN PRN Reason: Pain, severe (8-10) Last Admin: 06/16/18 03:35 Dose: 2 mg Ondansetron HCl (Zofran Inj) 4 mg IVP Q4H PRN PRN Reason: Nausea/Vomiting Last Admin: 06/16/18 10:37 Dose: 4 mg - Labs Labs: PT 21.6 SECONDS (9.7-12.2) H 06/15/18 11:53 INR 2.0 06/15/18 11:53 - Constitutional Appears: Chronically Ill - Head Exam Head Exam: ATRAUMATIC, NORMOCEPHALIC - Eye Exam Eye Exam: EOMI - Respiratory Exam Respiratory Exam: Accessory Muscle Use, Decreased Breath Sounds, Clear to Ausculation Bilateral. absent: Rales, Rhonchi, Wheezes - Cardiovascular Exam Cardiovascular Exam: RRR, +S1, +S2 - GI/Abdominal Exam GI & Abdominal Exam: Distended, Soft, Tenderness - Extremities Exam Additional comments: edematous in all extremities. - Neurological Exam Neurological Exam: absent: Alert - Psychiatric Exam Psychiatric exam: Flat Affect. absent: Normal Affect - Skin Skin Exam: Dry, Intact, Warm Assessment and Plan - Assessment and Plan (Free Text) Assessment: 53yo M with metastatic pancreatic cancer admitted under hospice service. Pt for thoracentesis this weekend. Plan: Comfort care for patient with worsening metastatic pancreatic CA - Ensure Enlive 1/day - Zofran 4mg IV Q4 prn nausea - Morphine Drip. - O2 NRB prn - IR consulted for therapeutic thoracentesis, Dr. Wetzel - f/u Urinary Retention -Straight Cath PRN PPx: - SCDs - advance diet as tolerated Pt seen and case reviewed with Dr. Jf Harley, PGY-2 <Katya Rhoades - Last Filed: 06/16/18 20:33> Objective - Vital Signs/Intake and Output Vital Signs (last 24 hours): Temp Pulse Resp BP Pulse Ox 98.6 F 93 H 8 L 93/57 L 92 L 06/16/18 15:58 06/16/18 15:58 06/16/18 15:58 06/16/18 15:58 06/16/18 15:58 - Medications Medications: Current Medications Morphine Sulfate 250 mg/ (Dextrose) 250 mls @ 4 mls/hr IV .Q24H PRN; Protocol PRN Reason: Pain, severe (8-10) Last Admin: 06/16/18 16:13 Dose: 4 mls/hr, 4 mls/hr Ondansetron HCl (Zofran Inj) 4 mg IVP Q4H PRN PRN Reason: Nausea/Vomiting Last Admin: 06/16/18 10:37 Dose: 4 mg - Labs Labs: PT 21.6 SECONDS (9.7-12.2) H 06/15/18 11:53 INR 2.0 06/15/18 11:53 Attending/Attestation - Attestation I have personally seen and examined this patient.: Yes I have fully participated in the care of the patient.: Yes I have reviewed all pertinent clinical information, including history, physical exam and plan: Yes Notes (Text): Lethargic on examination.Arousable,denies abd pain,c/p chest pain ,pointed port site no discomfort continue mornphine drip and increase the dose d/w RN
[2018-06-16] MEDS ORDERED: Morphine Sulfate 250 MG in Dextrose 5% In Water 240 ML IV PRN (11:11)
[2018-06-16] MEDS: Morphine Sulfate 250 MG in Dextrose 5% In Water 240 ML IV PRN (16:13)
--- NOTE | 2018-06-17 06:52 | CP.PCM.PN ---
Subjective - Date & Time of Evaluation Date of Evaluation: 06/17/18 Time of Evaluation: 06:52 - Subjective Subjective: PGY-[address] Rhoades Patient's pain seems overall improved, however he still is complaining of abdominal pain and intermittent nausea. No acute events overnight. Awaiting thoracentesis with IR - will f/u. Will continue care with the goal of comfort. Objective - Vital Signs/Intake and Output Vital Signs (last 24 hours): Temp Pulse Resp BP Pulse Ox 98.6 F 93 H 8 L 93/57 L 92 L 06/16/18 15:58 06/16/18 15:58 06/16/18 15:58 06/16/18 15:58 06/16/18 15:58 - Medications Medications: Current Medications Morphine Sulfate 250 mg/ (Dextrose) 250 mls @ 4 mls/hr IV .Q24H PRN; Protocol PRN Reason: Pain, severe (8-10) Last Admin: 06/16/18 16:13 Dose: 4 mls/hr, 4 mls/hr Ondansetron HCl (Zofran Inj) 4 mg IVP Q4H PRN PRN Reason: Nausea/Vomiting Last Admin: 06/16/18 10:37 Dose: 4 mg - Labs Labs: PT 21.6 SECONDS (9.7-12.2) H 06/15/18 11:53 INR 2.0 06/15/18 11:53 - Constitutional Appears: Chronically Ill - Eye Exam Eye Exam: EOMI - ENT Exam ENT Exam: Mucous Membranes Moist - Neck Exam Neck Exam: Full ROM - Respiratory Exam Respiratory Exam: Decreased Breath Sounds - Cardiovascular Exam Cardiovascular Exam: REGULAR RHYTHM, +S1, +S2 - GI/Abdominal Exam GI & Abdominal Exam: Soft, Tenderness (Mild tenderness most noticeable RLQ) - Extremities Exam Extremities Exam: Pedal Edema - Neurological Exam Neurological Exam: Alert, Awake, Oriented x3 - Psychiatric Exam Psychiatric exam: Depressed - Skin Skin Exam: Dry, Intact Assessment and Plan - Assessment and Plan (Free Text) Assessment: 53yo M with metastatic pancreatic cancer admitted under hospice service. Pt for thoracentesis this weekend. Plan: Comfort care for patient with worsening metastatic pancreatic CA - Ensure Enlive 1/day - Zofran 4mg IV Q4 prn nausea - Morphine Drip. - O2 NRB prn - IR consulted for therapeutic thoracentesis, Dr. Wetzel - f/u Urinary Retention -Straight Cath PRN PPx: - SCDs - advance diet as tolerated Pt seen and case reviewed with Dr. Jf Harley, PGY-2
[2018-06-17] MEDS: Morphine Sulfate 250 MG in Dextrose 5% In Water 240 ML IV PRN (12:36)
[2018-06-18 08:27] VITALS: BP 108/64; PULSE 90; RESP 20; TEMP 99.1; O2SAT 93
--- NOTE | 2018-06-18 10:52 | CP.PCM.PRO ---
Pronouncement of Note - Clinical Findings Physical Exam: No Response Verbal/Painful Stimuli, Absent Peripheral Puls es{Carotid & Femoral}, Absent Heart & Breath Sounds, No Pupillary Light Reflex, No Corneal Reflex, Pupils Fixed & Dilated, Absence of Vital Signs - Pronouncement Time Time of Pronouncement of : 10:45 - Notifications Pronouncement Notifications: Family Notified, Atending Notified
--- NOTE | 2018-06-18 16:55 | CP.PCM.DIS ---
<Chuck Jean Baptiste - Last Filed: 06/18/18 17:01> Provider - Provider Date of Admission: 06/14/18 10:47 Attending physician: Katya Rhoades MD Consults: 06/14/18 17:02 Radiology Consult Routine Comment: Consulting Provider: Alvaro Wetzel Consulting Physician: Alvaro Wetzel Reason for Consult: Thoracentesis Time Spent in preparation of Discharge (in minutes): 45 Diagnosis - Discharge Diagnosis (1) Pancreatic carcinoma metastatic to liver Status: Acute Hospital Course - Lab Results Lab Results: Most Recent Lab Values PT 21.6 SECONDS (9.7-12.2) H 06/15/18 11:53 INR 2.0 06/15/18 11:53 - Hospital Course Hospital Course: Patient this morning. See pronouncement note. He was on hospice care since 06/13/18 with the treatment plan outlined below. No other clinical events during hospice course, lab work had been discontinued and patient treated as comfort care. See prior records for pre-hospice hospital course. Assessment: 53yo M with metastatic pancreatic cancer admitted under hospice service. Pt for thoracentesis this weekend. Plan: Comfort care for patient with worsening metastatic pancreatic CA - Ensure Enlive 1/day - Zofran 4mg IV Q4 prn nausea - Morphine Drip. - O2 NRB prn - IR consulted for therapeutic thoracentesis, Dr. Wetzel - f/u Urinary Retention -Straight Cath PRN PPx: - SCDs - advance diet as tolerated Case reviewed with Dr. Stephanie Jean Baptiste, PGY-1 Discharge Exam - Head Exam Head Exam: ATRAUMATIC, NORMOCEPHALIC - Eye Exam Additional comments: absent pupillary reflex - Respiratory Exam Additional comments: absent breath sounds - GI/Abdominal Exam GI & Abdominal Exam: Distended, Firm - Skin Additional comments: jaundiced Discharge Plan - Follow Up Plan Condition: GOOD Disposition: WITH WITHOUT AUTOPSY <Harsh Brown - Last Filed: 06/18/18 17:40> Provider - Provider Date of Admission: 06/14/18 10:47 Attending physician: Katya Rhoades MD Consults: 06/14/18 17:02 Radiology Consult Routine Comment: Consulting Provider: Alvaro Wetzel Consulting Physician: Alvaro Wetzel Reason for Consult: Thoracentesis Hospital Course - Lab Results Lab Results: Most Recent Lab Values PT 21.6 SECONDS (9.7-12.2) H 06/15/18 11:53 INR 2.0 06/15/18 11:53 Attending/Attestation - Attestation I have personally seen and examined this patient.: Yes I have fully participated in the care of the patient.: Yes I have reviewed all pertinent clinical information, including history, physical exam and plan: Yes Notes (Text): 06/18/18 17:39 Medical attending: Patient today 10:45 AM. I filled out the EDRS and the case ID was [id number] Patient's family members were at the bedside and I offered them my condolences EDRS was filled out and a print out given to unit staff thank you Harsh Brown
== END 2018-06-18 15:35 | DRG 436 ==
LOC: C.5S 10:47
PROVIDERS: ADMIT Internal Medicine; ATTEND Internal Medicine
DX: C25.9 Malignant neoplasm of pancreas, unspecified (principal); C78.7 Secondary malignant neoplasm of liver and intrahepatic bile duct; I10 Essential (primary) hypertension; J45.909 Unspecified asthma, uncomplicated; Z51.5 Encounter for palliative care; Z79.4 Long term (current) use of insulin; Z86.711 Personal history of pulmonary embolism; Z89.511 Acquired absence of right leg below knee; Z89.512 Acquired absence of left leg below knee; E10.9 Type 1 diabetes mellitus without complications